=== PATIENT | female | born 1975 | race Two or more races ===

== ENCOUNTER 2020-03-28 11:18 | Outpatient (REF) | payer MEDICAID, SELFPAY ==
--- NOTE | 2020-03-28 | US_ITS ---
EXAMINATION: PELVIC ULTRASOUND CLINICAL INFORMATION: Leiomyoma of uterus. Pelvic and perineal pain. COMPARISON: Previous exams most recent January 2019 TECHNIQUE: Transabdominal and transvaginal pelvic ultrasound was performed. Transvaginal exam was performed for better visualization of the uterus and ovaries. FINDINGS: The uterus is anteverted and anteflexed and measures 9.1 x 3 x 4.5 cm in dimension. There is a hypoechoic lesion in the posterior uterine body suggestive of an intramural fibroid. This does not appear appreciably changed and measures 8 x 4 x 7 mm. There are several uterine calcifications that are unchanged. Endometrial thickness is normal estimated at 0.7 cm. There are nabothian cysts in the cervix. The ovaries are normal-appearing. The right ovary measures 1.9 x 1.2 x 1.6 cm and the left ovary measures 2.1 x 1.6 x 1.5 cm. There is no fluid in the pelvis. IMPRESSION: Small posterior uterine body intramural fibroid similar to previous exam. Several small uterine calcifications similar to previous exam. Normal-appearing ovaries.
== END 2020-03-28 11:19 | disposition home or self-care (01) ==
LOC: HO.US 11:18
PROVIDERS: Visit Provider Advanced Practice Midwife
DX: D25.9 Leiomyoma of uterus, unspecified (principal); R10.2 Pelvic and perineal pain
CPT/HCPCS: 76830; 76856

== ENCOUNTER → 2020-05-02 12:26 | Outpatient (BNVA) | payer MEDICAID, SELFPAY | PROVIDERS: PCP Nurse Practitioner Family; Referring Provider Nurse Practitioner Family; Visit Provider Internal Medicine | DX: R07.2 Precordial pain (principal); R94.31 Abnormal electrocardiogram [ECG] [EKG] | CPT/HCPCS: 93005; 99202 ==

== ENCOUNTER 2020-05-05 11:31 | Emergency (ER) | payer MEDICAID, SELFPAY ==
--- NOTE | 2020-05-05 11:52 | US_ITS ---
EXAMINATION: PELVIC ULTRASOUND CLINICAL INFORMATION: Lower abdominal pain. COMPARISON: Pelvic ultrasound most recent March 2020 TECHNIQUE: Transabdominal and transvaginal pelvic ultrasound performed. FINDINGS: Uterus: 8.7 x 4.2 x 5.1 cm. Endometrial thickness is 8 cm. Heterogeneous hypoechoic peripheral intramural solid mass in the posterior body compatible with fibroid measuring 7 mm. No change. Right ovary: Not seen. Left ovary: 3.1 x 2.5 x 2.2 cm with a volume of 8.9 mL. 1.5 cm cyst. Nabothian cysts noted. US/US transvaginal IMPRESSION: No acute abnormality. Stable small uterine fibroid. Small left ovarian cyst.
--- NOTE | 2020-05-05 11:52 | US_ITS ---
EXAMINATION: PELVIC ULTRASOUND CLINICAL INFORMATION: Lower abdominal pain. COMPARISON: Pelvic ultrasound most recent March 2020 TECHNIQUE: Transabdominal and transvaginal pelvic ultrasound performed. FINDINGS: Uterus: 8.7 x 4.2 x 5.1 cm. Endometrial thickness is 8 cm. Heterogeneous hypoechoic peripheral intramural solid mass in the posterior body compatible with fibroid measuring 7 mm. No change. Right ovary: Not seen. Left ovary: 3.1 x 2.5 x 2.2 cm with a volume of 8.9 mL. 1.5 cm cyst. Nabothian cysts noted. US/US pelvic complete IMPRESSION: No acute abnormality. Stable small uterine fibroid. Small left ovarian cyst.
[2020-05-05 11:53] VITALS: BP 109/70; PULSE 91; RESP 18; TEMP 36.8; O2SAT 99; BMI 31.6
--- NOTE | 2020-05-05 12:00 | ED.FEMALEGU ---
HPI - Female Genitourinary General Chief complaint: Abdominal Pain Stated complaint: abd pain Time Seen by Provider: 05/05/20 11:52 Source: patient Mode of arrival: ambulatory Limitations: no limitations History of Present Illness MD elicited complaint: other (pelvic pain, missed last period) Pertinent past history: tubal ligation Onset (ago): week(s) (2) Location of symptoms: suprapubic and pelvis Severity: moderate Female Urogenital Radiation: Non-Radiating Quality of pain: cramping Consistency: intermittent Vaginal discharge: none Vaginal bleeding: none Exacerbating factors: none Relieving factors: none Associated symptoms: denies other symptoms Treatment prior to arrival: none Patient : No Related Data Home Medications Medication Instructions Recorded Confirmed atorvastatin 20 mg tablet 20 mg PO DAILY 05/02/20 05/02/20 cholecalciferol (vitamin D3) 25 25 mcg PO DAILY 05/02/20 05/02/20 mcg (1,000 unit) capsule Previous Rx's Medication Instructions Recorded cyclobenzaprine 10 mg PO TID PRN #14 tab 05/05/20 Allergies Allergy/AdvReac Type Severity Reaction Status Date / Time No Known Allergies Allergy Verified 05/02/20 12:42 [No Known Allergies*] Review of Systems Review of Systems: Constitutional : No Weight loss, No Fever, No Chills ENT/Mouth : No sore throat, No Rhinorrhea Eyes: No Swelling, No Redness Cardiovascular : No Chest Pain, No SOB, NoEdema Respiratory : No Cough, No Sputum, No Wheezing Gastrointestinal : no Nausea, no Vomiting, no Diarrhea, positive abdominal Pain, No Hematochezia, No Melena Genitourinary : No Dysuria, No Urinary Frequency, No Hematuria, No Urgency, missed menses Musculoskeletal : No joint pain, No Myalgias, No Joint Swelling Skin : No Skin Lesions, No rash Neuro : No Weakness, No Numbness, No Dizziness, No Headache Psych : No Anxiety/Panic, No Depression Heme/Lymph: No Bruising, No Lymphadenopathy Endocrine : No Polyuria, No Polydipsia All other systems reviewed and are negative. FOR[facility]LY [facility], [facility] Past Medical History Medical History Anxiety and depression Hyperlipidemia Iron (Fe) deficiency anemia Migraine Pulmonary hypertension Vitamin D deficiency Surgical History History of tubal ligation Family History Family History Father Cardiovascular disease Mother Heart valve disease Social History Social History Alcohol intake: never Smoking Status: Never smoker Use of substances other than those prescribed or required for medical reasons: No Advance Directives: No Advance Directives Information Provided: No Physical Exam Vital Signs: Vital Signs: Last Vital Signs Temp 97.9 F 05/05/20 15:27 Pulse 56 05/05/20 15:27 Resp 18 05/05/20 15:27 BP 116/74 05/05/20 15:27 Pulse Ox 99 05/05/20 15:27 Body Mass Index 31.6 Appearance: Alert. Oriented X3. No acute distress. Eyes: Pupils equal, round and reactive to light. ENT: Pharynx normal. Neck: Normal inspection. Neck supple. CVS: Normal heart rate and rhythm. Pulses normal. Respiratory: No respiratory distress. Breath sounds normal. Abdomen: Soft and mild suprapubic ttp and lower pelvic pain no mass felt Skin: Skin warm and dry. Normal skin color. Normal skin turgor. Extremities: No lower extremity edema. No calf ttp Neuro: Oriented X 3. No motor deficit. No sensory deficit. Course Course Course Narrative: no acute findings stable for DC MDM - Female Genitourinary MDM Narrative Medical decision making narrative: 45 yo female with of tubal ligation and hx of of early menopause in family member - pain feels like cramping she is worried she is pregant at this time, will need labs, US to evaluate ovaries and uterus, PO pain control, if US negative will obtain CT scan, dispo per results and findings. Lab Data Result diagrams: 05/05/20 12:17 05/05/20 12:17 Labs: Lab Results 05/05/20 05/05/20 05/05/20 Range/Units 12:17 12:17 12:17 WBC 6.2 (4.8-10.8) X10*3/uL RBC 4.16 L (4.20-5.50) X10*6/uL Hgb 11.5 L (12.0-16.0) g/dl Hct 35.5 L (37-47) % MCV 85.3 (80-98) fL MCH 27.6 (27.0-33.0) pg MCHC 32.4 (31.0-35.0) g/dl RDW 12.9 (11.0-16.0) % Plt Count 354 (160-400) X10*3/uL MPV 9.2 L (9.4-12.3) fL Immature Gran % (Auto) 0.3 (0.0-0.4) % Neut % (Auto) 46.9 (45-73) % Lymph % (Auto) 36.7 (20-40) % [place] % (Auto) 13.5 H (2-11) % Eos % (Auto) 1.5 (0-4) % Baso % (Auto) 1.1 (0-2) % Lymph # (Auto) 2.3 (1.2-4.9) X10*3/uL [place] # (Auto) 0.8 (0.1-1.2) X10*3/uL Eos # (Auto) 0.1 (0.0-0.4) X10*3/uL Baso # (Auto) 0.1 (0.0-0.2) X10*3/uL Abs Immat Gran (auto) 0.02 (0.00-0.03) X10*3/uL Absolute Neuts (auto) 2.9 (2.0-8.3) X10*3/uL Absolute Nucleated RBC 0.000 (0.0-0.012) X10*3/uL Nucleated RBC % (auto) 0.0 (0.0-0.2) /100WBC Hold Blue Top SEE NOTE Sodium 140 (135-145) mmol/L Potassium 3.6 (3.3-5.1) mmol/l Chloride 107 (96-108) mmol/L Carbon Dioxide 25 (22-29) mmol/L Anion Gap 12 (12-20) BUN 7 L (9-16) mg/dL Creatinine 0.72 (0.5-1.4) mg/dL Estim Creat Clear Calc 80.1 Estimated GFR > 60 Random Glucose 88 (60-115) mg/dL Calcium 8.4 (8.4-10.2) mg/dL Magnesium 1.8 (1.6-2.6) mg/dL Total Bilirubin 0.4 (0.0-1.0) mg/dL Direct Bilirubin 0.2 (0.0-0.5) mg/dL AST 18 (5-31) U/L ALT 14 (0-31) U/L Alkaline Phosphatase 43 (39-117) U/L Total Protein 6.8 (6.5-8.0) g/dL Albumin 3.6 (3.5-5.0) g/dL Lipase 18 (8-78) U/L Urine Color Urine Appearance Urine pH (5.0-8.0) Ur Specific [place] (1.005-1.025) Urine Protein (NEG-TRACE) MG/DL Urine Glucose (UA) (NEG) MG/DL Urine Ketones (NEG) MG/DL Urine Blood (NEG) Urine Nitrite (NEG) Ur Leukocyte Esterase (NEG) Urine Test (NEGATIVE) 05/05/20 Range/Units 12:26 WBC (4.8-10.8) X10*3/uL RBC (4.20-5.50) X10*6/uL Hgb (12.0-16.0) g/dl Hct (37-47) % MCV (80-98) fL MCH (27.0-33.0) pg MCHC (31.0-35.0) g/dl RDW (11.0-16.0) % Plt Count (160-400) X10*3/uL MPV (9.4-12.3) fL Immature Gran % (Auto) (0.0-0.4) % Neut % (Auto) (45-73) % Lymph % (Auto) (20-40) % [place] % (Auto) (2-11) % Eos % (Auto) (0-4) % Baso % (Auto) (0-2) % Lymph # (Auto) (1.2-4.9) X10*3/uL [place] # (Auto) (0.1-1.2) X10*3/uL Eos # (Auto) (0.0-0.4) X10*3/uL Baso # (Auto) (0.0-0.2) X10*3/uL Abs Immat Gran (auto) (0.00-0.03) X10*3/uL Absolute Neuts (auto) (2.0-8.3) X10*3/uL Absolute Nucleated RBC (0.0-0.012) X10*3/uL Nucleated RBC % (auto) (0.0-0.2) /100WBC Hold Blue Top Sodium (135-145) mmol/L Potassium (3.3-5.1) mmol/l Chloride (96-108) mmol/L Carbon Dioxide (22-29) mmol/L Anion Gap (12-20) BUN (9-16) mg/dL Creatinine (0.5-1.4) mg/dL Estim Creat Clear Calc Estimated GFR Random Glucose (60-115) mg/dL Calcium (8.4-10.2) mg/dL Magnesium (1.6-2.6) mg/dL Total Bilirubin (0.0-1.0) mg/dL Direct Bilirubin (0.0-0.5) mg/dL AST (5-31) U/L ALT (0-31) U/L Alkaline Phosphatase (39-117) U/L Total Protein (6.5-8.0) g/dL Albumin (3.5-5.0) g/dL Lipase (8-78) U/L Urine Color YELLOW Urine Appearance CLOUDY Urine pH 5.5 (5.0-8.0) Ur Specific [place] >= 1.030 H (1.005-1.025) Urine Protein TRACE (NEG-TRACE) MG/DL Urine Glucose (UA) NEG (NEG) MG/DL Urine Ketones 5 (NEG) MG/DL Urine Blood NEG (NEG) Urine Nitrite NEG (NEG) Ur Leukocyte Esterase NEG (NEG) Urine Test NEGATIVE (NEGATIVE) Discharge Plan Discharge Clinical Impression: Abdominal pain Qualifiers: Abdominal location: lower abdomen, unspecified Qualified Code(s): R10.30 - Lower abdominal pain, unspecified Ovarian cyst Qualifiers: Laterality: left Qualified Code(s): N83.202 - Unspecified ovarian cyst, left side Patient Disposition: Home, Self-Care Instructions: Pelvic Pain (ED) Additional Instructions: return to ED for any worsening symptoms or concerns FINDINGS: Uterus: 8.7 x 4.2 x 5.1 cm. Endometrial thickness is 8 cm. Heterogeneous hypoechoic peripheral intramural solid mass in the posterior body compatible with fibroid measuring 7 mm. No change. Right ovary: Not seen. Left ovary: 3.1 x 2.5 x 2.2 cm with a volume of 8.9 mL. 1.5 cm cyst. Nabothian cysts noted. US/US pelvic complete IMPRESSION: No acute abnormality. Stable small uterine fibroid. Small left ovarian cyst. Prescriptions: New cyclobenzaprine 10 mg tablet 10 mg PO TID PRN (Reason: muscle spasm) Qty: 14 RF: 0 No Action cholecalciferol (vitamin D3) 25 mcg (1,000 unit) capsule 25 mcg PO DAILY RF: 0 atorvastatin 20 mg tablet 20 mg PO DAILY RF: 0 Referrals: [facility] [Primary Care Provider] - 2 days (if not better) Stand Alone Forms: Work/School Release
[2020-05-05 12:22] LABS: MANUAL DIFF FLAG NO
[2020-05-05] MEDS: HYDROcodone Bit/Acetam 5/325 TABLET 1 TAB PO (12:24)
[2020-05-05 12:25] LABS: Basophils Absolute Auto 0.1 X10*3/uL (0.0-0.2); Basophils Percent Auto 1.1 % (0-2); Eosinophils Absolute Auto 0.1 X10*3/uL (0.0-0.4); Eosinophils Percent Auto 1.5 % (0-4); Hematocrit 35.5 % (37-47); Hemoglobin 11.5 g/dl (12.0-16.0); Imm Gran Abs Auto 0.02 X10*3/uL (0.00-0.03); Imm Gran Pct Auto 0.3 % (0.0-0.4); Lymphocytes Absolute Auto 2.3 X10*3/uL (1.2-4.9); Lymphocytes Percent Auto 36.7 % (20-40); Mean Corpuscular HGB Conc 32.4 g/dl (31.0-35.0); Mean Corpuscular Hemoglobin 27.6 pg (27.0-33.0); Mean Corpuscular Volume 85.3 fL (80-98); Mean Platelet Volume 9.2 fL (9.4-12.3); Monocytes Absolute Auto 0.8 X10*3/uL (0.1-1.2); Monocytes Percent Auto 13.5 % (2-11); Neutrophils Absolute Auto 2.9 X10*3/uL (2.0-8.3); Neutrophils Percent Auto 46.9 % (45-73); Platelet Count 354 X10*3/uL (160-400); Red Blood Count 4.16 X10*6/uL (4.20-5.50); Red Cell Distribution Width 12.9 % (11.0-16.0); White Blood Count 6.2 X10*3/uL (4.8-10.8)
--- NOTE | 2020-05-05 12:28 | PC.NURSE ---
iv inserted, labs drawn, urine obtained, vss, medicated per order, patient awaiting ultrasound, will continue to monitor.
[2020-05-05 12:37] LABS: Glucose Urine UA NEG (NEG); Leukocyte Esterase Urine NEG (NEG); Nitrite Urine NEG (NEG); PH 5.5 (5.0-8.0); Specific Gravity - Urine >= 1.030 (1.005-1.025); Urine Blood NEG (NEG); Urine Ketones 5 MG/DL (NEG); Urine Protein TRACE MG/DL (NEG-TRACE)
[2020-05-05 12:43] LABS: Appearance Urine CLOUDY; Color Urine YELLOW
[2020-05-05 12:44] LABS: UPreg QC Valid YES; Urine Pregnancy NEGATIVE (NEGATIVE)
[2020-05-05 12:51] LABS: Alanine Aminotransferase 14 U/L (0-31); Albumin Level 3.6 g/dL (3.5-5.0); Alkaline Phosphatase 43 U/L (39-117); Anion Gap 12 (12-20); Aspartate Amino Transferase 18 U/L (5-31); Bilirubin Direct 0.2 mg/dL (0.0-0.5); Bilirubin Total 0.4 mg/dL (0.0-1.0); Blood Urea Nitrogen 7 mg/dL (9-16); Calcium 8.4 mg/dL (8.4-10.2); Carbon Dioxide 25 mmol/L (22-29); Chloride 107 mmol/L (96-108); Creatinine Clr Calc Pharmacy 80.1; Estimated Glomerular Filt Rate > 60; Glucose Random 88 mg/dL (60-115); Lipase 18 U/L (8-78); Magnesium 1.8 mg/dL (1.6-2.6); Potassium 3.6 mmol/l (3.3-5.1); Sodium 140 mmol/L (135-145); Total Protein 6.8 g/dL (6.5-8.0)
[2020-05-05 14:00] VITALS: BP 113/76; PULSE 57; RESP 14; TEMP 36.8; O2SAT 98
--- NOTE | 2020-05-05 14:13 | CT_ITS ---
EXAMINATION: CT ABDOMEN AND PELVIS WITHOUT CONTRAST CLINICAL INFORMATION: Lower abdominal pain for 2 weeks. COMPARISON: Pelvic ultrasound performed same day TECHNIQUE: Multidetector volumetric imaging was performed from the superior aspect of the liver through the pubic symphysis. Sagittal and coronal reformatted images were obtained on the technologist's workstation. This CT examination was performed using dose optimization techniques as appropriate, variously including the following: *Automated exposure control *Adjustment of mA and/or kV according to patient size (this includes techniques or standardized protocols for targeted exams where dose is matched to indication/reason for exam; i.e. extremities or head) *Use of iterative reconstruction technique DLP: 540 mGy-cm FINDINGS: LUNG BASES: The visualized lung bases are unremarkable. LIVER, GALLBLADDER, AND BILIARY TREE: The liver is normal in size, shape, and attenuation. No focal hepatic lesion or biliary ductal dilatation is present. The gallbladder is unremarkable with no evidence of radiopaque gallstones, gallbladder wall thickening, or obvious pericholecystic inflammatory changes. PANCREAS: Unremarkable. SPLEEN: Unremarkable. ADRENAL GLANDS: Unremarkable. KIDNEYS AND URETERS: The kidneys are normal in size, shape, and attenuation. No hydronephrosis, hydroureter, or calculi seen. No perinephric stranding. BLADDER: Unremarkable. GASTROINTESTINAL TRACT: Appendix not clearly visualized. However no inflammatory changes noted in the right lower quadrant. Large and small bowel within normal limits. Stomach normal. ABDOMINAL WALL: No significant hernia is appreciated. LYMPH NODES: Normal. VASCULAR: Unremarkable. PELVIC VISCERA: Unremarkable. OSSEOUS STRUCTURES: Unremarkable. CT/CT abdomen pelvis wo con IMPRESSION: No significant abnormality.
[2020-05-05 15:27] VITALS: BP 116/74; PULSE 56; RESP 18; TEMP 36.6; O2SAT 99
--- NOTE | 2020-05-05 15:29 | PC.NURSE ---
patient a&ox3, watching tv, pt states her pain is a 4/10, pt awaiting for ct scan results, vss, will continue to monitor.
== END 2020-05-05 16:43 | disposition home or self-care (01) ==
PROVIDERS: Emergency Provider Emergency Medicine
DX: N83.202 Unspecified ovarian cyst, left side (principal); R10.30 Lower abdominal pain, unspecified; R10.2 Pelvic and perineal pain; Z79.899 Other long term (current) drug therapy
CPT/HCPCS: 36415; 74176; 76830; 76856; 80048; 80076; 81003; 81025; 83690; 83735; 85025; 99284

== ENCOUNTER 2020-05-17 14:48 | Outpatient (REF) | payer MEDICAID, SELFPAY ==
[2020-05-18 03:36] LABS: CT PCR NOT DETECTED (Not Detect.); NG PCR NOT DETECTED (Not Detect.)
[2020-05-21 03:11] LABS: HPV mRNA E6/E7 rflx Not Detected (Not Detected)
== END 2020-05-17 14:49 | disposition home or self-care (01) ==
LOC: HO.LAB 14:48
PROVIDERS: Visit Provider Advanced Practice Midwife
DX: Z01.419 Encounter for gynecological examination (general) (routine) without abnormal findings (principal); Z11.8 Encounter for screening for other infectious and parasitic diseases; Z11.3 Encounter for screening for infections with a predominantly sexual mode of transmission; Z11.51 Encounter for screening for human papillomavirus (HPV)
CPT/HCPCS: 87491; 87591; 87624; 87625; 88142

== ENCOUNTER → 2020-05-27 07:51 | Outpatient (REF) | payer MEDICAID, SELFPAY ==
--- NOTE | 2020-05-27 07:55 | CA_ITS ---
Acquisition Time: 2020-05-27 09:18:22 Total Exercise Time: 00:08:09 Test Indications: Chest Pain Medications: ATORVASTATIN VIT D Protocol: FRANCY Max HR: 164 BPM 94% of Pred: 174 BPM Max BP: 140/072 mmHG Max Work Load: 10.1 METS Exercise stress test using Francy protocol, total of 8 min 9 sec. METS 10.1 and MHR upp to 94 %. Pt tolerated well, denies any anginal sx. EKG without any arrhythmias. T wave inversions seen in leads 2, 3, aVF, and V4-V6. Normotensive response to exercise. Test reviewed with Dr. Fernandez. Referred By: Ortiz Erwin Overread By: Coco Friedman
--- NOTE | 2020-05-27 07:55 | CA_ITS ---
Transthoracic Echocardiogram Patient (Last, First, Middle): Zoila Petersen, Gender: Female Date of : 1975 Age: 45 Procedure Date: 05/27/2020 Procedure Type: Transthoracic Echocardiogram Location: OP Height: 147.32 cm Weight: 75.75 kg BSA: 1.69 m2 Heart Rate: bpm BP: 100 / 60 mmHg Filler Room Attendant: NEIL Referring MD: Ortiz Erwin MD Diamond Grader: Roger Fernandez MD Symptoms: R07.2 - Precordial pain Study Quality: Good ECG Rhythm: Sinus Conclusions: - Essentially normal study Findings Left Ventricle Normal left ventricular size, thickness, and systolic function. The visually estimated ejection fraction is between 65-70%. Diastolic function is normal for age. Right Ventricle Normal right ventricular cavity size and systolic function. Atria Both atria are normal in size. There is no evidence of interatrial shunt. Aortic Valve Normal aortic valve structure and function. There is no aortic valve stenosis. There is no aortic valve regurgitation. Mitral Valve Normal mitral valve structure and function. There is trace mitral valve regurgitation. There is no mitral valve stenosis. Pulmonic Valve There is trace pulmonic valve regurgitation. Tricuspid Valve Normal tricuspid valve structure. There is trace tricuspid valve regurgitation. The right ventricular systolic pressure is normal. Normal right atrial pressure. There is no evidence of pulmonary hypertension. Great Vessels All visible segments of the aorta are normal in size. The pulmonary artery was not well visualized. Venous The inferior vena cava is normal in size and collapses greater than 50% with inspiration. Pericardium/Pleural There is no evidence of pericardial effusion. Prior Study Comparison No prior study available for comparison. Measurements 2D Linear Measurements IVSd: 0.66 0.6-0.9/0.6-1.0 cm LVIDd: 4.84 3.9-5.3/4.2-5.9 cm LVIDd Index: 2.86 2.4-3.2/2.2-3.1 cm/m2 LVIDs: 3.08 2.0-3.6 cm LVPWd: 0.68 0.7-1.1 cm Ao Root: 2.50 2.1-3.5 cm LA Diam: 3.70 2.7-3.8/3.0-4.0 cm LAIDs Index: 2.19 1.5-2.3 cm/m2 LV Mass: 127.56 67-162/88-224 g LV Mass Index: 75.48 43-95/49-115 g/m2 LVOT Diam: 1.80 3.0+(-)1.3 cm 2D Systolic Function EF 4C: 75.20 >55% EF 2C: 69.00 >55% EF BiP: 72.20 >55% Mitral Valve MV Pk E: 0.83 MV PK A: 0.60 MV Decel Time: 169.00 E/A: 1.40 E'Lateral: 12.50 E'Medial: 8.99 E/E' Med: 9.30 E/E' Lat: 6.70 PHT: 50.00 MVA PHT: 4.40 Decel Glasscock: 4.94 Aortic Valve AoV Pk Kuldip: 1.14 AoV Pk Grad: 5.00 LVOT LVOT Pk Kuldip: 1.03 LVOT Mn Kuldip: 0.65 LVOT VTI: 0.22 LVOT Pk Grad: 4.00 LVOT Mn Grad: 2.00 LVOT Diam: 1.80 LVOT Area: 2.54 Diastolic Function MV Pk E: 0.83 MV Pk A: 0.60 E/A: 1.40 E'Medial: 8.99 E/E' Med: 9.30 E' Laterial: 12.50 E/E' Lat: 6.70 Tricuspid Valve TR Pk Kuldip: 2.46 TR Pk Grad: 24.00 RA Press: 3.00 RVSP: 27.00 Great Vessels Aorta Ao Root-2D: 2.50 2.0-3.7 cm Ao Asc: 2.90 2.1-3.4 cm Ao Arch: 2.80 Updated in Other Vendor System with Status of Final Roger Fernandez MD electronically signed on 05/28/2020 11:23:23 AM with status of Final
== END ==
LOC: HO.CARD 07:51
PROVIDERS: Visit Provider Internal Medicine
DX: R07.2 Precordial pain (principal)
CPT/HCPCS: 93017; 93306

== ENCOUNTER 2020-05-31 11:30 | Outpatient (REF) | payer MEDICAID, SELFPAY ==
--- NOTE | 2020-05-31 11:35 | MM_ITS ---
EXAMINATION: MM SCREENING DIGITAL BREAST TOMOSYNTHESIS, BILATERAL CLINICAL INFORMATION: Screening. Asymptomatic. The lifetime risk of breast cancer based on the Tyrer-Cuzick Model is 7%. COMPARISON: Mammography: 01/02/18, 11/28/15, 03/25/15 TECHNIQUE: Digital breast tomosynthesis is performed in both the craniocaudal and mediolateral oblique views along with computer-aided detection (CAD). Synthesized 2D images are generated from the tomosynthesis. FINDINGS: There are scattered areas of fibroglandular density (ACR BI-RADS breast composition Category b). Right breast: There is a circumscribed oval equal density 3 cm mass or adjacent masses in the 9:00 position 7 cm from the right nipple. There is an additional circumscribed equal density oval mass in the superficial outer right breast. No suspicious right breast finding Left breast: There is no suspicious mass. There is no architectural distortion. There is no suspicious calcification MM/MM tomosynthesis screening BI IMPRESSION: Sharply circumscribed masses in the outer right breast. Report of previous ultrasound demonstrated cysts. No suspicious finding in either breast. ASSESSMENT: BI-RADS 2: Benign RECOMMENDATION: Routine annual mammography screening. This patient's information was entered into a reminder system with a target due date for their next mammogram.
== END 2020-05-31 11:31 | disposition home or self-care (01) ==
LOC: HO.MAMMO 11:30
PROVIDERS: PCP Nurse Practitioner Family; Visit Provider Advanced Practice Midwife
DX: Z12.31 Encounter for screening mammogram for malignant neoplasm of breast (principal)
CPT/HCPCS: 77063; 77067

== ENCOUNTER → 2020-06-02 15:25 | Outpatient (BNVA) | payer MEDICAID, SELFPAY | PROVIDERS: PCP Nurse Practitioner Family; Referring Provider Nurse Practitioner Family; Visit Provider Internal Medicine | DX: Z76.89 Persons encountering health services in other specified circumstances (principal) ==

== ENCOUNTER → 2020-06-10 10:28 | Outpatient (BNVA) | payer MEDICAID, SELFPAY | PROVIDERS: PCP Nurse Practitioner Family; Visit Provider Nurse Practitioner | DX: Z76.89 Persons encountering health services in other specified circumstances (principal) ==

== ENCOUNTER 2020-07-22 07:21 | Day surgery (SDC) | payer MEDICAID, SELFPAY ==
[2020-07-18 13:50] VITALS: BMI 32.3
[2020-07-18 15:34] VITALS: BMI 32.3
--- NOTE | 2020-07-21 08:30 | P.CONAN_ITS ---
Documented by User: Jennifer Reagan 07/21/20 08:37 HPI - Anesthesia Eval Consult details Narrative: 45yo F for Colonoscopy Cardiac cleared @ low risk [facility] Past Medical History Medical History Anxiety and depression Hyperlipidemia Iron (Fe) deficiency anemia Migraine Pulmonary hypertension Vitamin D deficiency Family History Family History Father Cardiovascular disease Mother Heart valve disease Surgical History Surgical History History of tubal ligation Social History Social History Alcohol intake: never Smoking Status: Never smoker Use of substances other than those prescribed or required for medical reasons: No Advance Directives Information Provided: No Recently lost weight without trying: No Gender identity: female Meds Allergies Allergy/AdvReac Type Severity Reaction Status Date / Time No Known Allergies Allergy Verified 07/22/20 07:49 [No Known Allergies*] Home Medications Medication Instructions Recorded Confirmed Type atorvastatin 20 mg tablet 20 mg PO DAILY 05/02/20 07/18/20 History cholecalciferol (vitamin D3) 25 25 mcg PO DAILY 05/02/20 07/18/20 History mcg (1,000 unit) capsule Exam Exam Date and Time: July 21, 2020 0830 Height,Weight and Vital Signs: Height 4 ft 10 in Weight 70.307 kg Pertinent Lab Results Pertinent Lab Results: Laboratory Tests 05/05/20 05/05/20 12:17 12:17 WBC 6.2 Hgb 11.5 L Hct 35.5 L Plt Count 354 Sodium 140 Potassium 3.6 Chloride 107 Carbon Dioxide 25 BUN 7 L Creatinine 0.72 Narrative Narrative: EKG 04/2020 NSR with SA @ 73 Cannot r/o anterior infarct, age undetermined Stress Report 05/27/20 Exercise stress test using James protocol, total of 8 min 9 sec. METS 10.1 and MHR upp to 94 %. Pt tolerated well, denies any anginal sx. EKG without any arrhythmias. T wave inversions seen in leads 2, 3, aVF, and V4-V6. Normotensive response to exercise. Test reviewed with Dr. Fernandez. ECHO 05/27/20 Conclusions: - Essentially normal study Assessment and Plan Assessment Anesthesia Assessment: Chart Reviewed Documented by User: Gordo Obregon 07/22/20 08:04 PMFSH Past Medical History Medical History Anxiety and depression Hyperlipidemia Iron (Fe) deficiency anemia Migraine Pulmonary hypertension Vitamin D deficiency Family History Family History Father Cardiovascular disease Mother Heart valve disease Surgical History Surgical History History of tubal ligation Social History Social History Alcohol intake: never Smoking Status: Never smoker Use of substances other than those prescribed or required for medical reasons: No Advance Directives Information Provided: No Recently lost weight without trying: No Gender identity: female Meds Allergies Allergy/AdvReac Type Severity Reaction Status Date / Time No Known Allergies Allergy Verified 07/22/20 07:49 [No Known Allergies*] Home Medications Medication Instructions Recorded Confirmed Type atorvastatin 20 mg tablet 20 mg PO DAILY 05/02/20 07/18/20 History cholecalciferol (vitamin D3) 25 25 mcg PO DAILY 05/02/20 07/18/20 History mcg (1,000 unit) capsule Exam Airway Mallampati Class: I TM Dist: >3cm Neck ROM: Full
[2020-07-22 07:58] VITALS: BP 125/75; PULSE 84; RESP 16; TEMP 36.3; O2SAT 99
[2020-07-22] MEDS: Lactated Ringers 1,000 ML 100 ML IVCONT (08:16)
--- NOTE | 2020-07-22 08:29 | P.OP_ITS ---
Operative Note Operative Note Date of Service: 07/22/20 Narrative: Pre-op diagnosis: Colon cancer screening, lower abdominal pain Post-op diagnosis: other (Colon polyp, diverticulosis, hemorrhoids) Procedure: COLONOSCOPY TILL CECUM WITH BIOPSIES Consent: Indications for the procedure and potential complications of bleeding, perforation, reaction to medications and missed diagnosis were discussed with the patient and informed consent was obtained. Instrument: Olympus PCF H 190 L variable stiffness pediatric colonoscope Monitoring: Vital signs and clinical assessment, intermittent blood pressure monitoring, continuous EKG monitoring, Pulse oximetry and Carbon Dioxide monitoring were done throughout the procedure. Colon withdrawl time was 14 minutes. Procedure: The patient was placed in the left lateral decubitis position and pre-procedure medications were administered. After a digital rectal examination of the ano-rectum, the video colonoscope was inserted into the rectum and advanced through the colon to the cecum. The colonoscope was slowly withdrawn in a retrograde panoramic fashion and the colon mucosa was carefully examined including a retroflexed view of the rectum. Findings and interventions are described below. Procedure Difficulty: Without difficulty Findings: Terminal Ileum: Not evaluated Cecum: Normal Ascending Colon: A 3-4 mm sessile polyp in the mid ascending colon, removed with cold biopsy. Transverse Colon: Normal Descending Colon: Normal Sigmoid Colon: Moderate diverticulosis Rectum: Normal Ano-rectum: Small internal hemorrhoids and perianal skin tags Colon preparation: Excellent Impression and Post Procedure Diagnosis: Colonoscopy Findings: One small polyp removed Random biopsies obtained from the colon. Moderate diverticulosis seen in the sigmoid colon Small hemorrhoids and perianal skin tags on retroflexed exam. Pt complains of intermittent constipation and denies any abdominal pain at present. She has been drinking prune juice. Plan: Await pathology results Patient has an appointment on 08/12/20 in the GI Clinic with Tawny Jean NP. Repeat Colonoscopy interval based on path results - in 5 years if polyps are adenomatous and 10 years if polyps are hyperplastic. 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 Random colon bx . AC polyp x 1, ) Condition: stable Disposition: PACU
--- NOTE | 2020-07-22 08:29 | MHC.SHP ---
Pre-Procedural Eval Section A The patient is an INPATIENT: No The History & Physical has been completed within 30 days and I have reviewed it.: No Section B Chief Complaint: lower abd pain Details of Present Illness: Colon cancer screening, lower abdominal pain Relevant Family History (Specify if Yes): No Relevant Social History: None Present Medications: see Short Stay Collaborative assessment Medical History: Significant History (Anxiety and depression Hyperlipidemia Iron (Fe) deficiency anemia Migraine Pulmonary hypertension Vitamin D deficiency) History of Previous Operations: Relevant previous surgery/procedure and date(s) (BTL) Allergies: Allergies Allergy/AdvReac Type Severity Reaction Status Date / Time No Known Allergies Allergy Verified 07/22/20 07:49 [No Known Allergies*] Review of Systems Sugical H&P ROS: Negative: Constitution, Cardiovascular and Respiratory and Yes, Specify: Gastrointestinal (Lower abdominal pain) Exam Surgical H&P Exam: Normal: HEENT, Normal: Heart, Normal: Lungs and Normal: Abdomen Plan Diagnosis/Plan: Unchanged I have reviewed the history and physical and performed a pertinent physical examination on my patient. No changes have occurred unless specified.
[2020-07-22 09:10] VITALS: BP 95/59; PULSE 72; RESP 16; TEMP 37.3; O2SAT 97
[2020-07-22 09:25] VITALS: BP 113/74; PULSE 71; RESP 13; TEMP 37.3; O2SAT 98
--- NOTE | 2020-07-22 09:51 | HO.POSTANES ---
Post Anesthesia Evaluation Post Anesthesia Evaluation Vital Signs: Vital Signs Temp Pulse Resp BP Pulse Ox 07/22/20 09:25 99.2 F 71 13 113/74 98 07/22/20 09:10 99.2 F 72 16 95/59 L 97 07/22/20 07:58 97.3 F 84 16 125/75 99 Anesthesia: Monitored Mental Status: Awake Pain Control: Satisfactory Nausea/Vomiting: None Hydration: Adequate Anesthesia-Related Issues: No Anes. Related Issues
== END 2020-07-22 09:58 | disposition home or self-care (01) ==
PROVIDERS: Visit Provider Internal Medicine Gastroenterology
PROC: 0DJD8ZZ Inspection of Lower Intestinal Tract, Via Natural or Artificial Opening Endoscopic (ICD-10-PCS; CPT 45378; principal; 2020-07-22 08:40)
DX: R10.30 Lower abdominal pain, unspecified (principal); D12.2 Benign neoplasm of ascending colon; K57.30 Diverticulosis of large intestine without perforation or abscess without bleeding; K64.8 Other hemorrhoids; K64.4 Residual hemorrhoidal skin tags; I27.20 Pulmonary hypertension, unspecified; D50.9 Iron deficiency anemia, unspecified; E55.9 Vitamin D deficiency, unspecified; F32.9 Major depressive disorder, single episode, unspecified; Z79.899 Other long term (current) drug therapy; Z82.49 Family history of ischemic heart disease and other diseases of the circulatory system
CPT/HCPCS: 45380; 88305; J3010

== ENCOUNTER → 2020-08-12 09:42 | Outpatient (BNVA) | payer MEDICAID, SELFPAY | PROVIDERS: Visit Provider Nurse Practitioner ==

== ENCOUNTER 2020-10-20 15:00 | Outpatient (REF) | payer MEDICAID, SELFPAY ==
[2020-10-20 15:53] LABS: COVID-19 Test Negative (Negative)
== END 2020-10-20 15:01 | disposition home or self-care (01) ==
LOC: HO.LAB 15:00
PROVIDERS: Visit Provider Internal Medicine
DX: Z20.822 Contact with and (suspected) exposure to COVID-19 (principal)
CPT/HCPCS: 36415; 87635; C9803

== ENCOUNTER → 2021-02-09 08:52 | Outpatient (BNVA) | payer MEDICAID, SELFPAY | PROVIDERS: PCP Nurse Practitioner Family; Visit Provider Nurse Practitioner ==

== ENCOUNTER 2021-04-01 11:46 | Emergency (ER) | payer MEDICAID, SELFPAY ==
--- NOTE | ~2021-04-01 | US_ITS ---
EXAMINATION: US PELVIS CLINICAL INFORMATION: Vaginal bleeding COMPARISON: Ultrasound pelvis 05/05/2020 TECHNIQUE: Ultrasound of the pelvis is performed using both transabdominal and transvaginal transducers along with Doppler. Transvaginal imaging is performed due to inadequate visualization transabdominally. FINDINGS: Uterus: The uterus is anteverted and measures 9.4 x 4 x5 cm. Endometrial thickness 0.9 cm. Small fluid in the endometrial canal. Nabothian cysts in the cervix. Hypoechoic peripheral intramural mass in the posterior uterine body, probable fibroid, measuring 1.1 cm, similar to previous. Adnexa: Right ovary measures 2.6 x 1.5 x 2 , volume 4.1 mL. There is a 1.8 cm anechoic avascular cyst/follicle. Left ovary measures 3.1 x 1.7 x 2 cm, volume 7.7 mL. Left ovary appears unremarkable. No free fluid in the pelvis. US/US pelvic and transvaginal IMPRESSION: 1. There is a 1.1 cm hypoechoic uterine lesion, probable fibroid. 2. Right ovarian 1.8 cm cyst. 3. Otherwise unremarkable study.
[2021-04-01 12:56] VITALS: BP 113/80; PULSE 79; RESP 16; TEMP 36.1; O2SAT 96; BMI 32.1
--- NOTE | 2021-04-01 14:22 | ECG_ITS ---
Test Reason : VAGINAL BLEEDING Blood Pressure : / mmHG Vent. Rate : 068 BPM Atrial Rate : 068 BPM P-R Int : 132 ms QRS Dur : 082 ms QT Int : 400 ms P-R-T Axes : 045 008 002 degrees QTc Int : 425 ms Normal sinus rhythm with sinus arrhythmia Normal ECG No previous ECGs available Referred By: No Unger Electronically Signed By:RO WOOTEN MD
[2021-04-01 14:42] VITALS: BP 117/69; PULSE 59
[2021-04-01 14:46] VITALS: BP 127/79; PULSE 61
[2021-04-01 14:49] VITALS: BP 125/84; PULSE 76
--- NOTE | 2021-04-01 15:08 | ED_ITS ---
HPI - Female Genitourinary General Chief complaint: Vaginal Bleeding Stated complaint: vaginal bleeding Time Seen by Provider: 04/01/21 14:19 Source: patient Mode of arrival: ambulatory Limitations: no limitations History of Present Illness HPI Narrative: This is a 46-year-old female past medical history significant for pulmonary hypertension, migraine headaches, iron deficiency anemia who presents to the emergency department with vaginal bleeding and dizziness since March 17. She states she is going through 3-4 super tampons, and pads per day. She states the reason she came in today is because her dizziness has progressively worsening. She states earlier this week she was seen for the same complaints at [facility], where they prescribed her hormones to stop the bleeding, however the bleeding has not stopped, and it has worsened over the past few days. She also states that she was given Depo-Provera in January, to help with heavy menstrual bleeding. However this did not seem to help. Today she states she feels fatigued, and dizzy, she describes it as not being able to get her ba sebastian, and she also states that she feels generally weak. She denies chest pain, shortness of breath, abdominal pain, fevers, chills, recent sick contacts, vaginal discharge, dysuria, urinary frequency and urgency. She states she is up-to-date on her Pap smear screenings. She has had no abnormal results. She has tubal ligation. MD elicited complaint: vaginal bleeding Onset (ago): week(s) (Two) Severity: severe Consistency: constant and progressively worsening Vaginal discharge: none Vaginal bleeding: heavy, bright red and clots Exacerbating factors: urination Relieving factors: none Associated symptoms: weakness Treatment prior to arrival: other (Hormone replacement.) Patient : No Related Data Home Medications Medication Instructions Recorded Confirmed atorvastatin 20 mg tablet 20 mg PO DAILY 05/02/20 07/18/20 cholecalciferol (vitamin D3) 25 25 mcg PO DAILY 05/02/20 07/18/20 mcg (1,000 unit) capsule Previous Rx's Medication Instructions Recorded cyclobenzaprine 10 mg tablet 10 mg PO TID PRN #14 tab 05/05/20 dicyclomine 10 mg capsule 10 mg PO QID 30 Days #120 cap 02/09/21 medroxyprogesterone 10 mg tablet 10 mg PO DAILY 30 Days #30 tab 04/01/21 (Provera) Allergies Allergy/AdvReac Type Severity Reaction Status Date / Time No Known Allergies Allergy Verified 04/01/21 12:59 [No Known Allergies*] Review of Systems Review of Systems: Constitutional : No Fever, No Chills ENT/Mouth : No sore throat, No Rhinorrhea Eyes: No Eye Pain, No Redness Cardiovascular : No Chest Pain, No SOB Respiratory : No Cough, No Sputum, No Wheezing Gastrointestinal : No Nausea, No Vomiting, No Diarrhea, positive abdominal pain, Genitourinary : + irregular bleeding, No Dysuria, No Urinary Frequency, No pelvic pain, No vaginal discharge, no hematuria Musculoskeletal : No Myalgias Skin : No rash Neuro : + general weakness and dizziness, No Weakness, No Headache Psych : No Anxiety/Panic, No Depression Heme/Lymph: No bruising, No Lymphadenopathy Endocrine : No Polyuria, No Polydipsia Yes all other systems are reviewed and are negative [facility] Past Medical History Attestation statement: The following information was validated with the patient. Medical History Abdominal cramping Abnormal EKG Anxiety and depression Colon cancer screening Hyperlipidemia Iron (Fe) deficiency anemia Lower abdominal pain Migraine Potential exposure to STD Precordial chest pain Pulmonary hypertension Vitamin D deficiency Surgical History History of tubal ligation Hx of colonoscopy Family History Family History Father Cardiovascular disease Mother Heart valve disease Diabetes HTN (hypertension) Social History Social History Household Members: Children Alcohol intake: never Patient Tobacco Use Status: Never used Tobacco Use of substances other than those prescribed or required for medical reasons: No Advance Directives: No Patient : No Gender identity: Female Physical Exam Vital Signs: Vital Signs: Last Vital Signs Temp 97 F 04/01/21 12:56 Pulse 71 04/01/21 16:31 Resp 16 04/01/21 16:31 BP 123/83 04/01/21 16:31 Pulse Ox 97 04/01/21 16:31 Body Mass Index 32.1 vital signs have been reviewed as normal and appeared to be correct. Blood pressure normal. Heart rate normal. Respiration rate normal. Temperature normal. Oxygen saturation normal. Appearance: Alert. Oriented X3. No acute distress. Head: Normal external exam. Normocephalic. Atraumatic. Eyes: PERRLA. EOMI. Conjunctiva and sclera normal. Eyelids normal. ENT: Pharynx normal. Uvula midline. Moist mucous membranes. Neck: Normal inspection. Neck supple. FROM. No adenopathy. Thyroid Normal. No meningeal signs. No neck mass noted. CVS: Normal heart rate and rhythm. Heart sound normal. No murmurs noted. Pulses normal throughout. Respiratory: No respiratory distress. Painless inspiration. Breath sounds normal. No wheezes/rales/rhonchi noted. Chest nontender. No accessory muscle usage noted or decreased air movement noted. Abdomen: Soft and nontender. Bowel sounds normal in all 4 quadrants. No distention noted. No organomegaly noted. No visible injury noted. : Chaperoned by Regine. Normal external appearance of urethra. No tenderness noted. Speculum exam normal appearance, but visible bright red blood noted/pa lpation of vagina normal. No abnormal vaginal discharge noted, only bright red blood. Otherwise no vaginal erythema. No foreign bodies noted. No vaginal laceration/lesions noted + bright red blood noted in vaginal canal and overlying cervix . No tissue present in vagina. No vaginal mass noted. No vaginal swelling noted. No vaginal No tenderness noted. Normal appearance of cervix. Normal palpation of cervix. Cervical os is closed. No cervical lesion/mass. No Bartholin cyst noted. No cervical motion tenderness noted. Negative chandelier sign. Normal bimanual exam. Uterine size normal. Bladder normal to palpation. Uterine consistency normal. Normal cervical palpation. Uterine m obility normal. Uterine shape normal. Normal adnexa. Normal rectovaginal exam. Back: No CVA tenderness. Full range of motion noted. Skin: Skin warm and dry. Normal skin color. Normal skin turgor. No rashes/lesions/lacerations noted. Extremities: No lower extremity edema. No calf tenderness is noted. Extremities exhibit normal range of motion and nontender. Neuro: Oriented X 3. No motor deficit. No sensory deficit. Reflexes normal. Course Course Course Narrative: 14:20pm This is a 46-year-old female past medical history significant for migraines, iron deficiency anemia and pulmonary hypertension presenting to the emergency department with 2 weeks of consistent vaginal bleeding. She states she went to the [facility] two days ago for same complaint, where they prescribed her hormones, to try to stop the bleeding although no improvement. She states before that she also received Depo-Provera, which did not stop the bleeding in January. She states she decided to come in today because she is having associated dizziness and general weakness with the vaginal bleeding. She had a tubal ligation. She is up-to-date with her Pap screening, she states she has never had abnormal results. Upon physical examination and the patient appears fatigued, and pallor is appreciated throughout. There is no tenderness to palpation of the abdomen. A regular rate and rhythm is noted, without adventitious lung sounds. Pelvic exam shows bright red blood in vaginal canal, and overlying the cervix. The blood is bright red in color. Negative chandelier sign. Unlikely that this is PID. However swabs for gonorrhea and chlamydia has been obtained. This is likely abnormal uterine bleeding. At this time plan is to obtain basic labs, EKG, orthostatic vital signs, magnesium, PT INR, UA, U , gonorrhea and chlamydia PCR, syphilis, bacterial vaginosis, Trichomonas and an ultrasound of the pelvis-has also been ordered. Reevaluation(s) Reevaluation #1: Lab show no acute infection, urine shows no UTI, urine negative. No evident electrolyte abnormalities. Patient is not severely anemic at this time. Ultrasound pelvic and transvaginal shows a 1.1 cm hypoechoic uterine lesion improbable , probable fibroid, as well as a 1.8 cm cyst right ovary. This is likely abnormal uterine bleeding, that will require further workup and outpatient follow-up with an OBGYN. Likely not PID. Therapy pending swabs. We will not treat prophylactically, as patient has no concerns for STDs. At this time awaiting phone call from Dr. Antony to discuss this case. Time: 17:31 Reevaluation #2: Dr. Antony recommended for us to start the patient on 10 mg of medroxyprogesterone instead of the 5 mg daily until she follows up with him as an outpatient basis for endometrial biopsy therefore explained this to the patient she understands agrees with the plan along with instructions to make a follow-up appoint with Dr. Antony. Will DC home at this time. Time: 17:38 MDM - Female Genitourinary Medical Records Attestation: I reviewed the patient's medical records. Lab Data Attestation: I reviewed the patient's lab results. Result diagrams: 04/01/21 16:17 04/01/21 16:17 Labs: Lab Results 04/01/21 04/01/21 04/01/21 Range/Units 16:14 16:17 16:17 WBC 5.6 (4.8-10.8) X10*3/uL RBC 4.35 (4.20-5.50) X10*6/uL Hgb 12.1 (12.0-16.0) g/dl Hct 36.7 L (37-47) % MCV 84.4 (80-98) fL MCH 27.8 (27.0-33.0) pg MCHC 33.0 (31.0-35.0) g/dl RDW 13.5 (11.0-16.0) % Plt Count 339 (160-400) X10*3/uL MPV 9.1 L (9.4-12.3) fL Immature Gran % (Auto) 0.2 (0.0-0.4) % Neut % (Auto) 42.9 L (45-73) % Lymph % (Auto) 38.7 (20-40) % [place] % (Auto) 16.2 H (2-11) % Eos % (Auto) 0.9 (0-4) % Baso % (Auto) 1.1 (0-2) % Lymph # (Auto) 2.2 (1.2-4.9) X10*3/uL [place] # (Auto) 0.9 (0.1-1.2) X10*3/uL Eos # (Auto) 0.1 (0.0-0.4) X10*3/uL Baso # (Auto) 0.1 (0.0-0.2) X10*3/uL Abs Immat Gran (auto) 0.01 (0.00-0.03) X10*3/uL Absolute Neuts (auto) 2.4 (2.0-8.3) X10*3/uL Absolute Nucleated RBC 0.000 (0.0-0.012) X10*3/uL Nucleated RBC % (auto) 0.0 (0.0-0.2) /100WBC PT (9.9-13.0) SEC INR (0.9-1.1) Sodium 141 (135-145) mmol/L Potassium 4.0 (3.3-5.1) mmol/L Chloride 110 H (96-108) mmol/L Carbon Dioxide 23 (22-29) mmol/L Anion Gap 12 (12-20) BUN 8 L (9-16) mg/dL Creatinine 0.73 (0.5-1.4) mg/dL Estim Creat Clear Calc 82.4 Estimated GFR > 60 Random Glucose 92 (60-115) mg/dL Calcium 9.2 D (8.4-10.2) mg/dL Magnesium 2.2 (1.6-2.6) mg/dL Total Bilirubin 0.6 (0.0-1.0) mg/dL AST 18 (5-31) U/L ALT 10 (0-31) U/L Alkaline Phosphatase 46 (39-117) U/L Total Protein 7.8 (6.5-8.0) g/dL Albumin 4.1 (3.5-5.0) g/dL Beta HCG, Quant < 2 mIU/mL Urine Color Urine Appearance Urine pH (5.0-8.0) Ur Specific [place] (1.005-1.025) Urine Protein (NEG-TRACE) MG/DL Urine Glucose (UA) (NEG) MG/DL Urine Ketones (NEG) MG/DL Urine Blood (NEG) Urine Nitrite (NEG) Ur Leukocyte Esterase (NEG) Urine RBC (0) /HPF Urine WBC (0-4) /HPF Ur Squamous Epith Cells /LPF Amorphous Sediment /LPF Urine Bacteria /LPF Urine Mucus /LPF Urine Test (NEGATIVE) Blood Type O Positive Antibody Screen NEGATIVE 04/01/21 04/01/21 04/01/21 Range/Units 16:17 16:36 16:36 WBC (4.8-10.8) X10*3/uL RBC (4.20-5.50) X10*6/uL Hgb (12.0-16.0) g/dl Hct (37-47) % MCV (80-98) fL MCH (27.0-33.0) pg MCHC (31.0-35.0) g/dl RDW (11.0-16.0) % Plt Count (160-400) X10*3/uL MPV (9.4-12.3) fL Immature Gran % (Auto) (0.0-0.4) % Neut % (Auto) (45-73) % Lymph % (Auto) (20-40) % [place] % (Auto) (2-11) % Eos % (Auto) (0-4) % Baso % (Auto) (0-2) % Lymph # (Auto) (1.2-4.9) X10*3/uL [place] # (Auto) (0.1-1.2) X10*3/uL Eos # (Auto) (0.0-0.4) X10*3/uL Baso # (Auto) (0.0-0.2) X10*3/uL Abs Immat Gran (auto) (0.00-0.03) X10*3/uL Absolute Neuts (auto) (2.0-8.3) X10*3/uL Absolute Nucleated RBC (0.0-0.012) X10*3/uL Nucleated RBC % (auto) (0.0-0.2) /100WBC PT 12.9 (9.9-13.0) SEC INR 1.1 (0.9-1.1) Sodium (135-145) mmol/L Potassium (3.3-5.1) mmol/L Chloride (96-108) mmol/L Carbon Dioxide (22-29) mmol/L Anion Gap (12-20) BUN (9-16) mg/dL Creatinine (0.5-1.4) mg/dL Estim Creat Clear Calc Estimated GFR Random Glucose (60-115) mg/dL Calcium (8.4-10.2) mg/dL Magnesium (1.6-2.6) mg/dL Total Bilirubin (0.0-1.0) mg/dL AST (5-31) U/L ALT (0-31) U/L Alkaline Phosphatase (39-117) U/L Total Protein (6.5-8.0) g/dL Albumin (3.5-5.0) g/dL Beta HCG, Quant mIU/mL Urine Color YELLOW Urine Appearance HAZY Urine pH 6.0 (5.0-8.0) Ur Specific [place] >= 1.030 H (1.005-1.025) Urine Protein TRACE (NEG-TRACE) MG/DL Urine Glucose (UA) NEG (NEG) MG/DL Urine Ketones >=80 (NEG) MG/DL Urine Blood 3+ H (NEG) Urine Nitrite NEG (NEG) Ur Leukocyte Esterase NEG (NEG) Urine RBC 1-4 (0) /HPF Urine WBC 0-2 (0-4) /HPF Ur Squamous Epith Cells 4+ /LPF Amorphous Sediment 1+ /LPF Urine Bacteria 1+ /LPF Urine Mucus 2+ /LPF Urine Test NEGATIVE (NEGATIVE) Blood Type Antibody Screen Imaging Data Pelvic/transvaginal ultrasound: Attestation: I personally reviewed and interpreted this imaging study as follows: Radiologist's impression: FINDINGS: Uterus: The uterus is anteverted and measures 9.4 x 4 x5 cm. Endometrial thickness 0.9 cm. Small fluid in the endometrial canal. Nabothian cysts in the cervix. Hypoechoic peripheral intramural mass in the posterior uterine body, probable fibroid, measuring 1.1 cm, similar to previous. Adnexa: Right ovary measures 2.6 x 1.5 x 2 , volume 4.1 mL. There is a 1.8 cm anechoic avascular cyst/follicle. Left ovary measures 3.1 x 1.7 x 2 cm, volume 7.7 mL. Left ovary appears unremarkable. No free fluid in the pelvis. US/US pelvic and transvaginal IMPRESSION: ? 1. There is a 1.1 cm hypoechoic uterine lesion, probable fibroid. ? 2. Right ovarian 1.8 cm cyst. ? 3. Otherwise unremarkable study. ECG Data Attestation: I personally reviewed and interpreted this ECG as follows: ECG interpretation date: 04/01/21 ECG interpretation time: 15:23 Prior ECG tracings: available for review Interpretation: Ventricular rate of 68 normal HI interval, normal QRS, normal QT/QTC. EKG shows normal sinus rhythm with sinus arrhythmia. No ST elevation, nonspecific T-wave inversions in V1 and lead 3. No acute signs of ischemia. No acute changes when compared to EKG from 05/27/2020. Discharge Plan Discharge Clinical Impression: Menorrhagia Patient Disposition: Home, Self-Care Instructions: Menorrhagia (ED) Prescriptions: New medroxyprogesterone [Provera] 10 mg tablet 10 mg PO DAILY 30 Days Qty: 30 RF: 0 No Action cyclobenzaprine 10 mg tablet 10 mg PO TID PRN (Reason: muscle spasm) Qty: 14 RF: 0 dicyclomine 10 mg capsule 10 mg PO QID 30 Days Qty: 120 RF: 6 cholecalciferol (vitamin D3) 25 mcg (1,000 unit) capsule 25 mcg PO DAILY RF: 0 atorvastatin 20 mg tablet 20 mg PO DAILY RF: 0 Referrals: [facility] [Primary Care Provider] - 2 days Julio C Antony MD [Physician] - 2 days (Call to make a follow-up appointment within a month) Print Language: Syriac
--- NOTE | 2021-04-01 15:44 | PC.NURSE ---
off unit to ultrasound
[2021-04-01 16:21] LABS: MANUAL DIFF FLAG NO
[2021-04-01 16:29] LABS: Basophils Absolute Auto 0.1 X10*3/uL (0.0-0.2); Basophils Percent Auto 1.1 % (0-2); Eosinophils Absolute Auto 0.1 X10*3/uL (0.0-0.4); Eosinophils Percent Auto 0.9 % (0-4); Hematocrit 36.7 % (37-47); Hemoglobin 12.1 g/dl (12.0-16.0); Imm Gran Abs Auto 0.01 X10*3/uL (0.00-0.03); Imm Gran Pct Auto 0.2 % (0.0-0.4); Lymphocytes Absolute Auto 2.2 X10*3/uL (1.2-4.9); Lymphocytes Percent Auto 38.7 % (20-40); Mean Corpuscular Hemoglobin 27.8 pg (27.0-33.0); Mean Corpuscular Volume 84.4 fL (80-98); Mean Platelet Volume 9.1 fL (9.4-12.3); Monocytes Absolute Auto 0.9 X10*3/uL (0.1-1.2); Monocytes Percent Auto 16.2 % (2-11); Neutrophils Absolute Auto 2.4 X10*3/uL (2.0-8.3); Neutrophils Percent Auto 42.9 % (45-73); Platelet Count 339 X10*3/uL (160-400); Red Blood Count 4.35 X10*6/uL (4.20-5.50); Red Cell Distribution Width 13.5 % (11.0-16.0); White Blood Count 5.6 X10*3/uL (4.8-10.8)
[2021-04-01 16:31] VITALS: BP 123/83; PULSE 71; RESP 16; O2SAT 97
--- NOTE | 2021-04-01 16:32 | PC.NURSE ---
Pt reports bleeding vaginally since 03/17, at times withclots abd intermittent abd cramping, none at present. Awaits labs and u/s resutls
[2021-04-01 16:34] LABS: INTERNATIONAL NORM RATIO 1.1 (0.9-1.1); Prothrombin Time 12.9 SEC (9.9-13.0)
[2021-04-01 16:45] LABS: Appearance Urine HAZY; Color Urine YELLOW; Glucose Urine UA NEG (NEG); Leukocyte Esterase Urine NEG (NEG); Nitrite Urine NEG (NEG); Specific Gravity - Urine >= 1.030 (1.005-1.025); UACC Culture Trigger NO; Urine Blood 3+ (NEG); Urine Ketones >=80 MG/DL (NEG); Urine Protein TRACE MG/DL (NEG-TRACE)
[2021-04-01 16:46] LABS: Alanine Aminotransferase 10 U/L (0-31); Albumin Level 4.1 g/dL (3.5-5.0); Alkaline Phosphatase 46 U/L (39-117); Anion Gap 12 (12-20); Aspartate Amino Transferase 18 U/L (5-31); Bilirubin Total 0.6 mg/dL (0.0-1.0); Blood Urea Nitrogen 8 mg/dL (9-16); Calcium 9.2 mg/dL (8.4-10.2); Carbon Dioxide 23 mmol/L (22-29); Chloride 110 mmol/L (96-108); Creatinine Clr Calc Pharmacy 82.4; Estimated Glomerular Filt Rate > 60; Glucose Random 92 mg/dL (60-115); Magnesium 2.2 mg/dL (1.6-2.6); Sodium 141 mmol/L (135-145); Total Protein 7.8 g/dL (6.5-8.0)
[2021-04-01 16:48] LABS: UPreg QC Valid YES; Urine Pregnancy NEGATIVE (NEGATIVE)
[2021-04-01 16:51] LABS: Mucus Urine 2+ /LPF; Squamous Epithelial Cell Urine 4+ /LPF
[2021-04-01 16:54] LABS: Amorphous Sediment Urine 1+ /LPF; Bacteria Urine 1+ /LPF; WBC Urine 0-2 /HPF (0-4)
[2021-04-01 17:04] LABS: HCG Quantitative < 2 mIU/mL
--- NOTE | 2021-04-01 17:19 | PC.NURSE ---
Yomi PA in to complete pelvic exam and vaginal swabs
--- NOTE | 2021-04-01 17:39 | PM.GYNCN ---
LAND PLANNER - CN: HPI Data of Consult Consult date: 04/01/21 Primary Care Provider: [facility] Consult Narrative Narrative: I was consulted on the phone regarding Zoila Jackson who is a 46 year old female who presented to the emergency room with vaginal bleeding. Patient was recently started on Provera 5 mg p.o. last Pap smear was May of 2020 was negative HPV negative, last mammogram was done few months ago was negative, no recent endometrial biopsy. The workup done emergency room include the following H and H within normal, urine test negative, ultrasound 1.1 cm myoma cc:: CC: C SOFTWARE DEVELOPER - Review of Systems Review of Systems ROS Unobtainable: All systems reviewed & are unremarkable except as noted in HPI and below OB PMFSH Past Medical History Medical History Abdominal cramping Abnormal EKG Anxiety and depression Colon cancer screening Hyperlipidemia Iron (Fe) deficiency anemia Lower abdominal pain Migraine Potential exposure to STD Precordial chest pain Pulmonary hypertension Vitamin D deficiency Family History Family History Father Cardiovascular disease Mother Heart valve disease Diabetes HTN (hypertension) Surgical History Surgical History History of tubal ligation Hx of colonoscopy Social History Social History Household Members: Children Alcohol intake: never Patient Tobacco Use Status: Never used Tobacco Use of substances other than those prescribed or required for medical reasons: No Advance Directives: No Patient : No Gender identity: Female Meds Allergies Allergy/AdvReac Type Severity Reaction Status Date / Time No Known Allergies Allergy Verified 04/01/21 12:59 [No Known Allergies*] Home Medications Medication Instructions Recorded Confirmed Last Taken Type atorvastatin 20 mg tablet 20 mg PO DAILY 05/02/20 07/18/20 Unknown History cholecalciferol (vitamin D3) 25 25 mcg PO DAILY 05/02/20 07/18/20 Unknown History mcg (1,000 unit) capsule LAND PLANNER Physical Exam Vitals Vital signs: Temp Pulse Resp BP Pulse Ox 97 F 71 16 123/83 97 04/01/21 12:56 04/01/21 16:31 04/01/21 16:31 04/01/21 16:31 04/01/21 16:31 Body Mass Index 32.1 Narrative: Per ANA LAURA Liao, no active bleeding, no cervical motion tenderness or uterine adnexal tenderness LAND PLANNER - Results Labs CBC & Chem 7: 04/01/21 16:17 04/01/21 16:17 Labs: Short CBC 04/01/21 Range/Units 16:17 WBC 5.6 (4.8-10.8) X10*3/uL Hgb 12.1 (12.0-16.0) g/dl Hct 36.7 L (37-47) % Plt Count 339 (160-400) X10*3/uL BMP 04/01/21 16:17 Sodium 141 Potassium 4.0 Chloride 110 H Carbon Dioxide 23 BUN 8 L Creatinine 0.73 Calcium 9.2 D Liver Function 04/01/21 Range/Units 16:17 Total Bilirubin 0.6 (0.0-1.0) mg/dL AST 18 (5-31) U/L ALT 10 (0-31) U/L Alkaline Phosphatase 46 (39-117) U/L Albumin 4.1 (3.5-5.0) g/dL Urine 04/01/21 04/01/21 Range/Units 16:36 16:36 Urine Color YELLOW Urine Appearance HAZY Urine pH 6.0 (5.0-8.0) Ur Specific [place] >= 1.030 H (1.005-1.025) Urine Protein TRACE (NEG-TRACE) MG/DL Urine Glucose (UA) NEG (NEG) MG/DL Urine Test NEGATIVE (NEGATIVE) Antibody Screen Antibody Screen NEGATIVE 04/01/21 16:14 Assessment and Plan (1) Abnormal uterine bleeding (AUB): Status: Acute Recommended follow-up in the office few days for endometrial biopsy to rule out endometrial pathology including endometrial hyperplasia cancer and atypia, increase Provera 10 mg p.o. q.d. till then. Instructions to be given to patient to return to the emergency room if bleeding gets heavier. I was consulted on the phone regarding this patient, did not see the patient examine her interview
[2021-04-01] MEDS: medroxyPROGESTERone Acetate 5 MG TABLET PO (18:39)
[2021-04-03 00:56] LABS: CT PCR NOT DETECTED (Not Detect.); NG PCR NOT DETECTED (Not Detect.)
[2021-04-03 09:22] LABS: Syphilis Screen Nonreactive (Nonreactive)
[2021-04-03 12:30] LABS: BV Int Neg Control Negative (Negative); BV Int Pos Control Positive (Positive)
== END 2021-04-01 18:42 | disposition home or self-care (01) ==
PROVIDERS: Physician Assistant Medical; Emergency Provider Emergency Medicine Emergency Medical Services
DX: N92.0 Excessive and frequent menstruation with regular cycle (principal); R42 Dizziness and giddiness; R30.0 Dysuria; Z20.2 Contact with and (suspected) exposure to infections with a predominantly sexual mode of transmission; Z79.899 Other long term (current) drug therapy
CPT/HCPCS: 36415; 76830; 76856; 80053; 81001; 81025; 83735; 84702; 85025; 85610; 86780; 86850; 86900; 86901; 87480; 87491; 87510; 87591; 87660; 93005; 99285

== ENCOUNTER 2021-04-04 09:56 | Outpatient (REF) | payer MEDICAID, SELFPAY | END 2021-04-04 09:57 | disposition home or self-care (01) | LOC: HO.LAB 09:56 | PROVIDERS: Visit Provider Obstetrics & Gynecology | DX: N93.9 Abnormal uterine and vaginal bleeding, unspecified (principal) | CPT/HCPCS: 58100; 88305; 88342; 99212 ==

== ENCOUNTER → 2021-04-11 09:44 | Outpatient (BNVA) | payer MEDICAID, SELFPAY | PROVIDERS: Visit Provider Obstetrics & Gynecology | DX: N93.9 Abnormal uterine and vaginal bleeding, unspecified (principal); N76.0 Acute vaginitis; B96.89 Other specified bacterial agents as the cause of diseases classified elsewhere | CPT/HCPCS: 99212 ==

== ENCOUNTER 2021-04-21 05:57 | Day surgery (SDC) | payer MEDICAID, SELFPAY ==
--- NOTE | 2021-04-20 11:45 | HO.ANESPROP2 ---
Documented by User: Jennifer Reagan NP 04/20/21 11:49 HPI - Anesthesia Eval Consult details Narrative: 46yo F for Uterine Ablation w/Kaitlinasure PMFSH Active Problems Active Problems: All Active Problems (Updated 04/14/21 @ 12:04 by Evangelina Boggs, HECTOR) Well woman exam with routine gynecological exam (Acute) Tubular adenoma of colon (Acute) Abnormal uterine bleeding (AUB) (Acute) Bacterial vaginosis (Acute) History of tubal ligation (Acute) Vitamin D deficiency (Acute) Migraine (Acute) Iron (Fe) deficiency anemia (Acute) Hyperlipidemia (Acute) Anxiety and depression (Acute) Pulmonary hypertension (Acute) Past Medical History Medical History Abdominal cramping Abnormal EKG Anxiety and depression Colon cancer screening Hyperlipidemia Iron (Fe) deficiency anemia Lower abdominal pain Migraine Potential exposure to STD Precordial chest pain Pulmonary hypertension Vitamin D deficiency Family History Family History Father Cardiovascular disease Mother Heart valve disease Diabetes HTN (hypertension) Surgical History Surgical History History of tubal ligation Hx of colonoscopy Social History Social History Household Members: Children Alcohol intake: never Patient Tobacco Use Status: Never used Tobacco Use of substances other than those prescribed or required for medical reasons: No Are you DNR?: No Advance Directives: No Advance Directives Information Provided: Yes Recently lost weight without trying: No Nutrition Risks: No Nutritional Risk Patient : No Gender identity: Female Meds Allergies Allergy/AdvReac Type Severity Reaction Status Date / Time No Known Allergies Allergy Verified 04/14/21 12:04 [No Known Allergies*] Home Medications Medication Instructions Recorded Confirmed Last Taken Type atorvastatin 20 mg tablet 20 mg PO DAILY 05/02/20 04/14/21 Unknown History cholecalciferol (vitamin D3) 25 25 mcg PO DAILY 05/02/20 04/14/21 Unknown History mcg (1,000 unit) capsule xycmovn-bbaugzyqwfejs-tljvdwba 250 2 tab PO DAILY PRN 04/14/21 04/14/21 Unknown History mg-250 mg-65 mg tablet (Pain Reliever Plus) fluticasone propionate 50 1 - 2 spray INTRANASAL DAILY PRN 04/14/21 04/14/21 Unknown History mcg/actuation nasal spray,suspension meclizine 25 mg tablet 1 tab PO TID PRN 04/14/21 04/14/21 Unknown History Exam Exam Date and Time: April 20, 2021 1145 Pertinent Lab Results Pertinent Lab Results: Laboratory Tests 04/01/21 04/01/21 16:17 16:17 WBC 5.6 Hgb 12.1 Hct 36.7 L Plt Count 339 Sodium 141 Potassium 4.0 Chloride 110 H Carbon Dioxide 23 BUN 8 L Creatinine 0.73 Narrative Narrative: EKG 03/2021 Vent. Rate : 068 BPM ? ? Atrial Rate : 068 BPM ?? P-R Int : 132 ms? QRS Dur : 082 ms ? ? QT Int : 400 ms ? ? ? P-R-T Axes : 045 008 002 degrees ?? QTc Int : 425 ms ? Normal sinus rhythm with sinus arrhythmia Normal ECG No previous ECGs available Stress Report 05/27/20 Exercise stress test using James protocol, total of 8 min 9 sec.? METS 10.1 and ?MHR upp to 94 %.? Pt tolerated well, denies any anginal sx.? EKG without any ?arrhythmias.? T wave inversions seen in leads 2, 3, aVF, and V4-V6. ?Normotensive response to exercise.? Test reviewed with Dr. Fernandez. ECHO 05/27/20 Conclusions: - Essentially normal study ? Assessment and Plan Assessment Anesthesia Assessment: Chart Reviewed Documented by User: Sowmya Cleveland MD 04/21/21 08:02 [facility] Past Medical History Medical History Abdominal cramping Abnormal EKG Anxiety and depression Colon cancer screening Hyperlipidemia Iron (Fe) deficiency anemia Lower abdominal pain Migraine Potential exposure to STD Precordial chest pain Pulmonary hypertension Vitamin D deficiency Family History Family History Father Cardiovascular disease Mother Heart valve disease Diabetes HTN (hypertension) Family history of problems with anesthesia: No Surgical History Surgical History History of tubal ligation Hx of colonoscopy History of Problems with Anesthesia: No Social History Social History Household Members: Children Alcohol intake: never Patient Tobacco Use Status: Never used Tobacco Use of substances other than those prescribed or required for medical reasons: No Are you DNR?: No Advance Directives: No Advance Directives Information Provided: Yes Recently lost weight without trying: No Nutrition Risks: No Nutritional Risk Patient : No Gender identity: Female Meds Allergies Allergy/AdvReac Type Severity Reaction Status Date / Time No Known Allergies Allergy Verified 04/14/21 12:04 [No Known Allergies*] Home Medications Medication Instructions Recorded Confirmed Last Taken Type atorvastatin 20 mg tablet 20 mg PO DAILY 05/02/20 04/14/21 Unknown History cholecalciferol (vitamin D3) 25 25 mcg PO DAILY 05/02/20 04/14/21 Unknown History mcg (1,000 unit) capsule hjpkoqt-yoosignatoojd-aqtxzajz 250 2 tab PO DAILY PRN 04/14/21 04/14/21 Unknown History mg-250 mg-65 mg tablet (Pain Reliever Plus) fluticasone propionate 50 1 - 2 spray INTRANASAL DAILY PRN 04/14/21 04/14/21 Unknown History mcg/actuation nasal spray,suspension meclizine 25 mg tablet 1 tab PO TID PRN 04/14/21 04/14/21 Unknown History Exam Height,Weight and Vital Signs: Height 4 ft 10 in Weight 72.575 kg Vital Signs Temp Pulse Resp BP Pulse Ox 04/21/21 06:26 97.4 F 92 16 106/70 99 Pertinent Lab Results Pertinent Lab Results: Laboratory Tests 04/01/21 04/01/21 16:17 16:17 WBC 5.6 Hgb 12.1 Hct 36.7 L Plt Count 339 Sodium 141 Potassium 4.0 Chloride 110 H Carbon Dioxide 23 BUN 8 L Creatinine 0.73 Lab Results 04/21/21 Range/Units 06:17 Urine Test NEGATIVE (NEGATIVE) Airway Mallampati Class: II TM Dist: >3cm Neck ROM: Full Loose/Missing/Broken Teeth: Yes (?notched/chipped top front teeth) Heart: RRR Lungs: CTAB Assessment and Plan Assessment Anesthesia Assessment: Anesthesia Plan Discussed Final Anesthetic Review Family History of Problems with Anesthesia: No History of Problems with Anesthesia: No NPO: Yes ASA Class: III Final Preanesthetic Review: No Changes in Pt Med Stat, Meds/Allgs Chart Reviewed, Consent Obtained/Reviewed and Anes Risks/Benef Reviewed Patient Risk: Intermediate Procedure Risk: Low Assessment/Block/Sedation in SS: Assess/Block/Sedation-SS Anesthetic Plan Anesthetic Plan: GA Disposition: Standard PACU
[2021-04-21] VITALS (7 sets, daily range): BP systolic 106–132; BP diastolic 70–85; PULSE 69–104; RESP 12–16; TEMP 36.2–36.3; O2SAT 98–100; BMI 33.4
[2021-04-21 06:34] LABS: UPreg QC Valid YES; Urine Pregnancy NEGATIVE (NEGATIVE)
[2021-04-21] MEDS: Lactated Ringers 1,000 ML 100 ML IVCONT (06:38)
--- NOTE | 2021-04-21 07:39 | MHC.SHP ---
Pre-Procedural Eval Section A Date of Service: 04/21/21 The patient is an INPATIENT: No Changes since office visit: No Cold of Flu in the past 2 weeks, No New Medical Problems, No Changes in Medication and No Patient answered all questions The History & Physical has been completed within 30 days and I have reviewed it.: Yes Section B Chief Complaint: abnormal bleeding Allergies: Allergies Allergy/AdvReac Type Severity Reaction Status Date / Time No Known Allergies Allergy Verified 04/14/21 12:04 [No Known Allergies*] Plan Diagnosis/Plan: Unchanged I have reviewed the history and physical and performed a pertinent physical examination on my patient. No changes have occurred unless specified.
--- NOTE | 2021-04-21 08:02 | P.BOP_ITS ---
Brief Operative Note Date of Service: 04/21/21 Pre-op diagnosis: Menometrorrhagia Post-op diagnosis: same Procedure: NovaSure Endometrial Ablation Surgeon: Julio C Antony MD Anesthesia: MAC Was an Historic [employer]othing [employer] Costume Maker used for this Procedure?: No Estimated blood loss (mL): 0 Pathology: none sent Condition: stable Disposition: PACU
--- NOTE | 2021-04-21 08:03 | W.PM.OPN ---
Operative Note Operative Note Date of Service: 04/21/21 Narrative: Preop diagnosis: Menorrhagia Post Op Diagnosis: Same Op: Novasure Endometrial Ablation Anesthesia: MAC Roll Slicing Machine Tender: None QBL: Minimal Pathology: None Complications: None Procedure: The patient was put in the dorsal lithotomy position. She was prepped and draped in the usual sterile manner. Bimanual exam prior to prepping revealed a mobile, anteverted uterus. A speculum was placed in the vagina and the anterior lip of the cervix was grasped with a single toothed tenaculum and brought forward. Taking care not to enter deep into the uterus, a sound was passed inside to measure the length of the uterus and cervix. This length was found to be 8 cm. Next, Hegar dilator was inserted into the cervical os to measure the cervical length which was 3 cm. This yielded an endometrial cavity length of 6.5 cm. A series of Hegar dilators were then inserted sequentially into the cervical os up to a size of 5 mm. The Novasure device was then opened and tested; the fan deployed easily. The instrument was set to the correct cavity length and introduced into the uterine cavity. The fan was slowly deployed with gentle movements to ensure a snug fit within the cavity. The cavity width read 4.5 cm. The measurements were imported and a cavity check was done. The trumpet was then slid down to the cervix and the device was activated. The total burn time was 91 seconds. The fan was retracted and device removed. The fan was examined and revealed charred tissue. The tenaculum was removed and the cervix examined for hemostasis which was achieved using pressure. Finally the speculum was removed. The patient tolerated the procedure well and was brought to the recovery room in a stable condition. At the end of the procedure all sponges and instruments were counted and correct. The blood loss was minimal and there were no complications.
== END 2021-04-21 09:30 | disposition home or self-care (01) ==
PROVIDERS: Visit Provider Obstetrics & Gynecology
PROC: (CPT 58353; principal; 2021-04-21 07:30)
DX: N92.0 Excessive and frequent menstruation with regular cycle (principal); N76.0 Acute vaginitis; B96.89 Other specified bacterial agents as the cause of diseases classified elsewhere; D50.9 Iron deficiency anemia, unspecified; I27.20 Pulmonary hypertension, unspecified; E55.9 Vitamin D deficiency, unspecified; Z98.51 Tubal ligation status
CPT/HCPCS: 58353; 81025; J1100; J2250; J2405; J3010

== ENCOUNTER → 2021-05-04 11:23 | Outpatient (BNVA) | payer MEDICAID, SELFPAY | PROVIDERS: Visit Provider Obstetrics & Gynecology ==

== ENCOUNTER 2021-08-02 13:24 | Outpatient (REF) | payer MEDICAID, SELFPAY ==
[2021-08-03 03:40] LABS: CT PCR NOT DETECTED (Not Detect.); NG PCR NOT DETECTED (Not Detect.)
[2021-08-03 09:20] LABS: BV Int Neg Control Negative (Negative); BV Int Pos Control Positive (Positive)
== END 2021-08-02 13:25 | disposition home or self-care (01) ==
LOC: HO.LAB 13:24
PROVIDERS: Visit Provider Advanced Practice Midwife
DX: Z01.411 Encounter for gynecological examination (general) (routine) with abnormal findings (principal); R10.2 Pelvic and perineal pain; Z20.2 Contact with and (suspected) exposure to infections with a predominantly sexual mode of transmission; N76.0 Acute vaginitis; B96.89 Other specified bacterial agents as the cause of diseases classified elsewhere
CPT/HCPCS: 87480; 87491; 87510; 87591; 87660

== ENCOUNTER 2021-08-24 12:59 | Outpatient (REF) | payer MEDICAID, SELFPAY ==
--- NOTE | ~2021-08-24 | US_ITS ---
EXAMINATION: US PELVIS CLINICAL INFORMATION: Pain. COMPARISON: None TECHNIQUE: Ultrasound of the pelvis is performed using both transabdominal and transvaginal transducers along with Doppler. Transvaginal imaging is performed due to inadequate visualization transabdominally. FINDINGS: The uterus is anteverted and measures 7.5 x 3.1 x 4.2 cm in dimension. There are several calcifications in the uterus, the largest measuring 3 x 5 mm in the posterior uterine body. No other focal uterine lesion is seen. Endometrium thickness is normal measuring 2 mm. There is a small amount of fluid seen in the endocervical canal. The ovaries are normal-appearing. The right ovary measures 1.9 x 1.6 x 1.2 cm. The left ovary measures 1.8 x 1.5 x 1.1 cm. There is no fluid in the pelvis. US/US pelvic and transvaginal IMPRESSION: Small uterine calcifications. This may be related to degenerating fibroids. No other focal uterine lesion. Normal thickness endometrium and normal-appearing ovaries.
== END 2021-08-24 13:00 | disposition home or self-care (01) ==
LOC: HO.US 12:59
PROVIDERS: Visit Provider Advanced Practice Midwife
DX: R10.2 Pelvic and perineal pain (principal)
CPT/HCPCS: 76830; 76856

== ENCOUNTER → 2021-08-29 11:21 | Outpatient (BNVA) | payer MEDICAID, SELFPAY | PROVIDERS: Visit Provider Nurse Practitioner | DX: R10.30 Lower abdominal pain, unspecified (principal); D50.9 Iron deficiency anemia, unspecified; I27.20 Pulmonary hypertension, unspecified; E78.5 Hyperlipidemia, unspecified; E55.9 Vitamin D deficiency, unspecified; E66.3 Overweight; F41.8 Other specified anxiety disorders; Z68.33 Body mass index [BMI] 33.0-33.9, adult | CPT/HCPCS: 99212 ==

== ENCOUNTER 2021-09-05 10:51 | Outpatient (REF) | payer MEDICAID, SELFPAY ==
--- NOTE | ~2021-09-05 | MM_ITS ---
EXAMINATION: MM SCREENING DIGITAL BREAST TOMOSYNTHESIS, BILATERAL CLINICAL INFORMATION: Screening. Asymptomatic. The lifetime risk of breast cancer based on the Tyrer-Cuzick Model is 6%. COMPARISON: Mammography: 05/31/2020, 01/02/2018, 11/28/2015, 03/25/2015 (baseline); left breast ultrasound 11/28/2015, 03/25/2015. TECHNIQUE: Digital breast tomosynthesis is performed in both the craniocaudal and mediolateral oblique views along with computer-aided detection (CAD). Synthesized 2D images are generated from the tomosynthesis. FINDINGS: The breasts are heterogeneously dense, which may obscure small masses (ACR BI-RADS breast composition Category c). There are multiple round and oval smooth masses right breast upper outer quadrant, the largest 2 measuring 2.3 and 2.2 cm. There are increased in size and number from prior mammography 2019 and likely related to fibrocystic changes. Patient will be recalled for additional targeted ultrasound to further characterize. The remainder of the bilateral breasts are unremarkable. There is no architectural abnormality or abnormal calcifications. The axilla and skin contours are unremarkable. MM/MM tomosynthesis screening BI IMPRESSION: 1. Right: Multiple round and oval smooth masses upper outer right breast likely fibrocystic change. 2. Left: No mammographic evidence of malignancy. ASSESSMENT: BI-RADS 0: Incomplete - Need Additional Imaging Evaluation RECOMMENDATION: 1. Targeted ultrasound right breast. 2. Radiology department staff will contact the patient for additional imaging. This patient's information was entered into a reminder system with a target due date for their next mammogram.
== END 2021-09-05 10:52 | disposition home or self-care (01) ==
LOC: HO.MAMMO 10:51
PROVIDERS: Visit Provider Advanced Practice Midwife
DX: Z12.31 Encounter for screening mammogram for malignant neoplasm of breast (principal)
CPT/HCPCS: 77063; 77067

== ENCOUNTER → 2021-09-07 11:06 | Outpatient (BNVA) | payer MEDICAID, SELFPAY | PROVIDERS: Visit Provider Advanced Practice Midwife | DX: R10.2 Pelvic and perineal pain (principal); Z71.2 Person consulting for explanation of examination or test findings | CPT/HCPCS: Q3014 ==

== ENCOUNTER 2021-09-12 12:07 | Outpatient (REF) | payer MEDICAID, SELFPAY ==
--- NOTE | ~2021-09-12 | US_ITS ---
EXAMINATION: US DIAGNOSTIC ULTRASOUND BREAST, RIGHT CLINICAL INFORMATION: Enlarging right breast lesions. COMPARISON: Mammography of 09/05/2021 and studies dating back to 03/25/2015. TECHNIQUE: Ultrasound of the breast is performed with real-time avina-scale imaging and color Doppler. FINDINGS: About the lateral aspect of the right breast corresponding to the circumscribed densities, there are numerous simple cysts and minimally complex cysts. At the 9 o'clock position 5 cm nipple, there is a minimally complex cyst with septation and no internal vascularity. No distal sound shadowing. This measures approximately 1.9 x 1.9 x 0.7 cm in size. A second adjacent cyst at the 9 o'clock position measures approximately 2.3 x 1.7 x 0.7 cm in size. At the 10 o'clock position approximately 9 cm from nipple, there are 2 adjacent cysts versus a cyst with a very thin septation within it measuring approximately 1.3 x 0.6 x 0.9 cm. There is no solid mass, architectural abnormality, duct ectasia, or edema in the soft tissue planes. Results are discussed with the patient at time of visit. US/US breast RT limited IMPRESSION: Enlarging circumscribed densities correspond to cysts. ASSESSMENT: BI-RADS 2: Benign. RECOMMENDATION: Routine annual mammography screening due in 12 months. This patient's information was entered into a reminder system with a target due date for their next mammogram.
== END 2021-09-12 12:08 | disposition home or self-care (01) ==
LOC: HO.MAMMO 12:07
PROVIDERS: PCP Registered Nurse Community Health; Visit Provider Advanced Practice Midwife
DX: N63.15 Unspecified lump in the right breast, overlapping quadrants (principal)
CPT/HCPCS: 76642

== ENCOUNTER 2022-06-11 | Outpatient (REF) | payer MEDICAID, SELFPAY | END 2022-06-11 00:01 | LOC: HO.HOSX | PROVIDERS: Visit Provider Orthopaedic Surgery | DX: M25.562 Pain in left knee (principal) | CPT/HCPCS: 73560; 73565; 99202 ==

== ENCOUNTER 2022-09-15 12:49 | Emergency (ER) | payer MEDICAID, SELFPAY ==
--- NOTE | ~2022-09-15 | CT_ITS ---
EXAMINATION: CT ABDOMEN AND PELVIS WITH CONTRAST CLINICAL INFORMATION: Left lower quadrant COMPARISON: CT abdomen pelvis 05/05/2020 TECHNIQUE: Multidetector volumetric images were obtained from the superior aspect of the liver through the pubic symphysis following administration 85 mL of Omnipaque 350 intravenous contrast. Sagittal and coronal reformatted images were obtained on the technologist's workstation. Oral contrast: No This CT examination was performed using dose optimization techniques as appropriate, variously including the following: *Automated exposure control *Adjustment of mA and/or kV according to patient size (this includes techniques or standardized protocols for targeted exams where dose is matched to indication/reason for exam; i.e. extremities or head) *Use of iterative reconstruction technique DLP: 552 mGy-cm FINDINGS: LUNG BASES: The visualized lung bases are unremarkable. Small fluid collection is noted in the right breast along the chest wall (3:3) LIVER, GALLBLADDER, AND BILIARY TREE: The liver is normal in size, shape, and attenuation. No focal hepatic lesion or biliary ductal dilatation is present. The gallbladder is unremarkable with no evidence of radiopaque gallstones, gallbladder wall thickening, or obvious pericholecystic inflammatory changes. PANCREAS: Unremarkable. SPLEEN: Unremarkable. ADRENAL GLANDS: Unremarkable. KIDNEYS AND URETERS: The kidneys are normal in size, shape, and attenuation. No hydronephrosis, hydroureter, or calculi seen. No perinephric stranding. BLADDER: Empty and cannot be evaluated GASTROINTESTINAL TRACT: A tiny hiatal hernia is present. The small and large bowel are unremarkable. The appendix is unremarkable. ABDOMINAL WALL: No significant hernia is appreciated. LYMPH NODES: Normal. VASCULAR: Unremarkable. PELVIC VISCERA: Unremarkable. Air is present in the vagina. No free pelvic fluid is seen. OSSEOUS STRUCTURES: Unremarkable. CT/CT abdomen pelvis w IV con IMPRESSION: A cause for the patient's abdominal pain has not been found. Fleischner guidelines were followed.
--- NOTE | 2022-09-15 13:08 | ED_ITS ---
HPI - Abdominal Pain General Chief Complaint: Abdominal Pain <ANA LAURA Rothman Last Filed: 09/15/22 13:13> Stated Complaint: LLQ ABD PAIN, RADIATES TO BACK, W/NAUSEA <ANA LAURA Rothman Last Filed: 09/15/22 13:13> Time Seen by Provider: 09/15/22 17:49 <ANA LAURA Rothman Last Filed: 09/15/22 13:13> Source: patient and EMS <ANA LAURA Archer Last Filed: 09/15/22 20:01> Mode of arrival: EMS <ANA LAURA Archer Last Filed: 09/15/22 20:01> Limitations: no limitations <ANA LAURA Archer Last Filed: 09/15/22 20:01> History of Present Illness HPI narrative: This is a 47-year-old female history of anxiety, depression, pulmonary hypertension, iron deficiency anemia, tubular adenoma of the colon, presenting to the emergency department for evaluation of lower abdominal pain with radiation to the back, nausea, urinary frequency x2 days. Patient reports that the abdominal pain is intermittent, diffuse to the lower abdomen however worse the left lower quadrant, stabbing and varies in intensity, tells me it time it varies to bilateral flank regions. Patient reports intermittent nausea, patient came by ambulance and was given IV Zofran and patient reports symptomatic relief of nausea. Denies fevers, chills, chest pain, shortness of breath, headache, vision changes, dizziness, weakness, dysuria, changes in bowel habits <ANA LAURA Archer Last Filed: 09/15/22 20:01> Related Data Home Medications: Home Medications Medication Instructions Recorded Confirmed atorvastatin 20 mg tablet 20 mg PO DAILY 05/02/20 06/11/22 cholecalciferol (vitamin D3) 25 25 mcg PO DAILY 05/02/20 06/11/22 mcg (1,000 unit) capsule uratihk-bkquworyjqkqv-sykgqhdz 250 2 tab PO DAILY PRN headache 04/14/21 06/11/22 mg-250 mg-65 mg tablet (Pain Reliever Plus) fluticasone propionate 50 1 - 2 spray intranasal DAILY PRN 04/14/21 06/11/22 mcg/actuation nasal Nasal Congestion spray,suspension meclizine 25 mg tablet 1 tab PO TID PRN Dizziness 04/14/21 06/11/22 Previous Rx's Medication Instructions Recorded cyclobenzaprine 10 mg tablet 10 mg PO TID PRN muscle spasm #14 05/05/20 tabs dicyclomine 10 mg capsule 10 mg PO QID 30 days #120 caps 08/29/21 ketorolac 10 mg tablet 10 mg PO TID PRN pain 5 days #15 09/15/22 tabs ondansetron 4 mg disintegrating 4 mg PO Q6H PRN nausea and 09/15/22 tablet vomiting #14 tabs <ANA LAURA Rothman - Last Filed: 09/15/22 13:13> Allergies/Adverse Reactions: Allergies Allergy/AdvReac Type Severity Reaction Status Date / Time No Known Allergies Allergy Verified 06/11/22 11:00 [No Known Allergies*] <ANA LAURA Rothman Last Filed: 09/15/22 13:13> Review of Systems Review of Systems Constitutional : No Weight loss, No Fever, No Chills, No Fatigue, No Malaise ENT/Mouth : No sore throat, No Rhinorrhea Eyes: No Eye Pain, No Swelling, No Redness Cardiovascular : No Chest Pain, No SOB, No Dyspnea on Exertion, No Orthopnea, No Edema, No Palpitations Respiratory : No Cough, No Sputum, No Wheezing Gastrointestinal : + Nausea, No Vomiting, No Diarrhea, No Constipation, + abdominal Pain, No Hematochezia, No Melena Genitourinary : No Dysuria, + Urinary Frequency, No Hematuria, Musculoskeletal : No joint pain, No Myalgias, No Joint Swelling Skin : No Skin Lesions, No rash Neuro : No Weakness, No Numbness, No Dizziness, No Headache Psych : No Anxiety/Panic, No Depression All other systems reviewed and are negative <ANA LAURA Archer Last Filed: 09/15/22 20:01> Yes all other systems are reviewed and are negative <ANA LAURA Archer Last Filed: 09/15/22 20:01> [facility] Past Medical History Attestation statement: The following information was validated with the patient. <ANA LAURA Archer Last Filed: 09/15/22 20:01> Source: old records reviewed and nursing notes reviewed <ANA LAURA Archer - Last Filed: 09/15/22 20:01> Medical History: Medical History Abdominal cramping Abnormal EKG Anxiety and depression Colon cancer screening Hyperlipidemia Iron (Fe) deficiency anemia Lower abdominal pain Migraine Potential exposure to STD Precordial chest pain Pulmonary hypertension Vitamin D deficiency <ANA LAURA Rothman - Last Filed: 09/15/22 13:13> Surgical History: Surgical History History of endometrial ablation History of tubal ligation Hx of colonoscopy <ANA LAURA Rothman - Last Filed: 09/15/22 13:13> Family History Family History: Family History Father Cardiovascular disease Mother Heart valve disease Diabetes HTN (hypertension) <ANA LAURA Rothman - Last Filed: 09/15/22 13:13> Social History Social History: Social History Household Members: Children Alcohol intake: never Patient Tobacco Use Status: Never used Tobacco Smoked in Last 30 Days: No Use of substances other than those prescribed or required for medical reasons: No Advance Directives: No Advance Directives Information Provided: No Patient : No Gender identity: Female <ANA LAURA Rothman - Last Filed: 09/15/22 13:13> Physical Exam ED Vital Signs: Vital Signs - 24 hr 09/15/22 13:14 09/15/22 18:23 09/15/22 19:29 Temperature 97.7 F 98.3 F Pulse Rate 75 72 73 Respiratory Rate 18 16 18 Blood Pressure 126/76 145/86 H 123/76 Pulse Oximetry 100 98 99 Oxygen Delivery Method Room Air Room Air Room Air BMI result Body Mass Index 35.5 <ANA LAURA Rothman - Last Filed: 09/15/22 13:13> Vital Signs - 24 hr 09/15/22 13:14 09/15/22 18:23 09/15/22 19:29 Temperature 97.7 F 98.3 F Pulse Rate 75 72 73 Respiratory Rate 18 16 18 Blood Pressure 126/76 145/86 H 123/76 Pulse Oximetry 100 98 99 Oxygen Delivery Method Room Air Room Air Room Air BMI result Body Mass Index 35.5 Vital signs stable <ANA LAURA Archer - Last Filed: 09/15/22 20:01> Appearance: Alert.? Oriented X3.? No acute distress.? Head: Normocephalic, atraumatic, no step-offs or deformities Eyes: Pupils equal, round and reactive to light.? CVS: Normal heart rate and rhythm.? Pulses normal.? Respiratory: No respiratory distress.? Breath sounds normal.? Abdomen: Soft and diffuse lower abd tenderness > LLQ. No rebound .? Skin: Skin warm and dry.? Normal skin color.? Normal skin turgor.? Extremities: No lower extremity edema.? No calf ttp. 5/5 strength to bilateral upper and lower extremities Back: No CVA tenderness bilaterally Neuro: Oriented X 3.? No motor deficit.? No sensory deficit. CN 2-12 intact <ANA LAURA Archer - Last Filed: 09/15/22 20:01> Course Course Course Narrative: RME--47yo F with PMHx HLD, Pulmonary HTN, BIBA c/o LLQ abd pain radiating to back with assoc nausea, vomiting and decreased PO intake x yesterday. denies dysuria, hematuria, vag bleeding or d/c Abd soft with suprapubic and LLQ ttp no rebound or guarding, no CVAT Given Zofran by EMS labs, UA, preg, CTAP ordered <ANA LAURA Rothman - Last Filed: 09/15/22 13:13> Reevaluation(s) Reevaluation #1: CBC within normal limits. Chemistry with no acute electrolyte abnormalities requiring intervention. Normal lipase. Urine and CT scan pending. Patient will be medicated with Toradol will be given IV fluids and be re-evaluated. <ANA LAURA Archer - Last Filed: 09/15/22 20:01> Time: 18:08 <ANA LAURA Archer - Last Filed: 09/15/22 20:01> Reevaluation #2: UA without infection. CT of the abdomen and pelvis unable to identify cause for patient's abdominal pain. Upon re-evaluation patient tells me her pain is completely subsided and she is feeling lot better after Toradol. Likely musculoskeletal in nature vs viral. Patient appears comfortable, tolerating p.o, weell appearing, vss. Educated patient on diagnosis and treatment plan, answered all question, patient verbalizes understanding. At this time patient will be discharged home, advised to return with new or worsening symptoms. Educated on worrisome signs and symptoms and when to return. At this time I feel comfortable discharge home.. <ANA LAURA Archer - Last Filed: 09/15/22 20:01> Time: 20:00 <ANA LAURA Archer - Last Filed: 09/15/22 20:01> Medical Decision Making Medical Decision Making [facility] Narrative: 1800 47-year-old female presents with nausea, lower abdominal pain predominantly in left lower quadrant, urinary frequency x2 days. Comes in by ambulance reports nausea improved with Zofran. Physical exam with diffuse lower abdominal tenderness worse to the left lower quadrant. Patient well-appearing. Vital signs stable. Likely viral illness however will rule out diverticulitis. No signs of acute abdomen, AAA, pancreatitis, apendicitis, pyelonephritis, ovarian torsion. Will rule out UTI. Plan at this time basic labs, imaging, urine, viral testing <ANA LAURA Archer Last Filed: 09/15/22 20:01> Differential Diagnosis Differential Diagnoses: The differential diagnosis associated with the presentation includes <ANA LAURA Archer - Last Filed: 09/15/22 20:01> Likely viral illness however will rule out diverticulitis. No signs of acute abdomen, AAA, pancreatitis, apendicitis, pyelonephritis, ovarian torsion. Will rule out UTI. <ANA LAURA Archer Last Filed: 09/15/22 20:01> Admission/Observation Consideration of admission/observation: Escalation of care including admission/observation considered <ANA LAURA Archer - Last Filed: 09/15/22 20:01> Unlikely <ANA LAURA Archer Last Filed: 09/15/22 20:01> Lab Data [facility] Lab Attestation statement: I reviewed the patient's lab results. <ANA LAURA Archer - Last Filed: 09/15/22 20:01> Result Diagrams: 09/15/22 14:55 09/15/22 14:55 <ANA LAURA Rothman - Last Filed: 09/15/22 13:13> Labs: Lab Results 09/15/22 09/15/22 09/15/22 Range/Units 14:55 14:55 18:26 WBC 7.0 (4.8-10.8) X10*3/uL RBC 4.64 (4.20-5.50) X10*6/uL Hgb 12.5 (12.0-16.0) g/dl Hct 38.9 (37.0-47.0) % MCV 83.8 (80.0-98.0) fL MCH 26.9 L (27.0-33.0) pg MCHC 32.1 (31.0-35.0) g/dl RDW 13.8 (11.0-16.0) % Plt Count 328 (160-400) X10*3/uL MPV 8.8 L (9.4-12.3) fL Immature Gran % (Auto) 0.3 (0.0-0.4) % Neut % (Auto) 60.4 (45-73) % Lymph % (Auto) 24.5 (20-40) % [place] % (Auto) 13.4 H (2-11) % Eos % (Auto) 0.4 (0-4) % Baso % (Auto) 1.0 (0-2) % Lymph # (Auto) 1.7 (1.2-4.9) X10*3/uL [place] # (Auto) 0.9 (0.1-1.2) X10*3/uL Eos # (Auto) 0.0 (0.0-0.4) X10*3/uL Baso # (Auto) 0.1 (0.0-0.2) X10*3/uL Abs Immat Gran (auto) 0.02 (0.00-0.03) X10*3/uL Absolute Neuts (auto) 4.2 (2.0-8.3) x10*3/uL Absolute Nucleated RBC 0.000 (0.0-0.012) X10*3/uL Nucleated RBC % (auto) 0.0 (0.0-0.2) /100WBC Sodium 140 (135-145) mmol/L Potassium 4.2 (3.3-5.1) mmol/L Chloride 109 H (96-108) mmol/L Carbon Dioxide 22 (22-29) mmol/L Anion Gap 13 (12-20) BUN 9 (9-16) mg/dL Creatinine 0.76 (0.5-1.4) mg/dL Estim Creat Clear Calc 79.1 Estimated GFR > 60 Random Glucose 104 (60-115) mg/dL Calcium 9.3 (8.4-10.2) mg/dL Magnesium 2.1 (1.6-2.6) mg/dL Total Bilirubin 0.6 (0.0-1.0) mg/dL Direct Bilirubin 0.2 (0.0-0.5) mg/dL AST 19 (5-31) U/L ALT 13 (0-31) U/L Alkaline Phosphatase 51 (39-117) U/L Total Protein 7.5 (6.5-8.0) g/dL Albumin 4.0 (3.5-5.0) g/dL Lipase 20 (8-78) U/L Urine Color Urine Appearance Urine pH (5.0-9.0) Ur Specific [place] (1.005-1.025) Urine Protein (Neg-Trace) mg/dL Urine Glucose (UA) (Negative) mg/dL Urine Ketones (Negative) mg/dL Urine Blood (Negative) Urine Nitrite (Negative) Ur Leukocyte Esterase (Negative) Urine Test (NEGATIVE) COVID-19 ([facility]AI) (Negative) COVID-19 Clin Com Influenza Type A (MARITZA) Negative (Negative) Influenza Type B (MARITZA) Negative (Negative) Influenza A & B Note See Note 09/15/22 09/15/22 09/15/22 Range/Units 18:26 18:26 18:26 WBC (4.8-10.8) X10*3/uL RBC (4.20-5.50) X10*6/uL Hgb (12.0-16.0) g/dl Hct (37.0-47.0) % MCV (80.0-98.0) fL MCH (27.0-33.0) pg MCHC (31.0-35.0) g/dl RDW (11.0-16.0) % Plt Count (160-400) X10*3/uL MPV (9.4-12.3) fL Immature Gran % (Auto) (0.0-0.4) % Neut % (Auto) (45-73) % Lymph % (Auto) (20-40) % [place] % (Auto) (2-11) % Eos % (Auto) (0-4) % Baso % (Auto) (0-2) % Lymph # (Auto) (1.2-4.9) X10*3/uL [place] # (Auto) (0.1-1.2) X10*3/uL Eos # (Auto) (0.0-0.4) X10*3/uL Baso # (Auto) (0.0-0.2) X10*3/uL Abs Immat Gran (auto) (0.00-0.03) X10*3/uL Absolute Neuts (auto) (2.0-8.3) x10*3/uL Absolute Nucleated RBC (0.0-0.012) X10*3/uL Nucleated RBC % (auto) (0.0-0.2) /100WBC Sodium (135-145) mmol/L Potassium (3.3-5.1) mmol/L Chloride (96-108) mmol/L Carbon Dioxide (22-29) mmol/L Anion Gap (12-20) BUN (9-16) mg/dL Creatinine (0.5-1.4) mg/dL Estim Creat Clear Calc Estimated GFR Random Glucose (60-115) mg/dL Calcium (8.4-10.2) mg/dL Magnesium (1.6-2.6) mg/dL Total Bilirubin (0.0-1.0) mg/dL Direct Bilirubin (0.0-0.5) mg/dL AST (5-31) U/L ALT (0-31) U/L Alkaline Phosphatase (39-117) U/L Total Protein (6.5-8.0) g/dL Albumin (3.5-5.0) g/dL Lipase (8-78) U/L Urine Color Yellow Urine Appearance Clear Urine pH 7.0 (5.0-9.0) Ur Specific [place] 1.020 (1.005-1.025) Urine Protein Negative (Neg-Trace) mg/dL Urine Glucose (UA) Negative (Negative) mg/dL Urine Ketones 80 (Negative) mg/dL Urine Blood Negative (Negative) Urine Nitrite Negative (Negative) Ur Leukocyte Esterase Negative (Negative) Urine Test NEGATIVE (NEGATIVE) COVID-19 (JAI) Negative (Negative) COVID-19 Clin Com See Note Influenza Type A (MARITZA) (Negative) Influenza Type B (MARITZA) (Negative) Influenza A & B Note <ANA LAURA Rothman - Last Filed: 09/15/22 13:13> Lab Results 09/15/22 09/15/22 09/15/22 Range/Units 14:55 14:55 18:26 WBC 7.0 (4.8-10.8) X10*3/uL RBC 4.64 (4.20-5.50) X10*6/uL Hgb 12.5 (12.0-16.0) g/dl Hct 38.9 (37.0-47.0) % MCV 83.8 (80.0-98.0) fL MCH 26.9 L (27.0-33.0) pg MCHC 32.1 (31.0-35.0) g/dl RDW 13.8 (11.0-16.0) % Plt Count 328 (160-400) X10*3/uL MPV 8.8 L (9.4-12.3) fL Immature Gran % (Auto) 0.3 (0.0-0.4) % Neut % (Auto) 60.4 (45-73) % Lymph % (Auto) 24.5 (20-40) % [place] % (Auto) 13.4 H (2-11) % Eos % (Auto) 0.4 (0-4) % Baso % (Auto) 1.0 (0-2) % Lymph # (Auto) 1.7 (1.2-4.9) X10*3/uL [place] # (Auto) 0.9 (0.1-1.2) X10*3/uL Eos # (Auto) 0.0 (0.0-0.4) X10*3/uL Baso # (Auto) 0.1 (0.0-0.2) X10*3/uL Abs Immat Gran (auto) 0.02 (0.00-0.03) X10*3/uL Absolute Neuts (auto) 4.2 (2.0-8.3) x10*3/uL Absolute Nucleated RBC 0.000 (0.0-0.012) X10*3/uL Nucleated RBC % (auto) 0.0 (0.0-0.2) /100WBC Sodium 140 (135-145) mmol/L Potassium 4.2 (3.3-5.1) mmol/L Chloride 109 H (96-108) mmol/L Carbon Dioxide 22 (22-29) mmol/L Anion Gap 13 (12-20) BUN 9 (9-16) mg/dL Creatinine 0.76 (0.5-1.4) mg/dL Estim Creat Clear Calc 79.1 Estimated GFR > 60 Random Glucose 104 (60-115) mg/dL Calcium 9.3 (8.4-10.2) mg/dL Magnesium 2.1 (1.6-2.6) mg/dL Total Bilirubin 0.6 (0.0-1.0) mg/dL Direct Bilirubin 0.2 (0.0-0.5) mg/dL AST 19 (5-31) U/L ALT 13 (0-31) U/L Alkaline Phosphatase 51 (39-117) U/L Total Protein 7.5 (6.5-8.0) g/dL Albumin 4.0 (3.5-5.0) g/dL Lipase 20 (8-78) U/L Urine Color Urine Appearance Urine pH (5.0-9.0) Ur Specific [place] (1.005-1.025) Urine Protein (Neg-Trace) mg/dL Urine Glucose (UA) (Negative) mg/dL Urine Ketones (Negative) mg/dL Urine Blood (Negative) Urine Nitrite (Negative) Ur Leukocyte Esterase (Negative) Urine Test (NEGATIVE) COVID-19 ([facility]AI) (Negative) COVID-19 Clin Com Influenza Type A (MARITZA) Negative (Negative) Influenza Type B (MAIRTZA) Negative (Negative) Influenza A & B Note See Note 09/15/22 09/15/22 09/15/22 Range/Units 18:26 18:26 18:26 WBC (4.8-10.8) X10*3/uL RBC (4.20-5.50) X10*6/uL Hgb (12.0-16.0) g/dl Hct (37.0-47.0) % MCV (80.0-98.0) fL MCH (27.0-33.0) pg MCHC (31.0-35.0) g/dl RDW (11.0-16.0) % Plt Count (160-400) X10*3/uL MPV (9.4-12.3) fL Immature Gran % (Auto) (0.0-0.4) % Neut % (Auto) (45-73) % Lymph % (Auto) (20-40) % [place] % (Auto) (2-11) % Eos % (Auto) (0-4) % Baso % (Auto) (0-2) % Lymph # (Auto) (1.2-4.9) X10*3/uL [place] # (Auto) (0.1-1.2) X10*3/uL Eos # (Auto) (0.0-0.4) X10*3/uL Baso # (Auto) (0.0-0.2) X10*3/uL Abs Immat Gran (auto) (0.00-0.03) X10*3/uL Absolute Neuts (auto) (2.0-8.3) x10*3/uL Absolute Nucleated RBC (0.0-0.012) X10*3/uL Nucleated RBC % (auto) (0.0-0.2) /100WBC Sodium (135-145) mmol/L Potassium (3.3-5.1) mmol/L Chloride (96-108) mmol/L Carbon Dioxide (22-29) mmol/L Anion Gap (12-20) BUN (9-16) mg/dL Creatinine (0.5-1.4) mg/dL Estim Creat Clear Calc Estimated GFR Random Glucose (60-115) mg/dL Calcium (8.4-10.2) mg/dL Magnesium (1.6-2.6) mg/dL Total Bilirubin (0.0-1.0) mg/dL Direct Bilirubin (0.0-0.5) mg/dL AST (5-31) U/L ALT (0-31) U/L Alkaline Phosphatase (39-117) U/L Total Protein (6.5-8.0) g/dL Albumin (3.5-5.0) g/dL Lipase (8-78) U/L Urine Color Yellow Urine Appearance Clear Urine pH 7.0 (5.0-9.0) Ur Specific [place] 1.020 (1.005-1.025) Urine Protein Negative (Neg-Trace) mg/dL Urine Glucose (UA) Negative (Negative) mg/dL Urine Ketones 80 (Negative) mg/dL Urine Blood Negative (Negative) Urine Nitrite Negative (Negative) Ur Leukocyte Esterase Negative (Negative) Urine Test NEGATIVE (NEGATIVE) COVID-19 (JAI) Negative (Negative) COVID-19 Clin Com See Note Influenza Type A (MARITZA) (Negative) Influenza Type B (MARITZA) (Negative) Influenza A & B Note <ANA LAURA Archer - Last Filed: 09/15/22 20:01> Independent Interpretation I performed an independent interpretation of an: CT Scan <ANA LAURA Archer - Last Filed: 09/15/22 20:01> Radiology Impression Discussion of test interpretation with radiology: I have reviewed the radiologist's reading. <ANA LAURA Archer - Last Filed: 09/15/22 20:01> Core Measures AMI core measures followed: Yes <ANA LAURA Archer - Last Filed: 09/15/22 20:01> Measure exclusions: not indicated <ANA LAURA Archer - Last Filed: 09/15/22 20:01> Medications Administered Discontinued Medications Generic Name Dose Route Start Last Admin Trade Name Freq PRN Reason Stop Dose Admin Sodium Chloride 1,000 mls @ 999 mls/hr 09/15/22 18:15 09/15/22 18:20 Ns IV 09/15/22 19:15 999 mls/hr .Q1H1M DONATO Administration Iohexol 100 ml 09/15/22 19:03 09/15/22 19:03 Iohexol 350 Mg/Ml 100 Ml Infus..Btl IV 09/15/22 19:04 85 ml ONCE ONE Administration Ketorolac Tromethamine 30 mg 09/15/22 18:07 09/15/22 18:20 Ketorolac Tromethamine 15 Mg/Ml Vial IVPUSH 09/15/22 18:08 30 mg ONCE ONE Administration <ANA LAURA Rothman Last Filed: 09/15/22 13:13> Medications Administered Discontinued Medications Generic Name Dose Route Start Last Admin Trade Name Gautam PRN Reason Stop Dose Admin Sodium Chloride 1,000 mls @ 999 mls/hr 09/15/22 18:15 09/15/22 18:20 Ns IV 09/15/22 19:15 999 mls/hr .Q1H1M DONATO Administration Iohexol 100 ml 09/15/22 19:03 09/15/22 19:03 Iohexol 350 Mg/Ml 100 Ml Infus..Btl IV 09/15/22 19:04 85 ml ONCE ONE Administration Ketorolac Tromethamine 30 mg 09/15/22 18:07 09/15/22 18:20 Ketorolac Tromethamine 15 Mg/Ml Vial IVPUSH 09/15/22 18:08 30 mg ONCE ONE Administration <ANA LAURA Archer - Last Filed: 09/15/22 20:01> Critical Care Time Critical Care Time Critical Care Time: No <ANA LAURA Archer Last Filed: 09/15/22 20:01> Discharge Plan Discharge Clinical Impression: Abdominal pain, Nausea, Urinary frequency <ANA LAURA Rothman Last Filed: 09/15/22 13:13> Patient Disposition: Home, Self-Care <ANA LAURA Rothman Last Filed: 09/15/22 13:13> Instructions: Acute Nausea and Vomiting (ED), Abdominal Pain (ED), Urinary Urgency and F requency (DC) <ANA LAURA Rothman Last Filed: 09/15/22 13:13> Additional Instructions: Take your medications as prescribed. If you were prescribed antibiotics today, it is important that you take your medication to their entirety, do not skip any doses, do not finish them early. Follow-up with your primary care provider this week. Return to the emergency department with new or worsening symptoms. Such as fevers, chills, chest pain, shortness of breath, nausea, vomiting, dizziness, headache, vision changes, lethargy In case of emergency call 911 Your laboratory studies were reassuring. Your urine showed no signs of infection. You tested negative for flu and COVID. Ondansetron or Zofran is a medication that can be taken for nausea and vomiting, take this as prescribed. Do not take more than the prescribed dose I can lead to cardiac dysrhythmias Toradol has been sent to your pharmacy, you tolerated this well in the department. Please take this as prescribed do not take this with ibuprofen, or other NSAIDs, do not mix this with alcohol. Side effects of this medication including increased risk for bleeding and possible kidney injury. ?CT/CT abdomen pelvis w IV con IMPRESSION: A cause for the patient's abdominal pain has not been found. ? Fleischner guidelines were followed. <ANA LAURA Rothman - Last Filed: 09/15/22 13:13> Prescriptions: New ondansetron 4 mg tablet,disintegrating 4 mg PO Q6H PRN (Reason: nausea and vomiting) Qty: 14 0RF ketorolac 10 mg tablet 10 mg PO TID PRN (Reason: pain) 5 Days Qty: 15 0RF No Action cyclobenzaprine 10 mg tablet 10 mg PO TID PRN (Reason: muscle spasm) Qty: 14 0RF meclizine 25 mg tablet 1 tab PO TID PRN (Reason: Dizziness) fluticasone propionate 50 mcg/actuation spray,suspension 1 - 2 spray intranasal DAILY PRN (Reason: Nasal Congestion) Pain Reliever Plus 250-250-65 mg tablet 2 tab PO DAILY PRN (Reason: headache) cholecalciferol (vitamin D3) 25 mcg (1,000 unit) capsule 25 mcg PO DAILY atorvastatin 20 mg tablet 20 mg PO DAILY dicyclomine 10 mg capsule 10 mg PO QID 30 Days Qty: 120 6RF <ANA LAURA Rothman - Last Filed: 09/15/22 13:13> Referrals: ED Physician,Generic [Physician] - 2 days <ANA LAURA Rothman Last Filed: 09/15/22 13:13> Stand Alone Forms: Work/School Release <ANA LAURA Rothman Last Filed: 09/15/22 13:13>
[2022-09-15 13:14] VITALS: BP 126/76; BP 136/92; PULSE 75; PULSE 84; RESP 18; TEMP 36.5; O2SAT 100; O2SAT 98; BMI 35.5
[2022-09-15 15:01] LABS: MANUAL DIFF FLAG NO
[2022-09-15 15:03] LABS: Basophils Absolute Auto 0.1 X10*3/uL (0.0-0.2); Eosinophils Percent Auto 0.4 % (0-4); Hematocrit 38.9 % (37.0-47.0); Hemoglobin 12.5 g/dl (12.0-16.0); Imm Gran Abs Auto 0.02 X10*3/uL (0.00-0.03); Imm Gran Pct Auto 0.3 % (0.0-0.4); Lymphocytes Absolute Auto 1.7 X10*3/uL (1.2-4.9); Lymphocytes Percent Auto 24.5 % (20-40); Mean Corpuscular HGB Conc 32.1 g/dl (31.0-35.0); Mean Corpuscular Hemoglobin 26.9 pg (27.0-33.0); Mean Corpuscular Volume 83.8 fL (80.0-98.0); Mean Platelet Volume 8.8 fL (9.4-12.3); Monocytes Absolute Auto 0.9 X10*3/uL (0.1-1.2); Monocytes Percent Auto 13.4 % (2-11); Neutrophils Absolute Auto 4.2 x10*3/uL (2.0-8.3); Neutrophils Percent Auto 60.4 % (45-73); Platelet Count 328 X10*3/uL (160-400); Red Blood Count 4.64 X10*6/uL (4.20-5.50); Red Cell Distribution Width 13.8 % (11.0-16.0)
[2022-09-15 15:24] LABS: Alanine Aminotransferase 13 U/L (0-31); Alkaline Phosphatase 51 U/L (39-117); Anion Gap 13 (12-20); Aspartate Amino Transferase 19 U/L (5-31); Bilirubin Direct 0.2 mg/dL (0.0-0.5); Bilirubin Total 0.6 mg/dL (0.0-1.0); Blood Urea Nitrogen 9 mg/dL (9-16); Calcium 9.3 mg/dL (8.4-10.2); Carbon Dioxide 22 mmol/L (22-29); Chloride 109 mmol/L (96-108); Creatinine Clr Calc Pharmacy 79.1; Estimated Glomerular Filt Rate > 60; Glucose Random 104 mg/dL (60-115); Lipase 20 U/L (8-78); Magnesium 2.1 mg/dL (1.6-2.6); Potassium 4.2 mmol/L (3.3-5.1); Sodium 140 mmol/L (135-145); Total Protein 7.5 g/dL (6.5-8.0)
[2022-09-15] MEDS: Ketorolac Tromethamine 15 MG/ML VIAL 30 MG IVPUSH (18:20)
[2022-09-15] MEDS: 0.9 % Sodium Chloride 1,000 ML 999 ML IV (18:20)
[2022-09-15 18:23] VITALS: BP 145/86; PULSE 72; RESP 16; O2SAT 98
[2022-09-15 18:34] LABS: Appearance Urine Clear; Color Urine Yellow; Glucose Urine UA Negative (Negative); Leukocyte Esterase Urine Negative (Negative); Nitrite Urine Negative (Negative); Urine Blood Negative (Negative); Urine Ketones 80 mg/dL (Negative); Urine Protein Negative (Neg-Trace)
[2022-09-15 18:36] LABS: UPreg QC Valid YES; Urine Pregnancy NEGATIVE (NEGATIVE)
[2022-09-15 18:51] LABS: COVID-19 Test Negative (Negative); IDNOW Serial# 6674DD1D; IDNOW Serial# BCCEAD1C; Influenza A Negative (Negative)
[2022-09-15 18:52] LABS: Influenza B2 Negative (Negative)
[2022-09-15] MEDS: iohexoL 350 MG/ML 100 ML INFUS..BTL IV (19:03)
[2022-09-15 19:29] VITALS: BP 123/76; PULSE 73; RESP 18; TEMP 36.8; O2SAT 99
--- NOTE | 2022-09-15 19:30 | PC.NURSE ---
patients iv was started and pt was medicated by leroy
--- NOTE | 2022-09-15 19:32 | PC.NURSE ---
pt reports torodol has helped pain and reports 0/10 pain. IV fluids running. vitals stable will cont to monitor
--- NOTE | 2022-09-15 20:10 | PC.NURSE ---
patient a&ox3, pt stated her pain is now 0/10, vitals previously stable and is being discharged to home.
== END 2022-09-15 20:13 | disposition home or self-care (01) ==
PROVIDERS: Physician Assistant; Emergency Provider Emergency Medicine
DX: R10.32 Left lower quadrant pain (principal); R11.0 Nausea; R35.0 Frequency of micturition; Z20.822 Contact with and (suspected) exposure to COVID-19; E78.5 Hyperlipidemia, unspecified; Z79.02 Long term (current) use of antithrombotics/antiplatelets; Z79.82 Long term (current) use of aspirin; Z79.899 Other long term (current) drug therapy
CPT/HCPCS: 36415; 74177; 80048; 80076; 81003; 81025; 83690; 83735; 85025; 87502; 87635; 96361; 96374; 99284; J1885; Q9967

== ENCOUNTER 2022-09-17 19:57 | Emergency (ER) | payer MEDICAID, SELFPAY ==
--- NOTE | ~2022-09-17 | US_ITS ---
EXAMINATION: US PELVIS CLINICAL INFORMATION: Pelvic pain COMPARISON: None available. TECHNIQUE: Ultrasound of the pelvis is performed using both transabdominal and transvaginal transducers along with Doppler. Transvaginal imaging is performed due to inadequate visualization transabdominally. FINDINGS: Uterus: The uterus is anteverted and measures 6.6 x 2.4 x 4.1 cm. The uterus echotexture is heterogeneous and scattered areas of calcification are seen.A small uterine fibroid is present measuring 0.6 x 0.4 x 0.5 cm. The double wall endometrial thickness is 3 mm, but there is fluid in the endometrial canal expanding the canal to 6 mm. The uterus is smooth in contour and has normal myometrial echogenicity. Adnexa: Both ovaries are visualized. There is normal color flow to the adnexa. There is no ovarian torsion. There is no pelvic ascites or fluid collection. Right ovary measures 1.5 x 0.9 x 1.0 cm for a volume of 0.7 mL. Left ovary measures 2.0 x 1.5 x 1.0 cm for a volume 1.6 mL. US/US pelvic and transvaginal IMPRESSION: 1. Small amount of fluid is present in the endometrial canal. 2. Small uterine fibroid. 3. Normal-appearing ovaries.
[2022-09-17 20:06] VITALS: BP 130/79; PULSE 103; RESP 20; TEMP 36.8; O2SAT 98; BMI 33.4
--- NOTE | 2022-09-17 20:10 | ED.GENADULT ---
HPI - General Adult General Chief complaint: Abdominal Pain Stated complaint: lower abd pain seen 09/15 Time Seen by Provider: 09/17/22 23:21 Related Data Home Medications Medication Instructions Recorded Confirmed atorvastatin 20 mg tablet 20 mg PO DAILY 05/02/20 06/11/22 cholecalciferol (vitamin D3) 25 25 mcg PO DAILY 05/02/20 06/11/22 mcg (1,000 unit) capsule remhlxd-rrengcumlgfsx-utgglmas 250 2 tab PO DAILY PRN headache 04/14/21 06/11/22 mg-250 mg-65 mg tablet (Pain Reliever Plus) fluticasone propionate 50 1 - 2 spray intranasal DAILY PRN 04/14/21 06/11/22 mcg/actuation nasal Nasal Congestion spray,suspension meclizine 25 mg tablet 1 tab PO TID PRN Dizziness 04/14/21 06/11/22 Previous Rx's Medication Instructions Recorded cyclobenzaprine 10 mg tablet 10 mg PO TID PRN muscle spasm #14 05/05/20 tabs dicyclomine 10 mg capsule 10 mg PO QID 30 days #120 caps 08/29/21 ketorolac 10 mg tablet 10 mg PO TID PRN pain 5 days #15 09/15/22 tabs ondansetron 4 mg disintegrating 4 mg PO Q6H PRN nausea and 09/15/22 tablet vomiting #14 tabs ibuprofen 400 mg tablet 400 mg PO Q6H PRN pain #20 tabs 09/18/22 Allergies Allergy/AdvReac Type Severity Reaction Status Date / Time No Known Allergies Allergy Verified 09/17/22 20:09 [No Known Allergies*] PMFSH Past Medical History Medical History Abdominal cramping Abnormal EKG Anxiety and depression Colon cancer screening Hyperlipidemia Iron (Fe) deficiency anemia Lower abdominal pain Migraine Potential exposure to STD Precordial chest pain Pulmonary hypertension Vitamin D deficiency Surgical History History of endometrial ablation History of tubal ligation Hx of colonoscopy Family History Family History Father Cardiovascular disease Mother Heart valve disease Diabetes HTN (hypertension) Social History Social History Household Members: Children Alcohol intake: never Patient Tobacco Use Status: Never used Tobacco Gender identity: Female Physical Exam ED Vital Signs: Vital Signs - 24 hr 09/17/22 20:06 Temperature 98.3 F Pulse Rate 103 H Respiratory Rate 20 Blood Pressure 130/79 Pulse Oximetry 98 Oxygen Delivery Method Room Air BMI result Body Mass Index 33.4 Course Course Course Narrative: 47-year-old female presents to ED for left lower pelvic pain. Patient states no history of left ovarian cyst. Patient was seen here on 09/15/[address] scan. labs and ultrasound ordered. Medical Decision Making Lab Data 09/17/22 20:25 09/17/22 20:25 Labs: Lab Results 09/17/22 09/17/22 09/17/22 Range/Units 20:25 20:25 20:25 WBC 6.2 (4.8-10.8) X10*3/uL RBC 4.41 (4.20-5.50) X10*6/uL Hgb 11.8 L (12.0-16.0) g/dl Hct 37.2 (37.0-47.0) % MCV 84.4 (80.0-98.0) fL MCH 26.8 L (27.0-33.0) pg MCHC 31.7 (31.0-35.0) g/dl RDW 13.6 (11.0-16.0) % Plt Count 305 (160-400) X10*3/uL MPV 8.9 L (9.4-12.3) fL Immature Gran % (Auto) 0.2 (0.0-0.4) % Neut % (Auto) 40.3 L (45-73) % Lymph % (Auto) 41.9 H (20-40) % [place] % (Auto) 15.5 H (2-11) % Eos % (Auto) 1.1 (0-4) % Baso % (Auto) 1.0 (0-2) % Lymph # (Auto) 2.6 (1.2-4.9) X10*3/uL [place] # (Auto) 1.0 (0.1-1.2) X10*3/uL Eos # (Auto) 0.1 (0.0-0.4) X10*3/uL Baso # (Auto) 0.1 (0.0-0.2) X10*3/uL Abs Immat Gran (auto) 0.01 (0.00-0.03) X10*3/uL Absolute Neuts (auto) 2.5 (2.0-8.3) x10*3/uL Absolute Nucleated RBC 0.000 (0.0-0.012) X10*3/uL Nucleated RBC % (auto) 0.0 (0.0-0.2) /100WBC Sodium 140 (135-145) mmol/L Potassium 3.8 (3.3-5.1) mmol/L Chloride 109 H (96-108) mmol/L Carbon Dioxide 23 (22-29) mmol/L Anion Gap 12 (12-20) BUN 8 L (9-16) mg/dL Creatinine 0.77 (0.5-1.4) mg/dL Estim Creat Clear Calc 75.5 Estimated GFR > 60 Random Glucose 106 (60-115) mg/dL Calcium 9.0 (8.4-10.2) mg/dL Total Bilirubin 0.3 (0.0-1.0) mg/dL AST 18 (5-31) U/L ALT 10 (0-31) U/L Alkaline Phosphatase 45 (39-117) U/L Total Protein 7.2 (6.5-8.0) g/dL Albumin 3.9 (3.5-5.0) g/dL Beta HCG, Quant < 2 mIU/mL Urine Color Urine Appearance Urine pH (5.0-9.0) Ur Specific [place] (1.005-1.025) Urine Protein (Neg-Trace) mg/dL Urine Glucose (UA) (Negative) mg/dL Urine Ketones (Negative) mg/dL Urine Blood (Negative) Urine Nitrite (Negative) Ur Leukocyte Esterase (Negative) Urine RBC (0-2) /HPF Urine WBC (0-5) /HPF Ur Squamous Epith Cells (0-2) /HPF Urine Bacteria (None Seen) Hyaline Casts (0-2) /LPF Urine Test (NEGATIVE) 09/17/22 09/17/22 Range/Units 23:46 23:49 WBC (4.8-10.8) X10*3/uL RBC (4.20-5.50) X10*6/uL Hgb (12.0-16.0) g/dl Hct (37.0-47.0) % MCV (80.0-98.0) fL MCH (27.0-33.0) pg MCHC (31.0-35.0) g/dl RDW (11.0-16.0) % Plt Count (160-400) X10*3/uL MPV (9.4-12.3) fL Immature Gran % (Auto) (0.0-0.4) % Neut % (Auto) (45-73) % Lymph % (Auto) (20-40) % [place] % (Auto) (2-11) % Eos % (Auto) (0-4) % Baso % (Auto) (0-2) % Lymph # (Auto) (1.2-4.9) X10*3/uL [place] # (Auto) (0.1-1.2) X10*3/uL Eos # (Auto) (0.0-0.4) X10*3/uL Baso # (Auto) (0.0-0.2) X10*3/uL Abs Immat Gran (auto) (0.00-0.03) X10*3/uL Absolute Neuts (auto) (2.0-8.3) x10*3/uL Absolute Nucleated RBC (0.0-0.012) X10*3/uL Nucleated RBC % (auto) (0.0-0.2) /100WBC Sodium (135-145) mmol/L Potassium (3.3-5.1) mmol/L Chloride (96-108) mmol/L Carbon Dioxide (22-29) mmol/L Anion Gap (12-20) BUN (9-16) mg/dL Creatinine (0.5-1.4) mg/dL Estim Creat Clear Calc Estimated GFR Random Glucose (60-115) mg/dL Calcium (8.4-10.2) mg/dL Total Bilirubin (0.0-1.0) mg/dL AST (5-31) U/L ALT (0-31) U/L Alkaline Phosphatase (39-117) U/L Total Protein (6.5-8.0) g/dL Albumin (3.5-5.0) g/dL Beta HCG, Quant mIU/mL Urine Color Yellow Urine Appearance Cloudy Urine pH 6.5 (5.0-9.0) Ur Specific [place] 1.025 (1.005-1.025) Urine Protein Trace (Neg-Trace) mg/dL Urine Glucose (UA) Negative (Negative) mg/dL Urine Ketones 15 (Negative) mg/dL Urine Blood Negative (Negative) Urine Nitrite Negative (Negative) Ur Leukocyte Esterase Trace H (Negative) Urine RBC 0-2 (0-2) /HPF Urine WBC 0-5 (0-5) /HPF Ur Squamous Epith Cells 3-5 (0-2) /HPF Urine Bacteria None Seen (None Seen) Hyaline Casts 0-2 (0-2) /LPF Urine Test NEGATIVE (NEGATIVE) Discharge Plan Discharge Clinical Impression: Fibroid Patient Disposition: Home, Self-Care Instructions: Abdominal Pain (ED) Prescriptions: New ibuprofen 400 mg tablet 400 mg PO Q6H PRN (Reason: pain) Qty: 20 0RF No Action cyclobenzaprine 10 mg tablet 10 mg PO TID PRN (Reason: muscle spasm) Qty: 14 0RF meclizine 25 mg tablet 1 tab PO TID PRN (Reason: Dizziness) fluticasone propionate 50 mcg/actuation spray,suspension 1 - 2 spray intranasal DAILY PRN (Reason: Nasal Congestion) Pain Reliever Plus 250-250-65 mg tablet 2 tab PO DAILY PRN (Reason: headache) ondansetron 4 mg tablet,disintegrating 4 mg PO Q6H PRN (Reason: nausea and vomiting) Qty: 14 0RF ketorolac 10 mg tablet 10 mg PO TID PRN (Reason: pain) 5 Days Qty: 15 0RF cholecalciferol (vitamin D3) 25 mcg (1,000 unit) capsule 25 mcg PO DAILY atorvastatin 20 mg tablet 20 mg PO DAILY dicyclomine 10 mg capsule 10 mg PO QID 30 Days Qty: 120 6RF Referrals: Physician,Mireya J [Primary Care Provider] - Julio C Antony MD [Physician] - Interventions: ED Discharge Assessment Last Done: 09/18/22 00:55 Discharge Date/Time: 09/18/22 00:55
[2022-09-17 20:28] LABS: MANUAL DIFF FLAG NO
[2022-09-17 20:29] LABS: Basophils Absolute Auto 0.1 X10*3/uL (0.0-0.2); Eosinophils Absolute Auto 0.1 X10*3/uL (0.0-0.4); Eosinophils Percent Auto 1.1 % (0-4); Hematocrit 37.2 % (37.0-47.0); Hemoglobin 11.8 g/dl (12.0-16.0); Imm Gran Abs Auto 0.01 X10*3/uL (0.00-0.03); Imm Gran Pct Auto 0.2 % (0.0-0.4); Lymphocytes Absolute Auto 2.6 X10*3/uL (1.2-4.9); Lymphocytes Percent Auto 41.9 % (20-40); Mean Corpuscular HGB Conc 31.7 g/dl (31.0-35.0); Mean Corpuscular Hemoglobin 26.8 pg (27.0-33.0); Mean Corpuscular Volume 84.4 fL (80.0-98.0); Mean Platelet Volume 8.9 fL (9.4-12.3); Monocytes Percent Auto 15.5 % (2-11); Neutrophils Absolute Auto 2.5 x10*3/uL (2.0-8.3); Neutrophils Percent Auto 40.3 % (45-73); Platelet Count 305 X10*3/uL (160-400); Red Blood Count 4.41 X10*6/uL (4.20-5.50); Red Cell Distribution Width 13.6 % (11.0-16.0); White Blood Count 6.2 X10*3/uL (4.8-10.8)
[2022-09-17 20:52] LABS: Alanine Aminotransferase 10 U/L (0-31); Albumin Level 3.9 g/dL (3.5-5.0); Alkaline Phosphatase 45 U/L (39-117); Anion Gap 12 (12-20); Aspartate Amino Transferase 18 U/L (5-31); Bilirubin Total 0.3 mg/dL (0.0-1.0); Blood Urea Nitrogen 8 mg/dL (9-16); Carbon Dioxide 23 mmol/L (22-29); Chloride 109 mmol/L (96-108); Creatinine Clr Calc Pharmacy 75.5; Estimated Glomerular Filt Rate > 60; Glucose Random 106 mg/dL (60-115); Potassium 3.8 mmol/L (3.3-5.1); Sodium 140 mmol/L (135-145); Total Protein 7.2 g/dL (6.5-8.0)
[2022-09-17 21:01] LABS: HCG Quantitative < 2 mIU/mL
[2022-09-17 23:42] VITALS: BP 133/83; PULSE 68; RESP 12; O2SAT 98
--- NOTE | 2022-09-17 23:44 | PC.NURSE ---
Pt aox3 resting at the bedside in no apparent distress. VSS. Reports lower abd discomfort but no pain at this time. Provided urine sample and sent to the lab. Pt aware of plan of care. Will continue to monitor.
[2022-09-17 23:55] LABS: Appearance Urine Cloudy; Color Urine Yellow; Glucose Urine UA Negative (Negative); Leukocyte Esterase Urine Trace (Negative); Nitrite Urine Negative (Negative); PH 6.5 (5.0-9.0); Specific Gravity - Urine 1.025 (1.005-1.025); UMIC TRIGGER UACC YES; Urine Blood Negative (Negative); Urine Ketones 15 mg/dL (Negative); Urine Protein Trace mg/dL (Neg-Trace)
[2022-09-17 23:59] LABS: UPreg QC Valid YES; Urine Pregnancy NEGATIVE (NEGATIVE)
[2022-09-18 00:03] LABS: Bacteria Urine None Seen (None Seen); Hyaline Casts Urine 0-2 /LPF (0-2); RBC Urine 0-2 /HPF (0-2); WBC Urine 0-5 /HPF (0-5)
--- NOTE | 2022-09-18 00:32 | ED.ABDPAIN ---
HPI - Abdominal Pain General Chief Complaint: Abdominal Pain Stated Complaint: lower abd pain seen 09/15 Time Seen by Provider: 09/17/22 23:21 History of Present Illness HPI narrative: Patient is a 47-year-old female presents today with having lower abdominal pain. Patient seen 2 days ago had a CT scan of the abdomen at that time. CT scan was negative for any acute evidence of diverticulitis no abscess no perforation no kidney stone. Patient continued to have pain. Came back for further evaluation. She claims she is not sexually active. There is no vaginal discharge. There is no nausea no vomiting. There is no fever no chills. The pain is not positional comes and goes without any specific trigger no systemic complaints. Related Data Home Medications Medication Instructions Recorded Confirmed atorvastatin 20 mg tablet 20 mg PO DAILY 05/02/20 06/11/22 cholecalciferol (vitamin D3) 25 25 mcg PO DAILY 05/02/20 06/11/22 mcg (1,000 unit) capsule tiuovnc-ylsjcihicwskk-tjacmsns 250 2 tab PO DAILY PRN headache 04/14/21 06/11/22 mg-250 mg-65 mg tablet (Pain Reliever Plus) fluticasone propionate 50 1 - 2 spray intranasal DAILY PRN 04/14/21 06/11/22 mcg/actuation nasal Nasal Congestion spray,suspension meclizine 25 mg tablet 1 tab PO TID PRN Dizziness 04/14/21 06/11/22 Previous Rx's Medication Instructions Recorded cyclobenzaprine 10 mg tablet 10 mg PO TID PRN muscle spasm #14 05/05/20 tabs dicyclomine 10 mg capsule 10 mg PO QID 30 days #120 caps 08/29/21 ketorolac 10 mg tablet 10 mg PO TID PRN pain 5 days #15 09/15/22 tabs ondansetron 4 mg disintegrating 4 mg PO Q6H PRN nausea and 09/15/22 tablet vomiting #14 tabs ibuprofen 400 mg tablet 400 mg PO Q6H PRN pain #20 tabs 09/18/22 Allergies Allergy/AdvReac Type Severity Reaction Status Date / Time No Known Allergies Allergy Verified 09/17/22 20:09 [No Known Allergies*] Review of Systems Review of Systems Positive abdominal pain and left lower quadrant. No nausea no vomiting Yes all other systems are reviewed and are negative [facility] Past Medical History Attestation statement: The following information was validated with the patient. Medical History Abdominal cramping Abnormal EKG Anxiety and depression Colon cancer screening Hyperlipidemia Iron (Fe) deficiency anemia Lower abdominal pain Migraine Potential exposure to STD Precordial chest pain Pulmonary hypertension Vitamin D deficiency Surgical History History of endometrial ablation History of tubal ligation Hx of colonoscopy Family History Family History Father Cardiovascular disease Mother Heart valve disease Diabetes HTN (hypertension) Social History Social History Household Members: Children Alcohol intake: never Patient Tobacco Use Status: Never used Tobacco Advance Directives: No Gender identity: Female Physical Exam ED Vital Signs: Vital Signs - 24 hr 09/17/22 20:06 09/17/22 23:42 Temperature 98.3 F Pulse Rate 103 H 68 Respiratory Rate 20 12 Blood Pressure 130/79 133/83 Pulse Oximetry 98 98 Oxygen Delivery Method Room Air Room Air BMI result Body Mass Index 33.4 Appearance: Alert. Oriented X3. No acute distress. Eyes: Pupils equal, round and reactive to light. ENT: Pharynx normal. Neck: Normal inspection. Neck supple. No lymph nodes noted. No crepitus CVS: Normal heart rate and rhythm. Pulses normal. Normal S1 and S2 Respiratory: No respiratory distress. Breath sounds normal. No Wheezing. No rales Abdomen: Soft and nontender. No rigidity. No distention. good BS x4 Skin: Skin warm and dry. Normal skin color. Normal skin turgor. Extremities: No lower extremity edema. Neurovascular intact to all extremities. No Lacerations. No Rash Neuro: Oriented X 3. No motor deficit. No sensory deficit. Moving all extermities. No slurred speech Medical Decision Making Medical Decision Making MDM Narrative: Patient's abdominal exam is soft nontender. Already had a CT scan done 2 days ago for the same pain. CT scan was negative for diverticulitis. No abscess no perforation no abscess. No kidney stone. Patient continued to have pain. An ultrasound was done. There was no evidence for torsion. There is a small ovarian cyst loaded bilaterally. There is a fibroid noted. Patient in no distress. Unlikely test STD is patient is not sexually active. Urine showed no signs of infection. test was negative unlikely to be related issues. Patient to be discharged home. Motrin for pain. Follow up on an outpatient basis. Differential Diagnosis Differential Diagnoses: The differential diagnosis associated with the presentation includes Ovarian cyst, Lab Data MDM Lab Attestation statement: I reviewed the patient's lab results. 09/17/22 20:25 09/17/22 20:25 Labs: Lab Results 09/17/22 09/17/22 09/17/22 Range/Units 20:25 20:25 20:25 WBC 6.2 (4.8-10.8) X10*3/uL RBC 4.41 (4.20-5.50) X10*6/uL Hgb 11.8 L (12.0-16.0) g/dl Hct 37.2 (37.0-47.0) % MCV 84.4 (80.0-98.0) fL MCH 26.8 L (27.0-33.0) pg MCHC 31.7 (31.0-35.0) g/dl RDW 13.6 (11.0-16.0) % Plt Count 305 (160-400) X10*3/uL MPV 8.9 L (9.4-12.3) fL Immature Gran % (Auto) 0.2 (0.0-0.4) % Neut % (Auto) 40.3 L (45-73) % Lymph % (Auto) 41.9 H (20-40) % [place] % (Auto) 15.5 H (2-11) % Eos % (Auto) 1.1 (0-4) % Baso % (Auto) 1.0 (0-2) % Lymph # (Auto) 2.6 (1.2-4.9) X10*3/uL [place] # (Auto) 1.0 (0.1-1.2) X10*3/uL Eos # (Auto) 0.1 (0.0-0.4) X10*3/uL Baso # (Auto) 0.1 (0.0-0.2) X10*3/uL Abs Immat Gran (auto) 0.01 (0.00-0.03) X10*3/uL Absolute Neuts (auto) 2.5 (2.0-8.3) x10*3/uL Absolute Nucleated RBC 0.000 (0.0-0.012) X10*3/uL Nucleated RBC % (auto) 0.0 (0.0-0.2) /100WBC Sodium 140 (135-145) mmol/L Potassium 3.8 (3.3-5.1) mmol/L Chloride 109 H (96-108) mmol/L Carbon Dioxide 23 (22-29) mmol/L Anion Gap 12 (12-20) BUN 8 L (9-16) mg/dL Creatinine 0.77 (0.5-1.4) mg/dL Estim Creat Clear Calc 75.5 Estimated GFR > 60 Random Glucose 106 (60-115) mg/dL Calcium 9.0 (8.4-10.2) mg/dL Total Bilirubin 0.3 (0.0-1.0) mg/dL AST 18 (5-31) U/L ALT 10 (0-31) U/L Alkaline Phosphatase 45 (39-117) U/L Total Protein 7.2 (6.5-8.0) g/dL Albumin 3.9 (3.5-5.0) g/dL Beta HCG, Quant < 2 mIU/mL Urine Color Urine Appearance Urine pH (5.0-9.0) Ur Specific [place] (1.005-1.025) Urine Protein (Neg-Trace) mg/dL Urine Glucose (UA) (Negative) mg/dL Urine Ketones (Negative) mg/dL Urine Blood (Negative) Urine Nitrite (Negative) Ur Leukocyte Esterase (Negative) Urine RBC (0-2) /HPF Urine WBC (0-5) /HPF Ur Squamous Epith Cells (0-2) /HPF Urine Bacteria (None Seen) Hyaline Casts (0-2) /LPF Urine Test (NEGATIVE) 09/17/22 09/17/22 Range/Units 23:46 23:49 WBC (4.8-10.8) X10*3/uL RBC (4.20-5.50) X10*6/uL Hgb (12.0-16.0) g/dl Hct (37.0-47.0) % MCV (80.0-98.0) fL MCH (27.0-33.0) pg MCHC (31.0-35.0) g/dl RDW (11.0-16.0) % Plt Count (160-400) X10*3/uL MPV (9.4-12.3) fL Immature Gran % (Auto) (0.0-0.4) % Neut % (Auto) (45-73) % Lymph % (Auto) (20-40) % [place] % (Auto) (2-11) % Eos % (Auto) (0-4) % Baso % (Auto) (0-2) % Lymph # (Auto) (1.2-4.9) X10*3/uL [place] # (Auto) (0.1-1.2) X10*3/uL Eos # (Auto) (0.0-0.4) X10*3/uL Baso # (Auto) (0.0-0.2) X10*3/uL Abs Immat Gran (auto) (0.00-0.03) X10*3/uL Absolute Neuts (auto) (2.0-8.3) x10*3/uL Absolute Nucleated RBC (0.0-0.012) X10*3/uL Nucleated RBC % (auto) (0.0-0.2) /100WBC Sodium (135-145) mmol/L Potassium (3.3-5.1) mmol/L Chloride (96-108) mmol/L Carbon Dioxide (22-29) mmol/L Anion Gap (12-20) BUN (9-16) mg/dL Creatinine (0.5-1.4) mg/dL Estim Creat Clear Calc Estimated GFR Random Glucose (60-115) mg/dL Calcium (8.4-10.2) mg/dL Total Bilirubin (0.0-1.0) mg/dL AST (5-31) U/L ALT (0-31) U/L Alkaline Phosphatase (39-117) U/L Total Protein (6.5-8.0) g/dL Albumin (3.5-5.0) g/dL Beta HCG, Quant mIU/mL Urine Color Yellow Urine Appearance Cloudy Urine pH 6.5 (5.0-9.0) Ur Specific [place] 1.025 (1.005-1.025) Urine Protein Trace (Neg-Trace) mg/dL Urine Glucose (UA) Negative (Negative) mg/dL Urine Ketones 15 (Negative) mg/dL Urine Blood Negative (Negative) Urine Nitrite Negative (Negative) Ur Leukocyte Esterase Trace H (Negative) Urine RBC 0-2 (0-2) /HPF Urine WBC 0-5 (0-5) /HPF Ur Squamous Epith Cells 3-5 (0-2) /HPF Urine Bacteria None Seen (None Seen) Hyaline Casts 0-2 (0-2) /LPF Urine Test NEGATIVE (NEGATIVE) Radiology Impression Discussion of test interpretation with radiology: I have reviewed the radiologist's reading. External Record Review External record reviewed: Inpatient record Previous ER record, imaging record Chronic Conditions Previous history of ovarian cyst Discharge Plan Discharge Clinical Impression: Fibroid Patient Disposition: Home, Self-Care Instructions: Abdominal Pain (ED) Prescriptions: New ibuprofen 400 mg tablet 400 mg PO Q6H PRN (Reason: pain) Qty: 20 0RF No Action cyclobenzaprine 10 mg tablet 10 mg PO TID PRN (Reason: muscle spasm) Qty: 14 0RF meclizine 25 mg tablet 1 tab PO TID PRN (Reason: Dizziness) fluticasone propionate 50 mcg/actuation spray,suspension 1 - 2 spray intranasal DAILY PRN (Reason: Nasal Congestion) Pain Reliever Plus 250-250-65 mg tablet 2 tab PO DAILY PRN (Reason: headache) ondansetron 4 mg tablet,disintegrating 4 mg PO Q6H PRN (Reason: nausea and vomiting) Qty: 14 0RF ketorolac 10 mg tablet 10 mg PO TID PRN (Reason: pain) 5 Days Qty: 15 0RF cholecalciferol (vitamin D3) 25 mcg (1,000 unit) capsule 25 mcg PO DAILY atorvastatin 20 mg tablet 20 mg PO DAILY dicyclomine 10 mg capsule 10 mg PO QID 30 Days Qty: 120 6RF Referrals: Physician,Unknown J [Primary Care Provider] - Julio C Antony MD [Physician] -
--- NOTE | 2022-09-18 00:54 | PC.NURSE ---
Discharge instructions reviewed with pt. Pt verbalizes understanding. Ambulates independently with steady gait at discharge.
== END 2022-09-18 00:55 | disposition home or self-care (01) ==
PROVIDERS: Physician Assistant; Emergency Provider Emergency Medicine Emergency Medical Services
DX: D27.9 Benign neoplasm of unspecified ovary (principal); R10.30 Lower abdominal pain, unspecified; Z79.899 Other long term (current) drug therapy
CPT/HCPCS: 36415; 76830; 76856; 80053; 81001; 81025; 84702; 85025; 99283; 99284

== ENCOUNTER 2022-10-15 11:40 | Outpatient (REF) | payer MEDICAID, SELFPAY ==
--- NOTE | ~2022-10-15 | MM_ITS ---
EXAMINATION: MM SCREENING DIGITAL BREAST TOMOSYNTHESIS, BILATERAL CLINICAL INFORMATION: Screening. Asymptomatic. The lifetime risk of breast cancer based on the Tyrer-Cuzick Model is 6.4%. COMPARISON: Mammography: 09/12/2021 and studies dating back to 03/25/2015. TECHNIQUE: Digital breast tomosynthesis is performed in both the craniocaudal and mediolateral oblique views along with computer-aided detection (CAD). Synthesized 2D images are generated from the tomosynthesis. FINDINGS: The breasts are heterogeneously dense, which may obscure small masses (ACR BI-RADS breast composition Category c). There are no new significant masses, abnormal calcifications, or other abnormalities. There is waxing and waning of right breast densities consistent with known cysts. MM/MM tomosynthesis screening BI IMPRESSION: No significant changes from prior exam. ASSESSMENT: BI-RADS 2: Benign. RECOMMENDATION: Routine annual mammography screening. This patient's information was entered into a reminder system with a target due date for their next mammogram.
== END 2022-10-15 11:41 | disposition home or self-care (01) ==
LOC: HO.MAMMO 11:40
PROVIDERS: PCP Registered Nurse; Visit Provider Advanced Practice Midwife
DX: Z12.31 Encounter for screening mammogram for malignant neoplasm of breast (principal)
CPT/HCPCS: 77063; 77067

== ENCOUNTER 2022-10-25 14:00 | Outpatient (RCR) | payer MEDICAID, SELFPAY ==
[2022-10-10 11:08] VITALS: BP 117/70; PULSE 65
--- NOTE | 2022-12-03 10:03 | MHC.PT.DC ---
[facility] [place] Office [place] Office [place] Office [address] [place] [address] [facility] [phone] F: [phone] F: [phone] F: [phone] F: [phone] Physical Therapy Discharge Report Diagnosis: VERTIGO Date of Surgery: Date of Evaluation: 10/10/22 Date of Discharge: 12/03/22 Treatments to Date: 3 Cancellations to Date: 1 No Shows to Date: 1 Discharge Status: Discharge Summary: UPON EXAM BRIGITTE DOES NOT EXHIBIT S/S OF BPPV, NO OCCULOMOTOR DEFICITS, AND BALANCE IS WNLS. AT THIS TIME SHE DOES NOT EXHIBIT VESTIBUAR IMPAIRMENTS WHICH WOULD WARRENT SKILLED PHYSICAL THERAPY. IF SHE HAS ANY RETURN OF SYMPTOMS SHE MAY RETURN FOR FURTHER VISITS. Electronically signed by: Danielle Soria PT DPT Please sign and return to therapist. Thank you for your referral.
== END 2022-12-03 10:02 | disposition home or self-care (01) ==
LOC: HO.PT 14:00
PROVIDERS: PCP Registered Nurse; Visit Provider Registered Nurse
DX: M22.2X2 Patellofemoral disorders, left knee (principal); R42 Dizziness and giddiness
CPT/HCPCS: 95992; 97112; 97162

== ENCOUNTER → 2022-10-31 11:07 | Outpatient (BNVA) | payer MEDICAID, SELFPAY | PROVIDERS: PCP Registered Nurse; Visit Provider Advanced Practice Midwife | DX: D25.9 Leiomyoma of uterus, unspecified (principal); R10.2 Pelvic and perineal pain; R23.2 Flushing | CPT/HCPCS: 99212 ==

== ENCOUNTER 2022-12-05 11:50 | Outpatient (REF) | payer MEDICAID, SELFPAY ==
--- NOTE | ~2022-12-05 | MR_ITS ---
MR BRAIN WITHOUT AND WITH CONTRAST CLINICAL INFORMATION: Worsening migraines/dizziness. 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 COMPARISON: None available. TECHNIQUE: Multiplanar, multisequence MRI of the brain was obtained before and after the intravenous administration of 7.5 mL Gadavist. FINDINGS: There is no pathologic intracranial enhancement. No parenchymal signal abnormality. There is no hydrocephalus, extra-axial surface collection, or herniation. The major flow voids at the skull base are preserved. There is no acute infarct on diffusion-weighted imaging. There is no intracranial hemorrhage on the gradient recalled echo acquisition. The midline structures are normal. The cerebellar tonsils are normally positioned. The cerebellum and brainstem are normal. The craniocervical junction is normal. Osseous marrow signal intensity is homogenous. The visualized soft tissues are unremarkable. MR/MR head/brain wo/w con IMPRESSION: Unremarkable MRI of the brain.
== END 2022-12-05 11:51 | disposition home or self-care (01) ==
LOC: HO.MRI 11:50
PROVIDERS: PCP Registered Nurse; Visit Provider Registered Nurse
DX: G43.109 Migraine with aura, not intractable, without status migrainosus (principal); H81.13 Benign paroxysmal vertigo, bilateral; H51.9 Unspecified disorder of binocular movement
CPT/HCPCS: 70553; A9585

== ENCOUNTER 2023-03-07 11:29 | Outpatient (REF) | payer MEDICAID, SELFPAY ==
[2023-03-08 08:59] LABS: Syphilis Screen Nonreactive (Nonreactive)
[2023-03-08 10:39] LABS: HBc Num1 0.11 S/CO (0.00-0.79); HIV AB/AG Nonreactive (Nonreactive); HIV Num 1 0.06 S/CO (0.00-0.99); Hepatitis B Core Antibody Nonreactive (Nonreactive); ~HepC Num1 0.54 S/CO (0.00-0.79); ~Hepatitis C Antibody Nonreactive (Nonreactive)
[2023-03-08 15:42] LABS: CT PCR NOT DETECTED (Not Detect.); NG PCR NOT DETECTED (Not Detect.)
== END 2023-03-07 11:30 | disposition home or self-care (01) ==
LOC: HO.LAB 11:29
PROVIDERS: PCP Registered Nurse; Visit Provider Advanced Practice Midwife
DX: Z01.419 Encounter for gynecological examination (general) (routine) without abnormal findings (principal); Z11.4 Encounter for screening for human immunodeficiency virus [HIV]; Z20.2 Contact with and (suspected) exposure to infections with a predominantly sexual mode of transmission
CPT/HCPCS: 0353U; 86704; 86780; 86803; 87389; 99396

== ENCOUNTER 2023-03-07 11:29 | Outpatient (AMB) | payer MEDICAID, SELFPAY ==
[2023-03-07 11:32] VITALS: BP 112/70; BMI 33.4
--- NOTE | 2023-03-07 11:32 | MHC.OFFVIS ---
Intake Vital Signs 03/07/23 11:32 Height 4 ft 10 in Weight 160 lb BMI 33.4 BP 112/70 Intake Visit Reasons: Annual Intake Note: The patient agreed to use of a biomedical engineering director during this encounter. Scribed for IRVING Wilde by Dayna Ireland biomedical engineering director, on 03/07/2023 at 11:42 am EST. Keel Press Operator: Keel Press Operator Present (Lori) Allergies No Known Allergies [No Known Allergies*] Allergy (Verified 03/07/23 11:32) HPI HPI Comments History of Present Illness Details She is a premenopausal woman presenting for annual exam. Doing well with no screen tender helper concerns. Patient admits she tries to eat a healthy diet including Calcium and Vitamin D. She stays active with exercise. Reports no menses since ablation. Currently not sexually active. Denies vaginal itching and irritation. STD screening and blood work offered; she accepts. Denies family hx of breast, colon and ovarian cancer. Last pap smear 05/17/20. Last mammogram 10/15/22. [facility] Medical History Abdominal cramping Colon cancer screening Lower abdominal pain Potential exposure to STD Pulmonary hypertension Migraine Anxiety and depression Vitamin D deficiency Iron (Fe) deficiency anemia Hyperlipidemia Abnormal EKG Precordial chest pain Surgical History History of endometrial ablation Hx of colonoscopy History of tubal ligation Family History Father Cardiovascular disease Mother Heart valve disease Diabetes HTN (hypertension) Social History Household Members: Children Alcohol intake: never Patient Tobacco Use Status: Never used Tobacco Sexual orientation: Straight/Heterosexual Gender identity: Female Female Reproductive History Menstrual Age of Menarche: 14 control method: permanent sterilization Permanent Sterilization: BTL Total pregnancies: 4 Full term: 3 Number of Living Children: 3 Date of last pap smear: 05/17/20 (neg pap and hpv) Date of Mammogram: 10/15/22 ([facility]ad 2) Physical Exam Vital Signs: Last Vital Signs BP 112/70 03/07/23 11:32 BMI result Body Mass Index 33.4 Const General: cooperative, healthy appearing, no acute distress, well developed and alert Orientation/consciousness: patient oriented x3 HEENT Head: Yes normal to inspection Eyes General: appearance normal, both eyes and all related structures Neck Neck: Yes normal visual inspection Thyroid: Thyroid normal Chest Chest palpation & inspection: normal inspection of the chest Breast/axilla inspection: normal inspection of the breasts (no puckering, dimpling, peau de orange, retraction, discharge, masses) Breast/axilla palpation: normal palpation of the breasts Resp Effort & Inspection: normal respiratory effort GI Inspection: Yes normal to inspection Palpation (GI): Soft to palpation (to palpation) Rectal Exam - Female: deferred General: Yes bladder normal to inspection External Female Exam: normal external appearance and normal appearance of the urethra Speculum Exam - Vagina: normal appearance of the vagina, normal palpation and normal vaginal discharge Speculum Exam - Cervix: normal appearance of the cervix, normal palpation and Other cervical findings present (bled slightly with exam) Bimanual exam- vagina & uterus: normal palpation and normal palpation Bimanual Exam- Adnexa, other: normal adnexae and no masses Skin General skin exam: no rashes or lesions noted Neuro General: patient oriented x3 Cognition (Neuro): normal cognition Extrem General: Yes normal to inspection Psych Attitude: cooperative Thought process: Normal thought process present Assessment & Plan Assessment & Plan (1) Encounter for well woman exam: Code(s): Z01.419 - Encounter for gynecological examination (general) (routine) without abnormal findings Plan: Discussed: Current recommendations for pap smears per ASCCP guidelines. Breast awareness and periodic self breast exams. Maintaining a healthy lifestyle including a well balanced diet and routine exercise. Encouraged to use condoms for STD and prevention if become sexually active. Encouraged patient to sign up for patient portal. All of her questions and concerns were addressed to the best of my ability. RTO in one year for AG. (2) Potential exposure to STD: Code(s): Z20.2 - Contact with and (suspected) exposure to infections with a predominantly sexual mode of transmission Plan: BV testing and GC/CT panel today. STD blood work ordered. Await results and treat accordingly. Orders: Orders Bacterial Vaginosis Panel Today Z20.2 - Contact with and (suspected) exposure to infections with a predominantly sexual mode of transmission CT NG by PCR Today Z20.2 - Contact with and (suspected) exposure to infections with a predominantly sexual mode of transmission Hepatitis B Core Antibody Today Z20.2 - Contact with and (suspected) exposure to infections with a predominantly sexual mode of transmission Syphilis Screen Today Z20.2 - Contact with and (suspected) exposure to infections with a predominantly sexual mode of transmission MM tomosynthesis screening BI Today Z12.31 - Encounter for screening mammogram for malignant neoplasm of breast Hepatitis C Antibody Today Z20.2 - Contact with and (suspected) exposure to infections with a predominantly sexual mode of transmission HIV Ab/Ag Today Z20.2 - Contact with and (suspected) exposure to infections with a predominantly sexual mode of transmission Coding Level of Care Code Est Pt Prev Care 40-64y(10132) Diagnoses Encounter for well woman exam Z01.419 Potential exposure to STD Z20.2
== END 2023-03-07 11:53 | disposition home or self-care (01) ==
PROVIDERS: Visit Provider Advanced Practice Midwife
DX: Z01.419 Encounter for gynecological examination (general) (routine) without abnormal findings (principal); Z20.2 Contact with and (suspected) exposure to infections with a predominantly sexual mode of transmission
CPT/HCPCS: 99396

== ENCOUNTER 2023-03-07 11:48 | Outpatient (REF) | payer MEDICAID, SELFPAY ==
[2023-03-08 11:39] LABS: BV Int Neg Control Negative (Negative); BV Int Pos Control Positive (Positive)
== END 2023-03-07 11:49 | disposition home or self-care (01) ==
LOC: HO.LNP 11:48
PROVIDERS: Visit Provider Advanced Practice Midwife
DX: Z20.2 Contact with and (suspected) exposure to infections with a predominantly sexual mode of transmission (principal)
CPT/HCPCS: 87480; 87510; 87660

== ENCOUNTER 2023-05-27 14:10 | Outpatient (REF) | payer MEDICAID, SELFPAY ==
--- NOTE | ~2023-05-27 | XR_ITS ---
EXAMINATION: XR KNEE, RIGHT CLINICAL INFORMATION: Right knee pain COMPARISON: None available. TECHNIQUE: Four views of the right knee. FINDINGS: There is mild loss of tricompartment joint space. No bony erosive changes, fracture or dislocation. There are no loose bodies or joint effusion. XR/XR knee RT 3V IMPRESSION: Mild degenerative changes right knee. No visible acute fracture or dislocation seen
== END 2023-05-27 14:11 | disposition home or self-care (01) ==
LOC: HO.HHCX 14:10
PROVIDERS: Visit Provider Internal Medicine
DX: M17.11 Unilateral primary osteoarthritis, right knee (principal)
CPT/HCPCS: 73562

== ENCOUNTER 2023-06-05 10:15 | Outpatient (REF) | payer MEDICAID, SELFPAY ==
--- NOTE | ~2023-06-05 | XR_ITS ---
EXAMINATION: XR KNEE, LEFT CLINICAL INFORMATION: Left knee pain COMPARISON: None available. TECHNIQUE: Four views of the left knee. FINDINGS: No fracture or joint effusion. Alignment is anatomic. Joint spaces are maintained. No abnormal soft tissue calcification. XR/XR knee LT 4V IMPRESSION: Normal left knee.
== END 2023-06-05 10:16 | disposition home or self-care (01) ==
LOC: HO.HHCX 10:15
PROVIDERS: Visit Provider Registered Nurse
DX: M25.562 Pain in left knee (principal)
CPT/HCPCS: 36415; 73564; 80061; 83036; 84443; 86800

== ENCOUNTER 2023-06-05 10:35 | Outpatient (REF) | payer MEDICAID, SELFPAY ==
[2023-06-05 12:00] LABS: Estimated Average Glucose 117 mg/dL; Hemoglobin A1c % 5.7 % (<6.0)
[2023-06-05 12:40] LABS: Cholesterol 222 mg/dL (<200); HDL Cholesterol 52 mg/dL (>40); LDL Cholesterol Calculated 153 mg/dL (<100); Triglycerides 88 mg/dL (<150)
[2023-06-05 12:56] LABS: TSH reflex Free T4 2.23 uIU/mL (0.32-4.0)
[2023-06-06 09:18] LABS: Thyroglobulin Antibodies 13 IU/mL (< or = 1)
== END 2023-06-05 10:36 | disposition home or self-care (01) ==
LOC: HO.HHCL 10:35
PROVIDERS: Visit Provider Registered Nurse
DX: E78.5 Hyperlipidemia, unspecified (principal); E07.9 Disorder of thyroid, unspecified
CPT/HCPCS: 36415; 80061; 83036; 84443; 86800

== ENCOUNTER 2023-06-27 09:14 | Emergency (ER) | payer MEDICAID, SELFPAY ==
[2023-06-27 09:30] VITALS: BP 129/77; PULSE 72; RESP 16; TEMP 36.2; O2SAT 98; BMI 34.5
[2023-06-27 11:02] LABS: Alanine Aminotransferase 9 U/L (0-31); Albumin Level 3.8 g/dL (3.5-5.0); Alkaline Phosphatase 43 U/L (39-117); Anion Gap 13 (12-20); Aspartate Amino Transferase 17 U/L (5-31); Bilirubin Direct 0.1 mg/dL (0.0-0.5); Bilirubin Total 0.3 mg/dL (0.0-1.0); Blood Urea Nitrogen 12 mg/dL (9-16); Calcium 9.1 mg/dL (8.4-10.2); Carbon Dioxide 22 mmol/L (22-29); Chloride 110 mmol/L (96-108); Creatinine Clr Calc Pharmacy 83.6; Estimated Glomerular Filt Rate > 60; Glucose Random 96 mg/dL (60-115); Lipase 26 U/L (8-78); Potassium 3.5 mmol/L (3.3-5.1); Sodium 141 mmol/L (135-145); Total Protein 7.4 g/dL (6.5-8.0)
== END 2023-06-27 19:33 | disposition left against medical advice (07) ==
PROVIDERS: Emergency Provider Emergency Medicine; PCP Physician Assistant
DX: R10.9 Unspecified abdominal pain (principal); R10.32 Left lower quadrant pain; Z20.822 Contact with and (suspected) exposure to COVID-19; Z20.828 Contact with and (suspected) exposure to other viral communicable diseases; R11.0 Nausea; R19.7 Diarrhea, unspecified
CPT/HCPCS: 0241U; 36415; 80048; 80076; 81003; 83690; 85025; 99282; 99283

== ENCOUNTER 2023-07-03 11:22 | Outpatient (REF) | payer MEDICAID, SELFPAY ==
[2023-07-04 02:10] LABS: CT PCR NOT DETECTED (Not Detect.); NG PCR NOT DETECTED (Not Detect.)
[2023-07-04 09:23] LABS: BV Int Neg Control Negative (Negative); BV Int Pos Control Positive (Positive)
== END 2023-07-03 11:23 | disposition home or self-care (01) ==
LOC: HO.LNP 11:22
PROVIDERS: PCP Physician Assistant; Visit Provider Advanced Practice Midwife
DX: R10.2 Pelvic and perineal pain (principal)
CPT/HCPCS: 0353U; 87086; 87147; 87480; 87510; 87660; 99212

== ENCOUNTER 2023-07-03 11:22 | Outpatient (AMB) | payer MEDICAID, SELFPAY ==
--- NOTE | 2023-07-03 11:44 | A.OFFVIS_ITS ---
Intake Vital Signs 07/03/23 11:52 Height 4 ft 10 in Weight 161 lb BMI 33.6 BP 118/72 Intake Visit Reasons: Pelvic Pain/ keep 45 mins per BM Intake Note: Pain on left side she states it's her ovaries Emergency Room Orderly Required: No Information Interpreted: non-clinical & clinical Sales Expert Home Theater: Sales Expert Home Theater Present (Aidyn) Allergies No Known Allergies [No Known Allergies*] Allergy (Verified 07/03/23 11:53) Is last menstrual period known: No Post menopausal: No HPI HPI Comments History of Present Illness Details Patient is here today for an assessment of pelvic pain. She had reported to the emergency room on 06/27/2023 but left because she avoid waited for a long time and there was a lot of people coughing and she did not want to be exposed to anything. At that time that pain was on her left lower quadrant were sharp intense she went home and used Motrin and some Markus-Dos Santos and she reports that resolved on its own in a short period of time with no recurrence. She denies any dysuria or frequency of urination. [facility] Medical History (Updated 03/07/23 @ 11:53 by Dayna Ireland) Abdominal cramping Colon cancer screening Lower abdominal pain Pulmonary hypertension Migraine Anxiety and depression Vitamin D deficiency Iron (Fe) deficiency anemia Hyperlipidemia Abnormal EKG Precordial chest pain Surgical History History of endometrial ablation Hx of colonoscopy History of tubal ligation Family History Father Cardiovascular disease Mother Heart valve disease Diabetes HTN (hypertension) Social History Household Members: Children Alcohol intake: never Patient Tobacco Use Status: Never used Tobacco Sexual orientation: Straight/Heterosexual Gender identity: Female Female Reproductive History Menstrual Age of Menarche: 14 control method: permanent sterilization Total pregnancies: 4 Full term: 3 Number of Living Children: 3 Ab spontaneous: 1 Date of last pap smear: 05/18/20 (negative) Date of Mammogram: 10/15/22 Review of Systems Const All systems reviewed & are unremarkable except as noted in HPI and below Physical Exam Vital Signs: Last Vital Signs BP 118/72 07/03/23 11:52 BMI result Body Mass Index 33.6 Const General: cooperative, healthy appearing and no acute distress Orientation/consciousness: patient oriented x3 GI Inspection: Yes normal to inspection Palpation (GI): Soft to palpation and Other GI palpation findings present (Nontender) Rectal Exam - Female: visual inspection normal General: Yes bladder normal to palpation External Female Exam: normal appearance of the urethra Speculum Exam - Vagina: normal appearance of the vagina, normal palpation and other (White frothy discharge) Speculum Exam - Cervix: normal appearance of the cervix and normal palpation Bimanual exam- vagina & uterus: normal bimanual exam, normal palpation, uterine size normal, bladder normal to palpation, normal palpation, uterine shape normal and non-tender Bimanual Exam- Adnexa, other: normal adnexae Neuro General: patient oriented x3 Assessment & Plan Assessment & Plan (1) Pelvic pain: Code(s): R10.2 - Pelvic and perineal pain Plan Urine was cloudy will be sent off for a urinalysis and culture if indicated. BV and GC chlamydia sent. She declines an ultrasound today and since her pain has completely resolved from June 27 will just observe for any concerns and advised to call the office if there were any changes. Encouraged to hydrate well All of her questions and concerns were addressed to the best of my ability and shared decision making. She is agreeable to the plan of care. Return to the office p.r.n. or for her annual in February. Coding Level of Care Code Est Pt Level 3 (42123) Diagnoses Pelvic pain R10.2
[2023-07-03 11:52] VITALS: BP 118/72; BMI 33.6
== END 2023-07-03 12:07 | disposition home or self-care (01) ==
LOC: HO.HWS 11:22
PROVIDERS: PCP Physician Assistant; Visit Provider Advanced Practice Midwife
DX: R10.2 Pelvic and perineal pain (principal)
CPT/HCPCS: 99213

== ENCOUNTER 2023-07-11 10:32 | Outpatient (AMB) | payer MEDICAID, SELFPAY ==
--- NOTE | 2023-07-11 10:52 | MHC.OFFVIS ---
Intake Intake Visit Reasons: OV - Left Knee Pain Intake Note: Zoila is a 48 year old female who presents today for a follow up of her left knee pain, at her last appointment she was given Physical Therapy and a Sathya-Pull Knee Brace. She reports pain in her left knee and left hip. She reports the brace is working well and she is still using it. She has completed physical therapy. Allergies No Known Allergies [No Known Allergies*] Allergy (Verified 07/11/23 10:54) Medication List - Last Reconciled 07/11/23 by Sara Meza RN amoxicillin 500 mg PO Q8H 5 days yrhleho-ltazustqdwoot-ncdrkoeb 250-250-65 mg (Pain Reliever Plus) 2 tabs PO DAILY PRN atorvastatin 20 mg PO DAILY cholecalciferol (vitamin D3) 25 mcg PO DAILY cyclobenzaprine 10 mg PO TID PRN dicyclomine 10 mg PO QID 30 days fluticasone propionate 50 mcg/actuation 1 - 2 sprays intranasal DAILY PRN ibuprofen 400 mg PO Q6H PRN ketorolac 10 mg PO TID PRN 5 days meclizine 1 tab PO TID PRN ondansetron 4 mg PO Q6H PRN HPI OV - Left Knee Pain HPI Details Zoila is a 48 year old woman who presents with complaints of left knee & hip pain. She was last seen for left PF pain, fitted for a knee brace, and sent for PT. She says she has worsening pain with daily activities now. The brace is still somewhat helpful for her. Now complaining of left anterior knee pain. [facility] Medical History Abdominal cramping Colon cancer screening Lower abdominal pain Pulmonary hypertension Migraine Anxiety and depression Vitamin D deficiency Iron (Fe) deficiency anemia Hyperlipidemia Abnormal EKG Precordial chest pain Surgical History History of endometrial ablation Hx of colonoscopy History of tubal ligation Family History Father Cardiovascular disease Mother Heart valve disease Diabetes HTN (hypertension) Social History Household Members: Children Alcohol intake: never Patient Tobacco Use Status: Never used Tobacco Sexual orientation: Straight/Heterosexual Gender identity: Female Female Reproductive History Menstrual Age of Menarche: 14 Review of Systems Const All systems reviewed & are unremarkable except as noted in HPI and below Physical Exam Const General: no acute distress, alert and awake Orientation/consciousness: patient oriented x3 HEENT Head: Yes normocephalic and Yes atraumatic Eyes EOM: EOMs intact bilaterally Resp Effort & Inspection: normal respiratory effort and able to speak in complete sentences Cardio Jugular venous distension: no JVD Skin General skin exam: turgor normal Rashes: no rashes Neuro General: patient oriented x3 Extrem Other: nl gait Stable ligamentous exam Lateral patellar facet retropatellar ttp Psych Appearance: grossly normal Affect: normal affect Attitude: cooperative Office Procedures Joint Injection/Drain Joint Injection/Drain Details: Injected 1 mL of Decadron and 3 mL 1% lidocaine and 3 mL of 0.25% Marcaine. Site was prepped using aseptic technique. Patient tolerated the procedure well. Primary Site: left knee Approach Used: anterolateral Coding - Large joint Procedure code (CPT) selection complete Results Reviewed Results Reviewed: I personally reviewed relevant radiographs. nl left knee radiographs Assessment & Plan Assessment & Plan (1) Pain of left patellofemoral joint: Code(s): M25.562 - Pain in left knee Plan: History of right patellar dislocation and now with left lateral anterior knee pain worse with stairs. I injected her left knee at her request ( the right knee felt much better after an injection). I recommend continued strengthening, brace wear. Plan Prepared for Darinel Kumar MD by Francisco West, mobile paramedical examiner, on 07/11/23 at 10:58 AM, EST. Coding Level of Care Code Est Pt Level 3 (73397) Diagnoses Pain of left patellofemoral joint M25.562 CPT Codes Coding - Large joint: 84531 - Large joint ([id number])
== END 2023-07-11 11:38 | disposition home or self-care (01) ==
PROVIDERS: PCP Registered Nurse; Referring Provider Registered Nurse; Visit Provider Orthopaedic Surgery
DX: M25.562 Pain in left knee (principal)
CPT/HCPCS: 20610; 99213

== ENCOUNTER → 2023-07-11 10:32 | Outpatient (BNVA) | payer MEDICAID, SELFPAY | PROVIDERS: PCP Registered Nurse; Visit Provider Orthopaedic Surgery | DX: M25.562 Pain in left knee (principal) | CPT/HCPCS: 20610; 99212; J0665; J1100 ==

== ENCOUNTER 2023-08-05 16:20 | Outpatient (REF) | payer MEDICAID, SELFPAY | END 2023-08-05 16:21 | disposition home or self-care (01) | LOC: HO.HHCLNP 16:20 | PROVIDERS: Visit Provider Nurse Practitioner Family | DX: N30.01 Acute cystitis with hematuria (principal) | CPT/HCPCS: 87086; 87088; 87186 ==

== ENCOUNTER 2023-09-25 18:07 | Outpatient (REF) | payer MEDICAID, SELFPAY ==
[2023-09-25 18:51] LABS: Appearance Urine Turbid; Color Urine Yellow; Glucose Urine UA Negative (Negative); Leukocyte Esterase Urine Negative (Negative); Nitrite Urine Negative (Negative); Specific Gravity - Urine >= 1.030 (1.005-1.025); Urine Blood Negative (Negative); Urine Ketones Negative (Negative); Urine Protein Negative (Neg-Trace)
[2023-09-25 18:54] LABS: Bacteria Urine None Seen (None Seen); Hyaline Casts Urine 0-2 /LPF (0-2); RBC Urine 0-2 /HPF (0-2); Squamous Epithelial Cell Urine 0-2 /HPF (0-2); WBC Urine 0-5 /HPF (0-5)
== END 2023-09-25 18:08 | disposition home or self-care (01) ==
LOC: HO.HHCLNP 18:07
PROVIDERS: Visit Provider Registered Nurse
DX: R39.9 Unspecified symptoms and signs involving the genitourinary system (principal)
CPT/HCPCS: 81001

== ENCOUNTER 2023-10-06 12:12 | Emergency (ER) | payer MEDICAID, SELFPAY ==
--- NOTE | ~2023-10-06 | XR_ITS ---
EXAMINATION: XR CHEST CLINICAL INFORMATION: Chest pain COMPARISON: None available. TECHNIQUE: 2 views of the chest were obtained. FINDINGS: No significant abnormality is noted involving the heart, lungs, mediastinum, bony thorax or soft tissues. XR/XR chest 2V IMPRESSION: Unremarkable examination.
[2023-10-06 12:33] VITALS: BP 139/80; PULSE 66; RESP 18; TEMP 36.2; O2SAT 100; BMI 35.1
--- NOTE | 2023-10-06 12:33 | ED_ITS ---
HPI - URI/Sore Throat General Chief Complaint: Dyspnea Stated Complaint: Pain when breathing Time Seen by Provider: 10/06/23 12:57 Source: patient Mode of arrival: ambulatory Limitations: no limitations History of Present Illness HPI Narrative: This is a 48-year-old female history of obesity iron deficiency anemia, anxiety, depression, pulmonary hypertension, hyperlipidemia presenting to the emergency department with complaints of left-sided anterior chest wall pain, has been present the past 4 days worsening. Patient reports it is worse with deep breathing and lying down flat better when bending over. No recent respiratory illnesses, denies shortness of breath, recent sick contacts. Patient denies history of DVT or PE, not a smoker, no recent travel, not on HRT. Denies fevers, chills, nausea, vomiting, abdominal pain, headache, vision changes, dizziness, weakness, trauma. Not on blood thinners Related Data Home Medications ?Medication ?Instructions ?Recorded ?Confirmed atorvastatin 20 mg tablet 20 mg PO DAILY 05/02/20 07/11/23 cholecalciferol (vitamin D3) 25 25 mcg PO DAILY 05/02/20 07/11/23 mcg (1,000 unit) capsule [id number]-bsjakybatpeee-hrjwfrgx 250 2 tab PO DAILY PRN headache 04/14/21 07/11/23 mg-250 mg-65 mg tablet (Pain Reliever Plus) fluticasone propionate 50 1 - 2 spray intranasal DAILY PRN 04/14/21 07/11/23 mcg/actuation nasal Nasal Congestion spray,suspension meclizine 25 mg tablet 1 tab PO TID PRN Dizziness 04/14/21 07/11/23 Previous Rx's ?Medication ?Instructions ?Recorded cyclobenzaprine 10 mg tablet 10 mg PO TID PRN muscle spasm #14 05/05/20 tabs dicyclomine 10 mg capsule 10 mg PO QID 30 days #120 caps 08/29/21 ketorolac 10 mg tablet 10 mg PO TID PRN pain 5 days #15 09/15/22 tabs ondansetron 4 mg disintegrating 4 mg PO Q6H PRN nausea and 09/15/22 tablet vomiting #14 tabs ibuprofen 400 mg tablet 400 mg PO Q6H PRN pain #20 tabs 09/18/22 amoxicillin 500 mg capsule 500 mg PO Q8H 5 days #15 caps 07/05/23 ketorolac 10 mg tablet 10 mg PO TID PRN pain 5 days #15 10/06/23 tabs prednisone 20 mg tablet 20 mg PO DAILY 5 days #5 tabs 10/06/23 Allergies Allergy/AdvReac Type Severity Reaction Status Date / Time No Known Allergies Allergy Verified 10/06/23 12:34 [No Known Allergies*] Review of Systems 2 Review of Systems: Yes all other systems are reviewed and are negative [facility] Past Medical History Attestation statement: The following information was validated with the patient. Source: old records reviewed and nursing notes reviewed Medical History Abdominal cramping Colon cancer screening Lower abdominal pain Pulmonary hypertension Migraine Anxiety and depression Vitamin D deficiency Iron (Fe) deficiency anemia Hyperlipidemia Abnormal EKG Precordial chest pain Surgical History History of endometrial ablation Hx of colonoscopy History of tubal ligation Family History Family History Father Cardiovascular disease Mother Heart valve disease Diabetes HTN (hypertension) Social History Social History Household Members: Children Alcohol intake: never Patient Tobacco Use Status: Never used Tobacco Smoked in Last 30 Days: No Use of substances other than those prescribed or required for medical reasons: Unable to respond Advance Directives: No Advance Directives Information Provided: No Patient : No Sexual orientation: Straight/Heterosexual Gender identity: Female Physical Exam 2 Vital Signs: Vital Signs: Last Vital Signs Temp 98.1 F 10/06/23 14:55 Pulse 55 10/06/23 14:55 Resp 16 10/06/23 14:55 BP 129/72 10/06/23 14:55 Pulse Ox 100 10/06/23 14:55 O2 Del Method Room Air 10/06/23 14:55 O2 Flow Rate 2 10/06/23 14:05 BMI result Body Mass Index 35.1 vss Appearance: Alert.? Oriented X3.? No acute distress.? Head: Normocephalic, atraumatic, no step-offs or deformities Neck: Normal inspection.? Neck supple.? CVS: Normal heart rate and rhythm.? Pulses normal.? Respiratory: No respiratory distress.? Breath sounds normal.? Abdomen: Soft and nontender.? Skin: Skin warm and dry.? Normal skin color.? Normal skin turgor.? Extremities: No lower extremity edema.? No calf ttp. 5/5 strength to bilateral upper and lower extremities Neuro: Oriented X 3.? No motor deficit.? No sensory deficit. CN 2-12 intact Course Course Course Narrative: This is an RME: Additional HPI, ROS, PE not included below will be deferred to primary provider. Patient is a 48-year-old female who presents to the emergency department Reports diffuse left anterior chest, lateral chest, and back pain exacerbated with deep respiration and forward bending. Reports associated shortness of, especially on exertion. Reports onset 2 days ago. Denies any injury. Denies recent URI symptoms. Denies use of OCP, hx of DVT/PE, hx of malignancy. Plan: Labs, EKG, CXR, viral testing Reevaluation(s) Reevaluation #1: CBC unremarkable appears to have a baseline normocytic anemia. Chemistry unremarkable. EKG sinus bradycardia no ST elevations or inversions concerning for ischemia. Troponin still pending. D-dimer negative. CXR pending Time: 13:43 Reevaluation #2: Troponin negative X 1, heart score 0- low score risk of MACE of 0.9-1.7%, no indication for second trop. Negative D-dimer. Unlikely ACS or PE. Chest x- ray pending. Time: 13:47 Reevaluation #3: Chest x-ray Unremarkable examination. Patient feeling much better after toradol. No longer having pain.. Educated patient on diagnosis and treatment plan, answered all question, patient verbalizes understanding. At this time patient will be discharged home, advised to return with new or worsening symptoms. Educated on worrisome signs and symptoms and when to return. At this time I feel comfortable discharge home. Time: 15:09 Medications Administered Discontinued Medications Generic Name Dose Route Start Last Admin Trade Name Yunierq PRN Reason Stop Dose Admin Ketorolac Tromethamine 30 mg 10/06/23 13:40 10/06/23 15:00 Ketorolac Tromethamine 30 Mg/Ml Vial IM 10/06/23 13:41 30 mg ONCE ONE Administration Medical Decision Making Medical Decision Making [facility] Narrative: 1315 48 year old female presents w/ left sided anterior chest wall pain worse w/ deep breathing and worse w laying flat better leaning forward PE l sided anterior chest wall tto no overlying skin chages History and physical exam concerning for costochondritis versus pericarditis versus musculoskeletal pain. Less likely PE, ACS, dissection, acute respiratory distress, pneumonia. Plan labs, imaging, D-dimer, chest x-ray, viral testing Differential Diagnosis Differential Diagnoses: The differential diagnosis associated with the presentation includes History and physical exam concerning for costochondritis versus pericarditis versus musculoskeletal pain. Less likely PE, ACS, dissection, acute respiratory distress, pneumonia. Admission/Observation Consideration of admission/observation: Escalation of care including admission/observation considered Lab Data MDM Lab Attestation statement: I reviewed the patient's lab results. 10/06/23 13:09 10/06/23 13:09 Labs: Lab Results 10/06/23 10/06/23 Range/Units 13:08 13:09 WBC 5.2 (4.8-10.8) X10*3/uL RBC 4.28 (4.20-5.50) X10*6/uL Hgb 11.9 L (12.0-16.0) g/dl Hct 35.7 L (37.0-47.0) % MCV 83.4 (80.0-98.0) fL MCH 27.8 (27.0-33.0) pg MCHC 33.3 (31.0-35.0) g/dl RDW 14.0 (11.0-16.0) % Plt Count 354 (160-400) X10*3/uL MPV 9.0 L (9.4-12.3) fL Immature Gran % (Auto) 0.2 (0.0-0.4) % Neut % (Auto) 40.4 L (45-73) % Lymph % (Auto) 43.6 H (20-40) % Dawson % (Auto) 13.4 H (2-11) % Eos % (Auto) 1.2 (0-4) % Baso % (Auto) 1.2 (0-2) % Lymph # (Auto) 2.3 (1.2-4.9) X10*3/uL Dawson # (Auto) 0.7 (0.1-1.2) X10*3/uL Eos # (Auto) 0.1 (0.0-0.4) X10*3/uL Baso # (Auto) 0.1 (0.0-0.2) X10*3/uL Abs Immat Gran (auto) 0.01 (0.00-0.03) X10*3/uL Absolute Neuts (auto) 2.1 (2.0-8.3) x10*3/uL Absolute Nucleated RBC 0.000 (0.0-0.012) X10*3/uL Nucleated RBC % (auto) 0.0 (0.0-0.2) /100WBC PT 12.3 (11.1-13.3) SEC INR 1.0 (0.9-1.1) D-Dimer High Sensitivty < 150 NG/ML Sodium 139 (135-145) mmol/L Potassium 3.8 (3.3-5.1) mmol/L Chloride 110 H (96-108) mmol/L Carbon Dioxide 22 (22-29) mmol/L Anion Gap 11 L (12-20) BUN 9 (9-16) mg/dL Creatinine 0.61 (0.5-1.4) mg/dL Estim Creat Clear Calc 96.8 Estimated GFR > 60 Random Glucose 91 (60-115) mg/dL Calcium 8.9 (8.4-10.2) mg/dL Total Bilirubin 0.4 (0.0-1.0) mg/dL AST 20 (5-31) U/L ALT 12 (0-31) U/L Alkaline Phosphatase 45 (39-117) U/L Troponin I High Sens < 2.7 (<3.5-17.0) ng/L Total Protein 7.5 (6.5-8.0) g/dL Albumin 3.6 (3.5-5.0) g/dL Influenza Type A (PCR) NEGATIVE (Negative) Influenza Type B (PCR) NEGATIVE (Negative) RSV RNA Qual (PCR) NEGATIVE (Negative) SARS-CoV-2 RNA (RT-PCR) NEGATIVE (Negative) Independent Interpretation I performed an independent interpretation of an: EKG (Vent. Rate : 057 BPM Atrial Rate : 057 BPM P-R Int : 130 ms QRS Dur : 088 ms QT Int : 440 ms P-R-T Axes : 030 013 006 degrees QTc Int : 428 ms Sinus bradycardia Otherwise normal ECG When compared with ECG of 01-APR-2021 14:59, No significant change was found ) Radiology Impression Discussion of test interpretation with radiology: I have reviewed the radiologist's reading. Chronic Conditions Patient?s care impacted by: Other (AUB, anxiety, depression, HLD ) Critical Care Time Critical Care Time Critical Care Time: No Discharge Plan Discharge Clinical Impression: Acute chest wall pain Patient Disposition: Home, Self-Care Instructions: Chest Pain (ED), Chest Wall Pain (ED) Additional Instructions: Take your medications as prescribed. If you were prescribed antibiotics today, it is important that you take your medication to their entirety, do not skip any doses, do not finish them early. Follow-up with your primary care provider this week. Return to the emergency department with new or worsening symptoms. Such as fevers, chills, chest pain, shortness of breath, nausea, vomiting, dizziness, headache, vision changes, lethargy In case of emergency call 911 Toradol has been sent to your pharmacy, you tolerated this well in the department. Please take this as prescribed do not take this with ibuprofen, or other NSAIDs, do not mix this with alcohol. Side effects of this medication including increased risk for bleeding and possible kidney injury. XR/XR chest 2V IMPRESSION: Unremarkable examination. Prescriptions: New ketorolac 10 mg tablet 10 mg PO TID PRN (Reason: pain) 5 Days Qty: 15 0RF prednisone 20 mg tablet 20 mg PO DAILY 5 Days Qty: 5 0RF No Action amoxicillin 500 mg capsule 500 mg PO Q8H 5 Days Qty: 15 0RF Rx Instructions: complete all medication cyclobenzaprine 10 mg tablet 10 mg PO TID PRN (Reason: muscle spasm) Qty: 14 0RF meclizine 25 mg tablet 1 tab PO TID PRN (Reason: Dizziness) fluticasone propionate 50 mcg/actuation spray,suspension 1 - 2 spray intranasal DAILY PRN (Reason: Nasal Congestion) Pain Reliever Plus 250-250-65 mg tablet 2 tab PO DAILY PRN (Reason: headache) ondansetron 4 mg tablet,disintegrating 4 mg PO Q6H PRN (Reason: nausea and vomiting) Qty: 14 0RF ketorolac 10 mg tablet 10 mg PO TID PRN (Reason: pain) 5 Days Qty: 15 0RF ibuprofen 400 mg tablet 400 mg PO Q6H PRN (Reason: pain) Qty: 20 0RF cholecalciferol (vitamin D3) 25 mcg (1,000 unit) capsule 25 mcg PO DAILY atorvastatin 20 mg tablet 20 mg PO DAILY dicyclomine 10 mg capsule 10 mg PO QID 30 Days Qty: 120 6RF Referrals: [facility] [Primary Care Provider] - 1 day Stand Alone Forms: Work/School Release Print Language: Slovak
--- NOTE | 2023-10-06 12:36 | ECG_ITS ---
Test Reason : CHEST PAIN Blood Pressure : / mmHG Vent. Rate : 057 BPM Atrial Rate : 057 BPM P-R Int : 130 ms QRS Dur : 088 ms QT Int : 440 ms P-R-T Axes : 030 013 006 degrees QTc Int : 428 ms Sinus bradycardia Otherwise normal ECG When compared with ECG of 01-APR-2021 14:59, No significant change was found Referred By: Myranda Galarza Electronically Signed By:ALEXIA SANDS
[2023-10-06 13:13] LABS: MANUAL DIFF FLAG NO
[2023-10-06 13:16] LABS: Basophils Absolute Auto 0.1 X10*3/uL (0.0-0.2); Basophils Percent Auto 1.2 % (0-2); Eosinophils Absolute Auto 0.1 X10*3/uL (0.0-0.4); Eosinophils Percent Auto 1.2 % (0-4); Hematocrit 35.7 % (37.0-47.0); Hemoglobin 11.9 g/dl (12.0-16.0); Imm Gran Abs Auto 0.01 X10*3/uL (0.00-0.03); Imm Gran Pct Auto 0.2 % (0.0-0.4); Lymphocytes Absolute Auto 2.3 X10*3/uL (1.2-4.9); Lymphocytes Percent Auto 43.6 % (20-40); Mean Corpuscular HGB Conc 33.3 g/dl (31.0-35.0); Mean Corpuscular Hemoglobin 27.8 pg (27.0-33.0); Mean Corpuscular Volume 83.4 fL (80.0-98.0); Monocytes Absolute Auto 0.7 X10*3/uL (0.1-1.2); Monocytes Percent Auto 13.4 % (2-11); Neutrophils Absolute Auto 2.1 x10*3/uL (2.0-8.3); Neutrophils Percent Auto 40.4 % (45-73); Platelet Count 354 X10*3/uL (160-400); Red Blood Count 4.28 X10*6/uL (4.20-5.50); White Blood Count 5.2 X10*3/uL (4.8-10.8)
[2023-10-06 13:25] LABS: Prothrombin Time 12.3 SEC (11.1-13.3)
[2023-10-06 13:32] LABS: Alanine Aminotransferase 12 U/L (0-31); Albumin Level 3.6 g/dL (3.5-5.0); Alkaline Phosphatase 45 U/L (39-117); Anion Gap 11 (12-20); Aspartate Amino Transferase 20 U/L (5-31); Bilirubin Total 0.4 mg/dL (0.0-1.0); Blood Urea Nitrogen 9 mg/dL (9-16); Calcium 8.9 mg/dL (8.4-10.2); Carbon Dioxide 22 mmol/L (22-29); Chloride 110 mmol/L (96-108); Creatinine Clr Calc Pharmacy 96.8; Estimated Glomerular Filt Rate > 60; Glucose Random 91 mg/dL (60-115); Potassium 3.8 mmol/L (3.3-5.1); Sodium 139 mmol/L (135-145); Total Protein 7.5 g/dL (6.5-8.0)
[2023-10-06 13:33] LABS: D Dimer High Sensitivity < 150 NG/ML
[2023-10-06 13:40] LABS: Troponin-I High Sensitivity < 2.7 ng/L (<3.5-17.0)
[2023-10-06 14:05] VITALS: BP 111/67; PULSE 87; RESP 13; TEMP 37; O2SAT 91
[2023-10-06 14:19] LABS: Influenza A PCR NEGATIVE (Negative); Influenza B PCR NEGATIVE (Negative); Resp Syncy Virus RNA Qual PCR NEGATIVE (Negative); SARS COV2 PCR INHOUSE NEGATIVE (Negative)
[2023-10-06 14:55] VITALS: BP 129/72; PULSE 55; RESP 16; TEMP 36.7; O2SAT 100
[2023-10-06] MEDS: Ketorolac Tromethamine 30 MG/ML VIAL IM (15:00)
--- NOTE | 2023-10-06 15:21 | PC.NURSE ---
Addendum entered by Bernadette Alonso 10/06/23 15:21: WRONG PATIENT Original Note: VS DONE AT 1405 IS INCORRECT - WRONG PAPER.
[2023-10-06 15:28] VITALS: BP 129/72; PULSE 55; RESP 16; TEMP 36.7; O2SAT 100
== END 2023-10-06 15:29 | disposition home or self-care (01) ==
PROVIDERS: Nurse Practitioner Family; Physician Assistant; Emergency Provider Student in an Organized Health Care Education/Training Program
DX: R07.89 Other chest pain (principal)
CPT/HCPCS: 0241U; 36415; 71046; 80053; 84484; 85025; 85379; 85610; 93005; 96372; 99284; 99285; J1885

== ENCOUNTER → 2023-10-06 12:36 | Outpatient (BNV) | payer MEDICAID, SELFPAY | PROVIDERS: Emergency Provider Student in an Organized Health Care Education/Training Program; Visit Provider Internal Medicine | DX: R00.1 Bradycardia, unspecified (principal) | CPT/HCPCS: 93010 ==

== ENCOUNTER 2023-10-21 11:03 | Outpatient (REF) | payer MEDICAID, SELFPAY | END 2023-10-21 11:04 | disposition home or self-care (01) | LOC: HO.MAMMO 11:03 | PROVIDERS: PCP Registered Nurse; Visit Provider Advanced Practice Midwife | DX: Z12.31 Encounter for screening mammogram for malignant neoplasm of breast (principal) | CPT/HCPCS: 77063; 77067 ==

== ENCOUNTER → 2023-10-21 11:05 | Outpatient (BNV) | payer MEDICAID, SELFPAY | PROVIDERS: PCP Registered Nurse; Visit Provider Radiology Diagnostic Radiology | DX: Z12.31 Encounter for screening mammogram for malignant neoplasm of breast (principal) | CPT/HCPCS: 77063; 77067 ==

== ENCOUNTER 2024-01-08 11:22 | Outpatient (REF) | payer MEDICAID, SELFPAY ==
[2024-01-08 12:55] LABS: MANUAL DIFF FLAG NO
[2024-01-08 13:07] LABS: Basophils Absolute Auto 0.1 X10*3/uL (0.0-0.2); Basophils Percent Auto 1.4 % (0-2); Eosinophils Absolute Auto 0.1 X10*3/uL (0.0-0.4); Eosinophils Percent Auto 1.4 % (0-4); Hematocrit 38.6 % (37.0-47.0); Hemoglobin 12.3 g/dl (12.0-16.0); Imm Gran Abs Auto 0.01 X10*3/uL (0.00-0.03); Imm Gran Pct Auto 0.2 % (0.0-0.4); Lymphocytes Absolute Auto 2.5 X10*3/uL (1.2-4.9); Lymphocytes Percent Auto 48.6 % (20-40); Mean Corpuscular HGB Conc 31.9 g/dl (31.0-35.0); Mean Corpuscular Hemoglobin 27.2 pg (27.0-33.0); Mean Corpuscular Volume 85.2 fL (80.0-98.0); Mean Platelet Volume 9.9 fL (9.4-12.3); Monocytes Absolute Auto 0.7 X10*3/uL (0.1-1.2); Monocytes Percent Auto 12.8 % (2-11); Neutrophils Absolute Auto 1.8 x10*3/uL (2.0-8.3); Neutrophils Percent Auto 35.6 % (45-73); Platelet Count 359 X10*3/uL (160-400); Red Blood Count 4.53 X10*6/uL (4.20-5.50); Red Cell Distribution Width 13.3 % (11.0-16.0); White Blood Count 5.1 X10*3/uL (4.8-10.8)
[2024-01-08 13:40] LABS: Cholesterol 208 mg/dL (<200); HDL Cholesterol 48 mg/dL (>40); Iron 56 mcg/dL (30-160); LDL Cholesterol Calculated 140 mg/dL (<100); Percent Iron Saturation 22 % (15-50); Total Iron Binding Capacity 251 mcg/dL (228-428); Triglycerides 103 mg/dL (<150); Unsaturated Iron Binding 195 ug/dL
[2024-01-08 13:59] LABS: Ferritin 87 ng/mL (10-250); Vitamin D 25-OH Total 27.1 ng/mL (>30)
== END 2024-01-08 11:23 | disposition home or self-care (01) ==
LOC: HO.HHCL 11:22
PROVIDERS: Visit Provider Registered Nurse
DX: E78.5 Hyperlipidemia, unspecified (principal); Z86.2 Personal history of diseases of the blood and blood-forming organs and certain disorders involving the immune mechanism
CPT/HCPCS: 36415; 80061; 82306; 82728; 83540; 85025

== ENCOUNTER 2024-02-28 13:26 | Outpatient (AMB) | payer MEDICAID, SELFPAY ==
[2024-02-28 13:29] VITALS: BMI 34.9
--- NOTE | 2024-02-28 13:29 | MHC.OFFVIS ---
Vital Signs 02/28/24 13:29 Height 4 ft 10 in Weight 167 lb BMI 34.9 Intake Visit Reasons: New Prob - Left Hip Pain Intake Note: Manuel Mojica presents with complaints of pain along the lateral aspect of her left hip. She describes her pain as achy in nature. She denies any numbness or tingling in either of her legs. Her pain has gotten worse over the last few months in spite of continued non operative treatments. She does not recall any specific traumatic event preceding the onset of her pain. She has done stretching exercises which seemed to aggravate her pain. She has also tried Tylenol and ibuprofen which gave her minimal relief. Allergies No Known Allergies [No Known Allergies*] Allergy (Verified 02/28/24 13:31) Medication List - Last Reconciled 02/28/24 by Markus Bergman MD amoxicillin 500 mg PO Q8H 5 days quzqfmk-lqigkcjpshfgv-bjhnjrzc 250-250-65 mg (Pain Reliever Plus) 2 tabs PO DAILY PRN atorvastatin 20 mg PO DAILY cholecalciferol (vitamin D3) 25 mcg PO DAILY cyclobenzaprine 10 mg PO TID PRN dicyclomine 10 mg PO QID 30 days fluticasone propionate 50 mcg/actuation 1 - 2 sprays intranasal DAILY PRN ibuprofen 400 mg PO Q6H PRN ketorolac 10 mg PO TID PRN 5 days ketorolac 10 mg PO TID PRN 5 days meclizine 1 tab PO TID PRN ondansetron 4 mg PO Q6H PRN prednisone 20 mg PO DAILY 5 days PFSH Medical History Abdominal cramping Colon cancer screening Lower abdominal pain Pulmonary hypertension Migraine Anxiety and depression Vitamin D deficiency Iron (Fe) deficiency anemia Hyperlipidemia Abnormal EKG Precordial chest pain Surgical History History of endometrial ablation Hx of colonoscopy History of tubal ligation Family History Father Cardiovascular disease Mother Heart valve disease Diabetes HTN (hypertension) Social History Household Members: Children Alcohol intake: never Patient Tobacco Use Status: Never used Tobacco Sexual orientation: Straight/Heterosexual Gender identity: Female Female Reproductive History Menstrual Age of Menarche: 14 Physical Exam Vital Signs: BMI result Body Mass Index 34.9 Const Other: Well-nourished well-developed very friendly female awake alert and oriented x3 in no acute distress Extrem Other: Bilateral lower extremity examination shows good capillary refill, no skin lesions noted, normal sensation light touch Left hip examination shows slightly decreased range of motion when compared to her right hip, mild pain with range of motion, tenderness over her bursa, no overlying skin lesions Results Reviewed Results Reviewed: X-rays of the patient's left hip taken last year show mild diffuse joint space narrowing, no acute bony abnormalities Assessment & Plan Assessment & Plan (1) Left hip pain: Code(s): M25.552 - Pain in left hip Category: Medical Plan Ms. Eros Jackson presents with left hip pain most likely due to greater trochanteric bursitis. I had a lengthy discussion with the patient regarding the treatment options. We will hold off on a cortisone injection for now. I did give her a prescription for a Medrol Dosepak. She will contact me prior to her follow-up appointment in 3-4 weeks should her symptoms worsen in any way. Feel free to call me at any time should questions regarding her orthopedic management arise. Thank you very much for asking me to see this very friendly patient. I spent 22 minutes in reviewing the patient's records and imaging studies, seeing the patient and documenting in the medical record. Medications: New methylprednisolone (Medrol (Daquan)) PO PER PKG DIR 21 ea 0RF Coding Level of Care Code Est Pt Level 3 (89209) Complex EM visit Add On G2211 Diagnoses Left hip pain M25.552
== END 2024-02-28 13:51 | disposition home or self-care (01) ==
PROVIDERS: PCP Registered Nurse; Referring Provider Registered Nurse; Visit Provider Orthopaedic Surgery
DX: M25.552 Pain in left hip (principal)
CPT/HCPCS: 99214

== ENCOUNTER → 2024-02-28 13:26 | Outpatient (BNVA) | payer MEDICAID, SELFPAY | PROVIDERS: PCP Registered Nurse; Visit Provider Orthopaedic Surgery | DX: M25.552 Pain in left hip (principal) | CPT/HCPCS: 99212 ==

== ENCOUNTER 2024-03-02 17:46 | Outpatient (REF) | payer MEDICAID, SELFPAY ==
[2024-03-04 14:24] LABS: HPV mRNA E6/E7 Not Detected (Not Detected)
== END 2024-03-02 17:47 | disposition home or self-care (01) ==
LOC: HO.HHCLNP 17:46
PROVIDERS: Visit Provider Advanced Practice Midwife
DX: R35.0 Frequency of micturition (principal); Z12.4 Encounter for screening for malignant neoplasm of cervix
CPT/HCPCS: 36415; 87086; 87624; 88175

== ENCOUNTER 2024-03-05 17:31 | Outpatient (REF) | payer MEDICAID, SELFPAY | END 2024-03-05 17:32 | disposition home or self-care (01) | LOC: HO.HHCLNP 17:31 | PROVIDERS: Visit Provider Family Medicine | DX: R39.9 Unspecified symptoms and signs involving the genitourinary system (principal) | CPT/HCPCS: 87086; 87147 ==

== ENCOUNTER 2024-03-11 09:44 | Outpatient (AMB) | payer MEDICAID, SELFPAY ==
[2024-03-11 09:50] VITALS: BP 122/70; BMI 34.5
--- NOTE | 2024-03-11 09:50 | MHC.OFFVIS ---
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 On questioning she says she does have diabetes but she can not give me a number. She has an appointment with her primary here at [facility] next month. She has an appointment next month also for her annual exam. She also has arthritis and she has been on prednisone and a Medrol Daquan for that. She was on antibiotics for urinary tract infection a while back as well. [facility] Medical History Abdominal cramping Colon cancer screening Lower abdominal pain Pulmonary hypertension Migraine Anxiety and depression Vitamin D deficiency Iron (Fe) deficiency anemia Hyperlipidemia Abnormal EKG Precordial chest pain Surgical History History of endometrial ablation Hx of colonoscopy History of tubal ligation Family History Father Cardiovascular disease Mother Heart valve disease Diabetes HTN (hypertension) Social History Household Members: Children Alcohol intake: never Patient Tobacco Use Status: Never used Tobacco Sexual orientation: Straight/Heterosexual Gender identity: Female Female Reproductive History Menstrual Age of Menarche: 14 control method: permanent sterilization Total pregnancies: 4 Full term: 3 Date of last pap smear: 05/18/20 (negative) Physical Exam Vital Signs: Last Vital Signs BP 122/70 03/11/24 09:50 BMI result Body Mass Index 34.5 Other: External exam only patient has recently shaved there is a raised excoriated dear moved area where there was clearly a cut/abrasion from shaving on left labia with slightly raised tissue underneath consistent with a superficial abrasion. It is not especially reddened that the borders there is no exudate it appears to be in a healing stage. There is no other vulvar redness or inflammation that would be consistent with yeast or any other infection process. Assessment & Plan Assessment & Plan (1) Lesion of labia: Comment: Abrasions/cut from shaving... Recommend warm water in shower at least t.i.d. no Rx. If it becomes inflamed seek same day care at [facility] tomorrow Code(s): N90.89 - Other specified noninflammatory disorders of vulva and perineum Category: Medical Plan I do not think her cut is at the this current time infected. I think she literally cut herself shaving I recommend warm soaks and not to put Vaseline as she had been putting on it. There are no indications for antibiotics at this time however if it becomes more reddened and more inflamed I do think she should seek care downstairs at the same day care center as they will have access to her more recent blood sugar in office records. She recently was on steroids and sometime in the past antibiotics and she is diabetic. I do not recommend shaving. Medications: Refilled ketorolac 10 mg PO TID 5 days PRN 15 tabs 0RF pain Coding Level of Care Code Est Pt Level 3 (17151) Diagnoses Lesion of labia N90.89
== END 2024-03-11 11:08 | disposition home or self-care (01) ==
LOC: HO.HWSM 09:44
PROVIDERS: PCP Registered Nurse; Visit Provider Advanced Practice Midwife
DX: N90.89 Other specified noninflammatory disorders of vulva and perineum (principal)
CPT/HCPCS: 99213

== ENCOUNTER → 2024-03-11 09:44 | Outpatient (BNVA) | payer MEDICAID, SELFPAY | PROVIDERS: PCP Registered Nurse; Visit Provider Advanced Practice Midwife | DX: N90.89 Other specified noninflammatory disorders of vulva and perineum (principal) | CPT/HCPCS: 99212 ==

== ENCOUNTER 2024-03-26 11:13 | Outpatient (AMB) | payer MEDICAID, SELFPAY ==
--- NOTE | 2024-03-26 11:36 | MHC.OFFVIS ---
Intake Visit Reasons: OV Left Hip Pain Intake Note: Zoila is a 49 year old female who presents with complaints of progressively worsening left hip pain. The patient describes her hip pain as sharp in nature. Most of the pain is located within her left groin. She denies any numbness or tingling in either of her lower extremities. Her symptoms have gotten worse over the last year. She has failed the last 6 weeks of conservative treatment which consisted of topical creams, physical therapy exercises, Tylenol, Advil and a Medrol Dosepak. The patient states that her left hip pain is interfering with her activities of daily living and her ability to sleep well through the night. Allergies No Known Allergies [No Known Allergies*] Allergy (Verified 03/26/24 11:36) Medication List - Last Reconciled 03/26/24 by Markus Bergman MD [id number]-[id number] 250-250-65 mg (Pain Reliever Plus) 2 tabs PO DAILY PRN atorvastatin 20 mg PO DAILY cholecalciferol (vitamin D3) 25 mcg PO DAILY cyclobenzaprine 10 mg PO TID PRN dicyclomine 10 mg PO QID 30 days fluticasone propionate 50 mcg/actuation 1 - 2 sprays intranasal DAILY PRN ibuprofen 400 mg PO Q6H PRN ketorolac 10 mg PO TID PRN 5 days ketorolac 10 mg PO TID PRN 5 days meclizine 1 tab PO TID PRN ondansetron 4 mg PO Q6H PRN PFSH Medical History (Updated 03/20/24 @ 13:24 by Markus Bergman MD) Left hip pain Abdominal cramping Colon cancer screening Lower abdominal pain Pulmonary hypertension Migraine Anxiety and depression Vitamin D deficiency Iron (Fe) deficiency anemia Hyperlipidemia Abnormal EKG Precordial chest pain Surgical History History of endometrial ablation Hx of colonoscopy History of tubal ligation Family History Father Cardiovascular disease Mother Heart valve disease Diabetes HTN (hypertension) Social History Household Members: Children Alcohol intake: never Patient Tobacco Use Status: Never used Tobacco Sexual orientation: Straight/Heterosexual Gender identity: Female Female Reproductive History Menstrual Age of Menarche: 14 Physical Exam Const Other: Well-nourished well-developed very friendly female awake alert and oriented x3 in no acute distress Extrem Other: Bilateral lower extremity examination shows good capillary refill, no skin lesions noted, normal sensation light touch Left hip examination shows decreased range of motion when compared to her right hip, pain with range of motion, no tenderness over her bursa Results Reviewed Results Reviewed: X-rays of the patient's left hip show mild diffuse joint space narrowing, no acute bony abnormalities Assessment & Plan Assessment & Plan (1) Left hip pain: Code(s): M25.552 - Pain in left hip Category: Medical Plan Ms. 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 Thus, I will send the patient for an MRI of her left hip for further evaluation. I will see her back once the MRI is completed to discuss the findings and treatment options. She will call me prior to that time should her symptoms worsen in any way. Feel free to call me at any time should questions regarding her orthopedic management arise. I spent 22 minutes in reviewing the patient's records and imaging studies, seeing the patient and documenting in the medical record. Orders: Orders MR hip LT wo con 03/26/24 M25.552 - Pain in left hip XR hip LT min 2V 03/26/24 M25.552 - Pain in left hip Coding Level of Care Code Est Pt Level 3 (94603) Complex EM visit Add On G2211 Diagnoses Left hip pain M25.552
== END 2024-03-26 11:59 | disposition home or self-care (01) ==
PROVIDERS: PCP Registered Nurse; Visit Provider Orthopaedic Surgery
DX: M25.552 Pain in left hip (principal)
CPT/HCPCS: 99213

== ENCOUNTER 2024-03-26 12:33 | Outpatient (REF) | payer MEDICAID, SELFPAY ==
--- NOTE | ~2024-03-26 | XR_ITS ---
EXAMINATION: XR HIP, LEFT CLINICAL INFORMATION: Left hip pain. COMPARISON: CT abdomen/pelvis dated 09/15/2022. TECHNIQUE: AP view of the pelvis and frog-leg lateral view of the left hip. FINDINGS: No acute fracture or dislocation. No joint space narrowing or marginal osteophytes. No osseous erosion. No abnormal soft tissue calcification. XR/XR hip LT min 2V IMPRESSION: Unremarkable examination. Electronically signed by: Jono Andrade MD 04/20/2024 01:11 PM EDT
== END 2024-03-26 12:34 | disposition home or self-care (01) ==
LOC: HO.HOSX 12:33
PROVIDERS: Visit Provider Orthopaedic Surgery
DX: M25.552 Pain in left hip (principal)
CPT/HCPCS: 73502; 99212

== ENCOUNTER 2024-04-11 09:02 | Outpatient (REF) | payer MEDICAID, SELFPAY ==
--- NOTE | ~2024-04-11 | MR_ITS ---
EXAMINATION: MR HIP WITHOUT CONTRAST, LEFT CLINICAL INFORMATION: Left hip pain, burning, weakness. COMPARISON: Left hip radiographs dated 03/26/2024. CT abdomen/pelvis dated 09/15/2022. TECHNIQUE: MRI of the left hip was obtained using routine sequences on a high-field magnet. FINDINGS: ACETABULAR LABRUM: Linear fluid signal within the undersurface of the anterosuperior labrum (sagittal image 15/), which could represent a nondisplaced undersurface tear. ARTICULAR CARTILAGE/BONE: Intact articular cartilage. No stress reaction, fracture, or avascular necrosis. No concerning lytic or blastic osseous lesion. The acetabular depth is within normal limits. MUSCLES/TENDONS: Mild gluteus medius and gluteus minimus tendinosis. No transverse tendon tear or tendon retraction. JOINT FLUID/BURSA: No joint effusion. Trace edema and stranding within the greater trochanteric bursa, consistent with minimal bursitis. INTRAPELVIC STRUCTURES: Small amount of fluid within the endometrial cavity, which may be physiologic. No pelvic mass or organized fluid collection. MR/MR hip LT wo con IMPRESSION: 1. Possible nondisplaced undersurface tear of the anterosuperior labrum. 2. No stress reaction, fracture, or avascular necrosis. 3. Mild gluteus medius and gluteus minimus tendinosis. Minimal greater trochanteric bursitis. Electronically signed by: Jono Andrade MD 04/20/2024 01:13 PM EDT Workstation: [email or web address]
== END 2024-04-11 09:03 | disposition home or self-care (01) ==
LOC: HO.MRI 09:02
PROVIDERS: PCP Registered Nurse; Visit Provider Orthopaedic Surgery
DX: M25.552 Pain in left hip (principal)
CPT/HCPCS: 73721

== ENCOUNTER 2024-04-13 12:52 | Emergency (ER) | payer MEDICAID, SELFPAY ==
[2024-04-13 13:07] VITALS: BP 120/70; PULSE 84; RESP 16; TEMP 36.6; O2SAT 98; BMI 34.5
--- NOTE | 2024-04-13 13:07 | ED_ITS ---
HPI - General Adult General Chief complaint: Back Pain/Injury Stated complaint: HIP PAIN GOING DOWN LEG Time Seen by Provider: 04/13/24 21:21 Source: patient Mode of arrival: ambulatory Limitations: no limitations History of Present Illness ED Provider: kenya VALENZUELA narrative: Patient's history of chronic hip pain secondary to avascular necrosis see orthopedics comes here for low back pain which started 2 days ago while she was bending down and lifting some stuff from the ground no radiation of the pain pain is localized more on the left side of the lower back Related Data Home Medications ?Medication ?Instructions ?Recorded ?Confirmed atorvastatin 20 mg tablet 20 mg PO DAILY 05/02/20 03/26/24 cholecalciferol (vitamin D3) 25 25 mcg PO DAILY 05/02/20 03/26/24 mcg (1,000 unit) capsule [id number] 250 2 tab PO DAILY PRN headache 04/14/21 03/26/24 mg-250 mg-65 mg tablet (Pain Reliever Plus) fluticasone propionate 50 1 - 2 spray intranasal DAILY PRN 04/14/21 03/26/24 mcg/actuation nasal Nasal Congestion spray,suspension meclizine 25 mg tablet 1 tab PO TID PRN Dizziness 04/14/21 03/26/24 Previous Rx's ?Medication ?Instructions ?Recorded cyclobenzaprine 10 mg tablet 10 mg PO TID PRN muscle spasm #14 05/05/20 tabs dicyclomine 10 mg capsule 10 mg PO QID 30 days #120 caps 08/29/21 ketorolac 10 mg tablet 10 mg PO TID PRN pain 5 days #15 09/15/22 tabs ondansetron 4 mg disintegrating 4 mg PO Q6H PRN nausea and 09/15/22 tablet vomiting #14 tabs ibuprofen 400 mg tablet 400 mg PO Q6H PRN pain #20 tabs 09/18/22 ketorolac 10 mg tablet 10 mg PO TID PRN pain 5 days #15 03/11/24 tabs tramadol 50 mg tablet 50 mg PO Q6H PRN pain #20 tabs 04/13/24 Allergies Allergy/AdvReac Type Severity Reaction Status Date / Time No Known Allergies Allergy Verified 04/13/24 13:10 [No Known Allergies*] Review of Systems 2 Review of Systems: Yes all other systems are reviewed and are negative PMFSH Past Medical History Medical History Left hip pain Abdominal cramping Colon cancer screening Lower abdominal pain Pulmonary hypertension Migraine Anxiety and depression Vitamin D deficiency Iron (Fe) deficiency anemia Hyperlipidemia Abnormal EKG Precordial chest pain Surgical History History of endometrial ablation Hx of colonoscopy History of tubal ligation Family History Family History Father Cardiovascular disease Mother Heart valve disease Diabetes HTN (hypertension) Social History Social History Household Members: Children Alcohol intake: never Patient Tobacco Use Status: Never used Tobacco Smoked in Last 30 Days: No Use of substances other than those prescribed or required for medical reasons: No Advance Directives: No Advance Directives Information Provided: Yes Do you have a plan to hurt others: No Plan Patient : No Sexual orientation: Straight/Heterosexual Gender identity: Female Physical Exam ED Vital Signs: Vital Signs - 24 hr 04/13/24 13:07 04/13/24 21:29 Temperature 98 F 97.6 F Pulse Rate 84 63 Respiratory Rate 16 17 Blood Pressure 120/70 130/71 Pulse Oximetry 98 99 Oxygen Delivery Method Room Air Room Air BMI result Body Mass Index 34.5 Appearance: Alert. Oriented X3. No acute distress. Neck: Normal inspection. Neck supple. CVS: Normal heart rate and rhythm. Pulses normal. Respiratory: No respiratory distress. Equal air entry bilateral, no wheezing/rales/rhonchi Abdomen: Soft and nontender. Bowel sounds are present, no mass palpable, no CVA tenderness Skin: Skin warm and dry. Normal skin color. Normal skin turgor. Extremities: No lower extremity edema. No calf tenderness back: Diffuse tenderness left paraspinal area no midline tenderness SLR negative bilaterally Neuro: Oriented X 3. No motor deficit. No sensory deficit.No cerebellar signs , cranial nerves II-XII intact Course Course Course Narrative: RME performed by Quynh Jeffers PA-C. Patient is a 49 year old assigned female at presenting to the emergency department with low back pain that radiates into the abdomen. Patient states she has been having low back pain that radiates into the abdomen for a few days. Detailed physical exam and review of systems are deferred to the theater projectionist. Labs ordered. Patient placed back in the waiting room pending room availability and results. Medications Administered Discontinued Medications Generic Name Dose Route Start Last Admin Trade Name Gautam PRN Reason Stop Dose Admin Tramadol HCl 50 mg 04/13/24 21:43 04/13/24 22:16 Tramadol Hcl 50 Mg Tablet PO 04/13/24 21:44 50 mg ONCE ONE Administration Medical Decision Making Medical Decision Making [facility] [place] Narrative: Patient with lumbar strain no signs of significant injuries labs are stable will prescribe Tramadol Differential Diagnosis Differential Diagnoses: The differential diagnosis associated with the presentation includes Lab Data [facility] [place] Lab Attestation statement: I reviewed the patient's lab results. 04/13/24 14:06 04/13/24 14:06 Labs: Lab Results 04/13/24 Range/Units 14:06 WBC 6.0 (4.8-10.8) X10*3/uL RBC 4.29 (4.20-5.50) X10*6/uL Hgb 11.9 L (12.0-16.0) g/dl Hct 36.4 L (37.0-47.0) % MCV 84.8 (80.0-98.0) fL MCH 27.7 (27.0-33.0) pg MCHC 32.7 (31.0-35.0) g/dl RDW 13.4 (11.0-16.0) % Plt Count 344 (160-400) X10*3/uL MPV 9.2 L (9.4-12.3) fL Immature Gran % (Auto) 0.2 (0.0-0.4) % Neut % (Auto) 35.4 L (45-73) % Lymph % (Auto) 48.8 H (20-40) % [place] % (Auto) 13.3 H (2-11) % Eos % (Auto) 0.8 (0-4) % Baso % (Auto) 1.5 (0-2) % Lymph # (Auto) 2.9 (1.2-4.9) X10*3/uL [place] # (Auto) 0.8 (0.1-1.2) X10*3/uL Eos # (Auto) 0.1 (0.0-0.4) X10*3/uL Baso # (Auto) 0.1 (0.0-0.2) X10*3/uL Abs Immat Gran (auto) 0.01 (0.00-0.03) X10*3/uL Absolute Neuts (auto) 2.1 (2.0-8.3) x10*3/uL Absolute Nucleated RBC 0.000 (0.0-0.012) X10*3/uL Nucleated RBC % (auto) 0.0 (0.0-0.2) /100WBC Sodium 141 (135-145) mmol/L Potassium 3.9 (3.3-5.1) mmol/L Chloride 109 H (96-108) mmol/L Carbon Dioxide 26 (22-29) mmol/L Anion Gap 10 L (12-20) BUN 7 L (9-16) mg/dL Creatinine 0.76 (0.5-1.4) mg/dL Estim Creat Clear Calc 76.2 Estimated GFR > 60 Random Glucose 90 (60-115) mg/dL Calcium 9.6 D (8.4-10.2) mg/dL Magnesium 2.0 (1.6-2.6) mg/dL Total Bilirubin 0.4 (0.0-1.0) mg/dL AST 23 (5-31) U/L ALT 11 (0-31) U/L Alkaline Phosphatase 45 (39-117) U/L Total Protein 7.2 (6.5-8.0) g/dL Albumin 3.8 (3.5-5.0) g/dL Urine Color Yellow Urine Appearance Clear Urine pH 5.5 (5.0-9.0) Ur Specific Pooler 1.020 (1.005-1.025) Urine Protein Negative (Neg-Trace) mg/dL Urine Glucose (UA) Negative (Negative) mg/dL Urine Ketones Negative (Negative) mg/dL Urine Blood Negative (Negative) Urine Nitrite Negative (Negative) Ur Leukocyte Esterase Negative (Negative) Discharge Plan Discharge Clinical Impression: Strain of lumbar region Patient Disposition: Home, Self-Care Instructions: Low Back Strain (ED) Additional Instructions: Apply ice pack Take pain medication as prescribed Follow with your PCP/orthopedic Prescriptions: New tramadol 50 mg tablet 50 mg PO Q6H PRN (Reason: pain) Qty: 20 0RF No Action cyclobenzaprine 10 mg tablet 10 mg PO TID PRN (Reason: muscle spasm) Qty: 14 0RF meclizine 25 mg tablet 1 tab PO TID PRN (Reason: Dizziness) fluticasone propionate 50 mcg/actuation spray,suspension 1 - 2 spray intranasal DAILY PRN (Reason: Nasal Congestion) Pain Reliever Plus 250-250-65 mg tablet 2 tab PO DAILY PRN (Reason: headache) ondansetron 4 mg tablet,disintegrating 4 mg PO Q6H PRN (Reason: nausea and vomiting) Qty: 14 0RF ketorolac 10 mg tablet 10 mg PO TID PRN (Reason: pain) 5 Days Qty: 15 0RF ibuprofen 400 mg tablet 400 mg PO Q6H PRN (Reason: pain) Qty: 20 0RF cholecalciferol (vitamin D3) 25 mcg (1,000 unit) capsule 25 mcg PO DAILY atorvastatin 20 mg tablet 20 mg PO DAILY dicyclomine 10 mg capsule 10 mg PO QID 30 Days Qty: 120 6RF ketorolac 10 mg tablet 10 mg PO TID PRN (Reason: pain) 5 Days Qty: 15 0RF Interventions: ED Discharge Assessment Last Done: 04/13/24 22:18 Discharge Date/Time: 04/13/24 22:18 Print Language: Iranian
[2024-04-13 14:11] LABS: Basophils Absolute Auto 0.1 X10*3/uL (0.0-0.2); Basophils Percent Auto 1.5 % (0-2); Eosinophils Absolute Auto 0.1 X10*3/uL (0.0-0.4); Eosinophils Percent Auto 0.8 % (0-4); Hematocrit 36.4 % (37.0-47.0); Hemoglobin 11.9 g/dl (12.0-16.0); Imm Gran Abs Auto 0.01 X10*3/uL (0.00-0.03); Imm Gran Pct Auto 0.2 % (0.0-0.4); Lymphocytes Absolute Auto 2.9 X10*3/uL (1.2-4.9); Lymphocytes Percent Auto 48.8 % (20-40); MANUAL DIFF FLAG NO; Mean Corpuscular HGB Conc 32.7 g/dl (31.0-35.0); Mean Corpuscular Hemoglobin 27.7 pg (27.0-33.0); Mean Corpuscular Volume 84.8 fL (80.0-98.0); Mean Platelet Volume 9.2 fL (9.4-12.3); Monocytes Absolute Auto 0.8 X10*3/uL (0.1-1.2); Monocytes Percent Auto 13.3 % (2-11); Neutrophils Absolute Auto 2.1 x10*3/uL (2.0-8.3); Neutrophils Percent Auto 35.4 % (45-73); Platelet Count 344 X10*3/uL (160-400); Red Blood Count 4.29 X10*6/uL (4.20-5.50); Red Cell Distribution Width 13.4 % (11.0-16.0)
[2024-04-13 14:14] LABS: Appearance Urine Clear; Color Urine Yellow; Glucose Urine UA Negative (Negative); Leukocyte Esterase Urine Negative (Negative); Nitrite Urine Negative (Negative); PH 5.5 (5.0-9.0); Urine Blood Negative (Negative); Urine Ketones Negative (Negative); Urine Protein Negative (Neg-Trace)
[2024-04-13 14:39] LABS: Alanine Aminotransferase 11 U/L (0-31); Albumin Level 3.8 g/dL (3.5-5.0); Alkaline Phosphatase 45 U/L (39-117); Anion Gap 10 (12-20); Aspartate Amino Transferase 23 U/L (5-31); Bilirubin Total 0.4 mg/dL (0.0-1.0); Blood Urea Nitrogen 7 mg/dL (9-16); Calcium 9.6 mg/dL (8.4-10.2); Carbon Dioxide 26 mmol/L (22-29); Chloride 109 mmol/L (96-108); Creatinine Clr Calc Pharmacy 76.2; Estimated Glomerular Filt Rate > 60; Glucose Random 90 mg/dL (60-115); Potassium 3.9 mmol/L (3.3-5.1); Sodium 141 mmol/L (135-145); Total Protein 7.2 g/dL (6.5-8.0)
[2024-04-13 21:29] VITALS: BP 130/71; PULSE 63; RESP 17; TEMP 36.4; O2SAT 99
[2024-04-13] MEDS: traMADoL HCL 50 MG TABLET PO (22:16)
[2024-04-13 22:18] VITALS: BP 130/71; PULSE 63; RESP 17; TEMP 36.4; O2SAT 99
== END 2024-04-13 22:18 | disposition home or self-care (01) ==
PROVIDERS: Physician Assistant Medical; Emergency Provider Internal Medicine; PCP Registered Nurse
DX: S39.012A Strain of muscle, fascia and tendon of lower back, initial encounter (principal); X50.9XXA Other and unspecified overexertion or strenuous movements or postures, initial encounter; Y93.9 Activity, unspecified; Y92.9 Unspecified place or not applicable; Y99.9 Unspecified external cause status
CPT/HCPCS: 36415; 80053; 81003; 83735; 85025; 99283; 99284

== ENCOUNTER 2024-04-21 11:05 | Outpatient (AMB) | payer MEDICAID, SELFPAY ==
--- NOTE | 2024-04-21 11:18 | MHC.OFFVIS ---
Vital Signs 04/21/24 11:20 Height 4 ft 10 in Weight 165 lb BMI 34.5 Intake Visit Reasons: OV- Left Hip MRI review Intake Note: Zoila is a 49 year old female who presents with complaints of mild intermittent discomfort in her left hip. The patient states that her symptoms have gotten somewhat better over the last few weeks. She does continue with her activity modifications. She has tried Tylenol and anti-inflammatory medicines which gave her fairly good relief. Allergies No Known Allergies [No Known Allergies*] Allergy (Verified 04/21/24 11:20) Medication List - Last Reconciled 04/21/24 by Markus Bergman MD [id number] 250-250-65 mg (Pain Reliever Plus) 2 tabs PO DAILY PRN atorvastatin 20 mg PO DAILY cholecalciferol (vitamin D3) 25 mcg PO DAILY cyclobenzaprine 10 mg PO TID PRN dicyclomine 10 mg PO QID 30 days fluticasone propionate 50 mcg/actuation 1 - 2 sprays intranasal DAILY PRN ibuprofen 400 mg PO Q6H PRN meclizine 1 tab PO TID PRN ondansetron 4 mg PO Q6H PRN tramadol 50 mg PO Q6H PRN PFSH Medical History Left hip pain Abdominal cramping Colon cancer screening Lower abdominal pain Pulmonary hypertension Migraine Anxiety and depression Vitamin D deficiency Iron (Fe) deficiency anemia Hyperlipidemia Abnormal EKG Precordial chest pain Surgical History History of endometrial ablation Hx of colonoscopy History of tubal ligation Family History Father Cardiovascular disease Mother Heart valve disease Diabetes HTN (hypertension) Social History Household Members: Children Alcohol intake: never Patient Tobacco Use Status: Never used Tobacco Sexual orientation: Straight/Heterosexual Gender identity: Female Female Reproductive History Menstrual Age of Menarche: 14 Physical Exam Vital Signs: BMI result Body Mass Index 34.5 Const Other: Well-nourished well-developed very friendly female awake alert and oriented x3 in no acute distress Extrem Other: Bilateral lower extremity examination shows good capillary refill, no skin lesions noted, normal sensation light touch Left hip examination shows full range of motion when compared to her right hip, mild tenderness over her bursa, no overlying skin lesions Results Reviewed Results Reviewed: MRI of the patient's left hip shows minimal degenerative changes, possible small nondisplaced tear of the anterior labrum Assessment & Plan Assessment & Plan (1) Left hip pain: Code(s): M25.552 - Pain in left hip Category: Medical Plan Zoila presents with intermittent left hip discomfort most likely due to greater trochanteric bursitis as well as possible small labral tear. I had a lengthy discussion with the patient regarding the treatment options. At this point the patient's symptoms are tolerable to her. She will continue with her activity modifications. She will follow up with me on an as-needed basis should her symptoms worsen in any way. Feel free to call me at any time should questions regarding her orthopedic management arise. I spent 20 minutes in reviewing the patient's records and imaging studies, seeing the patient and documenting in the medical record. Coding Level of Care Code Est Pt Level 3 (44182) Complex EM visit Add On G2211 Diagnoses Left hip pain M25.552
[2024-04-21 11:20] VITALS: BMI 34.5
== END 2024-04-21 11:36 | disposition home or self-care (01) ==
LOC: HO.HOS 11:06
PROVIDERS: PCP Registered Nurse; Visit Provider Orthopaedic Surgery
DX: M25.552 Pain in left hip (principal)
CPT/HCPCS: 99213

== ENCOUNTER → 2024-04-21 11:05 | Outpatient (BNVA) | payer MEDICAID, SELFPAY | PROVIDERS: PCP Registered Nurse; Visit Provider Orthopaedic Surgery | DX: M25.552 Pain in left hip (principal) | CPT/HCPCS: 99212 ==

== ENCOUNTER 2024-04-23 10:44 | Outpatient (AMB) | payer MEDICAID, SELFPAY ==
--- NOTE | 2024-04-23 10:46 | MHC.OFFVIS ---
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 She is doing well with no concerns. Attempting to eat a healthy diet with calcium and vitamin D and stays active with exercise. Currently sexually active. Denies any vaginal dryness or irritation. History of uterine ablation. STI testing offered; she declines. Last pap smear; 2019. Last mammogram; 2023. Colonoscopy is not booked. Denies any family history of breast, ovarian or colon cancer. COUNT INCLUDES THE [facility] Medical History (Updated 04/23/24 @ 11:08 by Janis Foreman CNM) Left hip pain Abdominal cramping Colon cancer screening Lower abdominal pain Pulmonary hypertension Migraine Anxiety and depression Vitamin D deficiency Iron (Fe) deficiency anemia Hyperlipidemia Abnormal EKG Precordial chest pain Surgical History History of endometrial ablation Hx of colonoscopy History of tubal ligation Family History Father Cardiovascular disease Mother Heart valve disease Diabetes HTN (hypertension) Social History Household Members: Children Alcohol intake: never Patient Tobacco Use Status: Never used Tobacco Sexual orientation: Straight/Heterosexual Gender identity: Female Female Reproductive History Menstrual Age of Menarche: 14 control method: permanent sterilization Permanent Sterilization: BTL Total pregnancies: 4 Full term: 3 Number of Living Children: 3 Date of last pap smear: 05/17/20 (neg pap and hpv) Date of Mammogram: 10/21/23 (Birad 1) Review of Systems Const All systems reviewed & are unremarkable except as noted in HPI and below Reports as per HPI Eyes Reports no additional complaints ENT Reports no additional complaints Card Reports no additional complaints Resp Reports no additional complaints GI Reports as per HPI and Reports no additional complaints Reports as per HPI Musc Reports no additional complaints Skin/Breast Reports as per HPI Neuro Reports no additional complaints Psych Reports no additional complaints Endo Reports no additional complaints Jamil/Lymph Reports no additional complaints Aller/Immun Reports no additional complaints Physical Exam Vital Signs: Last Vital Signs BP 112/74 04/23/24 10:48 BMI result Body Mass Index 33.4 Const General: cooperative, healthy appearing, no acute distress, well developed and alert Orientation/consciousness: patient oriented x3 HEENT Head: Yes normal to inspection Eyes General: appearance normal, both eyes and all related structures Neck Neck: Yes normal visual inspection Thyroid: Thyroid normal Chest Chest palpation & inspection: normal inspection of the chest and other (no puckering, dimpling, peau de orange, retraction, discharge, masses) Breast/axilla inspection: normal inspection of the breasts Breast/axilla palpation: normal palpation of the breasts Resp Effort & Inspection: normal respiratory effort GI Inspection: Yes normal to inspection Palpation (GI): Soft to palpation Rectal Exam - Female: deferred General: Yes bladder normal to palpation External Female Exam: normal external appearance and normal appearance of the urethra Speculum Exam - Vagina: normal appearance of the vagina, normal palpation and normal vaginal discharge Speculum Exam - Cervix: normal appearance of the cervix and normal palpation Bimanual exam- vagina & uterus: normal bimanual exam, normal palpation, uterine size normal, bladder normal to palpation, normal palpation and non-tender Bimanual Exam- Adnexa, other: no masses Skin General skin exam: no rashes or lesions noted Rashes: no rashes Neuro General: patient oriented x3 Cognition (Neuro): normal cognition Extrem General: Yes normal to inspection Psych Attitude: cooperative Thought process: Normal thought process present Assessment & Plan Assessment & Plan (1) Well woman exam with routine gynecological exam: Code(s): Z01.419 - Encounter for gynecological examination (general) (routine) without abnormal findings Category: Medical Plan Discussed: Current recommendations for pap smears per ASCCP guidelines. Breast awareness, periodic self breast exams and yearly mammogram. Mammogram order placed. Maintain a healthy lifestyle, well balanced diet including Calcium 1,200 mg and Vitamin D 600 IU daily, and routine exercise. Discussed colonoscopy prep planning with primary care at her next visit. Contact the office with any postmenopausal bleeding. Patient verbalizes understanding and agrees to the plan of care. She was given opportunity to ask questions and all questions were answered to the best of my ability. 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 This note is constructed using voice recognition software. While every effort has been made to ensure accuracy, net software architect errors may have been included. Orders: Orders MM tomosynthesis screening BI Today Z12.31 - Encounter for screening mammogram for malignant neoplasm of breast Coding Level of Care Code Est Pt Prev Care 40-64y(57089) Diagnoses Well woman exam with routine gynecological exam Z01.419
[2024-04-23 10:48] VITALS: BP 112/74; BMI 33.4
== END 2024-04-23 11:10 | disposition home or self-care (01) ==
LOC: HO.HWS 10:44
PROVIDERS: PCP Registered Nurse; Visit Provider Advanced Practice Midwife
DX: Z01.419 Encounter for gynecological examination (general) (routine) without abnormal findings (principal)
CPT/HCPCS: 99396

== ENCOUNTER → 2024-04-23 10:44 | Outpatient (BNVA) | payer MEDICAID, SELFPAY | PROVIDERS: PCP Registered Nurse; Visit Provider Advanced Practice Midwife | DX: Z01.419 Encounter for gynecological examination (general) (routine) without abnormal findings (principal) | CPT/HCPCS: 99396 ==

== ENCOUNTER 2024-05-11 12:43 | Outpatient (REF) | payer MEDICAID, SELFPAY | END 2024-05-11 12:44 | disposition home or self-care (01) | LOC: HO.HHCL 12:43 | PROVIDERS: Visit Provider Registered Nurse | DX: L60.2 Onychogryphosis (principal) | CPT/HCPCS: 87101; 87220 ==

== ENCOUNTER 2024-06-27 14:37 | Outpatient (REF) | payer MEDICAID, SELFPAY | END 2024-06-27 14:38 | disposition home or self-care (01) | LOC: HO.HHCLNP 14:37 | PROVIDERS: Visit Provider Family Medicine | DX: R30.9 Painful micturition, unspecified (principal) | CPT/HCPCS: 87086 ==

== ENCOUNTER 2024-08-05 13:26 | Outpatient (AMB) | payer MEDICAID, SELFPAY ==
--- NOTE | 2024-08-05 13:29 | MHC.OFFVIS ---
Vital Signs 08/05/24 13:34 Height 4 ft 10 in Weight 160 lb BMI 33.4 Intake Visit Reasons: OV-Left hip pain/hurts when walking on it Intake Note: Zoila is a 49 year old female who presents with complaints of intermittent left hip pain. She notices the pain most when she is walking a significant distance. She has tried Tylenol and ibuprofen which gave her only mild relief. She denies any numbness or tingling in either of her lower extremities. Allergies No Known Allergies [No Known Allergies*] Allergy (Verified 08/05/24 13:29) Medication List - Last Reconciled 08/05/24 by Markus Bergman MD [id number] 250-250-65 mg (Pain Reliever Plus) 2 tabs PO DAILY PRN atorvastatin 20 mg PO DAILY cholecalciferol (vitamin D3) 25 mcg PO DAILY cyclobenzaprine 10 mg PO TID PRN dicyclomine 10 mg PO QID 30 days fluticasone propionate 50 mcg/actuation 1 - 2 sprays intranasal DAILY PRN ibuprofen 400 mg PO Q6H PRN meclizine 1 tab PO TID PRN ondansetron 4 mg PO Q6H PRN PFSH Medical History (Updated 08/05/24 @ 13:50 by Markus Bergman MD) Left hip pain Abdominal cramping Colon cancer screening Lower abdominal pain Pulmonary hypertension Migraine Anxiety and depression Vitamin D deficiency Iron (Fe) deficiency anemia Hyperlipidemia Abnormal EKG Precordial chest pain Surgical History History of endometrial ablation Hx of colonoscopy History of tubal ligation Family History Father Cardiovascular disease Mother Heart valve disease Diabetes HTN (hypertension) Social History Household Members: Children Alcohol intake: never Patient Tobacco Use Status: Never used Tobacco Sexual orientation: Straight/Heterosexual Gender identity: Female Female Reproductive History Menstrual Age of Menarche: 14 Physical Exam Vital Signs: BMI result Body Mass Index 33.4 Const Other: Well-nourished well-developed very friendly female awake alert and oriented x3 in no acute distress Extrem Other: Bilateral lower extremity examination shows good capillary refill, no skin lesions noted, normal sensation light touch Left hip examination shows slightly decreased range of motion when compared to her right hip, pain with internal rotation and forward flexion, no tenderness over her bursa Results Reviewed Results Reviewed: MRI of the patient's left hip shows minimal diffuse degenerative changes as well as a small tear of the anterosuperior labrum Assessment & Plan Assessment & Plan (1) Labral tear of left hip joint: Code(s): S73.192A - Other sprain of left hip, initial encounter Category: Medical Plan Ms. Eros Jackson presents with left hip pain most likely due to a small labral tear. I had a lengthy discussion with the patient regarding the treatment options. She wishes to hold off on surgery if at all possible. I agree with this plan. I will try to arrange for the patient to have an intra-articular cortisone injection. She will follow-up as instructed. She will follow up with me on an as-needed basis should her symptoms not plateau at an unacceptable level over the next few months. Feel free to call me at any time should questions regarding her orthopedic management arise. I spent 21 minutes in reviewing the patient's records and imaging studies, seeing the patient and documenting in the medical record. Orders: Referrals Pain Management Referral S73.192A - Other sprain of left hip, initial encounter Coding Level of Care Code Est Pt Level 3 (91171) Complex EM visit Add On G2211 Diagnoses Labral tear of left hip joint S73.192A
[2024-08-05 13:34] VITALS: BMI 33.4
--- OUTSIDE RECORDS SUMMARY | 2024-08-05 14:50 | XMS_ITS | Encounter Summary ---
Author Organization [employer] Address [address] [facility] [address] [place] [address] Care Team Providers Care Senior Managing Director Name Role Phone Bita Muñoz Primary Care Provider [phone] Reason for Referral * Consultation (Routine) - Closed Specialty Diagnoses / Procedures Referred By Sol liao Referred To Contact Orthopaedic Surgery Diagnoses Left hip pain Bita Muñoz FNP [address] [place] [address] Phone: tel: fax: Referral ID Status Reason Start Date Expiration Date V isits Requested Visits Authorized [id number] Closed Specialty Services Required 07/06/2024 07/06/2025 1 1 Reason for Visit * Reason Onset Date Comments Nurse Triage 06/26/2024 Referral Request 06/26/2024 Encounter Details Date Type Department Care Team (Late st Contact Info) Description 06/26/[address] [facility] MEDICINE [address] [place] [address] Bita Muñoz FNP [address] [place] [address] Nurse Triage; Referral Request Social History Tobacco Use Types Packs/Day Years Used Date Smoking Tobacco: Never Smokeless Tobacco: Never Alcohol Use Standard Drinks/Week Comments Never 0 (1 standard drink = 0.6 oz pur e alcohol) Depression Answer Date Recorded Patient Health Questionnaire-9 Score 01/08/2024 Patient Health Questionnaire-9 Score 20 01/08/2024 Last PHQ-9: Questionnaire Data Not on file 0 01/08/2024 Housing Stability Answer Date Recorded What is your housing situation today? I have dylan crane 07/03/[address] you li ve. Do you have problems with any of the following? Pests such as bugs, ants, or mice 07/03/2024 Food Insecurity Answer Date Recorded Within the past 12 months, y ou worried that your food would run out before you got money to buy more: Often true 06/02/2024 Within the past 12 months,th e food you bought just didn't last and you didn't have enough money to get more: Often true 03/2024 Transportation Answer Date Recorded In the past 12 months, has l ack of transportation kept you from medical appts, meetings, work or from getting things needed for daily living? Yes, it has kept me from medical appointments or getting medications. 06/02/2024 Utilities Answer Date Recorded In the past 12 months, has t he electric, gas, oil or water company threatened to shut off services in your home? No 04/10/2023 Depression Answer Date Recorded Patient Health Questionnaire-2 Score 6 01/08/2024 Internet Access Answer Date Recorded Internet Access Q1 Yes 06/02/2024 Internet Access Q2 Not on file 06/02/2024 Comments No Sex and Gender Information Value Date Recorded Sex Assigned at Female 04/23/2022 10:15 AM EDT Legal Sex Female 10:15 AM EDT Gender Identity Female 04/23/2022 10:15 AM EDT Sexual Orientation Choose not to disclose 2021 10:15 AM EDT documented as of this encounter Miscellaneous Notes * Telephone Encounter - ARLET Clinton - 07/06/2024 12:51 PM EST Referral to [facility] Ortho for left hip pain sent. Thanks! * Telephone Encounter - Marcy Davis - 07/03/2024 12:18 PM EST Patient walked in requesting a new referral for an upcoming appt on 08/05/24 at 1:30pm at [address] [place] [address] [address]. Gonzales is schedule with Dr. Markus Bergman, Leadership Intern. The Specialist office can be reached at [phone]. . Thanks, Marcy Duque * Telephone Encounter - Sonia Ingram - 06/26/2024 2:38 PM EST Symptom: Urine Symptoms Outcome: Schedule an urgent appointment (within 4 hours) or talk to a nurse or provider soon Reason: Pain when passing urine (peeing) The caller accepted this outcome. [phone] Maldivian documented in this encounter Plan of Treatment Upcoming Encounters Date Type Department Care Team (Late st Contact Info) Description 08/12/2024 11:15 AM EST Office Visit [facility] MEDICINE [address] [place] [address] Bita Muñoz FNP [address] [place] [address] Scheduled Referrals Name Type Priority Associated Diagnoses Order Schedule Referral to Orthopaedic Surgery Outpatient Referral Routine Left hip pain Expected: 07/06/2024 (Approximate), Expires: 07/06/2025 documented as of this encounter Visit Diagnoses Diagnosis Left hip pain- Primary Pain in joint, pelvic region and thigh documented in this encounter Additional Health Concerns Assessment Noted Time PHQ-9 Depression Total Score: 20 024 9:07 AM EDT documented as of this encounter Care Teams Senior Managing Director Relationship Specialty Start Date End Date Bita Muñoz FNP [address] [place] [address] PCP - General Family Medicine 02/19/22 Karen Edward Nut Roaster HelperBi Application Developer 10/17/23 documented as of this encounter
--- OUTSIDE RECORDS SUMMARY | 2024-08-05 14:50 | XMS_ITS | Encounter Summary ---
Author Organization [employer] Address [address] [facility] [address] [place] [address] Care Team Providers Care Publication Distributor Name Role Phone Bita Muñoz Primary Care Provider [phone] Reason for Visit * Reason Onset Date Comments Returning Call 06/10/2024 Encounter Details Date Type Department Care Team ([facility] Contact Info) Description 06/10/2024 Telephone [facility] MEDICINE [address] [place] [address] Bita Muñoz FNP [address] [place] [address] Returning Call Social History Tobacco Use Types Packs/Day Years Used Date Smoking Tobacco: Never Smokeless Tobacco: Never Alcohol Use Standard Drinks/Week Comments Never 0 (1 standard drink = 0.6 oz pur e alcohol) Depression Answer Date Recorded Patient Health Questionnaire-9 Score 20 01/08/2024 Patient Health Questionnaire-9 Score 20 01/08/2024 Last PHQ-9: Questionnaire Data Not on file 0 01/08/2024 Housing Stability Answer Date Recorded What is your housing situation today? I have dylan crane 06/05/[address] you li ve. Do you have problems with any of the following? None of the above 06/05/2023 Food Insecurity Answer Date Recorded Within the [...] encounter Miscellaneous Notes * Telephone Encounter - Dewayne Rahman - 06/10/2024 3:57 PM EST Tc from pt returning call regarding follow up with pcp. documented in this encounter Plan of Treatment Upcoming Encounters Date Type Department Care Team (Late st Contact Info) Description 08/12/2024 11:15 AM EST Office Visit [facility] MEDICINE [address] [place] [address] Bita Muñoz FNP [address] [place] [address] documented as of this encounter Visit Diagnoses Not on filedocumented in this encounter Additional Health Concerns Assessment Noted Time PHQ-9 Depression Total Score: 20 024 9:07 AM EDT documented as of this encounter Care Teams Publication Distributor Relationship Specialty Start Date End Date Bita Muñoz FNP [address] [place] [address] PCP - General Family Medicine 02/19/22 Karen Edward Animal Humane Agent SupervisorElectrical Tests Supervisor 10/17/23 documented as of this encounter
--- OUTSIDE RECORDS SUMMARY | 2024-08-05 14:51 | XMS_ITS | Encounter Summary ---
Author Organization [email or web address] Address [address] [facility] [address] [address] Care Team Providers Care Tub Rider Name Role Phone Bita Muñoz Primary Care Provider [phone] Encounter Details Date Type Department Care Team (Late st Contact Info) Description 05/03/2022 [facility] Health Information Management [address] [place] [address] Bita Muñoz FNP [address] [place] [address] Social History Tobacco Use Types Packs/Day Years Used Date Smoking Tobacco: Never Assessed Comments Unknown Sex and Gender Information Value Date Recorded Sex Assigned at Female 04/23/2022 10:15 AM EDT Legal Sex Female 10:15 AM EDT Gender Identity Female 04/23/2022 10:15 AM EDT Sexual Orientation Choose not to disclose 2021 10:15 AM EDT documented as of this encounter Plan of Treatment Upcoming Encounters Date Type Department Care Team (Late st Contact Info) Description 08/12/2024 11:15 AM EST Office Visit [facility] MEDICINE [address] [place] [address] Bita Muñoz FNP [address] [place], [place] [id number] documented as of this encounter Visit Diagnoses Not on filedocumented in this encounter Care Teams Tub Rider Relationship Specialty Start Date End Date Bita Muñoz FNP [address] [place] [address] PCP - General Family Medicine 02/19/22 Karen Edward Tile DecoratorManager Of Selection And Assessment 10/17/23 documented as of this encounter
--- OUTSIDE RECORDS SUMMARY | 2024-08-05 14:51 | XMS_ITS | Encounter Summary ---
Author Organization [employer] Address [address] [facility] [address] [place] [address] Care Team Providers Care Eyeglass Lens Generator Name Role Phone Bita Muñoz BAND NAILER Primary Care Provider Reason for Visit * Reason Comments Med Refill Encounter Details Date Type Department Care Team ([facility] st Contact Info) Description 07/23/2024 Refill [facility] MEDICINE [address] [place] [address] Natalie Sue MD [address] [place] [address] Social History Tobacco Use Types Packs/Day Years Used Date Smoking Tobacco: Never Smokeless Tobacco: Never Alcohol Use Standard Drinks/Week Comments Never 0 (1 standard drink = 0.6 oz pur e alcohol) Depression Answer Date Recorded Patient Health Questionnaire-9 Score 10 07/15/2024 Patient Health Questionnaire-9 Score 10 07/15/2024 Last PHQ-9: Questionnaire Data Not on file 0 07/15/2024 Housing Stability Answer Date Recorded What is [...] Answer Date Recorded Patient Health Questionnaire-2 Score 2 07/15/2024 Internet Access Answer Date Recorded Internet Access [...] Description 08/12/2024 11:15 AM EST Office Visit [facility] MEDICINE [address] [place] [address] Bita Muñoz FNP [address] [place] [address] documented as of this encounter Visit Diagnoses Not on filedocumented in this encounter Additional Health Concerns Assessment Noted Time PHQ-9 Depression Total Score: 10 025 3:23 PM EST documented as of this encounter Care Teams Eyeglass Lens Generator Relationship Specialty Start Date End Date Bita Muñoz FNP [address] [place] [address] PCP - General Family Medicine 02/19/22 Karen Edward Business Operations AnalystNightman 10/17/23 documented as of this encounter
--- OUTSIDE RECORDS SUMMARY | 2024-08-05 14:51 | XMS_ITS | Clinical Summary ---
Author Organization [facility] Address [address] [place] [address] Care Team Providers Care Squirrel Worker Name Role Phone Unavailable Primary Care Provider Unavailabl e Source Comments PLEASE NOTE, if this patient is a minor, it may be UNLAWFUL to discuss sensitive information that is contained in these records (such as FAMILY PLANNING, MENTAL HEALTH or SUBSTANCE ABUSE) with the minor patient's parent or other person without the patient's specific authorization.[facility] Allergies No known active allergies Medications No known medications Active Problems No known active problems Social History Tobacco Use Types Packs/Day Years Used Date Smoking Tobacco: Never Smokeless Tobacco: Never Tobacco Cessation:Counseling Given: Not Answered Social Connections Answer Date Recorded Connectedness 0 03/10/2024 Financial Resource Strain Answer Date R ecorded Financial Resource Strain 0 2023 Stress Answer Date Recorded Stress 0 01/09/2024 Physical Activity Answer Date Recorded Physical Activity 0 01/09/2024 Food Insecurity Answer Date Recorded Food 0 03/19/2024 Transportation Needs Answer Date Record ed Transportation 0 01/09/2024 Housing Stability Answer Date Recorded Housing 0 01/09/2024 Safety and Environment Answer Date Keshav rded Safety 0 01/09/2024 Utilities Answer Date Recorded Utilities 0 01/09/2024 Employment Answer Date Recorded Stress 0 03/10/2024 Comments Unknown Sex and Gender Information Value Date Recorded Sex Assigned at Not on file Legal Sex Female 6:09 AM PDT Gender Identity Not on file Sexual Orientation Not on file Last Filed Vital Signs Vital Sign Reading Time Taken Comments Blood Pressure 133/78 01/24/2024 2:46 PM EDT Pulse 67 01/24/2024 2:46 PM EDT Temperature - - Respiratory Rate - - Oxygen Saturation - - Inhaled Oxygen Concentration - - Weight - - Height - - Body Mass Index - - Plan of Treatment Health Maintenance Due Date Last Done Comments Dental Perio Charting 1974 HPV Screening 1974 Hepatitis C Screening 1974 Pap + HPV 1974 Cervical Cancer Screening 1995 Pap Smear 1995 Breast Cancer Screening (Mammogram) 2014 CT Colonography 2019 Colonoscopy 2019 Colorectal Cancer Screening 2019 FIT/gFOBT 2019 Fecal DNA 2019 Flexible Sigmoidoscopy 2019 [id number] ( season) 2024 Imm-Influenza (#1) 2024 04/17/2023, 1 , 03/31/2021, Additional history exists Imm-Zoster, Recombinant (1 of 2) 2024 Alcohol and Drug Screen 06/24/2024 Depression Annual Screen 06/24/2024 Dental BW 01/10/2025 01/09/2024 Dental Examination 01/10/2025 01/09/2024 Hypertension Screening (#1) 01/23/2025 Tobacco Screening 01/23/2025 01/24/2024 Dental Prophy 01/25/2025 01/24/2024 Diabetes Screening 06/05/2026 06/05/2023, 0 11/07/2021, 03/23/2020 Lipid Screening 01/07/2029 01/08/2024 Dental FMX/Pano 01/10/2029 01/09/2024 Imm-DTaP/Tdap/Td (3 - Td or Tdap) 04/17/2033 023, 02/12/2013 HIV Screening Completed 04/23/2022 Imm-Hepatitis B Completed 04/23/2022, 03/0 10/2018, 07/22/2018 Cervical Ablation/Cold-Knife Conization Discontinued Cervical Cryotherapy Discontinued Colposcopy Discontinued Endometrial Biopsy Discontinued Excision/Leep Discontinued HPV Genotyping Discontinued Vaginal Pap Discontinued Vulvoscopy Discontinued Procedures Procedure Name Priority Date/Time Associated Diagnosis Comments Full PROPHYLAXIS - ADULT Routine 024 2:20 PM EDT Need for prophylactic measure INTRAORAL - COMP SERIES OF RADIOGRAPHIC IMAGES Routine 01/09/2024 3:40 PM EDT Caries Caries of enamel (incipient) COMP ORAL EVALUATION - NEW/ESTABLISHED PATIENT Routine 01/09/2024 3:40 PM EDT Caries Caries of enamel (incipient) from Last 3 Months or Most Recently Relevant to Health Maintenance Insurance ID MEDICAID DENTAL
--- OUTSIDE RECORDS SUMMARY | 2024-08-05 14:51 | XMS_ITS | Encounter Summary ---
Author Organization [employer] Address [address] [place] [address] [address] [place] [address] Care Team Providers Care Improvement Manager Name Role Phone Bita Muñoz ORAL AND MAXILLOFACIAL SURGERY RESIDENT Primary Care Provider [phone] Reason for Referral * Consultation (Routine) - Authorized Specialty Diagnoses / Procedures Referred By Sol liao Referred To Contact Cardiology Diagnoses Pulmonary hypertension (CMS/HCC) Eros Mandel CNP [address] [place] [address] Phone: tel: fax: [address] Phone: tel: fax: Referral ID Status Reason Start Date Expiration Date Visits Requested Visits Authorized [id number] Authorized Specialty Services Required 07/15/2024 07/15/2025 6 6 * Consultation (Routine) - Authorized Specialty Diagnoses / Procedures Referred By Sol t Referred To Contact Dental Remelt Operator / Dentistry Diagnoses Health care maintenance Eros Mandel CNP [address] [place] [address] Phone: tel: fax: Referral ID Status Reason Start Date Expiration Date Visits Requested Visits Authorized [id number] Authorized Consult and Treat 07/15/2024 07/15/2025 1 1 Reason for Visit * Reason Comments Annual Exam Encounter Details Date Type Department Care Team ([facility] st Contact Info) Description 07/15/2024 2:45 PM EST Office Visit [facility] [address] [place] [address] Ministerio Moodyulysses, ALVIN [address] [place] [address] Routine health maintenance (Primary Dx); Migraine with aura and without status migrainosus, not intractable; Chronic pain of left knee; Dietary counseling; Exercise counseling; Pulmonary hypertension (CMS/HCC); Hot flashes Social History Tobacco Use Types Packs/Day Years [...] AM EDT documented as of this encounter Last Filed Vital Signs Vital Sign Reading Time Taken Comments Blood Pressure 125/76 07/15/2024 2:51 PM EST Pulse 77 07/15/2024 2:51 PM EST Temperature 36.8 ??C (98.2 ??F) 07/15/2024 2:[address] Respiratory Rate 18 07/15/2024 2:51 PM EST Oxygen Saturation 97% 07/15/2024 2:51 PM EST Inhaled Oxygen Concentration - - Weight 78.6 kg (173 lb 3.2 oz) 07/15/2024 2:51 P M EST Height - - Body Mass Index 36.2 06/27/2024 10:13 AM EST documented in this encounter Progress Notes * Eros Mandel CNP - 07/15/2024 2:45 PM EST Subjective: Zoila Jackson is a 49 y.o. female who presents to the office for a physical exam. PCP ARLET Clinton. Interim history: Patient has CHW Gabriel Connor who has been in contact with patient. Patient having SDOH housing, food, and transportation insecurities. Pt seen in [facility] on 06/27/24 for UTI sx,no tx initiated. U/A and culture neg. Pt followed by [facility] Ortho ( Dr. Bergman) for chronic L hip pain, she takes tylenol and ibuprofen for pain which provides relief. Per MD, pain is r/t bursitis of hip as well as possible small labral tear. At this time pt proceeded with activity modifications and conservative tx and plan to f/u on prn basis for sx. Pulm HTN - previously followed by [facility], last available consult notefrom 2019. Current concerns: Hot flashes. Patient says that happen sporadically during the day and at night. Requesting medication refills- Topiramate for migraines, was taking prior and was very effective. Patient Active Problem List Diagnosis Depression Disorder of thyroid gland Dyslipidemia Irregular periods Migraine Pulmonary hypertension (CMS/HCC) Routine health maintenance Benign paroxysmal positional vertigo due to bilateral vestibular disorder Anxiety disorder, unspecified Primary osteoarthritis of right knee Knee pain, left Vaginal atrophy Left hip pain Hyperlipidemia Dietary counseling Exercise counseling Hot flashes Past Surgical History: Procedure Laterality Date ENDOMETRIAL ABLATION TUBAL LIGATION Bilateral Family History Problem Relation Name Age of Onset Heart attack Mother Hypertension Mother Heart attack Father Hypertension Father Social History Living situation: has housing at this moment, feels safe and happy. Also says she has access to food and is eating well. Employment/Education: not employed Diet/exercise: does workout videos at home, likes to walk around the mall Substance use: -alcohol : occasional (1-2 drinks a month) -tobacco : none -opioids: none Sexual activity: no Contraception: BTL Mental health: Patient Health Questionnaire-9 Score: 10 (07/15/2024 3:23 PM) Patient Health Questionnaire-2 Score: 2 (07/15/2024 3:23 PM) Thoughts that you would be better off or hurting yourself in some way: Not at all (07/15/2024 3:23 PM) ANTONIO-7 Total Score: 11 (07/15/2024 3:23 PM) Routine Screening and Health Maintenance Mammo: 10/21/23 BIRADS 1 Pap: Feb 2024: NIL, HPV neg. Previous 12/2018: NIL, HPV neg. Due Feb 2029 Colonoscopy: 07/22/20, 5 year follow-up Contraception: BTL Smoking status: non-smoker Eye Exam: 04/10/[address] [facility] Routine Cancer Screening Breast CA: UTD Cervical CA: UTD Colon CA: UTD Lung CA: n/a No LMP recorded. Patient has had an ablation. No Known Allergies Review of Systems Constitutional: Negative for activity change, appetite change, diaphoresis, fatigue, fever and unexpected weight change. HENT: Negative. Eyes: Negative. Respiratory: Negative for cough, choking, chest tightness, shortness of breath and wheezing. Cardiovascular: Negative for chest pain, palpitations and leg swelling. Gastrointestinal: Negative. Endocrine: Negative. Genitourinary: Negative. Musculoskeletal: Positive for arthralgias. Skin: Negative. Allergic/Immunologic: Negative. Neurological: Negative. Hematological: Negative. Psychiatric/Behavioral: Negative. Vitals: 07/15/24 1451 BP: 125/76 Pulse: 77 Resp: 18 Temp: 98.2 ??F (36.8 ??C) TempSrc: Oral SpO2: 97% Weight: 173 lb 3.2 oz (78.6 kg) Lab Results Component Value Date GLUCOSE 90 04/13/2024 NA 141 04/13/2024 K 3.9 04/13/2024 CO2 26 04/13/2024 CL 109 (H) 04/13/2024 BUN 7 (L) 04/13/2024 CREATININE 0.76 04/13/2024 Lab Results Component Value Date WBC 6.0 04/13/2024 HGB 11.9 (L) 04/13/2024 HCT 36.4 (L) 04/13/2024 MCV 84.8 04/13/2024 PLT 344 04/13/2024 Lab Results Component Value Date TSH 2.23 06/05/2023 Physical Exam Vitals reviewed. Constitutional: General: She is not in acute distress. Appearance: Normal appearance. She is not ill-appearing or toxic-appearing. HENT: Head: Normocephalic and atraumatic. Right Ear: Tympanic membrane, ear canal and external ear normal. There is no impacted cerumen. Left Ear: Tympanic membrane, ear canal and external ear normal. There is no impacted cerumen. Nose: Nose normal. Mouth/Throat: Mouth: Mucous membranes are moist. Pharynx: No oropharyngeal exudate or posterior oropharyngeal erythema. Eyes: General: Right eye: No discharge. Left eye: No discharge. Extraocular Movements: Extraocular movements intact. Conjunctiva/sclera: Conjunctivae normal. Pupils: Pupils are equal, round, and reactive to light. Cardiovascular: Rate and Rhythm: Normal rate and regular rhythm. Pulses: Normal pulses. Heart sounds: Normal heart sounds. No murmur heard. No friction rub. No gallop. Pulmonary: Effort: Pulmonary effort is normal. No respiratory distress. Breath sounds: Normal breath sounds. No stridor. No wheezing, rhonchi or rales. Chest: Chest wall: No tenderness. Abdominal: General: Abdomen is flat. Bowel sounds are normal. There is no distension. Palpations: Abdomen is soft. There is no mass. Tenderness: There is no abdominal tenderness. There is no right CVA tenderness, left CVA tenderness, guarding or rebound. Hernia: No hernia is present. Musculoskeletal: General: No swelling, tenderness, deformity or signs of injury. Normal range of motion. Cervical back: Normal range of motion. Right lower leg: No edema. Left lower leg: No edema. Lymphadenopathy: Cervical: No cervical adenopathy. Skin: General: Skin is warm and dry. Capillary Refill: Capillary refill takes less than 2 seconds. Coloration: Skin is not jaundiced or pale. Findings: No bruising or lesion. Neurological: General: No focal deficit present. Mental Status: She is alert and oriented to person, place, and time. Cranial Nerves: No cranial nerve deficit. Sensory: No sensory deficit. Motor: No weakness. Coordination: Coordination normal. Gait: Gait normal. Deep Tendon Reflexes: Reflexes normal. Psychiatric: Mood and Affect: Mood normal. Behavior: Behavior normal. 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 12/05/22: MRI brain w/ & w/o WNL Upcoming appt to establish with [facility]rology Well controlled with topiramate 25mg nightly Current Assessment & Plan Pt has hx of chronic migraines, no GALARZA red flags Pt reports that her migraines are well controlled on Topamax which she was previously rx'd Sent refills to pharmacy today Relevant Medications topiramate (Topamax) 25 MG tablet Pulmonary hypertension (CMS/HCC) Current Assessment & Plan Pulmonary exam wnl today Pt hasn't seen specialist since [address] referral today and advised pt to f/u with specialist regarding this condition Relevant Orders Referral to Cardiology Routine health maintenance - Primary Overview Mammo: 10/21/23 BIRADS 1 Pap: Feb 2024: NIL, HPV neg. Previous 12/2018: NIL, HPV neg. Due Feb 2029 Colonoscopy: 07/22/20, 5 year follow-up Contraception: BTL Smoking status: non-smoker Eye Exam: 04/10/[address] [facility], requested referral to [facility] dental Current Assessment & Plan Referral sent to [facility] Dental Advised pt to go get Zoster vaccination at pharmacy Relevant Orders Referral to [facility] Dental Adult Knee pain, left Overview Xray unremarkable May 2023 Referral to physical therapy and Ortho Found TENS unit helpful in physical therapy, will request DME September 2023 Relevant Medications acetaminophen (Tylenol Extra Strength) 500 MG tablet Dietary counseling Current Assessment & Plan Dietary Recommendations: Fruits, vegetables, whole grains, protein foods, and fat-free or low-fat dairy products are healthychoices. Eat different types of protein foods in your diet. This can include seafood, lean meats, poultry, beans, peas, lentils, nuts, seeds, soy products, and eggs. Limit foods and beverages higher in added sugars, saturated fat, and sodium. Patient plans to reduce intake of sugary candy by incorporating healthier forms of carbohydrates such as fruits Exercise counseling Current Assessment & Plan Exercise Recommendations: At least 150 minutes of moderate-intensity physical activity per week, or an equivalent combinationof moderate- and vigorous-intensity activity Plans to continue with home workouts and walks around neighborhood or mall during cold weather Hot flashes Current Assessment & Plan Discussed treatment options including SSRIs, serotonin-norepinephrine reuptake inhibitors (SNRIs), antiepileptics, and other centrally acting drugs. Also discussed HRT and alternative therapies such as Veozah At this time patient declines pharmacological therapy but would like to consider these options in the future. Pt plans to f/u with PCP prn for new or worsening conditions, recommended scheduling a f/u janey d/tschedules booking out. [facility] TELEPHONE SEX WORKER Attestation TELEPHONE SEX WORKER Resident Attestation: Patient was seen and evaluated by Eros Mandel CNP, in collaboration with Carri Rowell MD who has reviewed my assessment and plan. I, Carri Rowell MD, have reviewed the resident's note and agree with the assessment &plan of care as documented above. documented in this encounter Miscellaneous Notes * Assessment & Plan Note - Eros Mandel CNP - 07/15/2024 3:42 PM EST Associated Problem(s): Hot flashes Discussed treatment options including SSRIs, serotonin-norepinephrine reuptake inhibitors (SNRIs), antiepileptics, and other centrally acting drugs. Also discussed HRT and alternative therapies such as Veozah At this time patient declines pharmacological therapy but would like to consider these options in the future. * Assessment & Plan Note - Eros Mandel CNP - 07/15/2024 3:38 PM EST Associated Problem(s): Pulmonary hypertension (CMS/HCC) Pulmonary exam wnl today Pt hasn't seen specialist since [address] referral today and advised pt to f/u with specialist regarding this condition * Assessment & Plan Note - Eros Mandel CNP - 07/15/2024 3:37 PM EST Associated Problem(s): Routine health maintenance Referral sent to [facility] Dental Advised pt to go get Zoster vaccination at pharmacy * Assessment & Plan Note - Eros Mandel CNP - 07/15/2024 3:36 PM EST Associated Problem(s): Exercise counseling Exercise Recommendations: At least 150 minutes of moderate-intensity physical activity per week, or an equivalent combinationof moderate- and vigorous-intensity activity Plans to continue with home workouts and walks around neighborhood or mall during cold weather * Assessment & Plan Note - Eros Mandel CNP - 07/15/2024 3:36 PM EST Associated Problem(s): Dietary counseling Dietary Recommendations: Fruits, vegetables, whole grains, protein foods, and fat-free or low-fat dairy products are healthychoices. Eat different types of protein foods in your diet. This can include seafood, lean meats, poultry, beans, peas, lentils, nuts, seeds, soy products, and eggs. Limit foods and beverages higher in added sugars, saturated fat, and sodium. Patient plans to reduce intake of sugary candy by incorporating healthier forms of carbohydrates such as fruits * Assessment & Plan Note - Eros Mandel CNP - 07/15/2024 3:34 PM EST Associated Problem(s): Migraine Pt has hx of chronic migraines, no GALARZA red flags Pt reports that her migraines are well controlled on Topamax which she was previously rx'd Sent refills to pharmacy today documented in this encounter Plan of Treatment Upcoming Encounters Date Type Department Care Team (Late st Contact Info) Description 08/12/2024 11:15 AM EST Office Visit [facility] [address] [place] [address] Bita Muñoz FNP [address] [place] [address] Scheduled Referrals Name Type Priority Associated Diagnoses Orde r Schedule Referral to [facility] Dental Adult Outpatient Referral Routine Routine health maintenance Expected: 07/15/2024 (Approximate), Expires: 07/15/2025 Referral to Cardiology Outpatient Referral Routine Pulmonary hypertension (CMS/HCC) Expected: 07/15/2024 (Approximate), Expires: 07/15/2025 documented as of this encounter Visit Diagnoses Diagnosis Routine health maintenance- Primary Unspecified examination Migraine with aura and without status migrainosus, not intractable Chronic pain of left knee Dietary counseling Dietary surveillance and counseling Exercise counseling Pulmonary hypertension (CMS/HCC) Other chronic pulmonary heart diseases Hot flashes documented in this encounter Additional Health Concerns Assessment Noted Time PHQ-9 Depression Total Score: 10 025 3:23 PM EST documented as of this encounter Care Teams Improvement Manager Relationship Specialty Start Date End Date Bita Muñoz FNP [address] [place] [address] PCP - General Family Medicine 02/19/22 Karen Edward Therapeutic Recreation DirectorSed High School Teacher 10/17/23 documented as of this encounter
--- OUTSIDE RECORDS SUMMARY | 2024-08-05 14:51 | XMS_ITS | Encounter Summary ---
Author Organization [email or web address] Address [address] [place] [address] Care Team Providers Care Surg Rn Name Role Phone Bita Muñoz Primary Care Provider [phone] Reason for Visit * Reason Onset Date Comments Referral 03/15/2023 Encounter Details Date Type Department Care Team ([facility] st Contact Info) Description 03/15/2023 Telephone [facility] [address] [place] [address] Bita Muñoz FNP [address] [place] [address] Referral Social History Tobacco Use Types Packs/Day Years [...] Access Q2 Not on file 06/02/2024 Comments Unknown Sex and Gender Information Value Date Recorded Sex Assigned at Female 04/23/2022 10:15 AM EDT Legal Sex Female 10:15 AM EDT Gender Identity Female 04/23/2022 10:15 AM EDT Sexual Orientation Choose not to disclose 2021 10:15 AM EDT documented as of this encounter Miscellaneous Notes * Telephone Encounter - Natasha Dash RN - 03/19/2023 9:03 AM EDT Referral faxed to [facility]. Confirmation received. Please f/u with request for insurance referral and fax to [facility]. Pt has visit scheduled on 03/22/23. * Telephone Encounter - ARLET Clinton - 03/18/2023 6:49 PM EDT Referral placed, please call to let pt know. Thank you. * Telephone Encounter - Natasha Dash RN - 03/18/2023 1:42 PM EDT [facility] Spoke with Beata who states the pt is scheduled to be seen by PT on 03/22/23 @5:00pm for c/o right hip pain and swelling of right leg. Per Beata, pts are able to schedule their own visits but will need a referral from PCP as well as an order. Will also need an insurance referral. She provided NPI #[id number]. Fax number [phone]. Call to pt at [phone]. Per pt, PCP aware of right hip and right leg pain/swelling. States she discussed this with PCP during last office visit in December. RN advised will forward to provider to inform. Will return call to pt with provider response. Pt agrees. * Telephone Encounter - Leslie Parsons - 03/15/2023 10:19 AM EDT Tc from pt requesting a referral for [facility], [address] [place] [phone] , states they are scheduled for 03/22/23 @ 5pm. Please contact at [phone] documented in this encounter Plan of Treatment Upcoming Encounters Date Type Department Care Team (Late st Contact Info) Description 08/12/2024 11:15 AM EST Office Visit [facility] [address] [place] [address] Bita Muñoz FNP [address] [place] [address] documented as of this encounter Visit Diagnoses Diagnosis Right hip pain- Primary Pain in joint, pelvic region and thigh Right leg pain Pain in soft tissues of limb documented in this encounter Additional Health Concerns Assessment Noted Time PHQ-9 Depression Total Score: 16 023 9:26 AM EDT documented as of this encounter Care Teams Surg Rn Relationship Specialty Start Date End Date Bita Muñoz FNP [address] [place] [address] PCP - General Family Medicine 02/19/22 Karen Edward Master Police DetectiveStaff Radiation Therapist 10/17/23 documented as of this encounter
--- OUTSIDE RECORDS SUMMARY | 2024-08-05 14:51 | XMS_ITS | Encounter Summary ---
Author Organization [employer] Address [address] [place] [address] Care Team Providers Care Powertrain Design Engineer Name Role Phone Bita Muñoz Primary Care Provider [phone] Reason for Visit * Reason Onset Date Comments Medication Question 05/24/2022 Reviewed sym ptoms with patient and ED precautions. Pt eligible for Paxlovid, will send rx to pharmacy. Reviewed potential med interactions. Encounter Details Date Type Department Care Team ([facility] st Contact Info) Description 05/24/2022 Telephone [facility] [address] [place] [address] Bita Muñoz FNP [address] [place], [place] [id number] Medication Question (Reviewed symptoms with patient and ED precautions. Pt eligible for Paxlovid, will send rx to pharmacy. Reviewed potential med interactions. ) Social History Tobacco Use Types Packs/Day Years [...] encounter Miscellaneous Notes * Telephone Encounter - Jonelle Hooker RN - 05/24/2022 4:32 PM EST Davon Sunshine, Please review message from Triage Nurse, Pt. Is looking for Rx of Plaxlovid. Please review and advise. * Telephone Encounter - Moriah Solomon RN - 05/24/2022 12:55 PM EST Call returned, pt reports completed home kit for COVID-19 yesterday and today with positive result.Just having mild nasal congestion and ST. Per pt no fever, CP, SOB or loss of taste or smell. Pt has dx of pulmonary htn and has obesity. May be eligible for plaxlovid. No tele visits available. Pt advised will forward to Blue Team nurses to review request with PCP and follow up if Rx for Plaxlovid sent. Pt advised of home care advise below for sx management. To seek ER if CP or SOB. Pt agrees. Protocol Used: COVID-19 - Diagnosed or Suspected (Adult) Protocol-Based Disposition: Home Care Override (Final) Disposition: Discuss with PCP and Callback by Nurse Override Reason: Prescription issue Positive Triage Question: * [1] COVID-19 diagnosed by positive lab test (e.g., PCR, rapid self-test kit) AND [2] mild symptoms (e.g., cough, fever, others) AND [3] no complications or SOB * All higher-acuity triage questions were negative Care Advice Discussed: * Reassurance and Education - Positive COVID-19 Lab Test and Mild Symptoms * Humidifier * Coughing Spells * Pain and Fever Medicines * Reasons To Call Back - Fever over 103 F (39.4 C) - Chest pain or difficulty breathing occurs - You become worse * COVID-19 - How to Protect Others - When You Are Sick With COVID-19 * Reasons To Call Back - You have more questions * Telephone Encounter - Vanna Ingram - 05/24/2022 10:55 AM EST Symptom: Sore Throat Outcome: Schedule an appointment to be seen within 24 hours Reason: No high acuity concerns reported by caller The caller accepted this outcome * states did a home covid kit 05/23/22 and came back positive. Pt speaks chilean returning call from yesterday . documented in this encounter Plan of Treatment Upcoming Encounters Date Type Department Care Team (Late st Contact Info) Description 08/12/2024 11:15 AM EST Office Visit [facility] [address] [place] [address] Bita Muñoz FNP [address] [place] [address] documented as of this encounter Visit Diagnoses Diagnosis COVID-19 virus infection- Primary documented in this encounter Care Teams Powertrain Design Engineer Relationship Specialty Start Date End Date Bita Muñoz FNP [address] [place] [address] PCP - General Family Medicine 02/19/22 Karen Edward Professional Services ManagerAutopsy Assistant 10/17/23 documented as of this encounter
--- OUTSIDE RECORDS SUMMARY | 2024-08-05 14:51 | XMS_ITS | Clinical Summary ---
Author Organization [employer] Address [address] [place] [address] Care Team Providers Care Websphere Commerce Architect Name Role Phone Bita Muñoz DEPARTMENT HELPER Primary Care Provider [phone] Allergies No known active allergies Medications * This document contains information received from the source organization and may not represent a complete record from that organization. dicyclomine (Bentyl) 10 MG capsule Take 1 capsule by mouth every 6 (six) hours. Active fluticasone (Flonase) 50 MCG/ACT nasal spray Administer 1-2 sprays into affected nostril(s) if needed each day. 12/01/19 21 Active ibuprofen 600 MG tablet Take 1 tablet by mouth if needed in the morning, at noon, and at bedtime. 02/16/20 21 Active PARoxetine (Paxil) 10 MG tablet Take 1 tablet by mouth at bedtime. 01/10/20 22 Active sodium chloride ([place]) 0.65 % nasal spray Administer 2 sprays into each nostril if needed each day. 03/23/20 20 Active guaiFENesin (Mucinex) 600 MG 12 hr tabletIndication s:Acute viral syndrome Take 1 tablet (600 mg) by mouth in the morning and at bedtime. 60 tablet 06/20/20 22 Active cetirizine (ZyrTEC) 10 MG tabletIndication s:Acute viral syndrome Take 1 tablet (10 mg) by mouth if needed each day for allergies. 90 tablet 3 04/24/20 23 Active ARIPiprazole (Abilify) 2 MG tablet TAKE 1 TABLET BY MOUTH ONCE DAILY FOR MOOD 12/04/19 24 Active FLUoxetine (PROzac) 10 MG capsule Take 10 mg by mouth Once per day. 10/15/19 24 Active estradiol (Estrace) 0.1 MG/GM vaginal cream INSERT 1 GRAM VAGINALLY TWICE A WEEK AT BEDTIME DIRECTED 11/12/19 24 Active atorvastatin (Lipitor) 80 MG tabletIndication s:Dyslipidemia TAKE 1 TABLET BY MOUTH EVERY EVENING 90 tablet 3 04/15/20 24 Active cholecalciferol (Vitamin D-3) 25 MCG (1000 UT) tabletIndication s:Vitamin D insufficiency Take 1 tablet (25 mcg) by mouth Once per day. 90 tablet 3 06/04/20 24 Active meclizine (Antivert) 25 MG tablet Take 1 tablet (25 mg) by mouth if needed in the morning, at noon, and at bedtime for dizziness. 30 tablet 3 06/18/20 24 Active traMADol (Ultram) 50 MG tablet Take 1 tablet by mouth every 6 (six) hours if needed for pain. 04/14/20 24 Active topiramate (Topamax) 25 MG tabletIndication s:Migraine with aura and without status migrainosus, not intractable Take 1 tablet (25 mg) by mouth at bedtime. 90 tablet 1 07/15/19 25 2025 Active celecoxib (CeleBREX) 100 MG capsule TAKE 1 CAPSULE BY MOUTH TWICE DAILY IN THE MORNING AND AT BEDTIME NEEDED FOR MILD PAIN 60 capsule 1 07/24/19 25 Active topiramate (Topamax) 25 MG tabletIndication s:Migraine with aura and without status migrainosus, not intractable Take 1 tablet (25 mg) by mouth at bedtime. 90 tablet 1 04/17/20 23 2024 Discontinued(R eorder (will not trigger notification to Pharmacy)) celecoxib (CeleBREX) 100 MG capsule Take 1 capsule (100 mg) by mouth if needed in the morning and at bedtime for mild pain. 30 capsule 1 04/13/20 24 2024 Discontinued acetaminophen (Tylenol Extra Strength) 500 MG tabletIndication s:Chronic pain of left knee Take 1 tablet (500 mg) by mouth every 6 (six) hours if needed for mild pain for up to 10 days. 30 tablet 07/15/19 25 2024 Active Problems Problem Noted Date Diagnosed Date Hyperlipidemia 07/15/2024 Dietary counseling 07/15/2024 Assessment & Plan (07/15/2024 3:36 PM EST): Dietary Recommendations: Fruits, vegetables, whole grains, protein foods, and fat-free or low-fat dairy products are healthy choices. Eat different types of protein foods in your diet. This can include seafood, lean meats, poultry, beans, peas, lentils, nuts, seeds, soy products, and eggs. Limit foods and beverages higher in added sugars, saturated fat, and sodium. Patient plans to reduce intake of sugary candy by incorporating healthier forms of carbohydrates such as fruits Exercise counseling 07/15/2024 Assessment & Plan (07/15/2024 3:36 PM EST): Exercise Recommendations: At least 150 minutes of moderate-intensity physical activity per week, or an equivalent combination of moderate- and vigorous-intensity activity Plans to continue with home workouts and walks around neighborhood or mall during cold weather Hot flashes 07/15/2024 Assessment & Plan (07/15/2024 3:42 PM EST): Discussed treatment options including SSRIs, serotonin-norepinephrine reuptake inhibitors (SNRIs), antiepileptics, and other centrally acting drugs. Also discussed HRT and alternative therapies such as Veozah At this time patient declines pharmacological therapy but would like to consider these options in the future. Left hip pain 04/13/2024 Assessment & Plan (04/15/2024 10:18 AM EDT): - Chronic pain left low back radiating to left groin - No acute changes - Following with [facility], consult scheduled next week to review MRI results Assessment & Plan (04/13/2024 8:09 PM EDT): Reports bilateral flank/back pain worse on the left. Likely due to right hip pain. Had MRI done on 04/11/24 that has not been read yet. -tried tylenol, ibuprofen, heat and messaging without relief. -prescribed celecoxib (CeleBREX) 100 MG capsule -ER and return precautions given. -has f/u with specialist on 04/21/24 and scheduled f/u with PCP. Vaginal atrophy 01/13/2024 Assessment & Plan (01/13/2024 8:05 PM EDT): Following with [facility] - Vicenta Robison, TRANSFER CLERK Continues on vaginal estrogen through specialist, has helped to alleviate sensation of incomplete bladder emptying Knee pain, left 09/29/2023 Overview (09/29/2023): Xray unremarkable May 2023 Referral to physical therapy and Ortho Found TENS unit helpful in physical therapy, will request DME September 2023 Primary osteoarthritis of right knee 05/27/2023 Assessment & Plan (01/13/2024 8:00 PM EDT): -XR May 2023 demonstrated mild degenerative changes -Referral to physical therapy May 2023 -Completed physical therapy and symptoms persist -Referral to Ortho placed Assessment & Plan (06/06/2023 6:04 PM EST): -XR May 2023 demonstrated mild degenerative changes -Referral to physical therapy May 2023 Assessment & Plan (05/27/2023 1:58 PM EST): Has mild effusion. Use ibuprofen 600mg alternated with tylenol 500mg q8hs prn pain Rest with elevation of the right knee to 60 degrees few times per day Compressive elastic bandage every day For ambulation. Ice to affected area 2-3x/d Order Xray or right knee and refer to PT. If sxs do not improve within 4-6w, she will call back PCP for further eval. Anxiety disorder, unspecified 01/22/2023 Assessment & Plan (04/19/2023 8:28 AM EDT): Assessment: Patient presents with high levels of stress. No risk for self-harm,SI, HI. Reason for visit was to provide support to patient. Patient was provided coping skills to manage stress. An OP therapy referral with be completed. At this time Zoila Jackson meets criteria for Visit Diagnoses: Problem List Items Addressed This Visit Other Depression, unspecified Relevant Orders Referral to Behavioral Health Anxiety disorder, unspecified - Primary Relevant Orders Referral to Behavioral Health Patient ready to address current needs Yes Strengths include patient in the action stage. PLAN: 1. Follow up with [facility]: Not recommended for follow-up 2. Patient goal is to decrease stress level 3. Behavioral Recommendations a. Utilize coping skills provided b. Engage in therapy when established c. May reach out to [facility] for additional support Assessment & Plan (01/29/2023 5:50 PM EDT): ?? Housing is significant stressor ?? Currently housed, although not necessarily stable in the future ?? BE conducted today, please see note for further details ?? Referral to [facility] team placed Benign paroxysmal positional vertigo due to bilateral vestibular disorder 10/31/2022 Assessment & Plan (10/31/2022 8:18 AM EDT): ?? Describes episodes as brief, lasting seconds, and occur on daily basis. Associated with temporary loss of balance ?? Completed vestibular rehab and continues with exercises at home with mild improvement ?? Meclizine PRN, reviewed med use and safety ?? 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 MRI ordered for further eval Routine health maintenance 10/30/2022 Overview (07/15/2024): Mammo: 10/21/23 BIRADS 1 Pap: Feb 2024: NIL, HPV neg. Previous 12/2018: NIL, HPV neg. Due Feb 2029 Colonoscopy: 07/22/20, 5 year follow-up Contraception: BTL Smoking status: non-smoker Eye Exam: 04/10/23 Dental: [facility], requested referral to [facility] dental Assessment & Plan (07/15/2024 3:37 PM EST): Referral sent to [facility] Dental Advised pt to go get Zoster vaccination at pharmacy Assessment & Plan (05/09/2023 7:52 PM EST): -Influenza and tetanus vaccines administered today Pulmonary hypertension 02/25/2015 Assessment & Plan (07/15/2024 3:38 PM EST): Pulmonary exam wnl today Pt hasn't seen specialist since [address] referral today and advised pt to f/u with specialist regarding this condition Dyslipidemia 04/24/2013 Overview (04/15/2024): Lab Results Component Value Date TRIG 103 01/08/2024 CHOL 208 (H) 01/08/2024 LDLCHOLCAL 140 (H) 01/08/2024 HDL 48 01/08/2024 -Continue lifestyle modifications -Cont atorvastatin 80mg nightly Disorder of thyroid gland 12/24/2011 Overview (09/29/2023): Lab Results Component Value Date TSH 2.23 06/05/2023 Assessment & Plan (06/06/2023 6:08 PM EST): Repeat TSH and TPO ordered Migraine 12/24/2011 Overview (05/09/2023): ?? Hx TBI as a child ?? 12/05/22: MRI brain w/ & w/o WNL ?? Upcoming appt to establish with [facility] Neurology ?? Well controlled with topiramate 25mg nightly Assessment & Plan (07/15/2024 3:34 PM EST): Pt has hx of chronic migraines, no GALARZA red flags Pt reports that her migraines are well controlled on Topamax which she was previously rx'd Sent refills to pharmacy today Assessment & Plan (01/29/2023 5:49 PM EDT): ?? Re-start on topiramate 25mg nightly. Reviewed med safety and SE ?? ED precautions reviewed Depression 12/13/2011 Assessment & Plan (01/23/2023 8:47 AM EDT): Assessment: Patient with anhedonia, depressed mood, sleep disturbance, lack of motivation, fluctuating appetite, feeling like a failure, and trouble concentrating. She denies SI/HI. She also presents with feeling anxious, unable to stop worrying excessively, trouble relaxing, restlessness, panic attacks and irritability. Presentation is in the context of lack of services and issues with her [address] 8 housing. Patient is interested in a OP therapy referral. At this time Zoila Jackson meets criteria for Visit Diagnoses: Problem List Items Addressed This Visit Other Depression, unspecified Anxiety disorder, unspecified Patient ready to address current needs Yes Strengths include motivation to seek service PLAN: 1. Follow up with [facility]: Not recommended for follow-up 2. Patient goal is resolve housing issues and be connected with a therapist 3. Behavioral Recommendations a. Patient will engage in therapy, once service is established b. Patient will reach out to appropriate resources regarding housing issue c. Patient will utilize coping techniques provided d. Patient may ask to speak with an [facility] during next PCP visit, if needed Irregular periods 12/13/2011 Assessment & Plan (09/29/2023 8:06 PM EDT): -EMB performed 04/21/[address] Antony for hx of menometrorrhagia -Denies further menstrual bleeding or AUB -Pelvic US August 2021 demonstrated small uterine calcifications. Possibly r/t degenerative fibroids. Normal thickness endometrium and normal-appearing ovaries -Continue following with [facility] CLIENT DELIVERY MANAGER Resolved Problems Problem Noted Date Diagnosed Date Resolved Date Sore throat 10/08/2023 01/07/2024 Assessment & Plan (10/08/2023 2:28 PM EDT): Drink plenty of fluids and rest Cough drops PRN Ibuprofen PRN Acute cystitis with hematuria 08/05/2023 09/29/2023 Assessment & Plan (08/05/2023 11:42 AM EST): History consistent with uti, culture pending rx for macrobid 100 mg bid x 7 days Pt aware to rtc for increasing pain, fever , flank pain or failure to improve Pt advised to continue abx as prescribed every if symptoms improve, Call if develops side effects Blurring of visual image 10/26/202205/2023 Iron deficiency anemia 02/26/201206/04 Encounters Date Type Department Care Team Description 07/23/2024 Refill [facility] [address] [place] [phone] Natalie Sue MD 07/15/2024 2:45 PM EST Office Visit [facility] [address] [place] [address] [phone] Eros Mandel CNP Routine health maintenance (Primary Dx); Migraine with aura and without status migrainosus, not intractable; Chronic pain of left knee; Dietary counseling; Exercise counseling; Pulmonary hypertension ([facility]/HCC); Hot flashes 07/03/2024 Patient Outreach [facility] [address] [place] [phone] Bita Muñoz FNP Care Coordination (CHW outreach for SDOH PT-1 and food needs-referral completed /) 07/03/2024 Patient Outreach [facility] [address] [place] [phone] Bita Muñoz FNP Pre-visit Planning (SDOH Screening positive and Tobacco screening negative) 06/27/2024 11:40 AM EST Office Visit [facility] [address] [place] [phone] Jayjay Benjamin MD Burning with urination 06/26/2024 Telephone [facility] [address] [place] [phone] Bita Muñoz FNP Nurse Triage; Referral Request 06/18/2024 Refill [facility] [address] [place] [phone] Bita Muñoz FNP 06/16/2024 Telephone [facility] [address], [place] [phone] Bita Muñoz FNP Results 06/16/2024 Telephone [facility] [address] [place] [phone] Bita Muñoz FNP Chart Prep 06/11/2024 Patient Outreach [facility] [address], [place] [phone] Bita Muñoz FNP Pre-visit Planning (Returning patient call. ) 06/10/2024 Telephone [facility] [address] [place] [phone] Bita Muñoz FNP Returning Call 06/04/2024 Refill [facility] [address] [place] [phone] Bita Muñoz FNP Vitamin D insufficiency (Primary Dx); Primary osteoarthritis of right knee 06/02/2024 Patient Outreach [facility] [address] [place] [phone] Bita Muñoz FNP Care Coordination (CHW outreach for SDOH PT-1 and food needs-referral completed /) 06/02/2024 Patient Outreach [facility] [address], [place] [phone] Bita Muñoz FNP Pre-visit Planning (SDOH positive, Tobacco screening negative.); Reschedule appointmet 05/11/2024 Orders Only [facility] [address], [place] [phone] Bita Muñoz FNP 05/11/2024 Telephone [facility] [address], [place] [phone] Dayna Hoang RN from Last 3 Months Immunizations Name Administration Dates Next Due Hep B, adult 04/23/2022,08/26/2018,07/22/2018 Influenza injectable quadriv alent preservative free 04/17/2023,04/23/2022,03/31/2021,2019 Influenza, IIV3, injectable 04/01/2014, 1 Influenza, Split (incl. mando fied surface antigen) 04/24/2013,07/28/2012 Tdap 04/17/2023,02/12/2013 Family History Medical History Relation Name Comments Heart attack Father Hypertension Father Heart attack Mother Hypertension Mother Relation Name Status Comments Father Mother Social History Tobacco Use Types Packs/Day Years Used Date Smoking Tobacco: Never Smokeless Tobacco: Never Tobacco Cessation:Counseling Given: Not Answered Alcohol Use Standard Drinks/Week Comments Never 0 [...] not to disclose 2021 10:15 AM EDT Last Filed Vital Signs Vital Sign Reading Time Taken Comments Blood Pressure 125/76 07/15/2024 2:51 PM EST Pulse 77 07/15/2024 2:51 PM EST Temperature 36.8 ??C (98.2 ??F) 07/15/2024 2:51 PM ES T Respiratory Rate 18 07/15/2024 2:51 PM EST Oxygen Saturation 97% 07/15/2024 2:51 PM EST Inhaled Oxygen Concentration - - Weight 78.6 kg (173 lb 3.2 oz) 07/15/2024 2:51 P M EST Height 147.3 cm (4' 10 ) 06/27/2024 10:13 AM EST Body Mass Index 36.2 06/27/2024 10:13 AM EST Plan of Treatment Upcoming Encounters Date Type Department Care Team (Late st Contact Info) Description 08/12/2024 11:15 AM EST Office Visit [facility] [address] [place] [phone] Bita Muñoz, DEPARTMENT HELPER [address] [place] [address] Health Maintenance Due Date Last Done Comments CT Colonography 1974 FIT DNA/Cologuard 1974 FIT 1974 FOBT 1974 Sigmoidoscopy 1974 Pneumococcal Vaccine: 50+ Years (1 of 1 - PCV) 2024 Zoster Vaccines (1 of 2) 2024 Mammogram 10/20/2024 10/21/2023, 04/2 09/2022, 01/03/2018 Influenza Vaccine (#1) 2024 , 04/23/2022, 03/31/2021, Additional history exists Postponed from 02/23/2024 (Patient Refused) Depression Monitoring (PHQ-9) 01/12/2025 07/15/2024, 07/15/2024 Alcohol/Substance Use Screening 04/15/2025 04/15/2024 COVID-19 Vaccine ( - season) 2025 Postponed from 02/23/2024 (Patient Refused) Tobacco Screening 04/15/2025 04/15/2024 SDOH Screening 07/03/2025 07/03/2024 Depression Screening 07/15/2025 07/15/2024, 07/15/19 Family Planning (PISQ) 07/15/2025 07/15/2024 Colonoscopy 07/22/2025 07/22/2020 Colorectal Cancer Screening 07/22/2025 Lipid Panel 01/07/2029 01/08/2024, 05/24, 04/23/2022, Additional history exists Cervical Cancer Screening 03/02/2029 HPV/Cotest 03/02/2029 03/02/2024, 09/10/2018 Pap Smear 03/02/2029 03/02/2024, 12/22/2018 DTaP/Tdap/Td Vaccines (3 - Td or Tdap) 04/17/2033 04/17/2023, 02/12/2013 RSV Patients and Patients Aged 60 years or older (1 - 1-dose 75+ series) 2049 Hepatitis B Vaccines Completed 04/23/2022, 08/26/2018, 07/22/2018 HIV Screening Completed 03/07/2023, 04/23/2022 Hepatitis C Screening Completed 03/07/2023 , 04/23/2022, 11/07/2021 HIB Vaccines Aged Out No longer eligi ble based on patient's age to complete this topic HPV Vaccines Aged Out No longer eligi ble based on patient's age to complete this topic Hepatitis A Vaccines Aged Out No long er eligible based on patient's age to complete this topic IPV Vaccines Aged Out No longer eligi ble based on patient's age to complete this topic Meningococcal Vaccine Aged Out No sepideh awilda eligible based on patient's age to complete this topic RSV under 20 months Aged Out No longe r eligible based on patient's age to complete this topic Rotavirus Vaccines Aged Out No longer eligible based on patient's age to complete this topic Procedures Procedure Name Priority Date/Time Associated Diagnosis Comments CULTURE, URINE, ROUTINE Routine 06/27/2024 10:24 AM EST Burning with urination POCT URINALYSIS DIPSTICK Routine 06/27/2024 10:21 AM EST Burning with urination CULTURE, FUNGAL (SKIN,NAIL,HAIR) Routine 05/11/2024 12:47 PM EST THINPREP IMAGING PAP AND HPV MRNA E6/E7 Routine 03/02/2024 12:10 PM EDT LIPID PANEL, STANDARD Routine 01/08/2024 11:29 AM EDT Dyslipidemia BI MAMMOGRAM SCREENING TOMOSYNTHESIS BILATERAL Routine 10/21/2023 11:20 AM EDT HEPATITIS C ANTIBODY Routine 03/07/2023 12:19 PM EDT HIV ANTIBODY/ANTIGEN ([place] DPH) Routine 03/07/2023 12:19 PM EDT HM COLONOSCOPY Routine 07/22/2020 from Last 3 Months or Most Recently Relevant to Health Maintenance Results * Culture, Urine, Routine (06/27/2024 10:24 AM EST) Urine Urine specimen obtained by clean catch procedure / Unknown 06/27/2024 10:24 AM EST 06/27/2024 2:40 PM EST Comment:UACC Narrative [facility] - 06/29/2024 8:04 AM EST Urine Culture Report Result Urine Culture > 100,000 cfu/ml Urine Culture Mixed bacterial mercedez characteristic of Urine Culture urogenital contamination. Specimen Source: Urine clean catch Jayjay Benjamin MD LAB MICROBIOLOGY - GENERAL ORDER CHUN Final Result [facility] [address] [place] [phone] * POCT Urinalysis (06/27/2024 10:21 AM EST) Color, UA Light Yellow Clarity, UA Clear Glucose, UA Negative Bilirubin, UA Negative Ketones, UA Negative Spec Grav, UA 1.025 Blood, UA Negative Negative, None Detected pH, UA 5.5 Protein, UA Negative Urobilinogen, UA 0.2 Leukocytes, UA Negative Negative, Rare, Trace Nitrite, UA Negative Negative, None Detected Appearance, UA clear QC Media Lot # [id number] Lot# Expiration Date Urine 06/27/2024 10:2 1 AM EST Jayjay Benjamin MD POINT OF CARE TEST ENTER/EDIT OR DERABLES Final Result * Culture, Fungal (Skin,Nail, Hair) (05/11/2024 12:47 PM EST) 05/11/2024 12:4 7 PM EST 05/11/2024 2:02 PM EST Comment:Nail Narrative [facility] - 06/13/2024 2:19 PM EST CULTURE,FUNGUS,SKIN,HAIR, NAIL W/DIRECT FLUOR/UNRULY: null null Result: ?No fungi isolated to date. Culture is examined weekly for a total of 28 days incubation. A change in status will result in an updated culture report. null 06/13/24 null Result: ?No fungal growth at 4 Weeks null null PERFORMING SITE: [facility] [address] [place] [phone] Gas Reverser: Mary Ann Fulton M.D. Fungus Smear Hair/Skin/Nail null Fungus Smear Hair/Skin/Nail null Fungus Smear Hair/Skin/Nail null Fungus Smear Hair/Skin/Nail null Fungus Smear Hair/Skin/Nail null Fungus Smear Hair/Skin/Nail null Fungus Smear Hair/Skin/Nail null Fungus Smear Hair/Skin/Nail null Fungus Smear Hair/Skin/Nail null Fungus Smear Hair/Skin/Nail null Specimen Source: Nail Bita Muñoz [facility] MICROBIOLOGY - GENERAL ORD ERABLES Final Result [facility] [address] [place] [phone] * ThinPrep Imaging Pap and HPV mRNA E6/E7 (03/02/2024 12:10 PM EDT) HPV nRNA E6/E7 Not Detected Not Detected [facility] Comment:Methodology: Transcr iption-Mediated AmplificationThis assay detects E6/E7 viral messenger RNA (mRNA) from 14high-risk HPV types (16,18,31,33,35,39,45,51,52,56,58,59,66,68).Cervical sources are required for HPV testing.If a vaginal source from a patient who has had atotal hysterectomy with removal of cervix wassubmitted, please contact the testing laboratoryfor alternative testing options.For additional information, please refer [email or web address]/[email or web address](This link if provided for information/educational purposes only.)THIS TEST WAS PERFORMED AT:[email or web address] [place] [phone] ANN FULTON MD SOURCE: SEE NOTE [facility] Comment:None given Report Status: TNP [facility] Clinical Information: SEE NOTE [facility] Comment:None given LMP: SEE NOTE [facility] Comment:NONE GIVEN Prev. PAP: SEE NOTE [facility] Comment:NONE GIVEN Prev. BX: SEE NOTE [facility] Comment:NONE GIVEN Statement Of Adequacy: SEE NOTE [facility] Comment:Satisfactory for sana luation.Endocervical/transformation zone component absent. General Categorization: [facility] Interpretation/Result: SEE NOTE [facility] Comment:Cytology Results: Ne gative for intraepitheliallesion or malignancy. Cytology Comment SEE NOTE [facility] Comment:This Pap test has be en evaluated with computerassisted technology. Mill Supervisor: SEE NOTE [facility] Comment:SL, CT(ASCP)CT margaritae neena location: [place] [address] Review Mill Supervisor: [facility] Pathologist [facility] PAP Infection SEE NOTE [facility] Comment:Fungal organisms mor phologically consistent withCandida spp.Shift in vaginal mercedez suggestive of bacterialvaginosis. See Note SEE NOTE [facility] Comment:EXPLANATORY NOTE:The Pap is a screening test for cervical cancer. It isnot a diagnostic test and is subject to false negativeand false positive results. It is most reliable when asatisfactory sample, regularly obtained, is submittedwith relevant clinical findings and history, and whenthe Pap result is evaluated along with historic andcurrent clinical information. 03/02/2024 12:1 0 PM EDT 03/02/2024 6:27 PM EDT Narrative [facility] - 03/05/2024 12:29 PM EDT SEE SCANNED RESULTS IN EMR us Farida Tiwari CNM LAB PATHOLOGY ORDERABLES Final Result [facility] [address] [place] [phone] [phone] * (ABNORMAL) Lipid Panel, Standard (01/08/2024 11:29 AM EDT) Triglycerides 103 <150 mg/dL [facility] Comment:Desirable Triglyceri de: less than 150 mg/dLBorderline High Triglyceride 150-199 mg/dLHigh Triglyceride: 200-499 mg/dLVery High Triglyceride: greater than or equal to 5OO mg/dL Cholesterol 208(H) <200 mg/dL [facility] Comment:Desirable Cholestero l: less than 200 mg/dLBorderline High Cholesterol: 200-239 mg/dLHigh Cholesterol: greater than 239 mg/dL LDL Cholesterol Calculated 140(H) <100 mg/dL [facility] Comment:Desirable LDL: less than 100 mg/dLNear Optimal/Above Optimal LDL: 110- 129 mg/dLBorderline High LDL: 130-159 mg/dLHigh LDL: 160-189 mg/dLVery High LDL: greater than or equal to 190 mg/dL HDL Cholesterol 48 >40 mg/dL [facility] Comment:Desirable HDL: great er than 40 mg/dL Note: This HDL assay may give artificially low results in patients with liver disease. Blood Venous blood specimen / Unknown 01/08/2024 11:29 AM EDT 01/08/2024 12:51 PM EDT Bita Muñoz DEPARTMENT HELPER LAB BLOOD ORDERABLES Final Res ult [facility] [address] [place] [phone] * BI Mammogram Screening Tomosynthesis Bilateral (10/21/2023 11:20 AM EDT) Anatomical Region Laterality Modality Breast Bilateral Mammography 10/21/2023 11:2 0 AM EDT Narrative 11/17/2023 6:20 AM EDT ? [facility] ? [address] ?[place] [address] ? Mammography Report ? Signed ? Patient: Zoila Petersen ?MR#: [id number] ?? [id number] ? : 1975 ?Acct:[id number] ? Age/Sex: 48 / F ?ADM Date: 04/29/24 ? Loc: HO.MAMMO ? Attending Dr: Janis Foreman CNM ? Ordering Physician: Janis Foreman CNM ?Results: 1Nega ?? tive ? Date of Service: 10/21/23 ?Follow Up: 1 Year From Orig ?? inal Mammogram ? Procedure(s): MM tomosynthesis screening BI ?? Accession Number(s): [id number] ? cc: Janis Foreman CNM; Bita Muñoz DEPARTMENT HELPER ? EXAMINATION: ?? MM SCREENING DIGITAL BREAST TOMOSYNTHESIS, BILATERAL ? CLINICAL INFORMATION: ? Screening. Asymptomatic. ? COMPARISON: ?? Mammography: This study is compared with prior exams dating back to ?? 2019. ? TECHNIQUE: ?? Digital breast tomosynthesis is performed in both the craniocaudal and ?? mediolateral oblique views along with computer-aided detection (CAD). ?? Synthesized 2D images are generated from the tomosynthesis. ? FINDINGS: ?? The breasts are heterogeneously dense, which may obscure small masses ?? (ACR BI-RADS breast composition Category c). ? There are no significant masses, abnormal calcifications, or other ?? abnormalities. ? MM/MM tomosynthesis screening BI ?? IMPRESSION: ?? No mammographic evidence of malignancy. ? ASSESSMENT: ? BI-RADS BI-RADS 1 - Negative ? RECOMMENDATION: ?? Routine annual mammography screening. ? 1 year F/U ? This examination should not preclude the clinical evaluation of a ?? suspicious palpable abnormality. ? This patient's information was entered into a reminder system with a ?? target due date for their next mammogram. ? Dictated By: ?Aurelia Villar MD ? Signed By: ?<Electronically signed by Aurelia Villar MD in OV> ? 11/17/23616 ? DD/ 1120 ? TD/TT: ? Social Media Content Specialist: ? Procedure Note Donotdiainterpreter, Image - 11/17/2023 [facility] [address] [place] [address] Mammography Report Signed Patient: Ish Petersen#: [id number] : 1975Acct:[id number] Age/Sex: 48 / FADM Date: 10/21/23 Loc: HO.MAMMO Attending Dr: Janis Foreman CNM Ordering Physician: Janis Foremanesults: 1Nega tive Date of Service: 10/21/23Follow Up: 1 Year From Orig inal Mammogram Procedure(s): MM tomosynthesis screening BI Accession Number(s): [id number] cc: Janis Foreman CNM; Bita Muñoz DEPARTMENT HELPER EXAMINATION: MM SCREENING DIGITAL BREAST TOMOSYNTHESIS, BILATERAL CLINICAL INFORMATION: Screening. Asymptomatic. COMPARISON: Mammography: This study is compared with prior exams dating back to 2019. TECHNIQUE: Digital breast tomosynthesis is performed in both the craniocaudal and mediolateral oblique views along with computer-aided detection (CAD). Synthesized 2D images are generated from the tomosynthesis. FINDINGS: The breasts are heterogeneously dense, which may obscure small masses (ACR BI-RADS breast composition Category c). There are no significant masses, abnormal calcifications, or other abnormalities. MM/MM tomosynthesis screening BI IMPRESSION: No mammographic evidence of malignancy. ASSESSMENT: BI-RADS BI-RADS 1 - Negative RECOMMENDATION: Routine annual mammography screening. 1 year F/U This examination should not preclude the clinical evaluation of a suspicious palpable abnormality. This patient's information was entered into a reminder system with a target due date for their next mammogram. Dictated By: Aurelia Villar MD Signed By: <Electronically signed by Aurelia Villar MD in OV> 11/17/23 0617 DD/ 1120 TD/TT: Social Media Content Specialist: [facility] External Provider IMG BI PROCEDURES Final Result * Hepatitis C Ab (03/07/2023 12:19 PM EDT) Hepatitis C Antibody Nonreactive Nonreactive [facility] Comment:Antibodies to HCV no t detected; does not exclude early acuteHCV infection. 03/07/2023 12:1 9 PM EDT 03/07/2023 12:19 PM EDT Generic External Data Provider LAB BLOOD ORDERAB LES Final Result [facility] [address] [place] [phone] * HIV Ab/Ag ([facility]) (03/07/2023 12:19 PM EDT) HIV AB/AG Nonreactive Nonreactive [facility] Comment:HIV-1 p24 Ag and/or HIV-1/HIV-2 Ab not detected.A test result that is nonreactive does not exclude thepossibility of exposure to or infection with HIV-1 and/orHIV-2. Nonreactive results in this assay for individualswith prior exposure to HIV-1 and/or HIV-2 may be due toantigen and antibody levels that are below the limit ofdetection of this assay.The [employer] HIV Ag/Ab Combo assay result andsupplemental assay results should be interpreted inconjunction with the patient's clinical presentation,history and other laboratory results. If the results areinconsistent with clinical evidence, additional testing issuggested to confirm the result. 03/07/2023 12:1 9 PM EDT 03/07/2023 12:19 PM EDT us Generic External Data Provider LAB BLOOD ORDERAB LES Final Result [facility] [address] [place] [address] [phone] * Hm Colonoscopy (07/22/2020) Colonoscopy Normal Normal Comment:5 Yr F/U us Historical Provider HEALTH MAINTENANCE Edited Result - Final from Last 3 Months or Most Recently Relevant to Health Maintenance Insurance [employer] C3 Care Teams Websphere Commerce Architect Relationship Specialty Start Date End Date Bita Muñoz FNP [address] [place] [address] PCP - General Family Medicine 02/19/22 Karen Edward Hand Hose CutterBreaker Unit Assembler 10/17/23
--- OUTSIDE RECORDS SUMMARY | 2024-08-05 14:51 | XMS_ITS | Encounter Summary ---
Author Organization [email or web address] Address [address] [facility] [address] [place] [address] Care Team Providers Care Computer System Technician Name Role Phone Bita Muñoz Primary Care Provider [phone] Encounter Details Date Type Department Care Team (Late Contact Info) Description 05/25/2022 Orders Only [facility] [address] [place] [address] Jonelle Hooker RN Social History Tobacco Use Types Packs/Day Years [...] Encounters Date Type Department Care Team (Late Contact Info) Description 08/12/2024 11:15 AM EST Office Visit [facility] MEDICINE [address] [place] [address] Bita Muñoz FNP [address] [place] [address] documented as of this encounter Visit Diagnoses Not on filedocumented in this encounter Care Teams Computer System Technician Relationship Specialty Start Date End Date Bita Muñoz FNP [address] [place] [address] PCP - General Family Medicine 02/19/22 Karen Edward Wallpaper Hanger HelperOutdoor Power Equipment Mechanic 10/17/23 documented as of this encounter
== END 2024-08-05 13:51 | disposition home or self-care (01) ==
PROVIDERS: PCP Registered Nurse; Visit Provider Orthopaedic Surgery
DX: S73.192A Other sprain of left hip, initial encounter (principal)
CPT/HCPCS: 99213

== ENCOUNTER → 2024-08-05 13:26 | Outpatient (BNVA) | payer MEDICAID, SELFPAY | PROVIDERS: PCP Registered Nurse; Visit Provider Orthopaedic Surgery | DX: S73.192A Other sprain of left hip, initial encounter (principal) | CPT/HCPCS: 99212 ==

== ENCOUNTER 2024-08-28 09:30 | Outpatient (AMB) | payer MEDICAID, SELFPAY ==
[2024-08-28 09:36] VITALS: BP 119/77; PULSE 98; RESP 16; O2SAT 83; BMI 35.7
--- NOTE | 2024-08-28 09:36 | A.OFFVIS_ITS ---
Vital Signs 08/28/24 09:36 Height 4 ft 10 in Weight 171 lb BMI 35.7 BP 119/77 Blood Pressure Location Lt brachial Position Sitting Respiration 16 Pulse 98 Pulse Source Pulse Oximeter Pulse Oximetry (%) 83 L Oxygen Delivery Method Room Air Intake Visit Reasons: Other sprain of left hip, initial encounter Spinning Mule Tender Required: No Allergies No Known Allergies [No Known Allergies*] Allergy (Verified 08/28/24 09:40) HPI HPI Other sprain of left hip, initial encounter: Details: History of Present Illness The patient is a 49-year-old female presenting with left hip pain, attributed to a small labral tear and noted degenerative changes. Pain intensity is rated at 6 to 8/10, significantly impacting her sleep and daily activities. Associated with cold weather and movement, she notices the pain predominantly during extended walks. Mild relief is achieved with heat and oral analgesics such as acetaminophen and ibuprofen. An MRI confirmed the tear and degenerative changes. She reports lateral hip pain without groin involvement and tenderness at the left greater trochanter upon examination, contributing to her permanent disability status. Pain Description - Onset and Timing: Chronic, longstanding since diagnosis with labral tear. - Quality and Character: Deep, aching pain rated 6 to 8/10 in intensity. - Primary Location: Left lateral hip. - Exacerbating Factors: Cold weather, physical movement, walking long distances. - Relieving Factors: Heat application, acetaminophen, ibuprofen. - Interference with Activities: Sleep disruption, difficulty performing daily activities and self-care. Physical Exam - Musculoskeletal- Tenderness to palpation overlying the left greater trochanter. Results - MRI of Left Hip: Minimal diffuse degenerative changes and a small tear of the anterior superior labrum. Pain Management - Affect: Pain significantly disrupts normal sleep, daily activities, and self- care. - Analgesia: Pain levels rated 6 to 8/10; mild relief with acetaminophen and ibuprofen. - Adverse Effects: None reported. - Activities of Daily Living: Difficulty with sleep, daily activities, and self- care due to pain. - Aberrant Drug-Related Behaviors: None reported. [facility] Medical History (Updated 08/28/24 @ 09:48 by Leonid Dalton MD) Left hip pain Abdominal cramping Colon cancer screening Lower abdominal pain Pulmonary hypertension Migraine Anxiety and depression Vitamin D deficiency Iron (Fe) deficiency anemia Hyperlipidemia Abnormal EKG Precordial chest pain Surgical History History of endometrial ablation Hx of colonoscopy History of tubal ligation Family History Father Cardiovascular disease Mother Heart valve disease Diabetes HTN (hypertension) Social History Household Members: Children Alcohol intake: never Patient Tobacco Use Status: Never used Tobacco Sexual orientation: Straight/Heterosexual Gender identity: Female Female Reproductive History Menstrual Age of Menarche: 14 Physical Exam Vital Signs: Last Vital Signs Pulse 98 08/28/24 09:36 Resp 16 08/28/24 09:36 BP 119/77 08/28/24 09:36 Pulse Ox 83 L 08/28/24 09:36 Oxygen Delivery Method Room Air 08/28/24 09:36 BMI result Body Mass Index 35.7 Assessment & Plan Assessment & Plan (1) Greater trochanteric pain syndrome of left lower extremity: Code(s): M25.552 - Pain in left hip Category: Medical Plan Plan The plan includes commencing a course of physical therapy for three months to manage the left hip pain associated with GTPS. The expectation is to evaluate the effectiveness prior to considering hip injections. Contact information and order details for physical therapy have been provided, and follow-up evaluation is planned post-therapy period to determine further interventions based on response. Patient was informed and verbally consented to the use of an ambient scribe for clinic note documentation during this visit. Discussion Notes I discussed with the patient the possible exacerbations of her left hip pain secondary to likely GTPS. The management plan includes initiating physical therapy with an understanding that surgery is not presently desired by the patient. I explained the anticipated outcomes of therapy and the plan for possible injections if the therapy is not effective. We reviewed options, including traditional treatments and steps moving forward, emphasizing proactive engagement with physical therapy. Patient Instructions - Schedule an appointment with physical therapy as soon as possible. - Attend physical therapy sessions regularly for the next three months. - Use acetaminophen or ibuprofen for pain relief as needed. - Apply heat to the affected hip for pain relief at home. - Return for re-evaluation in three months or sooner if symptoms worsen. Orders: Orders PT Evaluation and Treatment 08/28/24 M25.552 - Pain in left hip Coding Level of Care Code New Pt Level 4 (02676) Diagnoses Greater trochanteric pain syndrome of left lower extremity M25.552
--- OUTSIDE RECORDS SUMMARY | 2024-08-28 10:19 | XMS_ITS | Encounter Summary ---
Author Organization [employer] Address [address] [facility] [address] [place] [address] Care Team Providers Care Executive Sous Chef Name Role Phone Bita Muñoz Primary Care Provider Reason for Visit * Reason Onset Date Comments Medication Question 05/24/2022 Reviewed sym ptoms with patient and ED precautions. Pt eligible for Paxlovid, will send rx to pharmacy. Reviewed potential med interactions. Encounter Details Date Type Department Care Team ([facility] st Contact Info) Description 05/24/2022 Telephone [facility] MEDICINE [address] [place] [address] Bita Muñoz FNP [address] [place], [place] [phone] Medication Question (Reviewed symptoms with patient and [...] 05/23/22 and came back positive. Pt speaks danish returning call from yesterday . documented in this encounter Plan of Treatment Upcoming Encounters Date Type Department Care Team ([facility] st Contact Info) Description 09/02/2024 10:15 AM EDT Office Visit [facility] MEDICINE [address] [place] [address] Bita Muñoz FNP [address] [place] [address] 10/22/2024 11:00 AM EDT Immunization [facility] PEDS [address] [place] [address] documented as of this encounter Visit Diagnoses Diagnosis COVID-19 virus infection- Primary documented in this encounter Care Teams Executive Sous Chef Relationship Specialty Start Date End Date Bita Muñoz FNP [address] [place] [address] PCP - General Family Medicine 02/19/22 Karen Edward Lead EstheticianFeather Separator 10/17/23 documented as of this encounter
--- OUTSIDE RECORDS SUMMARY | 2024-08-28 10:19 | XMS_ITS | Encounter Summary ---
Author Organization [employer] Address [address] [facility] [address] [place] [address] Care Team Providers Care Um Specialist Name Role Phone Bita Muñoz MARBLE WORKER Primary Care Provider [phone] Encounter Details Date Type Department Care Team (Latest Contact Info) Description 08/12/2024 Travel Social History Tobacco Use Types Packs/Day Years [...] is your housing situation today? I have dylanjulita crane 07/03/[address] you [...] t he electric, gas, oil or water Lighting by [employer] threatened to shut off services in your [...] Care Team (Late st Contact Info) Description 09/02/2024 10:15 AM EDT Office Visit [facility] MEDICINE [address] [place] [address] Bita Muñoz FNP [address] [place] [address] 10/22/2024 11:00 AM EDT Immunization [facility] P[facility]S [address] [place] [address] documented as of this encounter Visit Diagnoses Not on filedocumented in this encounter Additional Health Concerns Assessment Noted Time PHQ-9 Depression Total Score: 10 025 3:23 PM EST documented as of this encounter Care Teams Um Specialist Relationship Specialty Start Date End Date Bita Muñoz FNP [address] [place] [address] PCP - General Family Medicine 02/19/22 Karen Edward Jewelry SetterCommercial Driver 10/17/23 documented as of this encounter
--- OUTSIDE RECORDS SUMMARY | 2024-08-28 10:19 | XMS_ITS | Encounter Summary ---
Author Organization [employer] Address [address] [facility] [address] [place] [address] Care Team Providers Care Online Affiliate Marketing Manager Name Role Phone Bita Muñoz DOUGH CATCHER Primary Care Provider [phone] Reason for Visit * Reason Onset Date Comments Chart Prep 08/11/2024 Encounter Details Date Type Department Care Team ([facility] st Contact Info) Description 08/11/2024 Telephone [facility] [address] [place], [place] [phone] Lauryn Frank MA Chart Prep Social History Tobacco Use Types Packs/Day Years [...] the past 12 months, has t he Screamin Daily Deals, gas, oil or water company threatened to [...] encounter Miscellaneous Notes * Telephone Encounter - Lauryn Del Valle [place] - 08/11/2024 1:43 PM EST Chart Prep Labs: done Images: done Vaccines due: yes Referrals: pending appt Screenings: colonoscopy Overdue care gaps: n/a documented in this encounter Plan of Treatment Upcoming Encounters Date Type Department Care Team ([facility] st Contact Info) Description 09/02/2024 10:15 AM EDT Office Visit [facility] MEDICINE [address] [place] [address] Bita Muñoz FNP [address] [place] [address] 10/22/2024 11:00 AM EDT Immunization [facility] [address] [place] [address] documented as of this encounter Visit Diagnoses Not on filedocumented in this encounter Additional Health Concerns Assessment Noted Time PHQ-9 Depression Total Score: 10 025 3:23 PM EST documented as of this encounter Care Teams Online Affiliate Marketing Manager Relationship Specialty Start Date End Date Bita Muñoz FNP [address] [place] [address] PCP - General Family Medicine 02/19/22 Karen Edward Commercial Drone Software DeveloperRoller Print Tender 10/17/23 documented as of this encounter
--- OUTSIDE RECORDS SUMMARY | 2024-08-28 10:19 | XMS_ITS | Clinical Summary ---
Author Organization [employer] Address [address] [facility] [address] [place] [address] Care Team Providers Care Publishing Systems Analyst Name Role Phone Bita Muñoz SUPERVISOR ASSEMBLY Primary Care Provider [phone] Allergies No known active allergies Medications * [...] noon, and at bedtime. 02/16/20 21 Active sodium chloride (Kings) 0.65 % nasal spray Administer 2 sprays into each nostril if needed each day. 03/23/20 20 Active guaiFENesin (Mucinex) 600 MG 12 hr tabletIndications :Acute viral syndrome Take 1 tablet (600 mg) by mouth in the morning and at bedtime. 60 tablet 06/20/20 22 Active cetirizine (ZyrTEC) 10 MG tabletIndications :Acute viral syndrome Take 1 tablet (10 mg) [...] 11/12/19 24 Active atorvastatin (Lipitor) 80 MG tabletIndications :Dyslipidemia TAKE 1 TABLET BY MOUTH EVERY EVENING 90 tablet 3 04/15/20 24 Active cholecalciferol (Vitamin D-3) 25 MCG (1000 UT) tabletIndications :Vitamin D insufficiency Take 1 tablet (25 mcg) [...] 04/14/20 24 Active topiramate (Topamax) 25 MG tabletIndications :Migraine with aura and without status migrainosus, not intractable Take 1 tablet (25 mg) by mouth at bedtime. 90 tablet 1 07/15/19 25 026 Active celecoxib (CeleBREX) 100 MG capsule TAKE 1 CAPSULE BY MOUTH TWICE DAILY IN THE MORNING AND AT BEDTIME NEEDED FOR MILD PAIN 60 capsule 1 07/24/19 25 Active estradiol-norethi ndrone (CombiPatch) 0.05-0.14 MG/DAYIndications :Hot flashes Place 1 patch on the skin 2 (two) times a week. 8 patch 3 08/13/19 25 026 Active PARoxetine (Paxil) 10 MG tablet Take 1 tablet by mouth at bedtime. 01/10/20 22 025 Discontin ued(Thera py completed ) Active Problems Problem Noted Date Diagnosed Date [...] weather Hot flashes 07/15/2024 Assessment & Plan (08/12/2024 4:58 PM EST): - Given symptom severity she is interested in starting tx - Not ideal candidate for SSRI given current fluoxetine tx - Plan: start combipatch 0.05/0.14 mg/day, 2 patches/week (changing every 3-4 days). Reviewed contraindications and possible SE with pt. Shared decision making to proceed. - Consulted with clinical pharmacist: topiramate may decrease concentration of estrogen, but OK given that she is not using for contraception (see below) Assessment & Plan (07/15/2024 3:42 PM EST): Discussed treatment options including SSRIs, serotonin-norepinephrine reuptake inhibitors (SNRIs), antiepileptics, and other centrally acting drugs. Also discussed HRT and alternative therapies such as Veozah At this time patient declines pharmacological therapy but would like to consider these options in the future. Left hip pain 04/13/2024 Overview (08/12/2024): Following with [facility] Ortho - Dr. Bergman MRI completed Mar 2024: 1. Possible nondisplaced undersurface tear of the anterosuperior labrum. 2. No stress reaction, fracture, or avascular necrosis. 3. Mild gluteus medius and gluteus minimus tendinosis. Minimal greater trochanteric bursitis. Assessment & Plan (08/12/2024 4:12 PM EST): - Left hip pain suspected 2/2 small labral tear. Per consult note Jul 2024, plan for intra articular cortisone injection. Assessment & Plan (04/15/2024 10:18 AM EDT): [...] Plan (01/13/2024 8:05 PM EDT): Following with [facility] - Vicenta Robison, DIGITAL ARTIST Continues on vaginal estrogen through specialist, has [...] action stage. PLAN: 1. Follow up with [facility]: Not recommended for follow-up 2. Patient goal is to decrease stress level 3. Behavioral Recommendations a. Utilize coping skills provided b. Engage in therapy when established c. May reach out to [facility] for additional support Assessment & Plan (01/29/2023 5:50 PM EDT): ?? Housing is significant stressor ?? Currently housed, although not necessarily stable in the future ?? BE conducted today, please see note for further details ?? Referral to [facility] team placed Benign paroxysmal positional vertigo due [...] Dental: [facility], requested referral to [facility] dental Assessment & Plan (07/15/2024 3:37 PM EST): Referral sent to [facility] Dental Advised pt to go get Zoster vaccination at pharmacy Assessment & Plan (05/09/2023 7:52 PM EST): -Influenza and tetanus vaccines administered today Pulmonary hypertension 02/25/2015 Assessment & Plan (08/12/2024 4:16 PM EST): - Previously following with [facility] (discharged from office d/t NS) - BP well controlled - Referral to Cards placed 08/12/24 Assessment & Plan (07/15/2024 3:38 PM EST): [...] WNL ?? Upcoming appt to establish with [facility] Neurology ?? Well controlled with topiramate 25mg [...] seek service PLAN: 1. Follow up with [facility]: Not recommended for follow-up 2. 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 Resolved Problems Problem Noted Date Diagnosed Date [...] Encounters Date Type Department Care Team Description 08/14/2024 Telephone [facility] [address] [place] [address] Bita Muñoz FNP Cardiology Referral 08/12/2024 11:15 AM EST Office Visit [facility] [address] [place] [phone] Bita Muñoz FNP Onychauxis (Primary Dx); Left hip pain; Hot flashes; Pulmonary hypertension (CMS/HCC) 08/12/2024 Travel 08/11/2024 Telephone [facility] [address] [place] [address] Lauryn Frank MA Chart Prep 07/23/2024 Refill [facility] [address] [place] [address] Natalie Sue MD 07/15/2024 2:45 PM EST Office Visit [facility] [address] [place] [address] Eros Mandel CNP Routine health maintenance (Primary Dx); Migraine with aura and without status migrainosus, not intractable; Chronic pain of left knee; Dietary counseling; Exercise counseling; Pulmonary hypertension (CMS/HCC); Hot flashes 07/03/2024 Patient Outreach [facility] [address] [place] [address] Bita Muñoz FNP Care Coordination (CHW outreach for SDOH PT-1 and food needs-referral completed /) 07/03/2024 Patient Outreach [facility] [address] [place] [address] Bita Muñoz FNP Pre-visit Planning (SDOH Screening positive and Tobacco screening negative) 06/27/2024 11:40 AM EST Office Visit [facility] [address] [place] [phone] Jayjay Benjamin MD Burning with urination 06/26/2024 Telephone [facility] [address] [place] [phone] Bita Muñoz FNP Nurse Triage; Referral Request 06/18/2024 Refill [facility] [address] [place] [phone] Bita Muñoz FNP 06/16/2024 Telephone [facility] [address] [place] [address] Bita Muñoz FNP Results 06/16/2024 Telephone [facility] [address] [place] [phone] Bita Muñoz FNP Chart Prep 06/11/2024 Patient Outreach [facility] [address] [place] [address] Bita Muñoz FNP Pre-visit Planning (Returning patient call. ) 06/10/2024 Telephone [facility] [address] [place] [phone] Bita Muñoz FNP Returning Call 06/04/2024 Refill [facility] [address] [place] [phone] Bita Muñoz FNP Vitamin D insufficiency (Primary Dx); Primary osteoarthritis of right knee 06/02/2024 Patient Outreach [facility] [address] [place] [address] Bita Muñoz FNP Care Coordination ([facility] outreach for SDOH PT-1 and food needs-referral completed /) 06/02/2024 Patient Outreach [facility] [address] [place] [address] Bita Muñoz FNP Pre-visit Planning (SDOH positive, Tobacco screening negative.); Reschedule appointmet from Last 3 Months Immunizations Name Administration Dates Next Due Hep B, adult 04/23/2022,08/26/2018,07/22/2018 Influenza injectable quadriv alent preservative free 04/17/2023,04/23/2022,03/31/2021,2019 Influenza, IIV3, injectable 04/01/2014, 1 Influenza, Split (incl. mando fied surface antigen) 04/24/2013,07/28/2012 Tdap 04/17/2023,02/12/2013 Zoster, Recombinant 08/20/2024 Family History Medical History Relation Name Comments [...] Sign Reading Time Taken Comments Blood Pressure 117/80 08/12/2024 11:27 AM EST Pulse 87 08/12/2024 11:27 AM EST Temperature 36 ??C (96.8 ??F) 08/12/2024 11:27 AM EST Respiratory Rate 20 08/12/2024 11:27 AM EST Oxygen Saturation 99% 08/12/2024 11:27 AM EST Inhaled Oxygen Concentration - - Weight 77.6 kg (171 lb 2 oz) 08/12/2024 11:27 AM EST Height 147.3 cm (4' 10 ) 08/12/2024 11:27 AM EST Body Mass Index 35.77 08/12/2024 11:27 AM EST Plan of Treatment Upcoming Encounters Date Type Department Care Team (Late st Contact Info) Description 09/02/2024 10:15 AM EDT Office Visit [facility] [address] [place] [address] Bita Muñoz, SUPERVISOR ASSEMBLY [address] [place] [address] 10/22/2024 11:00 AM EDT Immunization [facility] [address] [place] [address] Health Maintenance Due Date Last Done Comments CT Colonography 1974 FIT DNA/Cologuard 1975 FIT 1975 FOBT 1975 Sigmoidoscopy 1975 Pneumococcal Vaccine: 50+ Years (1 of 1 - PCV) 2024 Zoster Vaccines (2 of 2) 10/15/2024 08/20/2024 Mammogram 10/20/2024 10/21/2023, 09/23, 01/03/2018 Influenza Vaccine (#1) 2024 , 04/23/2022, 03/31/2021, Additional history exists Postponed from 02/23/2024 (Patient Refused) Depression Monitoring (PHQ-9) 01/12/2025 07/15/2024, 07/15/2024 Alcohol/Substance Use Screening 04/15/2025 04/15/2024 COVID-19 Vaccine ( season) 2025 Postponed from 02/23/2024 (Patient Refused) SDOH Screening 07/03/2025 07/03/2024 Depression Screening 07/15/2025 07/15/2024, 07/15/19 Family Planning (PISQ) 07/15/2025 07/15/2024 Colonoscopy 07/22/2025 07/22/2020 Colorectal Cancer Screening 07/22/2025 Tobacco Screening 08/12/2025 08/12/2024 Lipid Panel 01/07/2029 01/08/2024, 05/24, 04/23/2022, Additional [...] 06/27/2024 10:21 AM EST Burning with urination THINPREP IMAGING PAP AND HPV MRNA E6/E7 [...] EST 06/27/2024 2:40 PM EST Comment:UACC Narrative [facility] - 06/29/2024 8:04 AM EST Urine Culture Report Result Urine Culture > 100,000 cfu/ml Urine Culture Mixed bacterial mercedez characteristic of Urine Culture urogenital contamination. Specimen Source: Urine clean catch us Jayjay Benjamin MD LAB MICROBIOLOGY - GENERAL ORDER CHUN Final Result [facility] [address] [place] [address] [phone] * POCT Urinalysis (06/27/2024 10:21 AM [...] Media Lot # [id number] Lot# Expiration Date 554 Urine 06/27/2024 10:2 1 AM EST Jayjay Benjamin MD POINT OF CARE TEST ENTER/EDIT OR DERABLES Final Result * ThinPrep Imaging Pap and HPV mRNA E6/E7 (03/02/2024 12:10 PM EDT) HPV nRNA E6/E7 Not Detected Not Detected [facility] Comment:Methodology: Transcr iption-Mediated AmplificationThis assay detects E6/E7 viral messenger RNA (mRNA) from 14high-risk HPV types (16,18,31,33,35,39,45,51,52,56,58,59,66,68).Cervical sources are required for HPV testing.If a vaginal source from a patient who has had atotal hysterectomy with removal of cervix wassubmitted, please contact the testing laboratoryfor alternative testing options.For additional information, please refer tohttp://education.[employer]/faq/NFF894f1(This link if provided for information/educational purposes only.)THIS TEST WAS PERFORMED AT:[facility] [place] [phone] FULTON MD SOURCE: SEE NOTE [facility] Comment:None given Report Status: TNP [facility] Clinical Information: SEE NOTE [facility] Comment:None given LMP: SEE NOTE [facility] Comment:NONE GIVEN Prev. PAP: SEE NOTE [facility] Comment:NONE GIVEN Prev. BX: SEE NOTE [facility] Comment:NONE GIVEN Statement Of Adequacy: SEE NOTE [facility] Comment:Satisfactory for sana luation.Endocervical/transformation zone component absent. General Categorization: [facility] Interpretation/Result: SEE NOTE [facility] Comment:Cytology Results: Ne gative for intraepitheliallesion or malignancy. Cytology Comment SEE NOTE [facility] Comment:This Pap test has be en evaluated with computerassisted technology. Absorption Plant Operator Helper: SEE NOTE [facility] Comment:SL, CT(ASCP)CT scree neena location: [place] [address] Review Absorption Plant Operator Helper: [facility] Pathologist [facility] PAP Infection SEE NOTE [facility] Comment:Fungal organisms mor phologically consistent withCandida spp.Shift in vaginal mercedez suggestive of bacterialvaginosis. See Note SEE NOTE [facility] Comment:EXPLANATORY NOTE:The Pap is a [...] PM EDT 03/02/2024 6:27 PM EDT Narrative [facility] - 03/05/2024 12:29 PM EDT SEE SCANNED RESULTS IN EMR us Farida NOYOLA LAB PATHOLOGY ORDERABLES Final Result [facility] [address] [place] [address] [phone] * (ABNORMAL) Lipid Panel, Standard (01/08/2024 11:29 AM EDT) Triglycerides 103 <150 mg/dL [facility] Comment:Desirable Triglyceri de: less than 150 mg/dLBorderline High Triglyceride 150-199 mg/dLHigh Triglyceride: 200-499 mg/dLVery High Triglyceride: greater than or equal to 5OO mg/dL Cholesterol 208(H) <200 mg/dL [facility] Comment:Desirable Cholestero l: less than 200 mg/dLBorderline High Cholesterol: 200-239 mg/dLHigh Cholesterol: greater than 239 mg/dL LDL Cholesterol Calculated 140(H) <100 mg/dL [facility] Comment:Desirable LDL: less than 100 mg/dLNear Optimal/Above Optimal LDL: 110- 129 mg/dLBorderline High LDL: 130-159 mg/dLHigh LDL: 160-189 mg/dLVery High LDL: greater than or equal to 190 mg/dL HDL Cholesterol 48 >40 mg/dL [facility] Comment:Desirable HDL: great er than 40 mg/dL Note: This HDL assay may give artificially low results in patients with liver disease. Blood Venous blood specimen / Unknown 01/08/2024 11:29 AM EDT 01/08/2024 12:51 PM EDT Bita Muñoz SUPERVISOR ASSEMBLY LAB BLOOD ORDERABLES Final Res ult [facility] [address] [place] [address] [phone] * BI Mammogram Screening Tomosynthesis Bilateral (10/21/2023 11:20 AM EDT) Anatomical Region Laterality Modality Breast Bilateral Mammography 10/21/2023 11:2 0 AM EDT Narrative 11/17/2023 6:20 AM EDT ? [facility] [place] ? [address] ?[place] [address] ? Mammography Report ? Signed ? Patient: Zoila Petersen ?MR#: [id number] ?? [id number] ? : 1975 ?Acct:[id number] ? Age/Sex: 48 / F ?ADM Date: 04/29/24 ? Loc: HO.MAMMO ? Attending Dr: Janis Foreman CNM ? Ordering Physician: Janis Foreman CNM ?Results: 1Nega ?? tive ? Date of Service: 10/21/23 ?Follow Up: 1 Year From Orig ?? inal Mammogram ? Procedure(s): MM tomosynthesis screening BI ?? Accession Number(s): [id number] ? cc: Janis Foreman CNM; Bita Muñoz SUPERVISOR ASSEMBLY ? EXAMINATION: ?? MM SCREENING DIGITAL BREAST [...] 11/17/23616 ? DD/ 1120 ? TD/TT: ? 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 Procedure Note Donotuseinterpreter, Image - 11/17/2023 Bernie [facility] [address] [place] [address] Mammography Report Signed Patient: Ish Petersen#: [id number] : 1975Acct:[id number] Age/Sex: 48 / FADM Date: 10/21/23 Loc: [facility] Attending Dr: Janis Foreman CNM Ordering Physician: Janis Foremanesults: 1Nega tive Date of Service: 10/21/23Follow Up: 1 Year From Orig inal Mammogram Procedure(s): MM tomosynthesis screening BI Accession Number(s): [id number] cc: Janis Foreman CNM; Bita Muñoz SUPERVISOR ASSEMBLY EXAMINATION: MM SCREENING DIGITAL BREAST TOMOSYNTHESIS, BILATERAL [...] in OV> 11/17/23 0617 DD/ 1120 TD/TT: Excavator Backhoe Operator: [facility] External Provider IMG BI PROCEDURES Final Result * Hepatitis C Ab (03/07/2023 12:19 PM EDT) Hepatitis C Antibody Nonreactive Nonreactive [facility] Comment:Antibodies to HCV no t detected; does not exclude early acuteHCV infection. 03/07/2023 12:1 9 PM EDT 03/07/2023 12:19 PM EDT Generic External Data Provider LAB BLOOD ORDERAB LES Final Result Performing Organization Address [facility] de Phone Number [facility] [address] [place] [phone] * HIV Ab/Ag ([facility]) (03/07/2023 12:19 PM EDT) Pathologist [facility] HIV AB/AG Nonreactive Nonreactive [facility] Comment:HIV-1 p24 Ag and/or HIV-1/HIV-2 Ab not detected.A test result that is nonreactive does not exclude thepossibility of exposure to or infection with HIV-1 and/orHIV-2. Nonreactive results in this assay for individualswith prior exposure to HIV-1 and/or HIV-2 may be due toantigen and antibody levels that are below the limit ofdetection of this assay.The [employer] HIV Ag/Ab Combo assay result andsupplemental assay results should be interpreted inconjunction with the patient's clinical presentation,history and other laboratory results. If the results areinconsistent with clinical evidence, additional testing issuggested to confirm the result. 03/07/2023 12:1 9 PM EDT 03/07/2023 12:19 PM EDT Generic External Data Provider LAB BLOOD ORDERAB LES Final Result Performing Organization Address [facility]/ZIP Co de Phone Number [facility] [address] [place] [address] [place] [phone] * Colonoscopy (07/22/2020) Colonoscopy Normal Normal Comment:5 Yr F/U us Historical Provider HEALTH MAINTENANCE Edited Result - Final from Last 3 Months or Most Recently Relevant to Health Maintenance Insurance [employer] Care Teams Publishing Systems Analyst Relationship Specialty Start Date End Date Bita Muñoz FNP [address] [place] [address] PCP - General Family Medicine 02/19/22 Karen Edward Process PlannerHead Of Geography 10/17/23
--- OUTSIDE RECORDS SUMMARY | 2024-08-28 10:19 | XMS_ITS | Encounter Summary ---
Author Organization [employer] Address [address] [facility] [address] [place] [address] Care Team Providers Care Bus Girl Name Role Phone Bita Muñoz Primary Care Provider [phone] Encounter Details Date Type Department Care Team (Late st Contact Info) Description 05/03/[address] [facility] Health Information Management [address] [place] [address] Bita Muñoz FNP [address] [place] [address] Social History Tobacco Use Types Packs/Day Years [...] Description 09/02/2024 10:15 AM EDT Office Visit [facility] [address] [place] [address] Bita Muñoz FNP [address] [place], [place] [phone] 10/22/2024 11:00 AM EDT Immunization [facility] [address] [place] [address] documented as of this encounter Visit Diagnoses Not on filedocumented in this encounter Care Teams Bus Girl Relationship Specialty Start Date End Date Bita Muñoz FNP [address] [place] [address] PCP - General Family Medicine 02/19/22 Karen Edward Skidder RunnerSand Operator 10/17/23 documented as of this encounter
--- OUTSIDE RECORDS SUMMARY | 2024-08-28 10:19 | XMS_ITS | Encounter Summary ---
Author Organization [employer] Address [address] [facility] [address] [place] [address] Care Team Providers Care Engraver Jewelry Name Role Phone Bita Muñoz Primary Care Provider [phone] Reason for Referral * Consultation (Routine) - Closed Specialty Diagnoses / Procedures Referred By Sol liao Referred To Contact Cardiology Diagnoses Pulmonary hypertension (CMS/HCC) Bita Muñoz FNP [address] [place] [address] Phone: tel: fax: Referral ID Status Reason Start Date Expiration Date V isits Requested Visits Authorized [id number] Closed Specialty Services Required 08/12/2024 08/12/2025 1 1 * Consultation (Routine) - Authorized Specialty Diagnoses / Procedures Referred By Sol liao Referred To Contact Podiatry Diagnoses Onychauxis Bita Muñoz FNP [address] [place] [address] Phone: tel: fax: Dinh Alexander DPM [address] [address] Phone: tel: fax: Referral ID Status Reason Start Date Expiration Date Visits Requested Visits Authorized [id number] Authorized Specialty Services Required 08/13/2024 08/13/2025 6 6 Encounter Details Date Type Department Care Team (Late st Contact Info) Description 08/12/2024 11:15 AM EST Office Visit [facility] MED[facility] [address] [facility] [place] [address] Bita Muñoz, TRUCK DESPATCHER [address] [place] [address] Onychauxis (Primary Dx); Left hip pain; Hot flashes; Pulmonary hypertension (CMS/HCC) Social History Tobacco Use Types Packs/Day Years [...] Mass Index 35.77 08/12/2024 11:27 AM EST documented in this encounter Progress Notes * Bita Muñoz, ARLET - 08/12/2024 11:15 AM EST Subjective Patient ID: Zoila Jackson is a 49 y.o. female w/ PMH Pulm HTN, depression, migraine, dyslipidemia, who presents to the office for a follow up visit: chronic conditions. HPI: - Last PCP appt: March 2024 Left hip pain: completed MRI Mar 2024 through [facility] that demonstrated minimal diffuse degenerative changes as well as a small tear of the anterosuperior labrum. Reports that she continues to feelleft hip pain when ambulating for extended periods of time, enjoys walking. Consult Jul 2024 w/ [facility] Ortho-Dr. Bergman - Suspected hip pain due to a small labral tear. Plan to hold off on surgery if at all possible. Plan for intra articular cortisone injection. Toe Nail thickening and discoloration: tested negative for fungal culture in April 2024. Continues with thickening and discoloration of left great toe nail. Referral to podiatry for further eval. Hx of pulmonary hypertension - previously following with [facility]. Was referred to re-establish care in Jun 2024, but per referrals note has been discharged from office. Will place new Cards referral. BP well controlled. Hot flashes: LMP approx Mar 2023, no menses since. No PMB. Has been experiencing hot flashes nightly. Attempted with conservative measures including fan and dressing in layers, but has been worseningover the past few months. Interested in consideration of tx. Specialists: UroGYN ([facility]) : incomplete bladder emptying Ortho ([facility] - Dr. 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 Denies IPV concerns. Mental health - Denies SI/HI/thoughts of self harm. Review of Systems Constitutional: Negative for chills and fever. Respiratory: Negative for cough and wheezing. Cardiovascular: Negative for chest pain and palpitations. Genitourinary: Hot flashes Musculoskeletal: Positive for arthralgias. Objective Visit Vitals BP 117/80 (BP Location: Left arm, Patient Position: Sitting, BP Cuff Size: Adult) Pulse 87 Temp 96.8 ??F (36 ??C) (Temporal) Resp 20 Ht 4' 10 (1.473 m) Wt 171 lb 2 oz (77.6 kg) LMP (LMP Unknown) SpO2 99% BMI 35.77 kg/m?? OB Status Ablation Smoking Status Never BSA 1.78 m?? Physical Exam Constitutional: Appearance: Normal appearance. HENT: Head: Atraumatic. Right Ear: External ear normal. Left Ear: External ear normal. Cardiovascular: Rate and Rhythm: Normal rate and regular rhythm. Pulmonary: Effort: Pulmonary effort is normal. Breath sounds: Normal breath sounds. Musculoskeletal: Lumbar back: Tenderness present. Comments: Left lumbar paraspinal muscles w/ TTP, discomfort radiates to groin. Gait WNL. Feet: Comments: Left great toe nail with thickening/discoloration to lateral and medial aspect of nail Neurological: Mental Status: She is alert and oriented to person, place, and time. Psychiatric: Mood and Affect: Mood normal. Behavior: Behavior normal. Assessment/Plan Problem List Items Addressed This Visit Circulatory Pulmonary hypertension (CMS/HCC) Current Assessment & Plan - Previously following with [facility] (discharged from office d/t NS) - BP well controlled - Referral to Cards placed 08/12/24 Relevant Orders Referral to Cardiology Musculoskeletal Left hip pain Overview Following with [facility] Ortho - Dr. Bergman MRI completed Mar 2024: 1. Possible nondisplaced undersurface tear of the anterosuperior labrum. 2. No stress reaction, fracture, or avascular necrosis. 3. Mild gluteus medius and gluteus minimus tendinosis. Minimal greater trochanteric bursitis. Current Assessment & Plan - Left hip pain suspected 2/2 small labral tear. Per consult note Jul 2024, plan for intra articular cortisone injection. Other Hot flashes Current Assessment & Plan - Given symptom severity she is interested [...] is not using for contraception (see below) Relevant Medications estradiol-norethindrone (CombiPatch) 0.05-0.14 MG/DAY (Start on 08/13/2024) Other Visit Diagnoses Onychauxis - Primary - Referral to podiatry Relevant Orders Referral to Podiatry Follow up: 1 month for hot flashes, 4 months for clinical conditions, or sooner as needed. From clin pharm: Estrogens affected by CYP3A inducers may have their effect reduced by Topiramate Advise patients taking estrogen hormones for contraception to consider an alternate or additional form of contraception, such as nonhormonal and/or barrier methods, during and for at least 1 month following discontinuation of topiramate especially when topiramate is used at a dosage of greater flrh293 mg per day. Higher-dose hormonal regimens containing a minimum of 30 mcg of ethinyl estradiol or equivalent may also be considered. Patients taking these hormones for other indications may need to be monitored for reduced clinical effect while on topiramate, with dose adjustments made based on clinical efficacy. Topiramate may decrease estrogen hormone concentrations which may decrease efficacy and increase the risk for breakthrough bleeding in patients taking estrogen hormones for contraception. Estrogens are CYP3A substrates and topiramate is a CYP3A inducer. Concomitant use has been observed to decrease ethinyl estradiol exposure by 18%, 21%, and 30% at topiramate daily doses of 200 mg, 400 mg, and 800 mg, respectively. No significant changes in ethinyl estradiol exposure have beenobserved at topiramate doses of 50 mg to 200 mg per day. documented in this encounter Miscellaneous Notes * Assessment & Plan Note - ARLET Clinton - 08/12/2024 4:58 PM ESTAssociated Problem(s): Hot flashes - Given symptom severity she is interested [...] is not using for contraception (see below) * Assessment & Plan Note - ARLET Clinton - 08/12/2024 4:16 PM ESTAssociated Problem(s): Pulmonary hypertension (CMS/HCC) - Previously following with [facility] (discharged from office d/t NS) - BP well controlled - Referral to Cards placed 08/12/24 * Assessment & Plan Note - ARLET Clinton - 08/12/2024 4:12 PM ESTAssociated Problem(s): Left hip pain - Left hip pain suspected 2/2 small labral tear. Per consult note Jul 2024, plan for intra articular cortisone injection. documented in this encounter Plan of Treatment Upcoming Encounters Date Type Department Care Team (Late st Contact Info) Description 09/02/2024 10:15 AM EDT Office Visit [address] [address] Bita Muñoz FNP [address] [place] [address] 10/22/2024 11:00 AM EDT Immunization [facility] MED & PEDS [address] [place] [address] Scheduled Referrals Name Type Priority Associated Diagnoses Orde r Schedule Referral to Podiatry Outpatient Referral Routine Onychauxis Expected: 08/12/2024 (Approximate), Expires: 08/12/2025 Referral to Cardiology Outpatient Referral Routine Pulmonary hypertension (CMS/HCC) Expected: 08/12/2024 (Approximate), Expires: 08/12/2025 documented as of this encounter Visit Diagnoses Diagnosis Onychauxis- Primary Other specified disease of nail Left hip pain Pain in joint, pelvic region and thigh Hot flashes Pulmonary hypertension (CMS/HCC) Other chronic pulmonary heart diseases documented in this encounter Additional Health Concerns Assessment Noted Time PHQ-9 Depression Total Score: 10 025 3:23 PM EST documented as of this encounter Care Teams Engraver Jewelry Relationship Specialty Start Date End Date Bita Muñoz FNP [address] [place] [address] PCP - General Family Medicine 02/19/22 Karen Edward Federal JudgeCommercial Attorney 10/17/23 documented as of this encounter
--- OUTSIDE RECORDS SUMMARY | 2024-08-28 10:19 | XMS_ITS | Encounter Summary ---
Author Organization [employer] Address [address] [facility] 7[address] [place] [address] Care Team Providers Care High School Music Director Name Role Phone Bita Muñoz Primary Care Provider [phone] Reason for Visit * Reason Onset Date Comments Cardiology Referral 08/14/2024 Encounter Details Date Type Department Care Team ([facility] st Contact Info) Description 08/14/2024 Telephone [facility] MED & PEDS [address] [place], [place] [id number] Bita Muñoz FNP [address] [place] [address] Cardiology Referral Social History Tobacco Use Types Packs/Day [...] * Telephone Encounter - ARLET Clinton - 08/14/2024 12:37 PM EST From referrals team 08/14/24: Good morning, I sent referral to [facility] Card[facility] due to the no shows with Dr. Harding. They're not starting to book until September though. [facility] I believe is not bookinguntil February or March. Appt is pending. Thank you. (Documenting here in case Ms. Cooney calls in with questions about referral) documented in this encounter Plan of Treatment Upcoming Encounters Date Type Department Care Team (Late st Contact Info) Description 09/02/2024 10:15 AM EDT Office Visit [facility] MEDICINE [address] [place], [place] [phone] Bita Muñoz FNP [address] [place] [address] 10/22/2024 11:00 AM EDT Immunization [facility] CHC MED & PEDS [address] [place] [address] documented as of this encounter Visit Diagnoses Not on filedocumented in this encounter Additional Health Concerns Assessment Noted Time PHQ-9 Depression Total Score: 10 025 3:23 PM EST documented as of this encounter Care Teams High School Music Director Relationship Specialty Start Date End Date Bita Muñoz FNP [address] [place] [address] PCP - General Family Medicine 02/19/22 Karen Edward Sleeve IronerCommercial Credit Head 10/17/23 documented as of this encounter
--- OUTSIDE RECORDS SUMMARY | 2024-08-28 10:19 | XMS_ITS | Encounter Summary ---
Author Organization [employer] Address [address] [facility] [address] [place] [address] Care Team Providers Care Moss Gatherer Name Role Phone Bita Muñoz Primary Care Provider [phone] Encounter Details Date Type Department Care Team (Late Contact Info) Description 05/25/2022 Orders Only [facility] [address] [place] [address] Jonelle Hooker RN Social History Tobacco Use [...] Department Care Team (Late Contact Info) Description 09/02/2024 10:15 AM EDT Office Visit [facility] MEDICINE [address] [place] [address] Bita Muñoz FNP [address] [place] [address] 10/22/2024 11:00 AM EDT Immunization [facility] CH[facility] MED & PEDS [address] [place] [address] documented as of this encounter Visit Diagnoses Not on filedocumented in this encounter Care Teams Moss Gatherer Relationship Specialty Start Date End Date Bita Muñoz FNP [address] [place] [address] PCP - General Family Medicine 02/19/22 Karen Edward Die AttacherMetallurgical Technician 10/17/23 documented as of this encounter
--- OUTSIDE RECORDS SUMMARY | 2024-08-28 10:19 | XMS_ITS | Encounter Summary ---
Author Organization [employer] Address [address] [facility] [address] [place] [address] Care Team Providers Care Manager Systems Name Role Phone Bita Muñoz Primary Care Provider [phone] Reason for Visit * Reason Onset Date Comments Returning Call 06/10/2024 Encounter Details Date Type Department Care Team ([facility] Contact Info) Description 06/10/2024 Telephone [facility] MEDICINE [address] [place] [address] Bita Muñoz FNP [address] [place] [address] Returning Call Social History Tobacco Use Types [...] Description 09/02/2024 10:15 AM EDT Office Visit [facility] MEDICINE [address] [place] [address] Bita Muñoz FNP [address] [place] [address] 10/22/2024 11:00 AM EDT Immunization [facility] CHC MED & PEDS [address] [place] [address] documented as of this encounter Visit Diagnoses Not on filedocumented in this encounter Additional Health Concerns Assessment Noted Time PHQ-9 Depression Total Score: 20 024 9:07 AM EDT documented as of this encounter Care Teams Manager Systems Relationship Specialty Start Date End Date Bita Muñoz FNP [address] [place] [address] PCP - General Family Medicine 02/19/22 Karen Edward Line Prep CookMarine Photographer 10/17/23 documented as of this encounter
--- OUTSIDE RECORDS SUMMARY | 2024-08-28 10:19 | XMS_ITS | Clinical Summary ---
Author Organization [facility] Address [address] [place] [address] Care Team Providers Care Clothing Presser Name Role Phone Unavailable Primary Care Provider [...] 2019 Fecal DNA 2019 Flexible Sigmoidoscopy 2019 [id number] ( season) 2024 Imm-Influenza (#1) 2024 04/17/2023, [...] Most Recently Relevant to Health Maintenance Insurance [place] D[place]
== END 2024-08-28 09:51 | disposition home or self-care (01) ==
PROVIDERS: PCP Registered Nurse; Referring Provider Orthopaedic Surgery; Visit Provider Internal Medicine
DX: M25.552 Pain in left hip (principal)
CPT/HCPCS: 99204

== ENCOUNTER → 2024-08-28 09:30 | Outpatient (BNVA) | payer MEDICAID, SELFPAY | PROVIDERS: PCP Registered Nurse; Referring Provider Orthopaedic Surgery; Visit Provider Internal Medicine | DX: M25.552 Pain in left hip (principal) | CPT/HCPCS: 99202 ==

== ENCOUNTER 2024-09-08 05:35 | Emergency (ER) | payer MEDICAID, SELFPAY ==
--- NOTE | ~2024-09-08 | CT_ITS ---
EXAMINATION: CT ABDOMEN PELVIS WITHOUT IV CONTRAST HISTORY: left flank pain, LLQ pain COMPARISON: Comparison is made with the prior examination dated 09/15/2022. TECHNIQUE: CT scan of the abdomen and pelvis was performed without contrast using standard departmental protocol. Coronal and sagittal reformatted images were generated and reviewed. Oral contrast material was not administered per department protocol. This CT exam was performed with one or more of the following dose reduction techniques: automated exposure control, adjustment of the mA and/or kV according to patient size, use of iterative reconstruction technique. DLP: 581 mGy-cm FINDINGS: LOWER CHEST: The visualized lung bases are clear. There is no pleural effusion. CARDIOVASCULATURE: The heart is normal in size. There is no pericardial effusion. LIVER: The liver is normal in size and contour. The liver has an unremarkable unenhanced appearance. GALLBLADDER / BILE DUCTS: The gallbladder is unremarkable. There is no intra or extrahepatic biliary ductal dilatation. SPLEEN: The spleen is normal in size and has an unremarkable unenhanced appearance. PANCREAS: The pancreas has an unremarkable unenhanced appearance. ADRENAL GLANDS: Unremarkable. KIDNEYS/RETROPERITONEUM: No renal or ureteral calculi are identified. There is no hydronephrosis or hydroureter. LYMPH NODES: No retroperitoneal lymphadenopathy is identified in the abdomen or pelvis. VASCULATURE: The abdominal aorta is normal in caliber. MESENTERY/PERITONEUM: No free fluid. No masses. There is no free intraperitoneal gas. STOMACH: There is a small hiatal hernia. The remainder of the stomach is collapsed. SMALL BOWEL: The small bowel is normal in caliber. COLON: The colon is unremarkable. APPENDIX: Normal. URINARY BLADDER/PELVIC ORGANS: The urinary bladder is unremarkable. The uterus and ovaries have an unremarkable unenhanced appearance. BONES / SOFT TISSUES: No suspicious bony or soft tissue abnormalities. CT/CT abdomen pelvis wo IV con IMPRESSION: Small hiatal hernia. Otherwise unremarkable unenhanced CT of the abdomen and pelvis. Electronically signed by: Blue James MD 09/08/2024 09:47 AM EDT
[2024-09-08 05:41] VITALS: BP 136/73; PULSE 90; RESP 18; TEMP 36.6; O2SAT 97
[2024-09-08 05:54] VITALS: BP 150/94; PULSE 80; O2SAT 98; BMI 36.9
[2024-09-08 06:16] LABS: Basophils Absolute Auto 0.1 X10*3/uL (0.0-0.2); Basophils Percent Auto 1.2 % (0-2); Eosinophils Absolute Auto 0.1 X10*3/uL (0.0-0.4); Eosinophils Percent Auto 1.3 % (0-4); Hematocrit 34.3 % (37.0-47.0); Hemoglobin 11.5 g/dl (12.0-16.0); Imm Gran Abs Auto 0.03 X10*3/uL (0.00-0.03); Imm Gran Pct Auto 0.4 % (0.0-0.4); Lymphocytes Absolute Auto 2.7 X10*3/uL (1.2-4.9); Lymphocytes Percent Auto 39.6 % (20-40); MANUAL DIFF FLAG SCAN; Mean Corpuscular HGB Conc 33.5 g/dl (31.0-35.0); Mean Corpuscular Hemoglobin 27.9 pg (27.0-33.0); Mean Corpuscular Volume 83.3 fL (80.0-98.0); Mean Platelet Volume 9.1 fL (9.4-12.3); Monocytes Percent Auto 15.1 % (2-11); Neutrophils Absolute Auto 2.9 x10*3/uL (2.0-8.3); Neutrophils Percent Auto 42.4 % (45-73); Platelet Count 326 X10*3/uL (160-400); Red Blood Count 4.12 X10*6/uL (4.20-5.50); Red Cell Distribution Width 13.7 % (11.0-16.0); SCAN SMEAR FLAG 1; White Blood Count 6.9 X10*3/uL (4.8-10.8)
[2024-09-08 06:35] LABS: Alanine Aminotransferase 12 U/L (0-31); Albumin Level 3.7 g/dL (3.5-5.0); Alkaline Phosphatase 46 U/L (39-117); Anion Gap 11 (12-20); Aspartate Amino Transferase 26 U/L (5-31); Bilirubin Total 0.2 mg/dL (0.0-1.0); Blood Urea Nitrogen 15 mg/dL (9-16); Calcium 9.2 mg/dL (8.4-10.2); Carbon Dioxide 22 mmol/L (22-29); Chloride 109 mmol/L (96-108); Creatinine Clr Calc Pharmacy 88.4; Estimated Glomerular Filt Rate > 60; Glucose Random 104 mg/dL (60-115); Potassium 4.1 mmol/L (3.3-5.1); Sodium 138 mmol/L (135-145); Total Protein 7.5 g/dL (6.5-8.0)
[2024-09-08 06:58] LABS: SLIDE REVIEW VERIFIED
--- NOTE | 2024-09-08 07:17 | ED_ITS ---
HPI - Abdominal Pain General Chief Complaint: Abdominal Pain Stated Complaint: Lower Left ab pain since 0 Time Seen by Provider: 09/08/24 07:04 History of Present Illness HPI narrative: Patient is a 49-year-old female presents today with having abdominal pain in the left flank area radiating to the left lower quadrant. The pain started last night at about 11 took a Tylenol no relief. History of ovarian cysts in the past. No fever no chills. No history of kidney stone in the past. The pain is very sharp. Patient is postmenopausal. No coughing or congestion or upper respiratory symptoms. No diaphoresis. No vomiting. Related Data Home Medications ?Medication ?Instructions ?Recorded ?Confirmed atorvastatin 20 mg tablet 20 mg PO DAILY 05/02/20 08/05/24 cholecalciferol (vitamin D3) 25 25 mcg PO DAILY 05/02/20 08/05/24 mcg (1,000 unit) capsule csbxgwz-wuumssvpvklgc-tsihwtqh 250 2 tab PO DAILY PRN headache 04/14/21 08/05/24 mg-250 mg-65 mg tablet (Pain Reliever Plus) fluticasone propionate 50 1 - 2 spray intranasal DAILY PRN 04/14/21 08/05/24 mcg/actuation nasal Nasal Congestion spray,suspension meclizine 25 mg tablet 1 tab PO TID PRN Dizziness 04/14/21 08/05/24 Previous Rx's ?Medication ?Instructions ?Recorded cyclobenzaprine 10 mg tablet 10 mg PO TID PRN muscle spasm #14 05/05/20 tabs dicyclomine 10 mg capsule 10 mg PO QID 30 days #120 caps 08/29/21 ondansetron 4 mg disintegrating 4 mg PO Q6H PRN nausea and 09/15/22 tablet vomiting #14 tabs ibuprofen 400 mg tablet 400 mg PO Q6H PRN pain #20 tabs 09/18/22 ibuprofen 400 mg tablet 400 mg PO Q6H PRN pain #20 tabs 09/08/24 Allergies Allergy/AdvReac Type Severity Reaction Status Date / Time No Known Allergies Allergy Verified 09/08/24 05:56 [No Known Allergies*] Review of Systems Review of Systems Positive abdominal pain Yes all other systems are reviewed and are negative PMFSH Past Medical History Attestation statement: The following information was validated with the patient. Medical History Left hip pain Abdominal cramping Colon cancer screening Lower abdominal pain Pulmonary hypertension Migraine Anxiety and depression Vitamin D deficiency Iron (Fe) deficiency anemia Hyperlipidemia Abnormal EKG Precordial chest pain Surgical History History of endometrial ablation Hx of colonoscopy History of tubal ligation Family History Family History Father Cardiovascular disease Mother Heart valve disease Diabetes HTN (hypertension) Social History Social History Household Members: Children Alcohol intake: never Patient Tobacco Use Status: Never used Tobacco Smoked in Last 30 Days: No Use of substances other than those prescribed or required for medical reasons: No Advance Directives: No Advance Directives Information Provided: Yes Do you have a plan to hurt others: No Plan Patient : No Sexual orientation: Straight/Heterosexual Gender identity: Female Physical Exam ED Vital Signs: Vital Signs - 24 hr 09/08/24 05:41 09/08/24 09:18 Temperature 97.8 F 98.0 F Pulse Rate 90 71 Respiratory Rate 18 16 Blood Pressure 136/73 118/70 Pulse Oximetry 97 99 Oxygen Delivery Method Room Air Nasal Cannula BMI result Body Mass Index 36.9 Appearance: Alert. Oriented X3. No acute distress. Eyes: Pupils equal, round and reactive to light. ENT: Pharynx normal. Neck: Normal inspection. Neck supple. No lymph nodes noted. No crepitus CVS: Normal heart rate and rhythm. Pulses normal. Normal S1 and S2 Respiratory: No respiratory distress. Breath sounds normal. No Wheezing. No rales Abdomen: Soft, mild left lower quadrant tenderness. No rigidity. No distention. good BS x4 Skin: Skin warm and dry. Normal skin color. Normal skin turgor. Extremities: No lower extremity edema. Neurovascular intact to all extremities. No Lacerations. No Rash Neuro: Oriented X 3. No motor deficit. No sensory deficit. Moving all extermities. No slurred speech Medical Decision Making Medical Decision Making MDM Narrative: Patient is 49 years old presents today with having left lower abdominal pain flank pain. Patient took Tylenol with no relief. Has a history of ovarian cysts in the past. Patient is postmenopausal. CT scan of the abdomen pelvis was done. My interpretation is there is no gross kidney stone no gross obstruction I reviewed radiology's reading which was grossly negative except for hiatal hernia probably not relating to patient's pain patient's urine showed no signs of infection no evidence for pyelonephritis electrolytes are normal hemoglobin is normal patient is in no distress. Will discharge patient home close follow-up on an outpatient basis. Differential Diagnosis Differential Diagnoses: The differential diagnosis associated with the presentation includes Flank pain, kidney stone, diverticulitis, UTI, pyelonephritis, hernia Admission/Observation Consideration of admission/observation: Escalation of care including admission/observation considered Lab Data MDM Lab Attestation statement: I reviewed the patient's lab results. 09/08/24 06:09 09/08/24 06:09 Labs: Lab Results 09/08/24 09/08/24 Range/Units 06:09 09:22 WBC 6.9 (4.8-10.8) X10*3/uL RBC 4.12 L (4.20-5.50) X10*6/uL Hgb 11.5 L (12.0-16.0) g/dl Hct 34.3 L (37.0-47.0) % MCV 83.3 (80.0-98.0) fL MCH 27.9 (27.0-33.0) pg MCHC 33.5 (31.0-35.0) g/dl RDW 13.7 (11.0-16.0) % Plt Count 326 (160-400) X10*3/uL MPV 9.1 L (9.4-12.3) fL Immature Gran % (Auto) 0.4 (0.0-0.4) % Neut % (Auto) 42.4 L (45-73) % Lymph % (Auto) 39.6 (20-40) % Edmunds % (Auto) 15.1 H (2-11) % Eos % (Auto) 1.3 (0-4) % Baso % (Auto) 1.2 (0-2) % Lymph # (Auto) 2.7 (1.2-4.9) X10*3/uL Edmunds # (Auto) 1.0 (0.1-1.2) X10*3/uL Eos # (Auto) 0.1 (0.0-0.4) X10*3/uL Baso # (Auto) 0.1 (0.0-0.2) X10*3/uL Abs Immat Gran (auto) 0.03 (0.00-0.03) X10*3/uL Absolute Neuts (auto) 2.9 (2.0-8.3) x10*3/uL Absolute Nucleated RBC 0.000 (0.0-0.012) X10*3/uL Nucleated RBC % (auto) 0.0 (0.0-0.2) /100WBC Smear Tech's Comments VERIFIED Sodium 138 (135-145) mmol/L Potassium 4.1 (3.3-5.1) mmol/L Chloride 109 H (96-108) mmol/L Carbon Dioxide 22 (22-29) mmol/L Anion Gap 11 L (12-20) BUN 15 (9-16) mg/dL Creatinine 0.68 (0.5-1.4) mg/dL Estim Creat Clear Calc 88.4 Estimated GFR > 60 Random Glucose 104 (60-115) mg/dL Calcium 9.2 (8.4-10.2) mg/dL Total Bilirubin 0.2 (0.0-1.0) mg/dL AST 26 (5-31) U/L ALT 12 (0-31) U/L Alkaline Phosphatase 46 (39-117) U/L Total Protein 7.5 (6.5-8.0) g/dL Albumin 3.7 (3.5-5.0) g/dL Urine Color Yellow Urine Appearance Clear Urine pH 7.5 (5.0-9.0) Ur Specific [place] 1.020 (1.005-1.025) Urine Protein Negative (Neg-Trace) mg/dL Urine Glucose (UA) Negative (Negative) mg/dL Urine Ketones Negative (Negative) mg/dL Urine Blood Negative (Negative) Urine Nitrite Negative (Negative) Ur Leukocyte Esterase Negative (Negative) Urine RBC 0-2 (0-2) /HPF Urine WBC 0-5 (0-5) /HPF Ur Squamous Epith Cells 0-2 (0-2) /HPF Urine Bacteria None Seen (None Seen) Hyaline Casts 0-2 (0-2) /LPF Independent Interpretation I performed an independent interpretation of an: CT Scan (CT scan negative for obstruction abscess perforation) Radiology Impression Discussion of test interpretation with radiology: I have reviewed the radiologist's reading. External Record Review External record reviewed: Inpatient record Discharge Plan Discharge Clinical Impression: Acute flank pain Patient Disposition: Home, Self-Care Instructions: Flank Pain (ED) Prescriptions: New ibuprofen 400 mg tablet 400 mg PO Q6H PRN (Reason: pain) Qty: 20 0RF No Action cyclobenzaprine 10 mg tablet 10 mg PO TID PRN (Reason: muscle spasm) Qty: 14 0RF meclizine 25 mg tablet 1 tab PO TID PRN (Reason: Dizziness) fluticasone propionate 50 mcg/actuation spray,suspension 1 - 2 spray intranasal DAILY PRN (Reason: Nasal Congestion) Pain Reliever Plus 250-250-65 mg tablet 2 tab PO DAILY PRN (Reason: headache) ondansetron 4 mg tablet,disintegrating 4 mg PO Q6H PRN (Reason: nausea and vomiting) Qty: 14 0RF ibuprofen 400 mg tablet 400 mg PO Q6H PRN (Reason: pain) Qty: 20 0RF cholecalciferol (vitamin D3) 25 mcg (1,000 unit) capsule 25 mcg PO DAILY atorvastatin 20 mg tablet 20 mg PO DAILY dicyclomine 10 mg capsule 10 mg PO QID 30 Days Qty: 120 6RF Referrals: [facility] [Primary Care Provider] - 09/10/24 Print Language: Yakut
[2024-09-08 09:18] VITALS: BP 118/70; PULSE 71; RESP 16; TEMP 36.7; O2SAT 99
--- NOTE | 2024-09-08 09:24 | PC.NURSE ---
this nurse took over patient care from charline at 9am, patient a&ox3, vss, pt c/o lt back/flank pain radiating down left leg-810 pain, rr equal/non labored, urine obtained, call orantes within reach, plan of care ongoing
[2024-09-08 09:32] LABS: Appearance Urine Clear; Color Urine Yellow; Glucose Urine UA Negative (Negative); Leukocyte Esterase Urine Negative (Negative); Nitrite Urine Negative (Negative); PH 7.5 (5.0-9.0); Urine Blood Negative (Negative); Urine Ketones Negative (Negative); Urine Protein Negative (Neg-Trace)
[2024-09-08 09:37] LABS: Bacteria Urine None Seen (None Seen); Hyaline Casts Urine 0-2 /LPF (0-2); RBC Urine 0-2 /HPF (0-2); Squamous Epithelial Cell Urine 0-2 /HPF (0-2); WBC Urine 0-5 /HPF (0-5)
[2024-09-08 10:37] VITALS: BP 118/76; PULSE 76; RESP 16; TEMP 36.7; O2SAT 99
== END 2024-09-08 10:38 | disposition home or self-care (01) ==
PROVIDERS: Emergency Provider Emergency Medicine Emergency Medical Services
DX: R10.32 Left lower quadrant pain (principal); R10.9 Unspecified abdominal pain; Z79.899 Other long term (current) drug therapy
CPT/HCPCS: 36415; 74176; 80053; 81001; 85025; 99284

== ENCOUNTER → 2024-09-08 07:17 | Outpatient (BNV) | payer MEDICAID, SELFPAY | PROVIDERS: Emergency Provider Emergency Medicine Emergency Medical Services; Visit Provider Radiology Diagnostic Radiology | DX: R10.32 Left lower quadrant pain (principal); K44.9 Diaphragmatic hernia without obstruction or gangrene | CPT/HCPCS: 74176 ==

== ENCOUNTER 2024-09-23 15:14 | Outpatient (AMB) | payer MEDICAID, SELFPAY ==
--- NOTE | 2024-09-23 15:19 | MHC.OFFVIS ---
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 Seen in the ED 09/08/[address] scan-pelvic anatomy was unremarkable. No vaginal bleeding or urinary symptoms. Urine dip today reveals trace blood, trace protein, trace ketones. History of uterine ablation. Currently not intimate with the partner. Occasionally has with is described as sciatic pain, reports she has seen somebody for that in the past. Patient points to the SI joint area on the left side as where her pain occurs along with lower left pelvic pain along the hip bone, she reports a history of back problems in the past. [facility] Medical History Left hip pain Abdominal cramping Colon cancer screening Lower abdominal pain Pulmonary hypertension Migraine Anxiety and depression Vitamin D deficiency Iron (Fe) deficiency anemia Hyperlipidemia Abnormal EKG Precordial chest pain Surgical History History of endometrial ablation Hx of colonoscopy History of tubal ligation Family History Father Cardiovascular disease Mother Heart valve disease Diabetes HTN (hypertension) Social History Household Members: Children Alcohol intake: never Patient Tobacco Use Status: Never used Tobacco Sexual orientation: Straight/Heterosexual Gender identity: Female Female Reproductive History Menstrual Age of Menarche: 14 Review of Systems Const All systems reviewed & are unremarkable except as noted in HPI and below Physical Exam Vital Signs: BMI result Body Mass Index 36.8 Const General: cooperative, healthy appearing and no acute distress Orientation/consciousness: patient oriented x3 GI Inspection: Yes normal to inspection Palpation (GI): Soft to palpation and Other GI palpation findings present (Nontender) Rectal Exam - Female: visual inspection normal General: Yes bladder normal to palpation External Female Exam: normal appearance of the urethra Speculum Exam - Vagina: normal appearance of the vagina, normal palpation and normal vaginal discharge Speculum Exam - Cervix: normal palpation and Other cervical findings present (Bled slightly from the Q-tip at the os) Bimanual exam- vagina & uterus: normal bimanual exam, normal palpation, uterine size normal, bladder normal to palpation, normal palpation, uterine shape normal and non-tender Bimanual Exam- Adnexa, other: Other (Tender in the left adnexa fullness noted) Neuro General: patient oriented x3 Results AMB Urinalysis, Automated UA Leukoctes 0 Brea/uL Last Edit by MIKE Ly on 09/23/24 15:33 UA Nitrite Negative Last Edit by Hanna Garces Chadwick on 09/23/24 15:33 UA Urobilinogen 0 mg/dL Last Edit by Hanna Garces Chadwick on 09/23/24 15:33 UA Protein 0.5 mg/dL Last Edit by MIKE Ly on 09/23/24 15:33 UA pH 5.5 Last Edit by MIKE Ly on 09/23/24 15:33 UA Blood 0.5 Jason/uL Last Edit by Hanna Garces Chadwick on 09/23/24 15:33 UA Specific [place] 1.030 Last Edit by MIKE Ly on 09/23/24 15:33 UA Ketone Positive Last Edit by MIKE Ly on 09/23/24 15:33 trace Hanna Garces 09/23/24 15:33 UA Bilirubin 0 mg/dL Last Edit by MIKE Ly on 09/23/24 15:33 UA Glucose 0 mg/dL Last Edit by Hanna Garces Chadwick on 09/23/24 15:33 Assessment & Plan Assessment & Plan (1) Pelvic pain: Code(s): R10.2 - Pelvic and perineal pain Category: Medical Plan Patient pointed to the area of her SI joint area in the back left side is where she feels the discomfort. GC chlamydia, BV panel obtained. Plan pelvic ultrasound and follow up in person. Kjyc-[id number] comfort measures reviewed, and when to call/seek emergent care for significant pain. Observe for any vaginal bleeding report any heavy or prolonged episodes. If pelvic workup is negative consider having an evaluation for her back. The patient expressed understanding and agreement with the plan of care. All of her questions and concerns were addressed to the best of my ability. This note is constructed using voice recognition software. While every effort has been made to ensure accuracy, quality analyst errors may have been included. Orders: Orders AMB Urinalysis Automated Today R10.2 - Pelvic and perineal pain US pelvic and transvaginal Today R10.2 - Pelvic and perineal pain Bacterial Vaginosis Panel Today R10.2 - Pelvic and perineal pain CT NG by PCR Today R10.2 - Pelvic and perineal pain Coding Level of Care Code Est Pt Level 3 (65857) Diagnoses Pelvic pain R10.2
[2024-09-23 15:20] VITALS: BP 110/76; BMI 36.8
--- OUTSIDE RECORDS SUMMARY | 2024-09-23 17:41 | XMS_ITS | Clinical Summary ---
Author Organization [address] [facility] Address [address] [place] [address] Phone Care Team Providers Care Aircraft Loadmaster Superintendent Name Role Phone Physician, Pcp Unknown Primary Care Provider Cassy vailable Social History Tobacco Use Types Packs/Day Years Used Date Smoking Tobacco: Never Assessed Comments Unknown Sex and Gender Information Value Date Recorded Sex Assigned at Not on file Legal Sex Female 2:10 PM EDT Gender Identity Not on file Sexual Orientation Not on file Plan of Treatment Upcoming Encounters Date Type Department Care Team ([facility] st Contact Info) Description 10/26/2024 2:30 PM EDT Consult Orthopedic Surgery - [place] [id number] [phone] Dinh Alexander, DPM [address] [address] Health Maintenance Due Date Last Done Comments Breast Cancer Screening 1974 DTaP,Tdap,and Td Vaccines (1 - Tdap) 1993 Hepatitis B Vaccines (1 of 3 - 19+ 3-dose series) 1993 Cervical Cancer Screening: P ap Smear 1995 COVID-19 Vaccine ( - 2023-2 5 season) 2024 Influenza Vaccine (#1) 2024 Pneumococcal Vaccine: 50+ Ye ars (1 of 1 - PCV) 2024 Zoster Vaccines (1 of 2) 2024 Colorectal Cancer Screening: Colonoscopy 08/31/2024 Depression Screening 08/31/2024 HIV Screening 08/31/2024 Hepatitis C Screening 08/31/2024 Social Influencers of Health Screening 08/31/2024 HIB Vaccines Aged Out No longer eligi [...] on patient's age to complete this topic MMR Vaccines Aged Out No longer eligi ble based on patient's age to complete this topic Meningococcal ACWY Vaccine Aged Out N o longer eligible based on patient's age to complete this topic Meningococcal B Vacine Aged Out No lo nger eligible based on patient's age to complete this topic Pneumococcal Vaccine: Pediat rics (0 to 5 Years) and At-Risk Patients (6 to 64 Years) Aged Out No longer eligible b ased on patient's age to complete this topic RSV Immunization Patients Un triston 20 months Aged Out No longer eligible b ased on patient's age to complete this topic Varicella Vaccines Aged Out No longer eligible based on patient's age to complete this topic Insurance MEDICAID - [place] Care Teams Aircraft Loadmaster Superintendent Relationship Specialty Start Date End Date Physician, Pcp Unknown PCP - General 08/31/24
--- OUTSIDE RECORDS SUMMARY | 2024-09-23 17:41 | XMS_ITS | Encounter Summary ---
Author Organization [employer] Address [address] [facility] [address] [place] [address] Care Team Providers Care Rabbit Breeder Name Role Phone Bita Muñoz Primary Care Provider [phone] Encounter Details Date Type Department Care Team (Late st Contact Info) Description 05/03/2022 [facility] Health Information Management [address] [place] [address] Bita Muñoz FNP [address] [place] [address] Social History Tobacco Use Types Packs/Day Years [...] Care Team (Late st Contact Info) Description 10/07/2024 10:30 AM EDT Office Visit [facility] [address] [place] [address] Rebel Birch DMD [address] [place] [address] 10/22/2024 11:00 AM EDT Nurse Only [facility] [address] [place], [place] [phone] 12/02/2024 10:00 AM EDT Office Visit [facility] [address] [place] [address] Bita Muñoz FNP [address] [place] [address] documented as of this encounter Visit Diagnoses Not on filedocumented in this encounter Care Teams Rabbit Breeder Relationship Specialty Start Date End Date Bita Muñoz FNP [address] [place] [address] PCP - General Family Medicine 02/19/22 [facility] [employer] General ManagerLog Check Scaler 10/17/23 documented as of this encounter
--- OUTSIDE RECORDS SUMMARY | 2024-09-23 17:41 | XMS_ITS | Encounter Summary ---
Author Organization [employer] Address [address] [facility] [address] [place] [address] Care Team Providers Care Energy Project Engineer Name Role Phone Bita Muñoz Primary Care Provider [phone] Encounter Details Date Type Department Care Team (Late st Contact Info) Description 05/25/2022 Orders Only [facility] [address] [place] [address] Jonelle Hooker RN Social History Tobacco Use [...] Description 10/07/2024 10:30 AM EDT Office Visit [facility] [address] [place] [address] Rebel Birch, DMD [address] [place] [address] 10/22/2024 11:00 AM EDT Nurse Only [facility] [address] [place], [place] [phone] 12/02/2024 10:00 AM EDT Office Visit [facility] [address] [place] [address] Bita Muñoz FNP [address] [place] [address] documented as of this encounter Visit Diagnoses Not on filedocumented in this encounter Care Teams Energy Project Engineer Relationship Specialty Start Date End Date Bita Muñoz FNP [address] [place] [id number] PCP - General Family Medicine 02/19/22 Karen [facility] [employer] GrinderCyberathlete 10/17/23 documented as of this encounter
--- OUTSIDE RECORDS SUMMARY | 2024-09-23 17:41 | XMS_ITS | Clinical Summary ---
Author Organization [facility] Address [address] [place] [address] Care Team Providers Care Photocomposing Keyboard Operator Name Role Phone Unavailable Primary Care Provider [...] Health Maintenance Due Date Last Done Comments Anxiety Screening 1974 Dental Perio Charting 1974 HPV Screening 1974 Hepatitis C Screening 1974 Pap + HPV 1974 Cervical Cancer Screening 1995 Pap Smear 1995 Breast Cancer Screening (Mammogram) 2014 CT Colonography 2019 Colonoscopy 2019 Colorectal Cancer Screening 2019 FIT/gFOBT 2019 Fecal DNA 2019 Flexible Sigmoidoscopy 2019 Eet-USBSO-24 ( season) 2024 Imm-Influenza (#1) 2024 04/17/2023, 1 , 03/31/2021, Additional history exists Imm-Zoster, Recombinant (1 of 2) 2024 Alcohol and Drug Screen 06/24/2024 Depression Annual Screen 06/24/2024 Dental BW 01/10/2025 01/09/2024 Dental Examination 01/10/2025 01/09/2024 Hypertension Screening (#1) 01/23/2025 Tobacco Screening 01/23/2025 01/24/2024 Dental Prophy 01/25/2025 01/24/2024 Diabetes Screening 06/05/2026 06/05/2023, 1 08/06/2022, 11/07/2021, Additional history exists Lipid Screening 01/07/2029 01/08/2024 Dental FMX/Pano 01/10/2029 [...] Most Recently Relevant to Health Maintenance Insurance [place]
--- OUTSIDE RECORDS SUMMARY | 2024-09-23 17:41 | XMS_ITS | Clinical Summary ---
Author Organization [employer] Address [address] 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 dicyclomine (Bentyl) 10 MG capsule Take 1 capsule by mouth every 6 (six) hours. Active fluticasone (Flonase) 50 MCG/ACT nasal spray Administer 1-2 sprays into affected nostril(s) if needed each day. 1 Active ibuprofen 600 MG tablet Take 1 tablet by mouth if needed in the morning, at noon, and at bedtime. 1 Active sodium chloride (Pavo) 0.65 % nasal spray Administer 2 sprays into each nostril if needed each day. 0 Active guaiFENesin (Mucinex) 600 MG 12 hr tabletIndications :Acute viral syndrome Take 1 tablet (600 mg) by mouth in the morning and at bedtime. 60 tablet 2 Active cetirizine (ZyrTEC) 10 MG tabletIndications :Acute viral syndrome Take 1 tablet (10 mg) by mouth if needed each day for allergies. 90 tablet 3 3 Active ARIPiprazole (Abilify) 2 MG tablet TAKE 1 TABLET BY MOUTH ONCE DAILY FOR MOOD 4 Active FLUoxetine (PROzac) 10 MG capsule Take 10 mg by mouth Once per day. 4 Active estradiol (Estrace) 0.1 MG/GM vaginal cream INSERT 1 GRAM VAGINALLY TWICE A WEEK AT BEDTIME DIRECTED 4 Active atorvastatin (Lipitor) 80 MG tabletIndications :Dyslipidemia TAKE 1 TABLET BY MOUTH EVERY EVENING 90 tablet 3 4 Active cholecalciferol (Vitamin D-3) 25 MCG (1000 UT) tabletIndications :Vitamin D insufficiency Take 1 tablet (25 mcg) by mouth Once per day. 90 tablet 3 4 Active meclizine (Antivert) 25 MG tablet Take 1 tablet (25 mg) by mouth if needed in the morning, at noon, and at bedtime for dizziness. 30 tablet 3 4 Active traMADol (Ultram) 50 MG tablet Take 1 tablet by mouth every 6 (six) hours if needed for pain. 4 Active topiramate (Topamax) 25 MG tabletIndications :Migraine with aura and without status migrainosus, not intractable Take 1 tablet (25 mg) by mouth at bedtime. 90 tablet 1 5 07/15/19 26 Active celecoxib (CeleBREX) 100 MG capsule TAKE 1 CAPSULE BY MOUTH TWICE DAILY IN THE MORNING AND AT BEDTIME NEEDED FOR MILD PAIN 60 capsule 1 5 Active estradiol-norethi ndrone (CombiPatch) 0.05-0.14 MG/DAYIndications :Hot flashes Place 1 patch on the skin 2 (two) times a week. 8 patch 3 5 08/13/19 26 Active Active Problems Problem Noted Date Diagnosed Date [...] weather Hot flashes 07/15/2024 Assessment & Plan (09/02/2024 10:47 AM EDT): - Continue combipatch 0.05/0.14 mg/day, 2 patches/week (changing every 3-4 days). Reviewed contraindications and possible SE with pt. - Continue with lifestyle interventions as well - Well controlled, significant improvement noted s/p initiating tx. Cont current regimen Assessment & Plan (08/12/2024 4:58 PM EST): [...] hip pain 04/13/2024 Overview (08/12/2024): Following with [facility] Ortho - Dr. 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 PLAN: 1. Follow up with [facility] [place]: Not recommended for follow-up 2. Patient goal is to decrease stress level 3. Behavioral Recommendations a. Utilize coping skills provided b. Engage in therapy when established c. May reach out to [facility] for additional support Assessment & Plan (01/29/2023 5:50 PM EDT): ?? Housing is significant stressor ?? Currently housed, although not necessarily stable in the future ?? BE conducted today, please see note for further details ?? Referral to [facility] team placed Benign paroxysmal positional [...] Smoking status: non-smoker Eye Exam: 04/10/23 Dental: [facility], requested referral to [facility] dental Assessment & Plan (07/15/2024 3:37 PM EST): Referral sent to [facility] Dental Advised pt to go get Zoster vaccination at pharmacy Assessment & Plan (05/09/2023 7:52 PM EST): -Influenza and tetanus vaccines administered today Pulmonary hypertension 02/25/2015 Assessment & Plan (08/12/2024 4:16 PM EST): - Previously following with [facility] (discharged from office d/t NS) - BP [...] WNL ?? Upcoming appt to establish with [facility] ?? Well controlled with topiramate [...] seek service PLAN: 1. Follow up with [facility] [place]: Not recommended for follow-up 2. 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 Problems Problem Noted Date Diagnosed Date [...] Encounters Date Type Department Care Team Description 09/11/2024 Refill [facility] [address] [place] [address] Bita Muñoz FNP Hot flashes 09/09/2024 Telephone [facility] [address] [place] [phone] Bita Muñoz FNP ER Follow-up 09/08/2024 Orders Only GENERIC EXTERNAL DATA DEPARTMENT Provider, Generic External Data 09/02/2024 10:15 AM EDT Office Visit [facility] [address] [place] [phone] Bita Muñoz FNP Hot flashes (Primary Dx); Encounter for immunization 09/02/2024 Travel 08/31/[address] [facility] [address] [place] [phone] Lauryn Frank MA Chart Prep 08/14/[address] [facility] [address] [place] [address] Bita Muñoz FNP Cardiology Referral 08/12/2024 11:15 AM EST Office Visit [facility] [address] [place] [address] Bita Muñoz FNP Onychauxis (Primary Dx); Left hip pain; Hot flashes; Pulmonary hypertension (CMS/HCC) 08/12/2024 Travel 08/11/[address] [facility] [address] [place], [place] [phone] Lauryn Frank MA Chart Prep 07/23/2024 Refill [facility] [address] [place] [address] [phone] Natalie Sue MD 07/15/2024 2:45 PM EST Office Visit [facility] [address] [place] [address] [phone] Eros Mandel CNP Routine health maintenance (Primary Dx); Migraine with aura and without status migrainosus, not intractable; Chronic pain of left knee; Dietary counseling; Exercise counseling; Pulmonary hypertension (CMS/HCC); Hot flashes 07/03/2024 Patient Outreach [facility] [address] [place], [place] [phone] Bita Muñoz FNP Care Coordination (CHW outreach for SDOH PT-1 and food needs-referral completed /) 07/03/2024 Patient Outreach [facility] [address] [place], [place] [phone] Bita Muñoz FNP Pre-visit Planning (SDOH Screening positive and Tobacco screening negative) 06/27/2024 11:40 AM EST Office Visit [facility] [address] [place] [address] [phone] Jayjay Benjamin MD Burning with urination 06/26/2024 Telephone [facility] [address] [place] [address] [phone] Bita Muñoz FNP Nurse Triage; Referral Request from Last 3 Months Immunizations Name Administration Dates Next Due Hep B, adult 04/23/2022,08/26/2018,07/22/2018 Influenza injectable quadriv alent preservative free 04/17/2023,04/23/2022,03/31/2021,2019 Influenza, IIV3, injectable 04/01/2014, 1 Influenza, Split (incl. mando fied surface antigen) 04/24/2013,07/28/2012 Pneumococcal Conjugate PCV 20 09/02/2024 Tdap 04/17/2023,02/12/2013 Zoster, Recombinant 08/20/2024 Family History [...] the past 12 months, has t he [employer], gas, oil or water company threatened to [...] Sign Reading Time Taken Comments Blood Pressure 116/74 09/02/2024 10:16 AM EDT Pulse 88 09/02/2024 10:16 AM EDT Temperature 36.4 ??C (97.5 ??F) 09/02/2024 10:16 AM E DT Respiratory Rate 20 09/02/2024 10:16 AM EDT Oxygen Saturation 98% 09/02/2024 10:16 AM EDT Inhaled Oxygen Concentration - - Weight 78.9 kg (174 lb) 09/02/2024 10:16 AM EDT Height 147.3 cm (4' 10 ) 09/02/2024 10:16 AM EDT Body Mass Index 36.37 09/02/2024 10:16 AM EDT Plan of Treatment Upcoming Encounters Date Type Department Care Team (Late st Contact Info) Description 10/07/2024 10:30 AM EDT Office Visit [facility] [address] [place] [phone] Rebel Birch, JASWINDER [address] [place] [address] 10/22/2024 11:00 AM EDT Nurse Only [facility] [address] [place] [phone] 12/02/2024 10:00 AM EDT Office Visit [facility] [address] [place] [phone] Bita Muñoz, INVOICE CHECKER [address] [place] [address] Health Maintenance Due Date Last Done Comments CT Colonography 1975 FIT DNA/Cologuard 1975 FIT 1975 FOBT 1975 Sigmoidoscopy 1975 Zoster Vaccines (2 of 2) 10/15/2024 08/20/2024 Mammogram 10/20/2024 10/21/2023, 09/23, 01/03/2018 Influenza Vaccine (#1) 2024 3, 04/23/2022, 03/31/2021, Additional history exists Postponed from 02/23/2024 (Patient Refused) Depression Monitoring (PHQ-9) 01/12/2025 07/15/2024, 07/15/2024 Alcohol/Substance Use Screening 04/15/2025 04/15/2024 COVID-19 Vaccine ( season) 2025 Postponed from 02/23/2024 (Patient Refused) SDOH Screening 07/03/2025 07/03/2024 Depression Screening 07/15/2025 07/15/2024, 07/15/19 Family Planning (PISQ) 07/15/2025 07/15/2024 Colonoscopy 07/22/2025 07/22/2020 Colorectal Cancer Screening 07/22/2025 Tobacco Screening 09/02/2025 09/02/2024 Lipid Panel 01/07/2029 01/08/2024, 05/24, 04/23/2022, Additional [...] C Screening Completed 03/07/2023 , 04/23/2022, 11/07/2021 Pneumococcal Vaccine: 50+ Years Completed 09/02/2024 HIB Vaccines Aged Out No longer eligi [...] Procedure Name Priority Date/Time Associated Diagnosis Comments URINALYSIS, COMPLETE, WITH REFLEX TO CULTURE Routine 09/08/2024 9:[address] ABDOMEN PELVIS WO CONTRAST Routine 09/08/2024 8:36 AM EDT SLIDE REVIEW Routine 09/08/2024 6:09 AM EDT CBC WITH AUTO DIFFERENTIAL Routine 09/08/2024 6:09 AM EDT COMPREHENSIVE METABOLIC PANEL Routine 09/08/2024 6:09 AM EDT CULTURE, URINE, ROUTINE Routine 06/27/2024 10:24 AM [...] Recently Relevant to Health Maintenance Results * Urinalysis, Complete, with Reflex to Culture (09/08/2024 9:22 AM EDT) Color Urine Yellow [facility] Appearance Urine Clear [facility] PH 7.5 5.0 - 9.0 [facility] Glucose Urine UA Negative Negative mg/dL [facility] Urine Blood Negative Negative [facility] Specific [place] - Urine 1.020 1.005 - 1.025 [facility] Urine Protein Negative Neg-Trace mg/dL [facility] Urine Ketones Negative Negative mg/dL [facility] Nitrite Urine Negative Negative [facility] Leukocyte Esterase Urine Negative Negative [facility] RBC Urine 0-2 0 - 2 /HPF [facility] Urine WBC 0-5 0 - 5 /HPF [facility] Urine Squamous Epithelial Cell 0-2 0 - 2 /HPF [facility] Urine Bacteria None Seen None Seen [facility] Hyaline Casts, Urine 0-2 0 - 2 /LPF [facility] 09/08/2024 9:22 AM EDT 09/08/2024 9:26 AM EDT Narrative [facility] - 09/08/2024 9:39 AM EDT [id number], Clean Catch us Generic External Data Provider LAB URINE ORDERAB LES Final Result Performing Organization Address City/State/[facility] Co de Phone Number [facility] [address] [place] [address] [phone] * CT Abdomen Pelvis w/o Contrast (09/08/2024 8:36 AM EDT) Anatomical Region Laterality Modality Body, Pelvis, Abdomen Computed T omography 09/08/2024 8:36 AM EDT Narrative 09/08/2024 9:50 AM EDT ? [facility] ?[address] ?[place] [address] ? CT Scan Report ? Signed ? Patient: Eros Jackson,Zoila ?MR#: [id number] ?? [id number] ? : 1975 ?Acct:[id number] ? Age/Sex: 49 / F ?ADM Date: 03/18/25 ? Loc: HO.ED ? Attending Dr: ? Ordering Physician: Amber Li MD ?? Date of Service: 09/08/24 ?? Procedure(s): CT abdomen pelvis wo IV con ?? Accession Number(s): [id number] ? cc: [facility]; Amber Li MD ? Report Number: ?? [id number]: Total DLP = ??581.00 mGy-cm ?? EXAMINATION: ??CT ABDOMEN PELVIS WITHOUT IV CONTRAST ? HISTORY: left flank pain, LLQ pain ? COMPARISON: Comparison is made with the prior examination dated ?? 09/15/2022. ? TECHNIQUE: CT scan of the abdomen and pelvis was performed without ?? contrast using standard departmental protocol. ?? Coronal and sagittal ?? reformatted images were generated and reviewed. ??Oral contrast material ?? was not administered per department protocol. ? This CT exam was performed with one or more of the following dose ?? reduction techniques: automated exposure control, adjustment of the mA ?? and/or kV according to patient size, use of iterative reconstruction ?? technique. ? DLP: 581 mGy-cm ? FINDINGS: ? LOWER CHEST: The visualized lung bases are clear. There is no pleural ?? effusion. ? CARDIOVASCULATURE: The heart is normal in size. ??There is no ?? pericardial effusion. ? LIVER: ??The liver is normal in size and contour. ??The liver has an ?? unremarkable unenhanced appearance. ? GALLBLADDER / BILE DUCTS: ??The gallbladder is unremarkable. There is no ?? intra or extrahepatic biliary ductal dilatation. ? SPLEEN: The spleen is normal in size and has an unremarkable unenhanced ?? appearance. ? PANCREAS: The pancreas has an unremarkable unenhanced appearance. ? ADRENAL GLANDS: Unremarkable. ? KIDNEYS/RETROPERITONEUM: No renal or ureteral calculi are identified. ?? There is no hydronephrosis or hydroureter. ? LYMPH NODES: ??No retroperitoneal lymphadenopathy is identified in the ?? abdomen or pelvis. ? VASCULATURE: ??The abdominal aorta is normal in caliber. ? MESENTERY/PERITONEUM: No free fluid. No masses. ??There is no free ?? intraperitoneal gas. ? STOMACH: ??There is a small hiatal hernia. The remainder of the stomach ?? is collapsed. ? SMALL BOWEL: ?? The small bowel is normal in caliber. ? COLON: ??The colon is unremarkable. ? APPENDIX: ??Normal. ? URINARY BLADDER/PELVIC ORGANS: The urinary bladder is unremarkable. ? The uterus and ovaries have an unremarkable unenhanced appearance. ? BONES / SOFT TISSUES: ??No suspicious bony or soft tissue abnormalities. ? CT/CT abdomen pelvis wo IV con ?? IMPRESSION: ?? Small hiatal hernia. Otherwise unremarkable unenhanced CT of the ?? abdomen and pelvis. ? Electronically signed by: ??Blue James MD ??09/08/2024 09:47 AM EDT ? Dictated By: ?Blue James MD ? Signed By: ?<Electronically signed by Blue James MD in OV> ?09/08/2447 ? DD/ ? TD/TT: 09/08/24927 ? Health Navigator: ? Procedure Note Puma Jaquez - 09/08/[address] [place] [address] [address] Scan Report Signed Patient: Zoila PetersenMR#: [id number] : 1975Acct:[id number] Age/Sex: 49 / FADM Date: 09/08/24 Loc: HO.ED Attending Dr: Ordering Physician: Amber Li MD Date of Service: 09/08/24 Procedure(s): CT abdomen pelvis wo IV con Accession Number(s): [id number] cc: [facility]; Amber Li MD Report Number: [id number]: Total DLP = 581.00 mGy-cm EXAMINATION: CT ABDOMEN PELVIS WITHOUT IV CONTRAST HISTORY: left flank pain, LLQ pain COMPARISON: Comparison is made with the prior examination dated 09/15/2022. TECHNIQUE: CT scan of the abdomen and pelvis was performed without contrast using standard departmental protocol. Coronal and sagittal reformatted images were generated and reviewed. Oral contrast material was not administered per department protocol. This CT exam was performed with one or more of the following dose reduction techniques: automated exposure control, adjustment of the mA and/or kV according to patient size, use of iterative reconstruction technique. DLP: 581 mGy-cm FINDINGS: LOWER CHEST: The visualized lung bases are clear. There is no pleural effusion. CARDIOVASCULATURE: The heart is normal in size. There is no pericardial effusion. LIVER: The liver is normal in size and contour. The liver has an unremarkable unenhanced appearance. GALLBLADDER / BILE DUCTS: The gallbladder is unremarkable. There is no intra or extrahepatic biliary ductal dilatation. SPLEEN: The spleen is normal in size and has an unremarkable unenhanced appearance. PANCREAS: The pancreas has an unremarkable unenhanced appearance. ADRENAL GLANDS: Unremarkable. KIDNEYS/RETROPERITONEUM: No renal or ureteral calculi are identified. There is no hydronephrosis or hydroureter. LYMPH NODES: No retroperitoneal lymphadenopathy is identified in the abdomen or pelvis. VASCULATURE: The abdominal aorta is normal in caliber. MESENTERY/PERITONEUM: No free fluid. No masses. There is no free intraperitoneal gas. STOMACH: There is a small hiatal hernia. The remainder of the stomach is collapsed. SMALL BOWEL: The small bowel is normal in caliber. COLON: The colon is unremarkable. APPENDIX: Normal. URINARY BLADDER/PELVIC ORGANS: The urinary bladder is unremarkable. The uterus and ovaries have an unremarkable unenhanced appearance. BONES / SOFT TISSUES: No suspicious bony or soft tissue abnormalities. CT/CT abdomen pelvis wo IV con IMPRESSION: Small hiatal hernia. Otherwise unremarkable unenhanced CT of the abdomen and pelvis. Electronically signed by: Blue James MD 09/08/2024 09:47 AM EDT Dictated By: Blue James MD Signed By: <Electronically signed by Blue James MD in OV> 09/08/24 0947 DD/ 0836 TD/TT: 09/08/24 0928 Health Navigator: [facility] External Provider IMG CT PROCEDURES Final Result * Slide Review (09/08/2024 6:09 AM EDT) Slide Review VERIFIED [facility] 09/08/2024 6:09 AM EDT 09/08/2024 6:14 AM EDT Generic External Data Provider LAB BLOOD ORDERAB LES Final Result [facility] [address] [place] [address] [phone] * (ABNORMAL) CBC auto differential (09/08/2024 6:09 AM EDT) White Blood Count 6.9 4.8 - 10.8 X10*3/uL [facility] Red Blood Count 4.12(L) 4.20 - 5.50 X10*6/uL [facility] Hemoglobin 11.5(L) 12.0 - 16.0 g/dl [facility] Hematocrit 34.3(L) 37.0 - 47.0 % [facility] Mean Corpuscular Volume 83.3 80.0 - 98.0 fL [facility] Mean Corpuscular Hemoglobin 27.9 27.0 - 33.0 pg [facility] Mean Corpuscular HGB Conc 33.5 31.0 - 35.0 g/dl [facility] Red Cell Distribution Width 13.7 11.0 - 16.0 % [facility] Platelet Count 326 160 - 400 X10*3/uL [facility] Mean Platelet Volume 9.1(L) 9.4 - 12.3 fL [facility] Neutrophils Percent Auto 42.4(L) 45 - 73 % [facility] Imm Gran Pct Auto 0.4 0.0 - 0.4 % [facility] Lymphocytes Percent Auto 39.6 20 - 40 % [facility] Monocytes Percent Auto 15.1(H) 2 - 11 % [facility] Eosinophils Percent Auto 1.3 0 - 4 % [facility] Basophils Percent Auto 1.2 0 - 2 % [facility] NRBC Pct Auto 0.0 0.0 - 0.2 /100WBC [facility] Neutrophils Absolute Auto 2.9 2.0 - 8.3 x10*3/uL [facility] Imm Gran Abs Auto 0.03 0.00 - 0.03 X10*3/uL [facility] Lymphocytes Absolute Auto 2.7 1.2 - 4.9 X10*3/uL [facility] Monocytes Absolute Auto 1.0 0.1 - 1.2 X10*3/uL [facility] Eosinophils Absolute Auto 0.1 0.0 - 0.4 X10*3/uL [facility] Basophils Absolute Auto 0.1 0.0 - 0.2 X10*3/uL [facility] NRBC Abs Auto 0.000 0.0 - 0.012 X10*3/uL [facility] 09/08/2024 6:09 AM EDT 09/08/2024 6:14 AM EDT us Generic External Data Provider LAB BLOOD ORDERAB LES Edited Result - Final [facility] [address] [place] [phone] * (ABNORMAL) Comprehensive Metabolic Panel (09/08/2024 6:09 AM EDT) Sodium 138 135 - 145 mmol/L [facility] Potassium 4.1 3.3 - 5.1 mmol/L [facility] Chloride 109(H) 96 - 108 mmol/L [facility] Carbon Dioxide 22 22 - 29 mmol/L [facility] Anion Gap 11(L) 12 - 20 [facility] Urea Nitrogen (BUN) 15 9 - 16 mg/dL [facility] Creatinine, Serum 0.68 0.5 - 1.4 mg/dL [facility] Creatinine Clr Calc Pharmacy 88.4 [facility] Comment:Provided height and weight: 147.32 cm,80.2 kg.eGFR (calculated from the MDRD study equation) and eCrCl(calculated from the Cockcroft-Gault equation) are based ondifferent parameters and may not yield comparable results.If eCrCl result is absurd, please check patient'sheight/weight. Estimated Glomerular Filt Rate >60 [facility] Comment:Chronic Kidney Disea se: Estimated GFR < 60 mL/min/1.08u3Zfhion Kidney Disease: Estimated GFR < 15 mL/min/1.73m2 Glucose 104 60 - 115 mg/dL [facility] Calcium 9.2 8.4 - 10.2 mg/dL [facility] Bilirubin, Total 0.2 0.0 - 1.0 mg/dL [facility] Aspartate Amino Transferase 26 5 - 31 U/L [facility] Alanine Aminotransferase 12 0 - 31 U/L [facility] Total Protein 7.5 6.5 - 8.0 g/dL [facility] Albumin Level 3.7 3.5 - 5.0 g/dL [facility] Alkaline Phosphatase 46 39 - 117 U/L [facility] 09/08/2024 6:09 AM EDT 09/08/2024 6:14 AM EDT us Generic External Data Provider LAB BLOOD ORDERAB LES Final Result [facility] [address] [place] [phone] * Culture, Urine, Routine (06/27/2024 10:24 AM EST) Urine Urine specimen obtained by clean catch procedure / Unknown 06/27/2024 10:24 AM EST 06/27/2024 2:40 PM EST Comment:UACC Narrative [facility] - 06/29/2024 8:04 AM EST Urine Culture Report Result Urine Culture > 100,000 cfu/ml Urine Culture Mixed bacterial mercedez characteristic of Urine Culture urogenital contamination. Specimen Source: Urine clean catch us Jayjay Benjamin MD LAB MICROBIOLOGY - GENERAL ORDER CHUN Final Result [facility] [address] [place] [address] [phone] * POCT Urinalysis (06/27/2024 10:21 AM [...] HPV nRNA E6/E7 Not Detected Not Detected [facility] Comment:Methodology: Transcr iption-Mediated AmplificationThis assay detects E6/E7 viral messenger RNA (mRNA) from 14high-risk HPV types (16,18,31,33,35,39,45,51,52,56,58,59,66,68).Cervical sources are required for HPV testing.If a vaginal source from a patient who has had atotal hysterectomy with removal of cervix wassubmitted, please contact the testing laboratoryfor alternative testing options.For additional information, please refer [email or web address](This link if provided for information/educational purposes only.)THIS TEST WAS PERFORMED AT:[facility] [place] [phone] FULTON MD SOURCE: SEE NOTE [facility] Comment:None given Report Status: TNP [facility] Clinical Information: SEE NOTE [facility] Comment:None given LMP: SEE NOTE [facility] Comment:NONE GIVEN Prev. PAP: SEE NOTE [facility] Comment:NONE GIVEN Prev. BX: SEE NOTE [facility] Comment:NONE GIVEN Statement Of Adequacy: SEE NOTE [facility] Comment:Satisfactory for sana luation.Endocervical/transformation zone component absent. General Categorization: [facility] Interpretation/Result: SEE NOTE [facility] Comment:Cytology Results: Ne gative for intraepitheliallesion or malignancy. Cytology Comment SEE NOTE [facility] Comment:This Pap test has be en evaluated with computerassisted technology. Forensic Dna Analyst: SEE NOTE [facility] Comment:SL, CT(ASCP)CT margaritae neena location: [place] [address] Review Forensic Dna Analyst: [facility] Pathologist [facility] PAP Infection SEE NOTE [facility] Comment:Fungal organisms mor phologically consistent withCandida spp.Shift in vaginal mercedez suggestive of bacterialvaginosis. See Note SEE NOTE [facility] Comment:EXPLANATORY NOTE:The Pap is a [...] PM EDT 03/02/2024 6:27 PM EDT Narrative [facility] - 03/05/2024 12:29 PM EDT SEE SCANNED RESULTS IN EMR us Farida Tiwari CNM LAB PATHOLOGY ORDERABLES Final Result [facility] [address] [place] [address] [phone] * (ABNORMAL) Lipid Panel, Standard (01/08/2024 11:29 AM EDT) Triglycerides 103 <150 mg/dL [facility] Comment:Desirable Triglyceri de: less than 150 mg/dLBorderline High Triglyceride 150-199 mg/dLHigh Triglyceride: 200-499 mg/dLVery High Triglyceride: greater than or equal to 5OO mg/dL Cholesterol 208(H) <200 mg/dL [facility] Comment:Desirable Cholestero l: less than 200 mg/dLBorderline High Cholesterol: 200-239 mg/dLHigh Cholesterol: greater than 239 mg/dL LDL Cholesterol Calculated 140(H) <100 mg/dL [facility] Comment:Desirable LDL: less than 100 mg/dLNear Optimal/Above Optimal LDL: 110- 129 mg/dLBorderline High LDL: 130-159 mg/dLHigh LDL: 160-189 mg/dLVery High LDL: greater than or equal to 190 mg/dL HDL Cholesterol 48 >40 mg/dL [facility] Comment:Desirable HDL: great er than 40 mg/dL Note: This HDL assay may give artificially low results in patients with liver disease. Blood Venous blood specimen / Unknown 01/08/2024 11:29 AM EDT 01/08/2024 12:51 PM EDT us Bita Muñoz INVOICE CHECKER LAB BLOOD ORDERABLES Final Res ult [facility] [address] [place] [phone] * BI Mammogram Screening Tomosynthesis Bilateral (10/21/2023 11:20 AM EDT) Anatomical Region Laterality Modality Breast Bilateral Mammography 10/21/2023 11:2 0 AM EDT Narrative 11/17/2023 6:20 AM EDT ? [facility] ? [address] ?[place] [address] ? Mammography Report ? Signed ? Patient: Cooney Jackson,Zoila ?MR#: [id number] ?? [id number] ? : 1975 ?Acct:[id number] ? Age/Sex: 48 / F ?ADM Date: 04/29/24 ? Loc: HO.MAMMO ? Attending Dr: Janis Foreman CNKaren ? Ordering Physician: Janis Foreman CNM ?Results: 1Nega ?? tive ? Date of Service: 10/21/23 ?Follow Up: 1 Year From Orig ?? inal Mammogram ? Procedure(s): MM tomosynthesis screening BI ?? Accession Number(s): [id number] ? cc: Janis Foreman CNM; Bita Muñoz INVOICE CHECKER ? EXAMINATION: ?? MM SCREENING DIGITAL BREAST [...] MD in OV> ? 11/17/23616 ? DD/ 19 ? TD/TT: ? Health Navigator: ? Procedure Note Donkatieter, Image - 11/17/2023 [facility] [address] [place] [address] Mammography Report Signed Patient: Zoila PetersenMR#: [id number] : 1975Acct:[id number] Age/Sex: 48 / FADM Date: 10/21/23 Loc: HO.MAMMO Attending Dr: Janis Foreman CNM Ordering Physician: Janis Foremanesults: 1Nega tive Date of Service: 10/21/23Follow Up: 1 Year From Orig inal Mammogram Procedure(s): MM tomosynthesis screening BI Accession Number(s): [id number] cc: Janis Foreman CNM; Bita Muñoz INVOICE CHECKER EXAMINATION: MM SCREENING DIGITAL BREAST TOMOSYNTHESIS, BILATERAL [...] in OV> 11/17/23 0617 DD/ 1120 TD/TT: Health Navigator: [facility] External Provider IMG BI PROCEDURES Final Result * Hepatitis C Ab (03/07/2023 12:19 PM EDT) Hepatitis C Antibody Nonreactive Nonreactive [facility] Comment:Antibodies to HCV no t detected; does not exclude early acuteHCV infection. 03/07/2023 12:1 9 PM EDT 03/07/2023 12:19 PM EDT Generic External Data Provider LAB BLOOD ORDERAB LES Final Result [facility] [address] [place] [phone] * HIV Ab/Ag ([facility]) (03/07/2023 12:19 PM EDT) HIV AB/AG Nonreactive Nonreactive [facility] Comment:HIV-1 p24 Ag and/or HIV-1/HIV-2 Ab not detected.A test result that is nonreactive does not exclude thepossibility of exposure to or infection with HIV-1 and/orHIV-2. Nonreactive results in this assay for individualswith prior exposure to HIV-1 and/or HIV-2 may be due toantigen and antibody levels that are below the limit ofdetection of this assay.The [employer] HIV Ag/Ab Combo assay result andsupplemental assay results should be interpreted inconjunction with the patient's clinical presentation,history and other laboratory results. If the results areinconsistent with clinical evidence, additional testing issuggested to confirm the result. 03/07/2023 12:1 9 PM EDT 03/07/2023 12:19 PM EDT us Generic External Data Provider LAB BLOOD ORDERAB LES Final Result [facility] [address] [place] [address] [phone] * Colonoscopy (07/22/2020) Colonoscopy Normal Normal Comment:5 Yr F/U us Historical Provider HEALTH MAINTENANCE Edited Result - Final from Last 3 Months or Most Recently Relevant to Health Maintenance Insurance [facility] C3 DENTAL-[facility] MEDICAID STAND ADULT Care Teams Coin Machine Operator Relationship Specialty Start Date End Date Bita Muñoz FNP [address] [place] [address] PCP - General Family Medicine 02/19/22 Karen Edward Risk Management DirectorShot Grinder Operator 10/17/23
--- OUTSIDE RECORDS SUMMARY | 2024-09-23 17:41 | XMS_ITS | Encounter Summary ---
Author Organization [employer] Address [address] [facility] 7t [place] [address] Care Team Providers Care Domain Architect Name Role Phone Bita Muñoz Primary Care Provider [phone] Reason for Visit * Reason Onset Date Comments Returning Call 06/10/2024 Encounter Details Date Type Department Care Team ([facility] Contact Info) Description 06/10/2024 Telephone [facility] [address] [place] [address] Bita Muñoz FNP [address] [place] [address] Returning Call Social History Tobacco Use Types [...] Description 10/07/2024 10:30 AM EDT Office Visit [facility] ADULT DENTAL [address] [place] [address] Rebel Birch, DMD [address] [place] [address] 10/22/2024 11:00 AM EDT Nurse Only [facility] [address] [place] [address] 12/02/2024 10:00 AM EDT Office Visit [facility] [address] [place] [address] Bita Muñoz, CUSTOMER SERVICE SALES CONSULTANT [address] [place] [address] documented as of this encounter Visit Diagnoses Not on filedocumented in this encounter Additional Health Concerns Assessment Noted Time PHQ-9 Depression Total Score: 20 024 9:07 AM EDT documented as of this encounter Care Teams Domain Architect Relationship Specialty Start Date End Date Bita Muñoz FNP [address] [place] [address] PCP - General Family Medicine 02/19/22 Karen Edward Under Seal OperatorCardiologist 10/17/23 documented as of this encounter
--- OUTSIDE RECORDS SUMMARY | 2024-09-23 17:41 | XMS_ITS | Encounter Summary ---
Author Organization [employer] Address [address] [facility] 7t [place] [address] Care Team Providers Care Integrated Logistics Support Manager Name Role Phone Bita Muñoz Primary Care Provider [phone] Reason for Visit * Reason Onset Date Comments Medication Question 05/24/2022 Reviewed sym ptoms with patient and ED precautions. Pt eligible for Paxlovid, will send rx to pharmacy. Reviewed potential med interactions. Encounter Details Date Type Department Care Team ([facility] st Contact Info) Description 05/24/2022 Telephone [facility] [address] [place] [address] Bita Muñoz FNP [address] [place], [place] [phone] Medication Question (Reviewed symptoms with patient and [...] 05/23/22 and came back positive. Pt speaks nepali returning call from yesterday . documented in this encounter Plan of Treatment Upcoming Encounters Date Type Department Care Team (Late st Contact Info) Description 10/07/2024 10:30 AM EDT Office Visit [facility] ADULT DENTAL [address] [place], [place] [phone] Rebel Birch, DMD [address] [place] [address] 10/22/2024 11:00 AM EDT Nurse Only [facility] [address] [place] [address] 12/02/2024 10:00 AM EDT Office Visit [facility] [address] [place] [address] Bita Muñoz FNP [address] [place] [address] documented as of this encounter Visit Diagnoses Diagnosis COVID-19 virus infection- Primary documented in this encounter Care Teams Integrated Logistics Support Manager Relationship Specialty Start Date End Date Bita Muñoz FNP [address] [place] [address] PCP - General Family Medicine 02/19/22 Karen Edward Back HandRougher For Cement 10/17/23 documented as of this encounter
== END 2024-09-23 16:11 | disposition home or self-care (01) ==
LOC: HO.HWS 15:14
PROVIDERS: Visit Provider Advanced Practice Midwife
DX: R10.2 Pelvic and perineal pain (principal)
CPT/HCPCS: 99213

== ENCOUNTER 2024-09-23 15:14 | Outpatient (REF) | payer MEDICAID, SELFPAY ==
[2024-09-24 02:28] LABS: CT PCR NOT DETECTED (Not Detect.); NG PCR NOT DETECTED (Not Detect.)
[2024-09-24 09:00] LABS: Bacterial Vaginosis PCR POSITIVE (Negative); Candida Group PCR NOT DETECTED (Not Detect); Candida glab krusei PCR NOT DETECTED (Not Detect); Trichomonas vaginalis PCR NOT DETECTED (Not Detect)
== END 2024-09-23 15:15 | disposition home or self-care (01) ==
LOC: HO.LAB 15:14
PROVIDERS: Visit Provider Advanced Practice Midwife
DX: R10.2 Pelvic and perineal pain (principal)
CPT/HCPCS: 81003; 81515; 87491; 87591; 99212; 99459

== ENCOUNTER 2024-09-23 15:32 | Outpatient (REF) | payer MEDICAID, SELFPAY | END 2024-09-23 15:33 | disposition home or self-care (01) | LOC: HO.LNP 15:32 | PROVIDERS: Visit Provider Advanced Practice Midwife | DX: Z13.89 Encounter for screening for other disorder (principal) ==

== ENCOUNTER 2024-10-26 10:52 | Outpatient (REF) | payer MEDICAID, SELFPAY ==
--- OUTSIDE RECORDS SUMMARY | 2024-10-26 12:28 | XMS_ITS | Encounter Summary ---
Author Organization [employer] Address [address] [facility] 7t [place] [address] Care Team Providers Care Asbestos Shingle Roofer Name Role Phone Bita Muñoz Primary Care Provider [phone] Reason for Visit * Reason Onset Date Comments Returning Call 06/10/2024 Encounter Details Date Type Department Care Team ([facility] Contact Info) Description 06/10/2024 Telephone [facility] [address] [place] [address] Bita Muñoz FNP [address] [place] [address] Returning Call Social History Tobacco Use Types [...] Care Team (Late st Contact Info) Description 10/29/2024 8:30 AM EDT Office Visit [facility] ADULT DENTAL [address] [place] [address] Rebel Birch, DMD [address] [place] [address] 12/02/2024 10:00 AM EDT Office Visit [facility] MED[facility] [address] [place] [address] Bita Muñoz, MOLDED PARTS INSPECTOR [address] [place] [address] 04/12/2025 10:00 AM EDT Office Visit [facility] OPTOMETRY [address] [place] [address] Barbara Mayes, OD [address] [place] [address] 04/21/2025 10:00 AM EDT Office Visit [facility] ADULT DENTAL [address] [place] [address] Viri Bennett [address] [place] [address] documented as of this encounter Visit Diagnoses Not on filedocumented in this encounter Additional Health Concerns Assessment Noted Time PHQ-9 Depression Total Score: 20 024 9:07 AM EDT documented as of this encounter Care Teams Asbestos Shingle Roofer Relationship Specialty Start Date End Date Bita Muñoz FNP [address] [place] [address] PCP - General Family Medicine 02/19/22 Karen Edward Book Jacket Cover Machine OperatorScrum Master 10/17/23 documented as of this encounter
--- OUTSIDE RECORDS SUMMARY | 2024-10-26 12:28 | XMS_ITS | Encounter Summary ---
Author Organization [employer] Address [address] [facility] 7t [place] [address] Care Team Providers Care Order Entry Representative Name Role Phone Bita Muñoz Primary Care Provider [phone] Reason for Visit * Reason Onset Date Comments Medication Question 05/24/2022 Reviewed sym ptoms with patient and ED precautions. Pt eligible for Paxlovid, will send rx to pharmacy. Reviewed potential med interactions. Encounter Details Date Type Department Care Team ([facility] st Contact Info) Description 05/24/2022 Telephone [facility] [address] [place] [address] Bita Muñoz FNP [address] [place], [place] [phone] Medication Question (Reviewed symptoms with patient and [...] 05/23/22 and came back positive. Pt speaks kosovan returning call from yesterday . documented in this encounter Plan of Treatment Upcoming Encounters Date Type Department Care Team (Late st Contact Info) Description 10/29/2024 8:30 AM EDT Office Visit [facility] ADULT DENTAL [address] [place] [address] Rebel Birch, DMD [address] [place] [address] 12/02/2024 10:00 AM EDT Office Visit [facility] [address] [place] [address] Bita Muñoz FNP [address] [place] [address] 04/12/2025 10:00 AM EDT Office Visit [facility] OPTOMETRY [address] [place] [address] Gerber, Barbara, OD [address] [place] [address] 04/21/2025 10:00 AM EDT Office Visit [facility] ADULT DENTAL [address] [place] [address] Sabrina, Viri [address] [place] [address] documented as of this encounter Visit Diagnoses Diagnosis COVID-19 virus infection- Primary documented in this encounter Care Teams Order Entry Representative Relationship Specialty Start Date End Date Bita Muñoz FNP [address] [place] [address] PCP - General Family Medicine 02/19/22 Karen Edward Catalogue LibrarianWire Repairer 10/17/23 documented as of this encounter
--- OUTSIDE RECORDS SUMMARY | 2024-10-26 12:28 | XMS_ITS | Encounter Summary ---
Author Organization [employer] Address [address] [facility] [address] [place] [address] Care Team Providers Care Tobacco Drier Operator Name Role Phone Bita Muñoz Primary Care Provider [phone] Encounter Details Date Type Department Care Team (Late st Contact Info) Description 05/25/2022 Orders Only [facility] [address] [place] [address] Jonelle Hooker RN Social History Tobacco Use [...] Description 10/29/2024 8:30 AM EDT Office Visit [facility] ADULT DENTAL [address] [place] [address] Rebel Birch, DMD [address] [place] [address] 12/02/2024 10:00 AM EDT Office Visit [facility] MEDICINE [address] [place] [address] Bita Muñoz FNP [address] [place] [address] 04/12/2025 10:00 AM EDT Office Visit [facility] OPTOMETRY [address] [place] [address] Barbara Mayes, OD [address] [place] [address] 04/21/2025 10:00 AM EDT Office Visit [facility] ADULT DENTAL [address] [place] [address] Sabrina, Viri [address] [place] [address] documented as of this encounter Visit Diagnoses Not on filedocumented in this encounter Care Teams Tobacco Drier Operator Relationship Specialty Start Date End Date Bita Muñoz FNP [address] [place] [address] PCP - General Family Medicine 02/19/22 Karen Edward Carbon Furnace OperatorTube Balancer 10/17/23 documented as of this encounter
--- OUTSIDE RECORDS SUMMARY | 2024-10-26 12:28 | XMS_ITS | Encounter Summary ---
Author Organization [employer] Address [address] [facility] 7t [place] [address] Care Team Providers Care Light Industrial Supervisor Name Role Phone Bita Muñoz GLOBAL HEAD AD[employer] Primary Care Provider [phone] Encounter Details Date Type Department Care Team (Latest Contact Info) Description 10/22/2024 Travel Social History Tobacco Use Types Packs/Day [...] t he electric, gas, oil or water [id number] threatened to shut off services in your [...] Description 10/29/2024 8:30 AM EDT Office Visit [facility] ADULT DENTAL [address] [place] [address] Rebel Birch, DMD [address] [place] [address] 12/02/2024 10:00 AM EDT Office Visit [facility] MEDICINE [address] [place] [address] Bita Muñoz FNP [address] [place] [address] 04/12/2025 10:00 AM EDT Office Visit [facility] OPTOMETRY [address] [place] [address] Gerber, Barbara, OD [address] [place] [address] 04/21/2025 10:00 AM EDT Office Visit [facility] ADULT DENTAL [address] [place] [address] Sabrina, Viri [address] [place] [address] documented as of this encounter Visit Diagnoses Not on filedocumented in this encounter Additional Health Concerns Assessment Noted Time PHQ-9 Depression Total Score: 10 025 3:23 PM EST documented as of this encounter Care Teams Light Industrial Supervisor Relationship Specialty Start Date End Date Bita Muñoz FNP [address] [place] [address] PCP - General Family Medicine 02/19/22 Karen Edward Senior Quality ManagerManager Of Distribution 10/17/23 documented as of this encounter
--- OUTSIDE RECORDS SUMMARY | 2024-10-26 12:28 | XMS_ITS | Clinical Summary ---
Author Organization [address] [facility] Address [address] [place] [address] Phone Care Team Providers Care Open Soaper Tender Name Role Phone Physician, Pcp Unknown Primary [...] Upcoming Encounters Date Type Department Care Team ([facility] st Contact Info) Description 10/26/2024 2:30 PM EDT Consult Orthopedic Surgery - [place] [address] [phone] Dinh Alexander, DPM [address] [address] Health Maintenance Due Date Last Done Comments Breast Cancer Screening 1975 DTaP,Tdap,and Td Vaccines (1 - Tdap) 1993 Hepatitis B Vaccines (1 of 3 - 19+ 3-dose series) 1993 Cervical Cancer Screening: P ap Smear 1995 COVID-19 Vaccine ( - 2023-2 5 season) 2024 Pneumococcal Vaccine: 50+ Ye ars (1 of 1 - PCV) 2024 Zoster Vaccines (1 of 2) 2024 Colorectal Cancer Screening: Colonoscopy 08/31/2024 Depression Screening 08/31/2024 HIV Screening 08/31/2024 Hepatitis C Screening 08/31/2024 Social Influencers of Health Screening 08/31/2024 Influenza Vaccine (Season Ended) 2025 HIB Vaccines Aged Out No longer eligi [...] age to complete this topic Meningococcal B Vaccine Aged Out No l onger eligible based on patient's age to complete [...] topic Insurance MEDICAID - [place] Care Teams Open Soaper Tender Relationship Specialty Start Date End Date Physician, Pcp Unknown PCP - General 08/31/24
--- OUTSIDE RECORDS SUMMARY | 2024-10-26 12:28 | XMS_ITS | Clinical Summary ---
Author Organization [facility] Address [address] [place] [address] Care Team Providers Care Impress Associate Name Role Phone Unavailable Primary Care Provider [...] 2019 Fecal DNA 2019 Flexible Sigmoidoscopy 2019 [id number] ( season) 2024 Imm-Influenza (#1) 2024 04/17/2023, [...] Most Recently Relevant to Health Maintenance Insurance [place]
--- OUTSIDE RECORDS SUMMARY | 2024-10-26 12:28 | XMS_ITS | Clinical Summary ---
Author Organization [employer] Address [address] [place] [address] Care Team Providers Care Prison Guard Supervisor Name Role Phone Bita Muñoz STOCK ASSOCIATE Primary Care Provider [phone] Allergies No known active allergies Medications * [...] and at bedtime. 1 Active sodium chloride (Power) 0.65 % nasal spray Administer 2 sprays [...] Active Problems Problem Noted Date Diagnosed Date Periodontal disease 10/08/2024 Dental caries 10/08/2024 Missing teeth, acquired 10/08/2024 Hyperlipidemia 07/15/2024 Dietary counseling 07/15/2024 Assessment & [...] hip pain 04/13/2024 Overview (08/12/2024): Following with [facility] - Dr. Bergman MRI completed [...] - No acute changes - Following with [facility], consult scheduled next week to [...] Plan (01/13/2024 8:05 PM EDT): Following with [facility] UroGYN - Vicenta Robison, WEB DEVELOPER PROGRAMMER Continues on vaginal estrogen through specialist, has [...] stage. PLAN: 1. Follow up with [facility]: Not recommended for follow-up 2. Patient goal is to decrease stress level 3. Behavioral Recommendations a. Utilize coping skills provided b. Engage in therapy when established c. May reach out to [facility] for additional support Assessment & Plan (01/29/2023 5:50 PM EDT): ?? Housing is significant stressor ?? Currently housed, although not necessarily stable in the future ?? BE conducted today, please see note for further details ?? Referral to [facility] team placed Benign paroxysmal positional vertigo [...] Exam: 04/10/23 Dental: [facility], requested referral to [facility] dental Assessment & Plan (07/15/2024 3:37 PM EST): Referral sent to [facility] Dental Advised pt to go get [...] WNL ?? Upcoming appt to establish with [facility] Neurology ?? Well controlled with topiramate [...] service PLAN: 1. Follow up with [facility]: Not recommended for follow-up 2. Patient goal [...] endometrium and normal-appearing ovaries -Continue following with [facility] WIRE WORKER Resolved Problems Problem Noted Date Diagnosed Date [...] Encounters Date Type Department Care Team Description 10/22/2024 Travel 10/19/2024 Population Health Risk Score [facility] () Department [address] [phone] Provider, Population Health Generic 10/19/2024 Telephone [facility] [address] [place] [address] Bita Muñoz FNP Referral 10/15/2024 Refill [facility] [address] [place] [address] Bita Muñoz FNP Hot flashes 10/08/2024 9:00 AM EDT Office Visit [facility] ADULT DENT[facility] [address] [place] [address] Viri Bennett Periodontal disease (Primary Dx); Dental caries; Missing teeth, acquired 10/07/2024 10:30 AM EDT Office Visit [facility] [address] [place] [address] Rebel Birch DMD Routine health maintenance 09/23/2024 Orders Only GENERIC EXTERNAL DATA DEPARTMENT Provider, Generic External Data 09/11/2024 Refill [facility] [address] [place] [address] Bita Muñoz FNP Hot flashes 09/09/[address] [address] Bita Muñoz, STOCK ASSOCIATE ER Follow-up 09/08/2024 Orders Only GENERIC EXTERNAL DATA DEPARTMENT Provider, Generic External Data 09/02/2024 10:15 AM EDT Office Visit [address] [address] Bita Muñoz FNP Hot flashes (Primary Dx); Encounter for immunization 09/02/2024 Travel 08/31/2024 Telephone [facility] [address] [place] [address] Lauryn Frank MA Chart Prep 08/14/2024 Telephone [facility] [address] [place] [address] Bita Muoñz FNP Cardiology Referral 08/12/2024 11:15 AM EST Office Visit [address] [address] Bita Muñoz, ARLET Onychauxis (Primary Dx); Left hip pain; Hot flashes; Pulmonary hypertension ([facility]/HCC) 08/12/2024 Travel 08/11/2024 Telephone [facility] [address] [place] [address] Lauryn Frank MA Chart Prep from Last 3 Months Immunizations Name Administration [...] Sign Reading Time Taken Comments Blood Pressure 122/78 10/08/2024 8:59 AM EDT Pulse 64 10/07/2024 10:16 AM EDT Temperature 36.4 ??C (97.5 [...] Description 10/29/2024 8:30 AM EDT Office Visit [facility] [address] [place] [address] Rebel Birch, DMD [address] [place] [address] 12/02/2024 10:00 AM EDT Office Visit [facility] [address] [place] [address] Bita Muñoz, STOCK ASSOCIATE [address] [place] [address] 04/12/2025 10:00 AM EDT Office Visit [facility] [address] [place] [address] Gerber, Barbara, OD [address] [place] [address] 04/21/2025 10:00 AM EDT Office Visit [facility] ADULT [facility] [address] [place] [address] Sabrina, Viri [address] [place] [address] Health Maintenance Due Date Last Done Comments CT Colonography 1975 FIT DNA/Cologuard 1975 FIT 1975 FOBT 1975 Sigmoidoscopy 1975 Mammogram 10/20/2024 10/21/2023, 09/23, 01/03/2018 Influenza Vaccine (#1) 2024 3, 04/23/2022, 03/31/2021, Additional history exists Postponed from 02/23/2024 (Patient Refused) Dental Oral Exam 04/09/2025 10/07/2024, 12/15/2013 Dental Prophylaxis 04/10/2025 10/08/2024, 04/26/2008 Alcohol/Substance Use Screening 04/15/2025 04/15/2024 COVID-19 Vaccine ( season) 2025 Postponed from 02/23/2024 (Patient Refused) SDOH Screening 07/03/2025 07/03/2024 Depression Screening 07/15/2025 07/15/2024, 07/15/19 Family Planning (PISQ) 07/15/2025 07/15/2024 Colonoscopy 07/22/2025 07/22/2020 Colorectal Cancer Screening 07/22/2025 Dental X-Ray: Bitewings 10/08/2025 10/08/19, 12/15/2013, 04/26/2008 Tobacco Screening 10/08/2025 10/08/2024 Dental X-Ray: Full Mouth 10/09/2027 10/07/2024, 11/23 Lipid Panel 01/07/2029 01/08/2024, 05/24, 04/23/2022, Additional [...] 11/07/2021 Pneumococcal Vaccine: 50+ Years Completed 09/02/2024 Zoster Vaccines Completed 10/22/2024, 08/20/2024 HIB Vaccines Aged Out No longer eligi [...] Procedure Name Priority Date/Time Associated Diagnosis Comments CASE PRESENTATION, DETAILED AND EXTENSIVE TREATMENT PLANNING Routine 10/08/2024 9:00 AM EDT Periodontal disease Dental caries Missing teeth, acquired ORAL HYGIENE INSTRUCTIONS Routine 10/08/2024 9:00 AM EDT Periodontal disease Dental caries PROPHYLAXIS - ADULT Routine 10/08/2024 9 :00 AM EDT Periodontal disease Dental caries CASE PRESENTATION, DETAILED AND EXTENSIVE TREATMENT PLANNING Routine 10/07/2024 10:30 AM EDT INTRAORAL - COMPLETE SERIES OF RADIOGRAPHIC IMAGES Routine 10/07/2024 10:30 AM EDT PERIODIC ORAL EVALUATION - ESTABLISHED PATIENT Routine 10/07/2024 10:30 AM EDT 12 DO COMPOSITE FILLING Routine 10/07/2024 12:00 AM EDT BACTERIAL VAGINOSIS PANEL Routine 09/23/2024 3:14 PM EDT CHLAMYDIA/N. GONORRHOEAE RNA, TMA, UROGENITAL Routine 09/23/2024 3:14 PM EDT URINALYSIS, COMPLETE, WITH REFLEX TO CULTURE Routine 09/08/2024 9:[address] ABDOMEN PELVIS WO CONTRAST Routine 09/08/2024 8:36 AM EDT SLIDE REVIEW Routine 09/08/2024 6:09 AM EDT CBC WITH AUTO DIFFERENTIAL Routine 09/08/2024 6:09 AM EDT COMPREHENSIVE METABOLIC PANEL Routine 09/08/2024 6:09 AM EDT THINPREP IMAGING PAP AND HPV MRNA E6/E7 [...] Recently Relevant to Health Maintenance Results * (ABNORMAL) Bacterial Vaginosis (09/23/2024 3:14 PM EDT) TRICHOMONAS VAGINALIS DETECTION BY PCR NOT DETECTED Not Detect [facility] BACTERIAL VAGINOSIS DETECTION BY PCR POSITIVE(A) Negative [facility] Comment:The BV organism targ ets of the Xpert Xpress MVP test can becommensal in women; Xpert Xpress MVP positive results forbacterial vaginosis should be considered in conjunction withother clinical and patient information to determine thedisease status. Organisms that are not detected by the XpertXpress MVP test have also been reported to be associatedwith BV and aerobic vaginitis.The Xpert Xpress MVP test performance has not been evaluatedin patients under the age of 14. GLADIS GROUP DETECTION BY PCR NOT DETECTED Not Detect [facility] Gladis glab krusei PCR NOT DETECTED Not Detect [facility] 09/23/2024 3:14 PM EDT 09/23/2024 4:37 PM EDT us Generic External Data Provider LAB MICROBIOLOGY - GENERAL ORDERABLES Final Result [facility] [address] [place] [address] [phone] * Chlamydia/N. Gonorrhoeae RNA, TMA, Urogenitial (09/23/2024 3:14 PM EDT) CT PCR NOT DETECTED Not Detect. [facility] Comment:A not detected test result does not exclude the possibilityof infection because test results can be affected byimproper specimen collection, concurrent antibiotic therapy,or the number of organisms in the specimen which may bebelow the sensitivity of the test. As with many diagnostictests, results from the Xpert CT/NG assay should beinterpreted in conjunction with other laboratory andclinical data available to the clinician.Xpert CT/NG performance has not been evaluated in patientsless than 14 years of age. The assay should not be used forthe evaluationof suspected sexual abuse or for other medico-legalindications. Additional testing is recommended in anycircumstance when false positive or false negative resultscould lead to adverse medical, social or psychologicalconsequences. NG PCR NOT DETECTED Not Detect. [facility] Comment:A not detected test result does not exclude the possibilityof infection because test results can be affected byimproper specimen collection, concurrent antibiotic therapy,or the number of organisms in the specimen which may bebelow the sensitivity of the test. As with many diagnostictests, results from the Xpert CT/NG assay should beinterpreted in conjunction with other laboratory andclinical data available to the clinician.Xpert CT/NG performance has not been evaluated in patientsless than 14 years of age. The assay should not be used forthe evaluationof suspected sexual abuse or for other medico-legalindications. Additional testing is recommended in anycircumstance when false positive or false negative resultscould lead to adverse medical, social or psychologicalconsequences. 09/23/2024 3:14 PM EDT 09/23/2024 4:37 PM EDT Narrative [facility] - 09/24/2024 2:28 AM EDT Vaginal us Generic External Data Provider LAB MICROBIOLOGY - GENERAL ORDERABLES Final Result [facility] [address] [place] [address] [phone] * Urinalysis, Complete, with Reflex to Culture (09/08/2024 9:22 AM EDT) Color Urine Yellow [facility] Appearance Urine Clear [facility] PH 7.5 5.0 - 9.0 [facility] Glucose Urine UA Negative Negative mg/dL [facility] Urine Blood Negative Negative [facility] Specific [place] - Urine 1.020 1.005 - 1.025 [facility] Urine Protein Negative Neg-Trace mg/dL [facility] Urine Ketones Negative Negative mg/dL [facility] Nitrite Urine Negative Negative [facility] Leukocyte Esterase Urine Negative Negative [facility] RBC Urine 0-2 0 - 2 /HPF [facility] Urine WBC 0-5 0 - 5 /HPF [facility] Urine Squamous Epithelial Cell 0-2 0 - 2 /HPF [facility] Urine Bacteria None Seen None Seen [facility] Hyaline Casts, Urine 0-2 0 - 2 /LPF [facility] 09/08/2024 9:22 AM EDT 09/08/2024 9:26 AM EDT Narrative [facility] - 09/08/2024 9:39 AM EDT [id number], Clean Catch us Generic External Data Provider LAB URINE ORDERAB LES Final Result Performing Organization Address [facility]/ZIP Co de Phone Number [facility] [address] [place] [address] [phone] * CT Abdomen Pelvis w/o Contrast (09/08/2024 8:36 AM EDT) Anatomical Region Laterality Modality Body, Pelvis, Abdomen Computed T omography 09/08/2024 8:36 AM EDT Narrative 09/08/2024 9:50 AM EDT ? [facility] ?[address] ?[place] [address] ? CT Scan Report ? Signed ? Patient: Eros Jackson,Zoila ?MR#: [id number] ?? [id number] ? : 1975 ?Acct:[id number] ? Age/Sex: 49 / F ?ADM Date: 09/08/24 ? Loc: HO.ED ? Attending Dr: ? Ordering Physician: Amber Li MD ?? Date of Service: 09/08/24 ?? Procedure(s): CT abdomen pelvis wo IV con ?? Accession Number(s): [id number] ? cc: [facility]; Amber Li MD ? Report Number: ?? [id number]: Total DLP = ??581.00 mGy-cm ?? EXAMINATION: [...] ??Blue James MD ??09/08/2024 09:47 AM EDT ?? RP ? Dictated By: ?Blue James MD ? Signed By: ?<Electronically signed by Blue James MD in OV> ?09/08/24 0947 ? DD/ 0836 ? TD/TT: 09/08/24 0928 ? Chief Meteorologist: ? Procedure Note Gisele, Image - 09/08/[address] [address] [address] Scan Report Signed Patient: Zoila Petersen#: [id number] : 1975Acct:[id number] Age/Sex: 49 / FADM Date: 09/08/24 Loc: HO.ED Attending Dr: Ordering Physician: Amber Li MD Date of Service: 09/08/24 Procedure(s): CT abdomen pelvis wo IV con Accession Number(s): [id number] cc: [facility]; Amber Li MD Report Number: [id number]: Total DLP = 581.00 mGy-cm EXAMINATION: CT [...] Blue James MD 09/08/2024 09:47 AM EDT RP Dictated By: Blue James MD Signed By: <Electronically signed by Blue James MD in OV> 09/08/24 0947 DD/ TD/TT: 09/08/24 09 Chief Meteorologist: us [facility] External Provider IMG CT PROCEDURES Final Result * Slide Review (09/08/2024 6:09 AM EDT) Slide Review VERIFIED [facility] 09/08/2024 6:09 AM EDT 09/08/2024 6:14 AM EDT Generic External Data Provider LAB BLOOD ORDERAB LES Final Result [facility] [address] [place] [phone] * (ABNORMAL) CBC auto differential (09/08/2024 6:09 AM EDT) White Blood Count 6.9 4.8 - 10.8 X10*3/uL [facility] Red Blood Count 4.12(L) 4.20 - 5.50 X10*6/uL [facility] Hemoglobin 11.5(L) 12.0 - 16.0 g/dl [facility] Hematocrit 34.3(L) 37.0 - 47.0 % [facility] Mean Corpuscular Volume 83.3 80.0 - 98.0 fL [facility] Mean Corpuscular Hemoglobin 27.9 27.0 - 33.0 pg [facility] Mean Corpuscular HGB Conc 33.5 31.0 - 35.0 g/dl [facility] Red Cell Distribution Width 13.7 11.0 - 16.0 % [facility] Platelet Count 326 160 - 400 X10*3/uL [facility] Mean Platelet Volume 9.1(L) 9.4 - 12.3 fL [facility] Neutrophils Percent Auto 42.4(L) 45 - 73 % [facility] Imm Gran Pct Auto 0.4 0.0 - 0.4 % [facility] Lymphocytes Percent Auto 39.6 20 - 40 % [facility] Monocytes Percent Auto 15.1(H) 2 - 11 % [facility] Eosinophils Percent Auto 1.3 0 - 4 % [facility] Basophils Percent Auto 1.2 0 - 2 % [facility] NRBC Pct Auto 0.0 0.0 - 0.2 /100WBC [facility] Neutrophils Absolute Auto 2.9 2.0 - 8.3 x10*3/uL [facility] Imm Gran Abs Auto 0.03 0.00 - 0.03 X10*3/uL [facility] Lymphocytes Absolute Auto 2.7 1.2 - 4.9 X10*3/uL [facility] Monocytes Absolute Auto 1.0 0.1 - 1.2 X10*3/uL [facility] Eosinophils Absolute Auto 0.1 0.0 - 0.4 X10*3/uL [facility] Basophils Absolute Auto 0.1 0.0 - 0.2 X10*3/uL [facility] NRBC Abs Auto 0.000 0.0 - 0.012 X10*3/uL [facility] 09/08/2024 6:09 AM EDT 09/08/2024 6:14 AM EDT us Generic External Data Provider LAB BLOOD ORDERAB LES Edited Result - Final [facility] [address] [place] [address] [phone] * (ABNORMAL) Comprehensive Metabolic Panel (09/08/2024 6:09 AM EDT) Sodium 138 135 - 145 mmol/L [facility] Potassium 4.1 3.3 - 5.1 mmol/L [facility] Chloride 109(H) 96 - 108 mmol/L [facility] Carbon Dioxide 22 22 - 29 mmol/L [facility] Anion Gap 11(L) 12 - 20 [facility] Urea Nitrogen (BUN) 15 9 - 16 mg/dL [facility] Creatinine, Serum 0.68 0.5 - 1.4 mg/dL [facility] Creatinine Clr Calc Pharmacy 88.4 [facility] Comment:Provided height and weight: 147.32 cm,80.2 kg.eGFR (calculated from the MDRD study equation) and eCrCl(calculated from the Cockcroft-Gault equation) are based ondifferent parameters and may not yield comparable results.If eCrCl result is absurd, please check patient'sheight/weight. Estimated Glomerular Filt Rate >60 [facility] Comment:Chronic Kidney Disea se: Estimated GFR < 60 mL/min/1.10n9Lqncam Kidney Disease: Estimated GFR < 15 mL/min/1.73m2 Glucose 104 60 - 115 mg/dL [facility] Calcium 9.2 8.4 - 10.2 mg/dL [facility] Bilirubin, Total 0.2 0.0 - 1.0 mg/dL [facility] Aspartate Amino Transferase 26 5 - 31 U/L [facility] Alanine Aminotransferase 12 0 - 31 U/L [facility] Total Protein 7.5 6.5 - 8.0 g/dL [facility] Albumin Level 3.7 3.5 - 5.0 g/dL [facility] Alkaline Phosphatase 46 39 - 117 U/L [facility] 09/08/2024 6:09 AM EDT 09/08/2024 6:14 AM EDT us Generic External Data Provider LAB BLOOD ORDERAB LES Final Result [facility] [address] [place] [phone] * ThinPrep Imaging Pap and HPV mRNA E6/E7 (03/02/2024 12:10 PM EDT) HPV nRNA E6/E7 Not Detected Not Detected [facility] Comment:Methodology: Transcr iption-Mediated AmplificationThis assay detects E6/E7 viral messenger RNA (mRNA) from 14high-risk HPV types (16,18,31,33,35,39,45,51,52,56,58,59,66,68).Cervical sources are required for HPV testing.If a vaginal source from a patient who has had atotal hysterectomy with removal of cervix wassubmitted, please contact the testing laboratoryfor alternative testing options.For additional information, please refer [email or web address]/KRB790t7(This link if provided for information/educational purposes only.)THIS TEST WAS PERFORMED AT:[employer] [address] [phone] FULTON MD SOURCE: SEE NOTE [facility] Comment:None given Report Status: [facility] Clinical Information: SEE NOTE [facility] Comment:None given LMP: SEE NOTE [facility] Comment:NONE GIVEN Prev. PAP: SEE NOTE [facility] Comment:NONE GIVEN Prev. BX: SEE NOTE [facility] Comment:NONE GIVEN Statement Of Adequacy: SEE NOTE [facility] Comment:Satisfactory for sana luation.Endocervical/transformation zone component absent. General Categorization: [facility] Interpretation/Result: SEE NOTE [facility] Comment:Cytology Results: Ne gative for intraepitheliallesion or malignancy. Cytology Comment SEE NOTE [facility] Comment:This Pap test has be en evaluated with computerassisted technology. Preventive Medicine Officer: SEE NOTE [facility] Comment:SL, CT(ASCP)CT brian chaudhary location: [address] [address] Review Preventive Medicine Officer: [facility] Pathologist [facility] PAP Infection SEE NOTE [facility] Comment:Fungal organisms mor phologically consistent withCandida spp.Shift in vaginal mercedez suggestive of bacterialvaginosis. See Note SEE [facility] Comment:EXPLANATORY NOTE:The Pap is a [...] PM EDT 03/02/2024 6:27 PM EDT Narrative [facility] - 03/05/2024 12:29 PM EDT SEE SCANNED RESULTS IN EMR us Farida Tiwari CNM LAB PATHOLOGY ORDERABLES Final Result [facility] [address] [place], [place] [phone] * (ABNORMAL) Lipid Panel, Standard (01/08/2024 11:29 AM EDT) Triglycerides 103 <150 mg/dL [facility] Comment:Desirable Triglyceri de: less than 150 mg/dLBorderline High Triglyceride 150-199 mg/dLHigh Triglyceride: 200-499 mg/dLVery High Triglyceride: greater than or equal to 5OO mg/dL Cholesterol 208(H) <200 mg/dL [facility] Comment:Desirable Cholestero l: less than 200 mg/dLBorderline High Cholesterol: 200-239 mg/dLHigh Cholesterol: greater than 239 mg/dL LDL Cholesterol Calculated 140(H) <100 mg/dL [facility] Comment:Desirable LDL: less than 100 mg/dLNear Optimal/Above Optimal LDL: 110- 129 mg/dLBorderline High LDL: 130-159 mg/dLHigh LDL: 160-189 mg/dLVery High LDL: greater than or equal to 190 mg/dL HDL Cholesterol 48 >40 mg/dL [facility] Comment:Desirable HDL: great er than 40 mg/dL Note: This HDL assay may give artificially low results in patients with liver disease. Blood Venous blood specimen / Unknown 01/08/2024 11:29 AM EDT 01/08/2024 12:51 PM EDT us Bita Muñoz STOCK ASSOCIATE LAB BLOOD ORDERABLES Final Res ult [facility] [address] [place] [address] [phone] * BI Mammogram Screening Tomosynthesis Bilateral (10/21/2023 11:20 AM EDT) Anatomical Region Laterality Modality Breast Bilateral Mammography 10/21/2023 11:2 0 AM EDT Narrative 11/17/2023 6:20 AM EDT ? [facility] [place] ? [address] ?[place] [address] ? Mammography Report ? Signed ? Patient: Zoila Petersen ?MR#: [id number] ?? [id number] ? : 1975 ?Acct:[id number] ? Age/Sex: 48 / F ?ADM Date: 10/21/23 ? Loc: HO.MAMMO ? Attending Dr: Janis Foreman CNM ? Ordering Physician: Janis Foreman CNKaren ?Results: 1Nega ?? tive ? Date of Service: 10/21/23 ?Follow Up: 1 Year From Orig ?? inal Mammogram ? Procedure(s): MM tomosynthesis screening BI ?? Accession Number(s): [id number] ? cc: Janis Foreman CNM; Bita Muñoz STOCK ASSOCIATE ? EXAMINATION: ?? MM SCREENING DIGITAL BREAST [...] by Aurelia Villar MD in OV> ? 11/17/23 0617 ? DD/ 1120 ? TD/TT: ? Chief Meteorologist: ? Procedure Note Gisele, Image - 11/17/2023 [facility] [address] [place] [address] Mammography Report Signed Patient: Zoila Petersen#: [id number] : 1975Acct:[id number] Age/Sex: 48 / FADM Date: 10/21/23 Loc: ELAN Attending Dr: Janis Foreman CNM Ordering Physician: Janis Foremanesults: 1Nega tive Date of Service: 10/21/23Follow Up: 1 Year From Orig inal Mammogram Procedure(s): MM tomosynthesis screening BI Accession Number(s): [id number] cc: Janis Foreman CNM; Bita Muñoz STOCK ASSOCIATE EXAMINATION: MM SCREENING DIGITAL BREAST TOMOSYNTHESIS, BILATERAL [...] in OV> 11/17/23 0617 DD/ 1120 TD/TT: Chief Meteorologist: [facility] External Provider IMG BI PROCEDURES Final Result * Hepatitis C Ab (03/07/2023 12:19 PM EDT) Hepatitis C Antibody Nonreactive Nonreactive [facility] Comment:Antibodies to HCV no t detected; does not exclude early acuteHCV infection. 03/07/2023 12:1 9 PM EDT 03/07/2023 12:19 PM EDT Generic External Data Provider LAB BLOOD ORDERAB LES Final Result [facility] [address] [place] [phone] * HIV Ab/Ag ([facility]) (03/07/2023 12:19 PM EDT) HIV AB/AG Nonreactive Nonreactive [facility] Comment:HIV-1 p24 Ag and/or HIV-1/HIV-2 Ab not detected.A test result that is nonreactive does not exclude thepossibility of exposure to or infection with HIV-1 and/orHIV-2. Nonreactive results in this assay for individualswith prior exposure to HIV-1 and/or HIV-2 may be due toantigen and antibody levels that are below the limit ofdetection of this assay.The [employer]To[employer]ity HIV Ag/Ab Combo assay result andsupplemental assay results should be interpreted inconjunction with the patient's clinical presentation,history and other laboratory results. If the results areinconsistent with clinical evidence, additional testing issuggested to confirm the result. 03/07/2023 12:1 9 PM EDT 03/07/2023 12:19 PM EDT us Generic External Data Provider LAB BLOOD ORDERAB LES Final Result [facility] [address] [place] [address] [phone] * Hm Colonoscopy (07/22/2020) Colonoscopy Normal Normal Comment:5 Yr F/U Historical Provider HEALTH MAINTENANCE Edited Result - Final from Last 3 Months or Most Recently Relevant to Health Maintenance Insurance Fast Orientation [facility] MEDICAID STAND ADULT Care Teams Prison Guard Supervisor Relationship Specialty Start Date End Date Bita Muñoz FNP [address] [place] [address] PCP - General Family Medicine 02/19/22 Karen Edward Accounting Practice ManagerStudent Services Vice President 10/17/23
--- OUTSIDE RECORDS SUMMARY | 2024-10-26 12:28 | XMS_ITS | Encounter Summary ---
Author Organization [employer] Address [address] [facility] 7t [place] [address] Care Team Providers Care Supervisor Sewing Department Name Role Phone Bita Muñoz Primary Care Provider [phone] Encounter Details Date Type Department Care Team (Late st Contact Info) Description 05/03/2022 [facility] Health Information Management [address] [place] [address] Bita Muñoz FNP [address] [place] [address] Social History Tobacco Use Types Packs/Day Years [...] 10/29/2024 8:30 AM EDT Office Visit [facility] ADULT DENTAL [address] [place] [address] Rebel Birch DMD [address] [place] [address] 12/02/2024 10:00 AM EDT Office Visit [facility] MEDICINE [address] [place] [address] Bita Muñoz FNP [address] [place] [address] 04/12/2025 10:00 AM EDT Office Visit [facility] OPTOMETRY [address] [place] [address] Gerber, Barbara, OD [address] [place] [address] 04/21/2025 10:00 AM EDT Office Visit [facility] ADULT DENTAL [address] [place] [address] Sabrina, Viri [address] [place] [address] documented as of this encounter Visit Diagnoses Not on filedocumented in this encounter Care Teams Supervisor Sewing Department Relationship Specialty Start Date End Date Bita Muñoz FNP [address] [place] [address] PCP - General Family Medicine 02/19/22 Karen Edward Machine Ii CutterAnimal Maintenance Supervisor 10/17/23 documented as of this encounter
== END 2024-10-26 10:53 | disposition home or self-care (01) ==
LOC: HO.MAMMO 10:52
PROVIDERS: PCP Registered Nurse; Visit Provider Registered Nurse
DX: Z12.31 Encounter for screening mammogram for malignant neoplasm of breast (principal)
CPT/HCPCS: 77063; 77067

== ENCOUNTER → 2024-10-26 11:00 | Outpatient (BNV) | payer MEDICAID, SELFPAY | PROVIDERS: PCP Registered Nurse; Visit Provider Internal Medicine | DX: Z12.31 Encounter for screening mammogram for malignant neoplasm of breast (principal) | CPT/HCPCS: 77063; 77067 ==

== ENCOUNTER 2024-10-30 13:09 | Outpatient (REF) | payer MEDICAID, SELFPAY ==
--- OUTSIDE RECORDS SUMMARY | 2024-10-30 13:13 | XMS_ITS | Encounter Summary ---
Author Organization [employer] Address [address] [facility] 7t [place] [address] Care Team Providers Care Lead Oxide Mill Tender Name Role Phone Bita Muñoz Primary Care Provider [phone] Reason for Visit * Reason Onset Date Comments Returning Call 06/10/2024 Encounter Details Date Type Department Care Team ([facility] st Contact Info) Description 06/10/2024 Telephone [facility] MEDICINE [address] [place] [address] Bita Muñoz FNP [address] [place] [address] Returning Call Social History Tobacco Use Types [...] Care Team (Late st Contact Info) Description 11/19/2024 10:30 AM EDT Office Visit [facility] ADULT DENTAL [address] [place] [address] Rebel Birch, DMD [address] [place] [address] 12/02/2024 10:00 AM EDT Office Visit [facility] MEDICINE [address] [place] [address] Bita Muñoz, RESTAURANT LINE COOK [address] [place] [address] 04/12/2025 10:00 AM EDT Office Visit [facility] OPTOMETRY [address] [place] [address] Barbara Mayes, OD [address] [place] [address] 04/21/2025 10:00 AM EDT Office Visit [facility] ADULT DENTAL [address] [place] [address] Viri Bennett [address] [place] [address] documented as of this encounter Visit Diagnoses Not on filedocumented in this encounter Additional Health Concerns Assessment Noted Time PHQ-9 Depression Total Score: 20 024 9:07 AM EDT documented as of this encounter Care Teams Lead Oxide Mill Tender Relationship Specialty Start Date End Date Bita Muñoz FNP [address] [place] [address] PCP - General Family Medicine 02/19/22 Karen Edward Room ServerCase Technician 10/17/23 documented as of this encounter
--- OUTSIDE RECORDS SUMMARY | 2024-10-30 13:14 | XMS_ITS | Encounter Summary ---
Author Organization [employer] Address [address] [facility] 7[address] [place] [address] Care Team Providers Care Firer Retort Name Role Phone Bita Muñoz Primary Care Provider [phone] Reason for Visit * Reason Onset Date Comments Nurse Triage 10/30/2024 Encounter Details Date Type Department Care Team ([facility] st Contact Info) Description 10/30/2024 Telephone [facility] MEDICINE [address] [place] [address] Bita Muñoz FNP [address] [place] [address] Nurse Triage Social History Tobacco Use Types Packs/Day Years [...] encounter Miscellaneous Notes * Telephone Encounter - Moriah Solomon RN - 10/30/2024 9:25 AM EDT Call returned to Zoila Jackson to triage below. Reports having abdominal pain and bloody urine x 1 day. Per pt blood in both urine and upon wiping. No N/V or fever. Pt also having lower back pain. Pt advised of disposition, already pending walk in visit. Reviewed home care advise, ER pre cautions and reasons to call back. Protocol Used: Urination Pain - Female (Adult) Protocol-Based Disposition: Go to Office or Video Visit Now Video visit offer not recorded Positive Triage Question: * Side (flank) or lower back pain present * All higher-acuity triage questions were negative Care Advice Discussed: * Reassurance and Education - Possible Urine Infection * Drink Extra Fluids * Reasons To Call Back - Fever or back pain occurs - You become worse * Telephone Encounter - Sonia Ingram - 10/30/2024 8:44 AM EDT Symptoms: Abdominal Pain - Female - Not , Urine - Blood In Outcome: Schedule an urgent appointment (within 4 hours) or talk to a nurse or provider soon Reason: Getting worse The caller accepted this outcome. [phone] documented in this encounter Plan of Treatment Upcoming Encounters Date Type Department Care Team (Late st Contact Info) Description 11/19/2024 10:30 AM EDT Office Visit [facility] ADULT DENTAL [address] [place] [address] Rebel Birch, DMD [address] [place] [address] 12/02/2024 10:00 AM EDT Office Visit [facility] MEDICINE [address] [place] [address] Bita Muñoz FNP [address] [place] [address] 04/12/2025 10:00 AM EDT Office Visit [facility] OPTOMETRY [address] [place] [address] Gerber, Barbara, OD [address] [place] [address] 04/21/2025 10:00 AM EDT Office Visit [facility] ADULT DENTAL [address] [place] [address] Sabrina, Viri [address] [place] [address] documented as of this encounter Visit Diagnoses Not on filedocumented in this encounter Additional Health Concerns Assessment Noted Time PHQ-9 Depression Total Score: 10 025 3:23 PM EST documented as of this encounter Care Teams Firer Retort Relationship Specialty Start Date End Date Bita Muñoz FNP [address] [place] [address] PCP - General Family Medicine 02/19/22 Karen Edward Collar Shaper OperatorIt Business Analyst 10/17/23 documented as of this encounter
--- OUTSIDE RECORDS SUMMARY | 2024-10-30 13:14 | XMS_ITS | Encounter Summary ---
Author Organization [employer] Address [address] [facility] 7t [place] [address] Care Team Providers Care Census Enumerator Name Role Phone Bita Muñoz SOCIOLOGY TEACHER Primary Care Provider [phone] Encounter Details Date Type Department Care Team (Latest Contact Info) Description 10/30/2024 Travel Social History Tobacco Use Types Packs/Day [...] the past 12 months, has t he [employer], [employer], oil or water [employer] threatened to shut off services in your [...] Description 11/19/2024 10:30 AM EDT Office Visit [facility] ADULT DENTAL [address] [place] [address] Rebel Birch, DMD [address] [place] [address] 12/02/2024 10:00 AM EDT Office Visit [facility] MEDICINE [address] [place] [address] Bita Muñoz FNP [address] [place] [address] 04/12/2025 10:00 AM EDT Office Visit [facility] OPTOMETRY [address] [place] [address] Gerber, Barbara, OD [address] [place] [address] 04/21/2025 10:00 AM EDT Office Visit [facility] ADULT DENTAL [address] [place] [address] Sabrina, Viri [address] [place] [address] documented as of this encounter Visit Diagnoses Not on filedocumented in this encounter Additional Health Concerns Assessment Noted Time PHQ-9 Depression Total Score: 10 025 3:23 PM EST documented as of this encounter Care Teams Census Enumerator Relationship Specialty Start Date End Date Bita Muñoz FNP [address] [place] [address] PCP - General Family Medicine 02/19/22 Karen Edward Hand ModelBench Examiner 10/17/23 documented as of this encounter
--- OUTSIDE RECORDS SUMMARY | 2024-10-30 13:14 | XMS_ITS | Encounter Summary ---
Author Organization [facility] [employer] Address [address] [facility] 7t [place] [address] Care Team Providers Care Operating Room Tech Name Role Phone Bita Muñoz Primary Care Provider Encounter Details Date Type Department Care Team (Late st Contact Info) Description 05/03/2022 [facility] Health Information Management [address] [place] [address] Bita Muñoz FNP [address] [place] [address] Social History Tobacco Use Types Packs/Day Years [...] Description 11/19/2024 10:30 AM EDT Office Visit [facility] ADULT DENTAL [address] [place] [address] Rebel Birch DMD [address] [place] [address] 12/02/2024 10:00 AM EDT Office Visit [facility] MEDICINE [address] [place] [address] Bita Muñoz FNP [address] [place] [address] 04/12/2025 10:00 AM EDT Office Visit [facility] OPTOMETRY [address] [place] [address] Gerber, Barbara, OD [address] [place] [address] 04/21/2025 10:00 AM EDT Office Visit [facility] ADULT DENTAL [address] [place] [address] Sabrina, Viri [address] [place] [address] documented as of this encounter Visit Diagnoses Not on filedocumented in this encounter Care Teams Operating Room Tech Relationship Specialty Start Date End Date Bita Muñoz FNP [address] [place] [address] PCP - General Family Medicine 02/19/22 Karen Edward BrickmasonPainting Department Supervisor 10/17/23 documented as of this encounter
--- OUTSIDE RECORDS SUMMARY | 2024-10-30 13:14 | XMS_ITS | Clinical Summary ---
Author Organization [facility] Address [address] [place] [address] Phone Care Team Providers Care Teacher Instrumental Name Role Phone Physician, Pcp Unknown Primary Care Provider Cassy vailable Medications acetaminophen (TYLENOL) 500 mg tablet Take 1 tablet (500 mg total) by mouth every 6 (six) hours if needed. for mild pain 5 Active ARIPiprazole (ABILIFY) 5 mg tablet Take 1 tablet (5 mg total) by mouth 1 (one) time each day. 5 Active atorvastatin (LIPITOR) 80 mg tablet Take 1 tablet (80 mg total) by mouth. 4 Active celecoxib (CeleBREX) 100 mg capsule TAKE 1 CAPSULE BY MOUTH TWICE DAILY IN THE MORNING AND AT BEDTIME NEEDED FOR MILD PAIN 5 Active cholecalciferol (VITAMIN D-3) 25 mcg (1,000 unit) tablet Take 1 tablet (1,000 Units total) by mouth daily. 4 Active CombiPatch 0.05-0.14 mg/[address] 1 patch on the skin 2 (two) times a week. 5 08/13/19 26 Active FLUoxetine (PROzac) 10 mg capsule Take 1 capsule (10 mg total) by mouth 1 (one) time each day. Active ibuprofen (ADVIL,MOTRIN) 400 mg tablet Take 1 tablet (400 mg total) by mouth every 6 (six) hours if needed. for pain 5 Active meclizine (ANTIVERT) 25 mg tablet Take 1 tablet (25 mg total) by mouth 3 times daily as needed. 4 Active topiramate (TOPAMAX) 25 mg tablet Take 1 tablet (25 mg total) by mouth. 5 07/15/19 26 Active traMADoL (ULTRAM) 50 mg tablet Take 1 tablet (50 mg total) by mouth every 6 hours as needed. Max Daily Amount: 200 mg 4 Active ketoconazole (NIZORAL) 2 % cream Apply topically 1 (one) time each day. 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 Months Social History Tobacco Use Types Packs/Day Years Used Date Smoking Tobacco: Never Assessed Comments Unknown Sex and Gender Information Value Date Recorded Sex Assigned at Not on file Legal Sex Female 2:10 PM EDT Gender Identity Not on file Sexual Orientation Not on file Last Filed Vital Signs Vital Sign Reading Time Taken Comments Blood Pressure - - Pulse - - Temperature - - Respiratory Rate - - Oxygen Saturation - - Inhaled Oxygen Concentration - - Weight 79.4 kg (175 lb) 10/26/2024 2:44 PM EDT Height 154.9 cm (5' 1 ) 10/26/2024 2:44 PM EDT Body Mass Index 33.07 10/26/2024 2:44 PM EDT Plan of Treatment Upcoming Encounters Date Type Department Care Team (Late st Contact Info) Description 01/26/2025 1:45 PM EDT Office Visit Orthopedic Surgery [facility] [address] [phone] Dinh Alexander DPM [address] [address] Health Maintenance Due Date Last Done Comments Breast Cancer Screening 1974 Cervical Cancer Screening: Pap Smear 1995 COVID-19 Vaccine ( season) 2024 Colorectal Cancer Screening: Colonoscopy 08/31/2024 HIV Screening 08/31/2024 Hepatitis C Screening 08/31/2024 Social Influencers of Health Screening 08/31/2024 Influenza Vaccine (Season Ended) 2025 04/17/2023, 04/23/2022, 03/31/2021, Additional history exists Depression Screening 07/15/2025 07/15/2024 Cholesterol Screening (Lipid Panel) 01/07/2029 01/08/2024 DTaP,Tdap,and Td Vaccines (3 - Td or Tdap) 04/17/2033 04/17/2023, 02/12/2013 Hepatitis B Vaccines Completed 04/23/2022, 08/26/2018, 07/22/2018 Pneumococcal Vaccine: 50+ Years Completed 09/02/2024 Pneumococcal Vaccine: Pediatrics (0 to 5 Years) and At-Risk Patients (6 to 64 Years) Aged Out 09/02/2024 No longer eligible based on patient's age to complete this topic Zoster Vaccines Completed 10/22/2024, 08/20/2024 HIB Vaccines [...] to complete this topic RSV Immunization Patients Under 20 months Aged Out No longer eligible based on patient's age to complete this topic Varicella Vaccines Aged Out No longer eligible based on patient's age to complete this topic Insurance [place] - [place] Member Subscriber Plan / Payer (Ef fective 2024-Present) Name:Zoila Petersen Relation to Subscriber:Self Name:Zoila Petersen Payer ID:[id number] Group ID:Not on file Type:Not on file Address: [facility] [employer] ATTN:CLAIMS [address] [place] [address] Care Teams Teacher Instrumental Relationship Specialty Start Date End Date Physician, Pcp Unknown PCP - General 08/31/24
--- OUTSIDE RECORDS SUMMARY | 2024-10-30 13:14 | XMS_ITS | Clinical Summary ---
Author Organization [facility] Address [address] [place] [address] Care Team Providers Care Distribution Systems Superintendent Name Role Phone Unavailable Primary Care Provider [...] 2019 Fecal DNA 2019 Flexible Sigmoidoscopy 2019 [id number] ( season) 2024 Imm-Influenza (#1) 2024 04/17/2023, [...] Most Recently Relevant to Health Maintenance Insurance [place]
--- OUTSIDE RECORDS SUMMARY | 2024-10-30 13:14 | XMS_ITS | Encounter Summary ---
Author Organization [employer] Address [address] [facility] 7t [place] [address] Care Team Providers Care Ski Maker Name Role Phone Bita Muñoz UNIT AID Primary Care Provider [phone] Reason for Visit * Reason Comments Dentures Encounter Details Date Type Department Care Team ([facility] st Contact Info) Description 10/29/2024 8:30 AM EDT Office Visit [facility] ADULT DENTAL [address] [place] [address] Rebel Birch, JASWINDER [address] [place] [address] Social History Tobacco Use Types Packs/Day Years [...] Sign Reading Time Taken Comments Blood Pressure 132/80 10/29/2024 8:42 AM EDT Pulse 66 10/29/2024 8:42 AM EDT Temperature - - Respiratory Rate - - Oxygen Saturation - - Inhaled Oxygen Concentration - - Weight - - Height - - Body Mass Index - - documented in this encounter Progress Notes * Rebel Birch DMD - 10/29/2024 8:30 AM EDT Impression of P/P NV: Bite registration of P/P Madalyn documented in this encounter Plan of Treatment Upcoming Encounters Date Type Department Care Team (Late st Contact Info) Description 11/19/2024 10:30 AM EDT Office Visit [facility] ADULT DENTAL [address] [place] [address] Rebel Birch DMD [address] [place] [address] 12/02/2024 10:00 AM EDT Office Visit [facility] MEDICINE [address] [place] [address] Bita Muñoz FNP [address] [place] [address] 04/12/2025 10:00 AM EDT Office Visit [facility] OPTOMETRY [address] [place] [address] GerberBarbara valverde, OD [address] [place] [address] 04/21/2025 10:00 AM EDT Office Visit [facility] ADULT DENTAL [address] [place] [address] Sabrina, Viri [address] [place] [address] documented as of this encounter Procedures Procedure Name Priority Date/Time Associated Diagnosis Comments DENTURE IMPRESSION Routine 10/29/2024 8:30 AM EDT documented in this encounter Visit Diagnoses Not on filedocumented in this encounter Additional Health Concerns Assessment Noted Time PHQ-9 Depression Total Score: 10 07/15/ 025 3:23 PM EST documented as of this encounter Care Teams Ski Maker Relationship Specialty Start Date End Date Bita Muñoz FNP [address] [place] [address] PCP - General Family Medicine 02/19/22 Karen Edward Filter Press OperatorRail Car Loader 10/17/23 documented as of this encounter
--- OUTSIDE RECORDS SUMMARY | 2024-10-30 13:14 | XMS_ITS | Encounter Summary ---
Author Organization [employer] Address [address] [facility] 7t [place] [address] Care Team Providers Care Technology And Engineering Teacher Name Role Phone Bita Muñoz Primary Care Provider [phone] Encounter Details Date Type Department Care Team (Late st Contact Info) Description 05/25/2022 Orders Only [facility] [address] [place] [address] Jonelle Hooker RN Social History Tobacco Use [...] EDT Office Visit [facility] ADULT DENTAL [address] [place] [address] Rebel Birch, DMD [address] [place] [address] 12/02/2024 10:00 AM EDT Office Visit [facility] MEDICINE [address] [place] [address] Bita Muñoz FNP [address] [place] [address] 04/12/2025 10:00 AM EDT Office Visit [facility] OPTOMETRY [address] [place] [address] Barbara Mayes, OD [address] [place] [address] 04/21/2025 10:00 AM EDT Office Visit [facility] ADULT DENTAL [address] [place] [address] Sabrina, Viri [address] [place] [address] documented as of this encounter Visit Diagnoses Not on filedocumented in this encounter Care Teams Technology And Engineering Teacher Relationship Specialty Start Date End Date Bita Muñoz FNP [address] [place] [address] PCP - General Family Medicine 02/19/22 Karen Edward Pharmacognosy TeacherJava Development Team Lead 10/17/23 documented as of this encounter
--- OUTSIDE RECORDS SUMMARY | 2024-10-30 13:14 | XMS_ITS | Encounter Summary ---
Author Organization [employer] Address [address] [facility] 7[address] [place] [address] Care Team Providers Care Head Of Precision Targeting Name Role Phone Bita Muñoz ARLET Primary Care Provider [phone] Reason for Visit * Reason Comments uti symptoms Encounter Details Date Type Department Care Team ([facility] st Contact Info) Description 10/30/2024 9:40 AM EDT Office Visit [facility] [address] [place] [address] Parish Paiz MD [address] [place] [address] Dysuria (Primary Dx); UTI symptoms Social History Tobacco Use Types Packs/Day Years [...] Sign Reading Time Taken Comments Blood Pressure 136/88 10/30/2024 9:31 AM EDT Pulse 83 10/30/2024 9:31 AM EDT Temperature 36.4 ??C (97.5 ??F) 10/30/2024 9:31 AM ED T Respiratory Rate 18 10/30/2024 9:31 AM EDT Oxygen Saturation 98% 10/30/2024 9:31 AM EDT Inhaled Oxygen Concentration - - Weight 78 kg (172 lb) 10/30/2024 9:31 AM EDT Height - - Body Mass Index 35.95 09/02/2024 10:16 AM EDT documented in this encounter Progress Notes * Parish Paiz MD - 10/30/2024 9:40 AM EDT Subjective Patient ID: Zoila Jackson is a 49 y.o. female. HPI Zoila had onset last night of burning on urination, urgency, frequency, hematuria. Denies fever, chills, n/v, vaginal discharge, abdominal or flank pain. Lives with 2 sons. LMP=years ago. Not employed. Never smoked. Patient Active Problem List Diagnosis Depression Disorder of thyroid gland Dyslipidemia Irregular periods Migraine Pulmonary hypertension (CMS/HCC) Routine health maintenance Benign paroxysmal positional vertigo due to bilateral vestibular disorder Anxiety disorder, unspecified Primary osteoarthritis of right knee Knee pain, left Vaginal atrophy Left hip pain Hyperlipidemia Dietary counseling Exercise counseling Hot flashes Periodontal disease Dental caries Missing teeth, acquired The following portions of the chart were reviewed this encounter and updated as appropriate: Review of Systems Constitutional: Negative for fever. Respiratory: Negative for shortness of breath. Cardiovascular: Negative for chest pain. Gastrointestinal: Negative for abdominal pain. Genitourinary: Positive for dysuria, frequency, hematuria and urgency. Negative for flank pain and vaginal discharge. Skin: Negative for rash. Neurological: Negative for headaches. Objective Physical Exam Constitutional: Appearance: Normal appearance. HENT: Right Ear: Tympanic membrane, ear canal and external ear normal. Left Ear: Tympanic membrane, ear canal and external ear normal. Nose: Nose normal. Mouth/Throat: Mouth: Mucous membranes are moist. Pharynx: Oropharynx is clear. Eyes: Conjunctiva/sclera: Conjunctivae normal. Pupils: Pupils are equal, round, and reactive to light. Cardiovascular: Rate and Rhythm: Normal rate and regular rhythm. Heart sounds: No murmur heard. Pulmonary: Effort: Pulmonary effort is normal. Breath sounds: Normal breath sounds. Abdominal: Tenderness: There is no right CVA tenderness or left CVA tenderness. Musculoskeletal: General: Normal range of motion. Cervical back: No tenderness. Skin: Findings: No rash. Neurological: Mental Status: She is alert. Gait: Gait is intact. Psychiatric: Mood and Affect: Mood normal. Behavior: Behavior normal. Procedures Assessment/Plan Diagnoses and all orders for this visit: Dysuria Urine C&S pending. Prescribed Macrobid and Pyridium. Also prescribed fluconazole (states h/o Candidal vulvovaginitis with antibiotics). Return to clinic if not improving. POCT urinalysis dipstick manually resulted - Culture, Urine, Routine Other orders - nitrofurantoin, macrocrystal-monohydrate, (Macrobid) 100 MG capsule; Take 1 capsule (100 mg) by mouth 2 times daily for 5 days. - fluconazole (Diflucan) 150 MG tablet; Take 1 tablet (150 mg) by mouth Once per day. May repeat dose in 3 days prn. - phenazopyridine (Pyridium) 200 MG tablet; Take 1 tablet (200 mg) by mouth with breakfast, with lunch, and with evening meal for 2 days. documented in this encounter Plan of Treatment Upcoming Encounters Date Type Department Care Team (Late st Contact Info) Description 11/19/2024 10:30 AM EDT Office Visit [facility] [address] [place] [address] Rebel Birch, DMD [address] [place] [address] 12/02/2024 10:00 AM EDT Office Visit [facility] [address] [place] [address] Bita Muñoz, WOOD SETTER [address] [place] [address] 04/12/2025 10:00 AM EDT Office Visit [facility] [address] [place] [address] Gerber, Barbara, OD [address] [place] [address] 04/21/2025 10:00 AM EDT Office Visit [facility] [address] [place] [address] Sabrina, Viri [address] [place] [address] Scheduled Orders Name Type Priority Associated Diagnoses Orde r Schedule Culture, Urine, Routine Microbiology Routine UTI symptoms Ordered: 10/30/2024 documented as of this encounter Procedures Procedure Name Priority Date/Time Associated Diagnosis Comments POCT URINALYSIS DIPSTICK Routine 10/30/2024 9:41 AM EDT UTI symptoms documented in this encounter Results * (ABNORMAL) POCT urinalysis dipstick manually resulted (10/30/2024 9:41 AM EDT) Color, UA Yellow Clarity, UA Clear Glucose, UA Negative Bilirubin, UA Negative Ketones, UA Positive Comment:40 md/dL Spec Grav, UA 1.020 Blood, UA Positive(A) Negative, None Detected Comment:Moderate pH, UA 6.0 Protein, UA Trace Comment:100 mg/dL Urobilinogen, UA 0.2 Leukocytes, UA Few 15(A) Negative, Rare, Trace Comment:Small Nitrite, UA Positive(A) Negative, None Detected Urine 10/30/2024 9:41 AM EDT Parish Paiz MD POINT OF CARE TEST ENTER/EDIT OR DERABLES Final Result documented in this encounter Visit Diagnoses Diagnosis Dysuria- Primary UTI symptoms documented in this encounter Additional Health Concerns Assessment Noted Time PHQ-9 Depression Total Score: 10 025 3:23 PM EST documented as of this encounter Care Teams Head Of Precision Targeting Relationship Specialty Start Date End Date Bita Muñoz FNP [address] [place] [address] PCP - General Family Medicine 02/19/22 Karen Edward Non Ferrous Material HandlerElectronic Commerce Specialist 10/17/23 documented as of this encounter
--- OUTSIDE RECORDS SUMMARY | 2024-10-30 13:14 | XMS_ITS | Encounter Summary ---
Author Organization [employer] Address [address] [facility] [address] [place] [address] Care Team Providers Care Draw Operator Name Role Phone Bita Muñoz Primary Care Provider [phone] Reason for Visit * Reason Onset Date Comments Medication Question 05/24/2022 Reviewed sym ptoms with patient and ED precautions. Pt eligible for Paxlovid, will send rx to pharmacy. Reviewed potential med interactions. Encounter Details Date Type Department Care Team ([facility] st Contact Info) Description 05/24/2022 Telephone [facility] [address] [place] [address] Bita Muñoz FNP [address] [place], [place] [phone] Medication Question (Reviewed symptoms with patient and [...] 05/23/22 and came back positive. Pt speaks syriac returning call from yesterday . documented in this encounter Plan of Treatment Upcoming Encounters Date Type Department Care Team (Late st Contact Info) Description 11/19/2024 10:30 AM EDT Office Visit [facility] [address] [place] [address] Rebel Birch, DMD [address] [place] [address] 12/02/2024 10:00 AM EDT Office Visit [facility] [address] [place] [address] Bita Muñoz FNP [address] [place] [address] 04/12/2025 10:00 AM EDT Office Visit [facility] [address] [place] [address] GerberBarbara valverde, OD [address] [place] [address] 04/21/2025 10:00 AM EDT Office Visit [facility] [address] [place] [address] Sabrina, Viri [address] [place] [address] documented as of this encounter Visit Diagnoses Diagnosis COVID-19 virus infection- Primary documented in this encounter Care Teams Draw Operator Relationship Specialty Start Date End Date Bita Muñoz FNP [address] [place] [address] PCP - General Family Medicine 02/19/22 Karen Edward Power Lineman TechnicianSpecial Day Class Teacher 10/17/23 documented as of this encounter
--- OUTSIDE RECORDS SUMMARY | 2024-10-30 13:14 | XMS_ITS | Encounter Summary ---
Author Organization [employer] Address [address] [place] [address] Care Team Providers Care Skin Toggler Name Role Phone Physician, Pcp Unknown Primary Care Provider Cassy vailable Reason for Visit * Reason Comments Consult Nail Problem * Consultation (Routine) - Authorized Specialty Diagnoses / Procedures Referred By Contact Referred To Contact Podiatry / Orthopaedic Surgery Diagnoses Onychogryphosis Bita Muñoz RN [address] [address] Phone: tel: fax: Dinh Alexander DPM [address] [address] Phone: tel: fax: Referral ID Status Reason Start Date Expiration Date Visits Requested Visits Authorized [id number] Authorized Specialty Services Required 08/13/2024 08/13/2025 6 6 Encounter Details Date Type Department Care Team ([facility] st Contact Info) Description 10/26/2024 2:30 PM EDT Consult Orthopedic Surgery - [place] [address] [phone] Dinh Alexander DPM [address] [address] Dermatophytosis of nail (Primary Dx); Onychogryphosis Social History Tobacco Use Types Packs/Day Years Used Date Smoking Tobacco: Never Assessed Comments Unknown Sex and Gender Information Value Date Recorded Sex Assigned at Not on file Legal Sex Female 2:10 PM EDT Gender Identity Not on file Sexual Orientation Not on file documented as of this encounter Last Filed [...] Mass Index 33.07 10/26/2024 2:44 PM EDT documented in this encounter Ordered Prescriptions Prescription Sig Dispense Quantity Refills Last Filled Start Date End Date ketoconazole (NIZORAL) 2 % cream Apply topically 1 (one) time each day. 30 g 2 10/26/2024 documented in this encounter Progress Notes * Dinh Alexander DPM - 10/26/2024 2:30 PM EDT Last PCP visit:Referring MD: Bita Muñoz* IDENTIFIER: Eros Jackson is a 49 y.o. year old female who presents for consultation. CC: Foot pain HPI: Eros Jackson is a 49 y.o. year old female presents complaining of thickened deformed discolored nail of her left great toe has been going for the last several months to slightly getting worse to theelongated painful thickened discolored with irritation of her skin patient denies a history of treatment states is been bothering her constantly she would like to know what it is and how it should betreated ROS: GENERAL: Pt denies nausea, fever, vomiting, chills, or shortness of breath. Pt in NAD. CARDIOLOGY: pt denies chest pain, palpitations LUNGS: pt denies shortness of breath MUSCULOSKELETAL: See HPI, otherwise no joint pain or swelling, back pain, or muscle pain. SKIN: see HPI, otherwise no lesions, rash or itching NEURO: No persistent headache, weakness or numbness The remainder of the review of systems is noncontributory PAST MEDICAL HISTORY: There is no problem list on file for this patient. SOCIAL HISTORY: Social History Tobacco Use Smoking status: Not on file Smokeless tobacco: Not on file Substance Use Topics Alcohol use: Not on file ACTIVE MEDICATIONS: Outpatient Medications Marked as Taking for the 10/26/24 encounter (Consult) with Dinh Alexander DPM Medication Sig Dispense Refill acetaminophen (TYLENOL) 500 mg tablet Take 1 tablet (500 mg total) by mouth every 6 (six) hours if needed. for mild pain ARIPiprazole (ABILIFY) 5 mg tablet Take 1 tablet (5 mg total) by mouth 1 (one) time each day. atorvastatin (LIPITOR) 80 mg tablet Take 1 tablet (80 mg total) by mouth. celecoxib (CeleBREX) 100 mg capsule TAKE 1 CAPSULE BY MOUTH TWICE DAILY IN THE MORNING AND AT BEDTIME NEEDED FOR MILD PAIN cholecalciferol (VITAMIN D-3) 25 mcg (1,000 unit) tablet Take 1 tablet (1,000 Units total) by mouthdaily. CombiPatch 0.05-0.14 mg/[address] 1 patch on the skin 2 (two) times a week. ibuprofen (ADVIL,MOTRIN) 400 mg tablet Take 1 tablet (400 mg total) by mouth every 6 (six) hours ifneeded. for pain meclizine (ANTIVERT) 25 mg tablet Take 1 tablet (25 mg total) by mouth 3 times daily as needed. topiramate (TOPAMAX) 25 mg tablet Take 1 tablet (25 mg total) by mouth. traMADoL (ULTRAM) 50 mg tablet Take 1 tablet (50 mg total) by mouth every 6 hours as needed. Max Daily Amount: 200 mg ALLERGIES: Not on File PHYSICAL EXAM: Visit Vitals Ht 1.549 m (61 ) Wt 79.4 kg (175 lb) BMI 33.07 kg/m?? BSA 1.78 m?? PODIATRIC EXAMINATION: GENERAL: Patient appears well nourished, with NAD. VASCULAR: Dorsalis pedis pulses are 2/4 bilaterally and Posterior tibial pulses are 2/4 bilaterally. Capillary filling time within normal limits the digits. No pallor on elevation or rubor on dependency. No varicosities. Denies rest pain or claudication pain. NEUROLOGICAL: Sharp/dull sensation intact, protective sensation intact 10/10 with Ipswitch touch test bilaterally, vibratory sensation intact to the tibial tuberosity. ORTHOPEDIC: Good muscle strength 5/5 of all flexors and extensors. Dorsi flexion of ankle ,10 degrees, plantar flexion WNL. No muscle atrophy. DERMATOLOGICAL:. Toenails: Left Toenail(s) 1: subungual debris, discoloration, hypertrophic, elongation, mycotic appearance, onychomycosis, pain and thickening. Annular scaling bilateral feet moccasin distribution Skin thinning texture shiny appearance diffuse hyperpigmentation bilaterally pedal hair decreased BIOMECHANICS: Ankle ROM WNL, STJ ROM wnl, MTJ ROM wnl, 1st MPJ ROM wnl. IMAGING: IMPRESSION: 1. Dermatophytosis of nail 2. Onychogryphosis PLAN: Pt was seen and examined, history reviewed. Ketoconazole prescribed Discussed oral therapy would recommend biopsy for definitive diagnosis Labs reviewed Biopsy taken below Follow-up in 1 to 2 months [id number]: (location modifier needed) Procedure Utilizing sterile instramentation the affected nail(s) and subungual tissue were removed/Biopsy of nail unit left great toenail nails was achieved and the nail and tissue were subsequently placed in a specimen container and will be sent to pathology for definitive diagnosis and lab evaluation to define treatment for this condition Dinh Alexander DPM documented in this encounter Plan of Treatment Upcoming Encounters Date Type Department Care Team (Late st Contact Info) Description 01/26/2025 1:45 PM EDT Office Visit Orthopedic Surgery - [place] [address] [phone] Dinh Alexander DPM [address] [address] documented as of this encounter Visit Diagnoses Diagnosis Dermatophytosis of nail- Primary Onychogryphosis Other specified disease of nail documented in this encounter Historical Medications * This list may reflect changes made after this encounter. traMADoL (ULTRAM) 50 mg tablet Take 1 tablet (50 mg total) by mouth every 6 hours as needed. Max Daily Amount: 200 mg 04/14/2024 topiramate (TOPAMAX) 25 mg tablet Take 1 tablet (25 mg total) by mouth. 07/15/2024 07/15/2025 meclizine (ANTIVERT) 25 mg tablet Take 1 tablet (25 mg total) by mouth 3 times daily as needed. 06/18/2024 ibuprofen (ADVIL,MOTRIN) 400 mg tablet Take 1 tablet (400 mg total) by mouth every 6 (six) hours if needed. for pain 09/08/2024 FLUoxetine (PROzac) 10 mg capsule Take 1 capsule (10 mg total) by mouth 1 (one) time each day. CombiPatch 0.05-0.14 mg/[address] 1 patch on the skin 2 (two) times a week. 08/13/2024 08/13/2025 cholecalciferol (VITAMIN D-3) 25 mcg (1,000 unit) tablet Take 1 tablet (1,000 Units total) by mouth daily. 06/04/2024 celecoxib (CeleBREX) 100 mg capsule TAKE 1 CAPSULE BY MOUTH TWICE DAILY IN THE MORNING AND AT BEDTIME NEEDED FOR MILD PAIN 07/24/2024 atorvastatin (LIPITOR) 80 mg tablet Take 1 tablet (80 mg total) by mouth. 04/15/2024 ARIPiprazole (ABILIFY) 5 mg tablet Take 1 tablet (5 mg total) by mouth 1 (one) time each day. 09/28/2024 acetaminophen (TYLENOL) 500 mg tablet Take 1 tablet (500 mg total) by mouth every 6 (six) hours if needed. for mild pain 07/15/2024 added in this encounter Orders Outpatient Referral Count Last Ordered Date Fir st Ordered Date AMB REFERRAL TO PODIATRY 1 10/26/2024 documented in this encounter Care Teams Skin Toggler Relationship Specialty Start Date End Date Physician, Pcp Unknown PCP - General 08/31/24 documented as of this encounter
--- OUTSIDE RECORDS SUMMARY | 2024-10-30 13:14 | XMS_ITS | Clinical Summary ---
Author Organization [employer] Address [address] [place] [address] Care Team Providers Care Steam And Gas Turbine Assembler Name Role Phone Bita Muñoz COMPUTER TYPESETTER Primary Care Provider [phone] Allergies No known active allergies Medications * [...] and at bedtime. 1 Active sodium chloride (Herricks) 0.65 % nasal spray Administer 2 sprays [...] 8 patch 3 5 08/13/19 26 Active nitrofurantoin, macrocrystal-mono hydrate, (Macrobid) 100 MG capsule Take 1 capsule (100 mg) by mouth 2 times daily for 5 days. 10 capsule 5 11/05/19 25 Active fluconazole (Diflucan) 150 MG tablet Take 1 tablet (150 mg) by mouth Once per day. May repeat dose in 3 days prn. 2 tablet 5 Active phenazopyridine (Pyridium) 200 MG tablet Take 1 tablet (200 mg) by mouth with breakfast, with lunch, and with evening meal for 2 days. 6 tablet 5 11/02/19 25 Active Active Problems Problem Noted Date Diagnosed [...] hip pain 04/13/2024 Overview (08/12/2024): Following with [facility] Ortho - Dr. 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 PLAN: 1. Follow up with [facility]: Not recommended for follow-up 2. Patient goal is to decrease stress level 3. Behavioral Recommendations a. Utilize coping skills provided b. Engage in therapy when established c. May reach out to [facility] for additional support Assessment & Plan (01/29/2023 5:50 PM EDT): ?? Housing is significant stressor ?? Currently housed, although not necessarily stable in the future ?? BE conducted today, please see note for further details ?? Referral to [facility] team placed Benign paroxysmal positional vertigo due [...] [facility], requested referral to [facility] dental Assessment & Plan (07/15/2024 3:37 PM EST): Referral sent to [facility] Dental Advised pt to go get [...] WNL ?? Upcoming appt to establish with [facility] ?? Well controlled with topiramate 25mg [...] seek service PLAN: 1. Follow up with [facility]: Not recommended for follow-up 2. 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 Resolved Problems Problem Noted Date Diagnosed Date [...] Encounters Date Type Department Care Team Description 10/30/2024 9:40 AM EDT Office Visit [facility] [address] [place] [phone] Parish Paiz MD Dysuria (Primary Dx); UTI symptoms 10/30/2024 Travel 10/30/2024 Telephone [facility] [address] [place] [phone] Bita Muñoz FNP Nurse Triage 10/29/2024 8:30 AM EDT Office Visit [facility] [address] [place] [address] Rebel Birch DMD 10/22/2024 Travel 10/19/2024 Population Health Risk Score [facility] ([facility]) Department [address] [place] [phone] Provider, Population Health Generic 10/19/2024 Telephone [facility] [address] [place] [address] Bita Muñoz FNP Referral 10/15/2024 Refill [facility] [address] [place] [address] Bita Muñoz FNP Hot flashes 10/08/2024 9:00 AM EDT Office Visit [facility] [address] [place] [address] Viri Bennett Periodontal disease (Primary Dx); Dental caries; Missing teeth, acquired 10/07/2024 10:30 AM EDT Office Visit [facility] [address] [place] [address] Rebel Birch DMD Routine health maintenance 09/23/2024 Orders Only GENERIC EXTERNAL DATA DEPARTMENT Provider, Generic External Data 09/11/2024 Refill [facility] [address] [place] [address] Bita Muñoz FNP Hot flashes 09/09/[address] [address] Bita Muñoz FNP ER Follow-up 09/08/2024 Orders Only GENERIC EXTERNAL DATA DEPARTMENT Provider, Generic External Data 09/02/2024 10:15 AM EDT Office Visit [facility] [address] [place] [address] Bita Muñoz FNP Hot flashes (Primary Dx); Encounter for immunization 09/02/2024 Travel 08/31/2024 Telephone [facility] [address] [place], [place] [phone] Lauryn Frank MA Chart Prep 08/14/2024 Telephone [facility] [address] [place], [place] [phone] Bita Muñoz FNP Cardiology Referral 08/12/2024 11:15 AM EST Office Visit [facility] [address] [place] [address] Bita Muñoz FNP Onychauxis (Primary Dx); Left hip pain; Hot flashes; Pulmonary hypertension (CMS/HCC) 08/12/2024 Travel 08/11/2024 Telephone [facility] [address] [place] [address] Lauryn Frank MA Chart Prep from Last [...] (172 lb) 10/30/2024 9:31 AM EDT Height 147.3 cm (4' 10 ) 09/02/2024 10:16 AM EDT Body Mass Index 35.95 09/02/2024 10:16 AM EDT Plan of Treatment Upcoming Encounters Date Type Department Care Team (Late st Contact Info) Description 11/19/2024 10:30 AM EDT Office Visit [facility] [address] [place] [address] Rebel Birch, JASWINDER [address] [place] [address] 12/02/2024 10:00 AM EDT Office Visit [facility] [address] [place] [address] RafaelenBita, COMPUTER TYPESETTER [address] [place] [address] 04/12/2025 10:00 AM EDT Office Visit [facility] [address] [place] [address] Gerber, Barbara, OD [address] [place] [address] 04/21/2025 10:00 AM EDT Office Visit [facility] [address] [place] [address] Sabrina, Viri [address] [place] [address] Health Maintenance Due Date Last Done Comments [...] Bitewings 10/08/2025 10/08/19, 12/15/2013, 04/26/2008 Tobacco Screening 10/30/2025 10/30/2024 Dental X-Ray: Full Mouth 10/09/2027 10/07/2024, 11/23 [...] Routine 10/30/2024 9:41 AM EDT UTI symptoms DENTURE IMPRESSION Routine 10/29/2024 8: 30 AM EDT AMB REFERRAL TO PODIATRY Routine 10/26/2024 Onychauxis CASE PRESENTATION, DETAILED AND EXTENSIVE TREATMENT PLANNING [...] ([place] [facility]) Routine 03/07/2023 12:19 PM EDT COLONOSCOPY Routine 07/22/2020 from Last 3 Months or Most Recently Relevant to Health Maintenance Results * (ABNORMAL) POCT urinalysis dipstick manually [...] None Detected Urine 10/30/2024 9:41 AM EDT us Parish Paiz MD POINT OF CARE TEST ENTER/EDIT OR DERABLES Final Result * Referral to Podiatry (10/26/2024) us Bita Muñoz [facility] OUTPATIENT REFERRAL ORDERABLES Final Result * (ABNORMAL) Bacterial Vaginosis (09/23/2024 3:14 PM EDT) TRICHOMONAS VAGINALIS DETECTION BY PCR NOT DETECTED Not Detect [facility] BACTERIAL VAGINOSIS DETECTION BY PCR POSITIVE(A) Negative [facility] Comment:The BV organism targ ets of [...] DETECTION BY PCR NOT DETECTED Not Detect [facility] Gladis glab krusei PCR NOT DETECTED Not Detect [facility] 09/23/2024 3:14 PM EDT 09/23/2024 4:37 PM EDT us Generic External Data Provider LAB MICROBIOLOGY - GENERAL ORDERABLES Final Result [facility] [address] [place] [address] [phone] * Chlamydia/N. Gonorrhoeae RNA, TMA, Urogenitial (09/23/2024 3:14 PM EDT) CT PCR NOT DETECTED Not Detect. [facility] Comment:A not detected test result does [...] psychologicalconsequences. NG PCR NOT DETECTED Not Detect. [facility] Comment:A not detected test result does [...] 3:14 PM EDT 09/23/2024 4:37 PM EDT [facility] - 09/24/2024 2:28 AM EDT Vaginal Generic External Data Provider LAB MICROBIOLOGY - GENERAL ORDERABLES Final Result Performing Organization Address [facility]/ZIP Co de Phone Number [facility] [address] [place] [address] [phone] * Urinalysis, Complete, with Reflex to Culture (09/08/2024 9:22 AM EDT) Color Urine Yellow [facility] Appearance Urine Clear [facility] PH 7.5 5.0 - 9.0 [facility] Glucose Urine UA Negative Negative mg/dL [facility] Urine Blood Negative Negative [facility] Specific [place] - Urine 1.020 1.005 - 1.025 [facility] Urine Protein Negative Neg-Trace mg/dL [facility] Urine Ketones Negative Negative mg/dL [facility] Nitrite Urine Negative Negative [facility] Leukocyte Esterase Urine Negative Negative [facility] RBC Urine 0-2 0 - 2 /HPF [facility] Urine WBC 0-5 0 - 5 /HPF [facility] Urine Squamous Epithelial Cell 0-2 0 - 2 /HPF [facility] Urine Bacteria None Seen None Seen [facility] Hyaline Casts, Urine 0-2 0 - 2 /LPF [facility] 09/08/2024 9:22 AM EDT 09/08/2024 9:26 AM EDT Narrative [facility] - 09/08/2024 9:39 AM EDT [id number], Clean Catch Generic External Data Provider LAB URINE ORDERAB LES Final Result Performing Organization Address [facility]/ZIP Co de Phone Number [facility] [address] [place] [address] [phone] * CT Abdomen Pelvis w/o Contrast (09/08/2024 8:36 AM EDT) Anatomical Region Laterality Modality Body, Pelvis, Abdomen Computed T omography 09/08/2024 8:36 AM EDT Narrative 09/08/2024 9:50 AM EDT ? [facility] ?[address] ?[place] [address] ? [address] Scan Report ? Signed ? Patient: Eros Jackson,Zoila ?MR#: [id number] ?? [id number] ? : 1975 ?Acct:[id number] ? Age/Sex: 49 / F ?ADM Date: 09/08/24 ? Loc: HO.ED ? Attending Dr: ? Ordering Physician: Amber Li MD ?? Date of Service: 09/08/24 ?? Procedure(s): CT abdomen pelvis wo IV con ?? Accession Number(s): [id number] ? cc: [facility]; Amber Li MD ? Report Number: ?? [id number]: Total DLP = ??581.00 mGy-cm ?? EXAMINATION: [...] DD/ 0836 ? TD/TT: 09/08/24 0928 ? Marine Driller: ? Procedure Note Puma Jaquez - 09/08/2024 [place] [id number] [place] [address] CT Scan Report Signed Patient: Ish Petersen#: [id number] : 1975Acct:[id number] Age/Sex: 49 / FADM Date: 09/08/24 Loc: HO.ED Attending Dr: Ordering Physician: Amber Li MD Date of Service: 09/08/24 Procedure(s): CT abdomen pelvis wo IV con Accession Number(s): [id number] cc: [facility]; Amber Li MD Report Number: [id number]: Total DLP = 581.00 mGy-cm EXAMINATION: CT [...] signed by Blue James MD in OV> 09/08/2447 DD/ 5 TD/TT: 09/08/24927 Marine Driller: [facility] External Provider IMG CT PROCEDURES Final Result * Slide Review (09/08/2024 6:09 AM EDT) Slide Review VERIFIED [facility] 09/08/2024 6:09 AM EDT 09/08/2024 6:14 AM EDT Generic External Data Provider LAB BLOOD ORDERAB LES Final Result [facility] [address] [place] [phone] * (ABNORMAL) CBC auto differential (09/08/2024 6:09 AM EDT) White Blood Count 6.9 4.8 - 10.8 X10*3/uL [facility] Red Blood Count 4.12(L) 4.20 - 5.50 X10*6/uL [facility] Hemoglobin 11.5(L) 12.0 - 16.0 g/dl [facility] Hematocrit 34.3(L) 37.0 - 47.0 % [facility] Mean Corpuscular Volume 83.3 80.0 - 98.0 fL [facility] Mean Corpuscular Hemoglobin 27.9 27.0 - 33.0 pg [facility] Mean Corpuscular HGB Conc 33.5 31.0 - 35.0 g/dl [facility] Red Cell Distribution Width 13.7 11.0 - 16.0 % [facility] Platelet Count 326 160 - 400 X10*3/uL [facility] Mean Platelet Volume 9.1(L) 9.4 - 12.3 fL [facility] Neutrophils Percent Auto 42.4(L) 45 - 73 % [facility] Imm Gran Pct Auto 0.4 0.0 - 0.4 % [facility] Lymphocytes Percent Auto 39.6 20 - 40 % [facility] Monocytes Percent Auto 15.1(H) 2 - 11 % [facility] Eosinophils Percent Auto 1.3 0 - 4 % [facility] Basophils Percent Auto 1.2 0 - 2 % [facility] NRBC Pct Auto 0.0 0.0 - 0.2 /100WBC [facility] Neutrophils Absolute Auto 2.9 2.0 - 8.3 x10*3/uL [facility] Imm Gran Abs Auto 0.03 0.00 - 0.03 X10*3/uL [facility] Lymphocytes Absolute Auto 2.7 1.2 - 4.9 X10*3/uL [facility] Monocytes Absolute Auto 1.0 0.1 - 1.2 X10*3/uL [facility] Eosinophils Absolute Auto 0.1 0.0 - 0.4 X10*3/uL [facility] Basophils Absolute Auto 0.1 0.0 - 0.2 X10*3/uL [facility] NRBC Abs Auto 0.000 0.0 - 0.012 X10*3/uL [facility] 09/08/2024 6:09 AM EDT 09/08/2024 6:14 AM EDT us Generic External Data Provider LAB BLOOD ORDERAB LES Edited Result - Final [facility] [address] [place] [address] [phone] * (ABNORMAL) Comprehensive Metabolic Panel (09/08/2024 6:09 AM EDT) Sodium 138 135 - 145 mmol/L [facility] Potassium 4.1 3.3 - 5.1 mmol/L [facility] Chloride 109(H) 96 - 108 mmol/L [facility] Carbon Dioxide 22 22 - 29 mmol/L [facility] Anion Gap 11(L) 12 - 20 [facility] Urea Nitrogen (BUN) 15 9 - 16 mg/dL [facility] Creatinine, Serum 0.68 0.5 - 1.4 mg/dL [facility] Creatinine Clr Calc Pharmacy 88.4 [facility] Comment:Provided height and weight: 147.32 cm,80.2 kg.eGFR (calculated from the MDRD study equation) and eCrCl(calculated from the Cockcroft-Gault equation) are based ondifferent parameters and may not yield comparable results.If eCrCl result is absurd, please check patient'sheight/weight. Estimated Glomerular Filt Rate >60 [facility] Comment:Chronic Kidney Disea se: Estimated GFR < 60 mL/min/1.81p6Qdeioz Kidney Disease: Estimated GFR < 15 mL/min/1.73m2 Glucose 104 60 - 115 mg/dL [facility] Calcium 9.2 8.4 - 10.2 mg/dL [facility] Bilirubin, Total 0.2 0.0 - 1.0 mg/dL [facility] Aspartate Amino Transferase 26 5 - 31 U/L [facility] Alanine Aminotransferase 12 0 - 31 U/L [facility] Total Protein 7.5 6.5 - 8.0 g/dL [facility] Albumin Level 3.7 3.5 - 5.0 g/dL [facility] Alkaline Phosphatase 46 39 - 117 U/L [facility] 09/08/2024 6:09 AM EDT 09/08/2024 6:14 AM EDT us Generic External Data Provider LAB BLOOD ORDERAB LES Final Result [facility] [address] [place] [phone] [phone] * ThinPrep Imaging Pap and HPV mRNA E6/E7 (03/02/2024 12:10 PM EDT) HPV nRNA E6/E7 Not Detected Not Detected [facility] Comment:Methodology: Transcr iption-Mediated AmplificationThis assay detects E6/E7 viral messenger RNA (mRNA) from 14high-risk HPV types (16,18,31,33,35,39,45,51,52,56,58,59,66,68).Cervical sources are required for HPV testing.If a vaginal source from a patient who has had atotal hysterectomy with removal of cervix wassubmitted, please contact the testing laboratoryfor alternative testing options.For additional information, please refer tohttp://education.Asktourism/faq/SZA154s7(This link if provided for information/educational purposes only.)THIS TEST WAS PERFORMED AT:[facility] [address] [phone] FULTON MD SOURCE: SEE NOTE [facility] Comment:None given Report Status: [facility] Clinical Information: SEE NOTE [facility] Comment:None given LMP: SEE [facility] Comment:NONE GIVEN Prev. PAP: SEE NOTE [facility] Comment:NONE GIVEN Prev. BX: SEE NOTE [facility] Comment:NONE GIVEN Statement Of Adequacy: SEE NOTE [facility] Comment:Satisfactory for snaa luation.Endocervical/transformation zone component absent. General Categorization: [facility] Interpretation/Result: SEE NOTE [facility] Comment:Cytology Results: Ne gative for intraepitheliallesion or malignancy. Cytology Comment SEE NOTE [facility] Comment:This Pap test has be en evaluated with computerassisted technology. Backhoe Operator: SEE NOTE [facility] Comment:SL, CT(ASCP)CT scree neena location: [place] [address] Review Backhoe Operator: [facility] Pathologist TNP [facility] PAP Infection SEE NOTE [facility] Comment:Fungal organisms mor phologically consistent withCandida spp.Shift in vaginal mercedez suggestive of bacterialvaginosis. See Note SEE NOTE [facility] Comment:EXPLANATORY NOTE:The Pap is a screening test for cervical cancer. It isnot a diagnostic test and is subject to false negativeand false positive results. It is most reliable when asatisfactory sample, regularly obtained, is submittedwith relevant clinical findings and history, and whenthe Pap result is evaluated along with historic andcurrent clinical information. 03/02/2024 12:1 0 PM EDT 03/02/2024 6:27 PM EDT Narrative [facility] - 03/05/2024 12:29 PM EDT SEE SCANNED RESULTS IN EMR us Farida NOYOLA LAB PATHOLOGY ORDERABLES Final Result [facility] [address] [place] [phone] * (ABNORMAL) Lipid Panel, Standard (01/08/2024 11:29 AM EDT) Triglycerides 103 <150 mg/dL [facility] Comment:Desirable Triglyceri de: less than 150 mg/dLBorderline High Triglyceride 150-199 mg/dLHigh Triglyceride: 200-499 mg/dLVery High Triglyceride: greater than or equal to 5OO mg/dL Cholesterol 208(H) <200 mg/dL [facility] Comment:Desirable Cholestero l: less than 200 mg/dLBorderline High Cholesterol: 200-239 mg/dLHigh Cholesterol: greater than 239 mg/dL LDL Cholesterol Calculated 140(H) <100 mg/dL [facility] Comment:Desirable LDL: less than 100 mg/dLNear Optimal/Above Optimal LDL: 110- 129 mg/dLBorderline High LDL: 130-159 mg/dLHigh LDL: 160-189 mg/dLVery High LDL: greater than or equal to 190 mg/dL HDL Cholesterol 48 >40 mg/dL [facility] Comment:Desirable HDL: great er than 40 mg/dL Note: This HDL assay may give artificially low results in patients with liver disease. Blood Venous blood specimen / Unknown 01/08/2024 11:29 AM EDT 01/08/2024 12:51 PM EDT us Bita Muñoz COMPUTER TYPESETTER LAB BLOOD ORDERABLES Final Res ult [facility] [address] [place] [phone] [phone] * BI Mammogram Screening Tomosynthesis Bilateral (10/21/2023 11:20 AM EDT) Anatomical Region Laterality Modality Breast Bilateral Mammography 10/21/2023 11:2 0 AM EDT Narrative 11/17/2023 6:20 AM EDT ? [facility] [place] ? [address] ?[place] [address] ? Mammography Report ? Signed ? Patient: Cooney Jackson,Zoila ?MR#: [id number] ?? [id number] ? : 1975 ?Acct:[id number] ? Age/Sex: 48 / F ?ADM Date: 10/20/ ? Loc: HO.MAMMO ? Attending Dr: Janis Foreman CNM ? Ordering Physician: Kellen,Janis CNM ?Results: 1Nega ?? tive ? Date of Service: 10/20/24 ?Follow Up: 1 Year From Orig ?? inal Mammogram ? Procedure(s): MM tomosynthesis screening BI ?? Accession Number(s): [id number] ? cc: Janis Foreman CNM; Bita Muñoz COMPUTER TYPESETTER ? EXAMINATION: ?? MM SCREENING DIGITAL BREAST [...] 0617 ? DD/ 1120 ? TD/TT: ? Marine Driller: ? Procedure Note Gisele, Puma - 11/17/2023 [facility] [address] [place] [address] Dr. Gibbs, BOBBY [address] Mammography Report Signed Patient: Zoila Petersen#: [id number] : 1975Acct:[id number] Age/Sex: 48 / FADM Date: 10/21/23 Loc: HO.MAMMO Attending Dr: Janis Foreman CNM Ordering Physician: Janis Foremanesults: 1Nega tive Date of Service: 10/21/23Follow Up: 1 Year From Orig ina Mammogram Procedure(s): MM tomosynthesis screening BI Accession Number(s): [id number] cc: Janis Foreman CNM; Bita Muñoz COMPUTER TYPESETTER EXAMINATION: MM SCREENING DIGITAL BREAST TOMOSYNTHESIS, BILATERAL [...] in OV> 11/17/23 0617 DD/ 1120 TD/TT: Marine Driller: [facility] External Provider IMG BI PROCEDURES Final Result * Hepatitis C Ab (03/07/2023 12:19 PM EDT) Hepatitis C Antibody Nonreactive Nonreactive [facility] Comment:Antibodies to HCV no t detected; does not exclude early acuteHCV infection. 03/07/2023 12:1 9 PM EDT 03/07/2023 12:19 PM EDT Generic External Data Provider LAB BLOOD ORDERAB LES Final Result Performing Organization Address [facility]/ZIP Co de Phone Number [facility] [address] [place] [address] [phone] * HIV Ab/Ag (BOBBY DP) (03/07/2023 12:19 PM EDT) Pathologist [facility] HIV AB/AG Nonreactive Nonreactive [facility] Comment:HIV-1 p24 Ag and/or HIV-1/HIV-2 Ab not detected.A test result that is nonreactive does not exclude thepossibility of exposure to or infection with HIV-1 and/orHIV-2. Nonreactive results in this assay for individualswith prior exposure to HIV-1 and/or HIV-2 may be due toantigen and antibody levels that are below the limit ofdetection of this assay.The MtoV HIV Ag/Ab Combo assay result andsupplemental assay results should be interpreted inconjunction with the patient's clinical presentation,history and other laboratory results. If the results areinconsistent with clinical evidence, additional testing issuggested to confirm the result. 03/07/2023 12:1 9 PM EDT 03/07/2023 12:19 PM EDT us Generic External Data Provider LAB BLOOD ORDERAB LES Final Result Performing Organization Address [facility]/ZIP Co de Phone Number [facility] [address] [place] [address] [phone] * Colonoscopy (07/22/2020) Colonoscopy Normal Normal Comment:5 Yr F/U Historical Provider HEALTH MAINTENANCE Edited Result - Final from Last 3 Months or Most Recently Relevant to Health Maintenance Insurance [employer] [place] Care Teams Steam And Gas Turbine Assembler Relationship Specialty Start Date End Date Bita Muñoz FNP [address] [place] [phone] PCP - General Family Medicine 02/19/22 Karen Edward Certified Physician AssistantEnvironmental Protection Inspector 10/17/23
== END 2024-10-30 13:10 | disposition home or self-care (01) ==
LOC: HO.HHCLNP 13:09
PROVIDERS: Visit Provider Emergency Medicine
DX: R39.9 Unspecified symptoms and signs involving the genitourinary system (principal)
CPT/HCPCS: 87086; 87088; 87147; 87186

== ENCOUNTER → 2024-11-02 12:43 | Outpatient (REF) | payer MEDICAID, SELFPAY ==
--- NOTE | 2024-11-02 12:47 | CA_ITS ---
Transthoracic Echocardiogram Patient (Last, First, Middle): Zoila Petersen, Gender: Female Date of : 1975 Age: 49 Procedure Date: 11/02/2024 Procedure Type: Transthoracic Echocardiogram Location: OP Height: 147.32 cm Weight: 79.83 kg BSA: 1.72 m2 Heart Rate: 60 bpm BP: 110 / 74 mmHg Rubber Tester: DANIEL Referring MD: Bita NICE Billet Inspector: Roger Fernandez MD Symptoms: I27.20 PULMONARY HTN Study Quality: Adequate ECG Rhythm: Sinus Conclusions: - Essentially normal study Findings Left Ventricle Normal left ventricular size, thickness, and systolic function. The visually estimated ejection fraction is between 60-65%. Spectral Doppler is indicative of a normal filling pattern. Right Ventricle Normal right ventricular cavity size and systolic function. Atria Both atria are normal in size. There is no evidence of interatrial shunt. Aortic Valve Normal aortic valve structure and function. There is no aortic valve stenosis. There is no aortic valve regurgitation. Mitral Valve Normal mitral valve structure and function. There is trace mitral valve regurgitation. There is no mitral valve stenosis. Pulmonic Valve The pulmonic valve is likely normal. There is trace pulmonic valve regurgitation. Tricuspid Valve Normal tricuspid valve structure. There is trace tricuspid valve regurgitation. The right ventricular systolic pressure is normal. The right ventricular systolic pressure is 26 mmHg. Normal right atrial pressure. There is no evidence of pulmonary hypertension. Great Vessels All visible segments of the aorta are normal in size. The pulmonary artery was not well visualized. There is no dilatation of the ascending aorta measuring 3.40 cm. Venous The inferior vena cava is normal in size and collapses greater than 50% with inspiration. Pericardium/Pleural There is no evidence of pericardial effusion. Prior Study Comparison No significant change compared to prior study dated: 05/27/2020. Measurements 2D Linear Measurements IVSd: 0.79 0.6-0.9/0.6-1.0 cm LVIDd: 4.37 3.9-5.3/4.2-5.9 cm LVIDd Index: 2.54 2.4-3.2/2.2-3.1 cm/m2 LVIDs: 2.51 2.0-3.6 cm LVPWd: 0.64 0.7-1.1 cm LA Diam: 3.60 2.7-3.8/3.0-4.0 cm LAIDs Index: 2.09 1.5-2.3 cm/m2 LV Mass: 116.02 67-162/88-224 g LV Mass Index: 67.45 43-95/49-115 g/m2 LVOT Diam: 2.20 3.0+(-)1.3 cm 2D Systolic Function EF 4C: 58.70 >55% EF 2C: 64.90 >55% EF BiP: 62.30 >55% Mitral Valve MV Pk E: 0.90 MV PK A: 0.73 MV Decel Time: 192.00 E/A: 1.20 E'Lateral: 7.51 E'Medial: 7.72 E/E' Med: 11.60 E/E' Lat: 11.90 PHT: 56.00 MVA PHT: 3.93 Decel Franklin: 4.66 Aortic Valve AoV Pk Kuldip: 1.13 AoV Pk Grad: 5.00 GARY: 3.19 LVOT LVOT Pk Kuldip: 1.04 LVOT Mn Kuldip: 0.68 LVOT VTI: 0.23 LVOT Pk Grad: 4.00 LVOT Mn Grad: 3.00 LVOT Diam: 2.20 LVOT Area: 3.80 Diastolic Function MV Pk E: 0.90 MV Pk A: 0.73 E/A: 1.20 E'Medial: 7.72 E/E' Med: 11.60 E' Laterial: 7.51 E/E' Lat: 11.90 Right Ventricle TAPSE (mm): 25.20 TVS' Kuldip: 10.10 Tricuspid Valve TR Pk Kuldip: 2.42 TR Pk Grad: 23.00 RA Press: 3.00 RVSP: 26.00 Great Vessels Aorta Sinus of Valsalva: 2.70 2.0-3.5 cm Ao Asc: 3.40 2.1-3.4 cm Ao Arch: 2.90 Pulmonary Valve PV Pk Kuldip: 0.80 Peak PV Grad: 3.00 Updated in Other Vendor System with Status of Final Roger Fernandez MD electronically signed on 11/03/2024 10:43:01 AM with status of Final
--- OUTSIDE RECORDS SUMMARY | 2024-11-02 13:04 | XMS_ITS | Clinical Summary ---
Author Organization [employer] Address [address] [facility] [address] [place] [address] Care Team Providers Care Pourer Name Role Phone Bita Muñoz [employer] Primary Care Provider [phone] Allergies No known active allergies Medications * [...] and at bedtime. 1 Active sodium chloride (Riley) 0.65 % nasal spray Administer 2 sprays [...] mouth at bedtime. 90 tablet 1 5 026 Active celecoxib (CeleBREX) 100 MG capsule TAKE 1 CAPSULE BY MOUTH TWICE DAILY IN THE MORNING AND AT BEDTIME NEEDED FOR MILD PAIN 60 capsule 1 5 Active estradiol-norethi ndrone (CombiPatch) 0.05-0.14 MG/DAYIndications :Hot flashes Place 1 patch on the skin 2 (two) times a week. 8 patch 3 5 026 Active nitrofurantoin, macrocrystal-mono hydrate, (Macrobid) 100 MG capsule Take 1 capsule (100 mg) by mouth 2 times daily for 5 days. 10 capsule 5 025 Active fluconazole (Diflucan) 150 MG tablet Take 1 tablet (150 mg) by mouth Once per day. May repeat dose in 3 days prn. 2 tablet 5 Active phenazopyridine (Pyridium) 200 MG tablet Take 1 tablet (200 mg) by mouth with breakfast, with lunch, and with evening meal for 2 days. 6 tablet 5 025 Active Problems Problem Noted Date Diagnosed Date [...] hip pain 04/13/2024 Overview (08/12/2024): [facility] with [facility] - Dr. Bergman MRI completed Mar [...] - No acute changes - Following with [facility], consult scheduled next week to review [...] Plan (01/13/2024 8:05 PM EDT): Following with [facility] U[facility] - Vicenta Robison, [employer] Continues on vaginal estrogen through specialist, has [...] stage. PLAN: 1. Follow up with [facility]: Not recommended for follow-up 2. Patient goal is to decrease stress level 3. Behavioral Recommendations a. Utilize coping skills provided b. Engage in therapy when established c. May reach out to [facility] for additional support Assessment & Plan (01/29/2023 5:50 PM EDT): ?? Housing is significant stressor ?? Currently housed, although not necessarily stable in the future ?? BE conducted today, please see note for further details ?? Referral to SDOH team placed Benign paroxysmal positional vertigo due [...] Smoking status: non-smoker Eye Exam: 04/10/23 Dental: , requested referral to [facility] dental Assessment & Plan (07/15/2024 3:37 PM EST): Referral sent to [facility] Dental Advised pt to go get [...] WNL ?? Upcoming appt to establish with [facility] Neurology ?? Well controlled with topiramate 25mg [...] service PLAN: 1. Follow up with [facility]: Not recommended for follow-up 2. Patient goal [...] endometrium and normal-appearing ovaries -Continue following with [facility] [employer] EXECUTIVE Resolved Problems Problem Noted Date Diagnosed Date [...] Description 10/30/2024 9:40 AM EDT Office Visit [facility] [address] [place] [phone] Parish Paiz MD Dysuria (Primary Dx); UTI symptoms 10/30/2024 Travel 10/30/2024 Telephone [facility] MEDIC[facility] [address] [place] [address] Bita Muñoz FNP Nurse Triage 10/29/2024 8:30 AM EDT Office Visit [facility] ADULT DENTAL [address] [place] [address] Rebel Birch DMD 10/26/2024 Orders Only [facility] External Provider, [facility] 10/22/2024 Travel 10/19/2024 Population Health Risk Score [facility] (C3) Department [address] [place] [phone] Provider, Population Health Generic 10/19/2024 Telephone [facility] [address] [place] [address] Bita Muñoz FNP Referral 10/15/2024 Refill [facility] [address] [place] [address] Bita Muñoz FNP Hot flashes 10/08/2024 9:00 AM EDT Office Visit [facility] ADULT [facility] [address] [place] [address] Viri Bennett Periodontal disease (Primary Dx); Dental caries; Missing teeth, acquired 10/07/2024 10:30 AM EDT Office Visit [facility] ADULT [facility]ENT[facility] [address] [place] [address] Rebel Birch DMD Routine health maintenance 09/23/2024 Orders Only GENERIC EXTERNAL DATA DEPARTMENT Provider, Generic External Data 09/11/2024 Refill [facility] [address] [place] [address] Bita Muñoz FNP Hot flashes 09/09/2024 Telephone [facility] [address] [place] [address] Bita Muñoz FNP ER Follow-up 09/08/2024 Orders Only GENERIC EXTERNAL DATA DEPARTMENT Provider, Generic External Data 09/02/2024 10:15 AM EDT Office Visit [facility] [address] [place] [address] Bita Muñoz FNP Hot flashes (Primary Dx); Encounter for immunization 09/02/2024 Travel 08/31/[address] [facility] [address] [place] [address] Lauryn Frank MA Chart Prep 08/14/[address] [facility] [address] [place] [address] Bita Muñoz FNP Cardiology Referral 08/12/2024 11:15 AM EST Office Visit [facility] [address] [place] [address] Bita Muñoz FNP Onychauxis (Primary Dx); Left hip pain; Hot flashes; Pulmonary hypertension (CMS/HCC) 08/12/2024 Travel 08/11/[address] [facility] [address] [place] [address] Lauryn Frank MA Chart Prep from Last [...] the past 12 months, has t he OCP Collective, gas, oil or water company threatened to [...] Description 11/19/2024 10:30 AM EDT Office Visit [facility] [address] [place] [address] Rebel Birch, DMD [address] [place] [address] 12/02/2024 10:00 AM EDT Office Visit [facility] [address] [place] [address] Rafaelen, Bita, [employer] [address] [place] [address] 04/12/2025 10:00 AM EDT Office Visit [facility] OPTOMETRY [address] [place] [address] Gerber, Barbara, OD [address] [place] [address] 04/21/2025 10:00 AM EDT Office Visit [facility] ADULT DENTAL [address] [place] [address] Sabrina, Viri [address] [place] [address] Health Maintenance Due Date Last Done Comments CT Colonography 1974 FIT DNA/Cologuard 1975 FIT 1975 FOBT 1975 Sigmoidoscopy 1975 Influenza Vaccine (#1) 2024 , 04/23/2022, 03/31/2021, [...] Dental X-Ray: [facility] 10/08/2025 10/08/19, 12/15/2013, 04/26/2008 Mammogram 10/26/2025 10/26/2024, 09/23, 10/15/2022, Additional history exists Tobacco Screening 10/30/2025 10/30/2024 Dental X-Ray: Full [...] Associated Diagnosis Comments CULTURE, URINE, ROUTINE Routine 10/30/2024 9:42 AM EDT UTI symptoms POCT URINALYSIS DIPSTICK Routine 10/30/2024 9:41 AM EDT UTI symptoms DENTURE IMPRESSION Routine 10/29/2024 8: 30 AM EDT BI MAMMOGRAM SCREENING TOMOSYNTHESIS BILATERAL Routine 10/26/2024 11:00 AM EDT AMB REFERRAL TO PODIATRY Routine [...] STANDARD Routine 01/08/2024 11:29 AM EDT Dyslipidemia HEPATITIS C ANTIBODY Routine 03/07/2023 12:19 PM EDT HIV ANTIBODY/ANTIGEN ([place] D[facility]) Routine 03/07/2023 12:19 PM EDT HM COLONOSCOPY Routine 07/22/2020 from Last 3 Months or Most Recently Relevant to Health Maintenance Results * Culture, Urine, Routine (10/30/2024 9:42 AM EDT) Urine Urine specimen obtained by clean catch procedure / Unknown 10/30/2024 9:42 AM EDT 10/30/2024 1:10 PM EDT Comment:UACC Narrative [facility] - 11/01/2024 11:13 AM EDT Escherichia coli Quant > 100,000 cfu/mL Strep agalactiae (Grp B) Quant 10,000 to 50,000 cfu/mL Susc N/A Susceptibility not routinely performed on this isolate. Escherichia coli: Ampicillin 4(S) Escherichia coli: Cefazolin (Urine) <=1(S) Escherichia coli: Cefepime <=0.12(S) Escherichia coli: Ceftriaxone <=0.25(S) Escherichia coli: Ciprofloxacin <=0.06(S) Escherichia coli: Gentamicin <=1(S) Escherichia coli: Nitrofurantoin <=16(S) Escherichia coli: Trimethoprim/Sulfamethoxazole >=320(R) Specimen Source: Urine clean catch us Parish Paiz MD LAB MICROBIOLOGY - GENERAL ORDER CHUN Final Result [facility] [address] [place] [phone] * (ABNORMAL) POCT urinalysis dipstick manually resulted [...] TEST ENTER/EDIT OR DERABLES Final Result * BI Mammogram Screening Tomosynthesis Bilateral (10/26/2024 11:00 AM EDT) Anatomical Region Laterality Modality Breast Bilateral Mammography 10/26/2024 11:0 0 AM EDT Narrative 11/01/2024 9:13 PM EDT ? [facility] ? [address] ?[place] [address] ?[phone] ? Mammography Report ? Signed ? Patient: Zoila Petersen ?MR#: [id number] ?? [id number] ? : 1975 ?Acct:[id number] ? Age/Sex: 49 / F ?ADM Date: 05/05/25 ? Loc: HO.MAMMO ? Attending Dr: Bita Muñoz [employer] ? Ordering Physician: Janis Foreman CNKaren ?Results: 1Nega ?? tive ? Date of Service: 05/05/25 ?Follow Up: 1 Year From Orig ?? inal Mammogram ? Procedure(s): MM tomosynthesis screening BI ?? Accession Number(s): [id number] ? cc: Janis Foreman CNM; Bita Muñoz [employer] ? EXAMINATION: ?? MM SCREENING DIGITAL BREAST TOMOSYNTHESIS, BILATERAL ? CLINICAL INFORMATION: ? Screening. Asymptomatic. ? COMPARISON: ?? Mammography: Comparison is made with available priors ? TECHNIQUE: ?? Digital breast mammography with tomosynthesis is performed in both the ?? craniocaudal and mediolateral oblique views along with computer-aided ?? detection (CAD). ? FINDINGS: ?? The breasts are heterogeneously [...] due date for their next mammogram. ? Electronically signed by: ??Lindsey Garrett DO ??11/01/2024 09:11 PM EDT ?? RP ? Dictated By: ?Lindsey Garrett DO ? Signed By: ?<Electronically signed by Lindsey Garrett, DO in OV> ? 11/01/24 2111 ? DD/ 1100 ? TD/TT: 10/26/24 1117 ? Music Theory Teacher: ? Procedure Note Puma Jaquez - 11/01/2024 [facility] [address] [place] [address] [place] [address] Mammography Report Signed Patient: Zoila Petersen#: [id number] : 1975Acct:[id number] Age/Sex: 49 / FADM Date: 10/26/24 Loc: HO.MAMMO Attending Dr: Bita Muñoz [employer] Ordering Physician: Janis ForemanMResults: 1Nega tive Date of Service: 10/26/24Follow Up: 1 Year From Orig ina Mammogram Procedure(s): MM tomosynthesis screening BI Accession Number(s): [id number] cc: Janis Foreman CNM; Bita Muñoz [employer] EXAMINATION: MM SCREENING DIGITAL BREAST TOMOSYNTHESIS, BILATERAL CLINICAL INFORMATION: Screening. Asymptomatic. COMPARISON: Mammography: Comparison is made with available priors TECHNIQUE: Digital breast mammography with tomosynthesis is performed in both the craniocaudal and mediolateral oblique views along with computer-aided detection (CAD). FINDINGS: The breasts are heterogeneously dense, which [...] target due date for their next mammogram. Electronically signed by: Lindsey Garrett DO 11/01/2024 09:11 PM EDT Dictated By: Lindsey Garrett DO Signed By: <Electronically signed by Lindsey Garrett DO in OV> 11/01/24 2111 DD/ 1100 TD/TT: 10/26/24 1117 Music Theory Teacher: [facility] External Provider IMG BI PROCEDURES Final Result * Referral to Podiatry (10/26/2024) us Bita Muñoz [facility] OUTPATIENT REFERRAL ORDERABLES Final Result * (ABNORMAL) Bacterial Vaginosis (09/23/2024 3:14 PM EDT) TRICHOMONAS VAGINALIS DETECTION BY PCR NOT DETECTED Not Detect [facility] BACTERIAL VAGINOSIS DETECTION BY PCR POSITIVE(A) Negative [facility] Comment:The BV organism targ ets [...] DETECTION BY PCR NOT DETECTED Not Detect [facility] Gladis glab krusei PCR NOT DETECTED Not Detect [facility] 09/23/2024 3:14 PM EDT 09/23/2024 4:37 PM EDT us Generic External Data Provider LAB MICROBIOLOGY - GENERAL ORDERABLES Final Result [facility] [address] [place] [phone] * Chlamydia/N. Gonorrhoeae RNA, TMA, Urogenitial (09/23/2024 3:14 PM EDT) CT PCR NOT DETECTED Not Detect. [facility] Comment:A not detected test result [...] psychologicalconsequences. NG PCR NOT DETECTED Not Detect. [facility] Comment:A not detected test result [...] PM EDT 09/23/2024 4:37 PM EDT Narrative [facility] - 09/24/2024 2:28 AM EDT Vaginal us Generic External Data Provider LAB MICROBIOLOGY - GENERAL ORDERABLES Final Result [facility] [address] [place] [phone] * Urinalysis, Complete, with Reflex to Culture (09/08/2024 9:22 AM EDT) Color Urine Yellow [facility] Appearance Urine Clear [facility] PH 7.5 5.0 - 9.0 [facility] Glucose Urine UA Negative Negative mg/dL [facility] Urine Blood Negative Negative [facility] Specific [place] - Urine 1.020 1.005 - 1.025 [facility] Urine Protein Negative Neg-Trace mg/dL [facility] Urine Ketones Negative Negative mg/dL [facility] Nitrite Urine Negative Negative [facility] Leukocyte Esterase Urine Negative Negative [facility] RBC Urine 0-2 0 - 2 /HPF [facility] Urine WBC 0-5 0 - 5 /HPF [facility] Urine Squamous Epithelial Cell 0-2 0 - 2 /HPF [facility] Urine Bacteria None Seen None Seen [facility] Hyaline Casts, Urine 0-2 0 - 2 /LPF [facility] 09/08/2024 9:22 AM EDT 09/08/2024 9:26 AM EDT Narrative [facility] - 09/08/2024 9:39 AM EDT [id number], Clean Catch us Generic External Data Provider LAB URINE ORDERAB LES Final Result [facility] [address] [place] [address] [phone] * CT Abdomen Pelvis w/o Contrast (09/08/2024 8:36 AM EDT) Anatomical Region Laterality Modality Body, Pelvis, Abdomen Computed T omography 09/08/2024 8:36 AM EDT Narrative 09/08/2024 9:50 AM EDT ? [facility] ?[address] ?[place] [address] ? CT Scan Report ? Signed ? Patient: Zoila Petersen ?MR#: [id number] ?? [id number] ? : 1975 ?Acct:[id number] ? Age/Sex: 49 / F ?ADM Date: 09/08/24 ? Loc: HO.ED ? Attending Dr: ? Ordering Physician: Amber Li MD ?? Date of Service: 09/08/24 ?? Procedure(s): CT abdomen pelvis wo IV con ?? Accession Number(s): [id number] ? cc: [facility]; Amber Li MD ? Report Number: ?? [id number]: Total DLP = ??581.00 mGy-cm ?? EXAMINATION: [...] DD/ 0836 ? TD/TT: 09/08/24 0928 ? Music Theory Teacher: ? Procedure Note Donotuseinterpreter, Image - 09/08/[address] [address] [address] Scan Report Signed Patient: Zoila PetersenMR#: [id number] : 1975Acct:[id number] Age/Sex: 49 / FADM Date: 09/08/24 Loc: .ED Attending Dr: Ordering Physician: Amber Li MD Date of Service: 09/08/24 Procedure(s): CT abdomen pelvis wo IV con Accession Number(s): [id number] cc: [facility]; Amber Li MD Report Number: [id number]: Total DLP = 581.00 mGy-cm EXAMINATION: CT [...] in OV> 09/08/2447 DD/ 5 TD/TT: 09/08/24927 Music Theory Teacher: [facility] External Provider IMG CT PROCEDURES Final Result * Slide Review (09/08/2024 6:09 AM EDT) Slide Review VERIFIED [facility] 09/08/2024 6:09 AM EDT 09/08/2024 6:14 AM EDT Generic External Data Provider LAB BLOOD ORDERAB LES Final Result [facility] [address] [place] [phone] * (ABNORMAL) CBC auto differential (09/08/2024 6:09 AM EDT) White Blood Count 6.9 4.8 - 10.8 X10*3/uL [facility] Red Blood Count 4.12(L) 4.20 - 5.50 X10*6/uL [facility] Hemoglobin 11.5(L) 12.0 - 16.0 g/dl [facility] Hematocrit 34.3(L) 37.0 - 47.0 % [facility] Mean Corpuscular Volume 83.3 80.0 - 98.0 fL [facility] Mean Corpuscular Hemoglobin 27.9 27.0 - 33.0 pg [facility] Mean Corpuscular HGB Conc 33.5 31.0 - 35.0 g/dl [facility] Red Cell Distribution Width 13.7 11.0 - 16.0 % [facility] Platelet Count 326 160 - 400 X10*3/uL [facility] Mean Platelet Volume 9.1(L) 9.4 - 12.3 fL [facility] Neutrophils Percent Auto 42.4(L) 45 - 73 % [facility] Imm Gran Pct Auto 0.4 0.0 - 0.4 % [facility] Lymphocytes Percent Auto 39.6 20 - 40 % [facility] Monocytes Percent Auto 15.1(H) 2 - 11 % [facility] Eosinophils Percent Auto 1.3 0 - 4 % [facility] Basophils Percent Auto 1.2 0 - 2 % [facility] NRBC Pct Auto 0.0 0.0 - 0.2 /100WBC [facility] Neutrophils Absolute Auto 2.9 2.0 - 8.3 x10*3/uL [facility] Imm Gran Abs Auto 0.03 0.00 - 0.03 X10*3/uL [facility] Lymphocytes Absolute Auto 2.7 1.2 - 4.9 X10*3/uL [facility] Monocytes Absolute Auto 1.0 0.1 - 1.2 X10*3/uL [facility] Eosinophils Absolute Auto 0.1 0.0 - 0.4 X10*3/uL [facility] Basophils Absolute Auto 0.1 0.0 - 0.2 X10*3/uL [facility] NRBC Abs Auto 0.000 0.0 - 0.012 X10*3/uL [facility] 09/08/2024 6:09 AM EDT 09/08/2024 6:14 AM EDT us Generic External Data Provider LAB BLOOD ORDERAB LES Edited Result - Final [facility] [address] [place] [address] [phone] * (ABNORMAL) Comprehensive Metabolic Panel (09/08/2024 6:09 AM EDT) Sodium 138 135 - 145 mmol/L [facility] Potassium 4.1 3.3 - 5.1 mmol/L [facility] Chloride 109(H) 96 - 108 mmol/L [facility] Carbon Dioxide 22 22 - 29 mmol/L [facility] Anion Gap 11(L) 12 - 20 [facility] Urea Nitrogen (BUN) 15 9 - 16 mg/dL [facility] Creatinine, Serum 0.68 0.5 - 1.4 mg/dL [facility] Creatinine Clr Calc Pharmacy 88.4 [facility] Comment:Provided height and weight: 147.32 cm,80.2 kg.eGFR (calculated from the MDRD study equation) and eCrCl(calculated from the Cockcroft-Gault equation) are based ondifferent parameters and may not yield comparable results.If eCrCl result is absurd, please check patient'sheight/weight. Estimated Glomerular Filt Rate >60 [facility] Comment:Chronic Kidney Disea se: Estimated GFR < 60 mL/min/[id number] Kidney Disease: Estimated GFR < 15 mL/min/1.73m2 Glucose 104 60 - 115 mg/dL [facility] Calcium 9.2 8.4 - 10.2 mg/dL [facility] Bilirubin, Total 0.2 0.0 - 1.0 mg/dL [facility] Aspartate Amino Transferase 26 5 - 31 U/L [facility] Alanine Aminotransferase 12 0 - 31 U/L [facility] Total Protein 7.5 6.5 - 8.0 g/dL [facility] Albumin Level 3.7 3.5 - 5.0 g/dL [facility] Alkaline Phosphatase 46 39 - 117 U/L [facility] 09/08/2024 6:09 AM EDT 09/08/2024 6:14 AM EDT us Generic External Data Provider LAB BLOOD ORDERAB LES Final Result [facility] [address] [place] [address] [phone] * [facility] Imaging Pap and HPV mRNA E6/E7 (03/02/2024 12:10 PM EDT) HPV nRNA E6/E7 Not Detected Not Detected [facility] Comment:Methodology: Transcr iption-Mediated AmplificationThis assay detects E6/E7 viral messenger RNA (mRNA) from 14high-risk HPV types (16,18,31,33,35,39,45,51,52,56,58,59,66,68).Cervical sources are required for HPV testing.If a vaginal source from a patient who has had atotal hysterectomy with removal of cervix wassubmitted, please contact the testing laboratoryfor alternative testing options.For additional information, please refer tohttp://education.[employer]uk[employer].com/faq/CNY250d1(This link if provided for information/educational purposes only.)THIS TEST WAS PERFORMED AT:[employer] [place] [phone] FULTON MD SOURCE: SEE NOTE [facility] Comment:None given Report Status: TNP [facility] Clinical Information: SEE NOTE [facility] Comment:None given LMP: SEE NOTE [facility] Comment:NONE GIVEN Prev. PAP: SEE NOTE [facility] Comment:NONE GIVEN Prev. BX: SEE NOTE [facility] Comment:NONE GIVEN Statement Of Adequacy: SEE NOTE [facility] Comment:Satisfactory for sana luation.Endocervical/transformation zone component absent. General Categorization: [facility] Interpretation/Result: SEE NOTE [facility] Comment:Cytology Results: Ne gative for intraepitheliallesion or malignancy. Cytology Comment SEE NOTE [facility] Comment:This Pap test has be en evaluated with computerassisted technology. Wind Turbine Controls Engineer: SEE NOTE [facility] Comment:SL, CT(ASCP)CT scree neena location: [place] [address] Review [employer]urbine Controls Engineer: [facility] Pathologist [facility] PAP Infection SEE NOTE [facility] Comment:Fungal organisms mor phologically consistent withCandida spp.Shift in vaginal mercedez suggestive of bacterialvaginosis. See Note SEE NOTE [facility] Comment:EXPLANATORY NOTE:The Pap is a [...] PM EDT 03/02/2024 6:27 PM EDT Narrative [facility] - 03/05/2024 12:29 PM EDT SEE SCANNED RESULTS IN EMR us Farida Tiwari CNM LAB PATHOLOGY ORDERABLES Final Result [facility] [address] [place] [address] [phone] * (ABNORMAL) Lipid Panel, Standard (01/08/2024 11:29 AM EDT) Triglycerides 103 <150 mg/dL [facility] Comment:Desirable Triglyceri de: less than 150 mg/dLBorderline High Triglyceride 150-199 mg/dLHigh Triglyceride: 200-499 mg/dLVery High Triglyceride: greater than or equal to 5OO mg/dL Cholesterol 208(H) <200 mg/dL [facility] Comment:Desirable Cholestero l: less than 200 mg/dLBorderline High Cholesterol: 200-239 mg/dLHigh Cholesterol: greater than 239 mg/dL LDL Cholesterol Calculated 140(H) <100 mg/dL [facility] Comment:Desirable LDL: less than 100 mg/dLNear Optimal/Above Optimal LDL: 110- 129 mg/dLBorderline High LDL: 130-159 mg/dLHigh LDL: 160-189 mg/dLVery High LDL: greater than or equal to 190 mg/dL HDL Cholesterol 48 >40 mg/dL [facility] Comment:Desirable HDL: great er than 40 mg/dL Note: This HDL assay may give artificially low results in patients with liver disease. Blood Venous blood specimen / Unknown 01/08/2024 11:29 AM EDT 01/08/2024 12:51 PM EDT Bita Muñoz [employer] LAB BLOOD ORDERABLES Final Res ult Performing Organization Address City/[facility]/ZIP Co de Phone Number [facility] [address] [place] [phone] * Hepatitis C Ab (03/07/2023 12:19 PM EDT) Hepatitis C Antibody Nonreactive Nonreactive [facility] Comment:Antibodies to HCV no t detected; does not exclude early acuteHCV infection. 03/07/2023 12:1 9 PM EDT 03/07/2023 12:19 PM EDT us Generic External Data Provider LAB BLOOD ORDERAB LES Final Result Performing Organization Address [facility]/ZIP Co de Phone Number [facility] [address] [place] [address] [phone] * HIV Ab/Ag ([facility]) (03/07/2023 12:19 PM EDT) HIV AB/AG Nonreactive Nonreactive [facility] Comment:HIV-1 p24 Ag and/or HIV-1/HIV-2 Ab not detected.A test result that is nonreactive does not exclude thepossibility of exposure to or infection with HIV-1 and/orHIV-2. Nonreactive results in this assay for individualswith prior exposure to HIV-1 and/or HIV-2 may be due toantigen and antibody levels that are below the limit ofdetection of this assay.The [email or web address] HIV Ag/Ab Combo assay result andsupplemental assay results should be interpreted inconjunction with the patient's clinical presentation,history and other laboratory results. If the results areinconsistent with clinical evidence, additional testing issuggested to confirm the result. 03/07/2023 12:1 9 PM EDT 03/07/2023 12:19 PM EDT us Generic External Data Provider LAB BLOOD ORDERAB LES Final Result [facility] [address] [place], [place] [phone] * Colonoscopy (07/22/2020) [facility] Colonoscopy Normal Normal Comment:5 Yr F/U Historical Provider HEALTH MAINTENANCE Edited Result - Final from Last 3 Months or Most Recently Relevant to Health Maintenance Insurance [employer] [facility] AD[facility] Care Teams Pourer Relationship Specialty Start Date End Date Bita Muñoz FNP [address] [place] [phone] PCP - General Family Medicine 02/19/22 Karen Edward Rv TechnicianRope Rider 10/17/23
--- OUTSIDE RECORDS SUMMARY | 2024-11-02 13:04 | XMS_ITS | Clinical Summary ---
Author Organization 175 [facility] Address 175 [place] [address] Phone Care Team Providers Care Set Rider Name Role Phone Physician, Pcp Unknown Primary [...] 10/26/2024 2:30 PM EDT Consult Orthopedic Surgery [facility] [address] [id number] Dinh Alexander DPM Dermatophytosis of nail (Primary [...] 1:45 PM EDT Office Visit Orthopedic Surgery [facility] [address] [id number] Dinh Alexander DPM [address] [address] Health Maintenance Due Date Last Done Comments [...] to complete this topic Insurance MEDICAID - [place] Care Teams Set Rider Relationship Specialty Start Date End Date Physician, Pcp Unknown PCP - General 08/31/24
--- OUTSIDE RECORDS SUMMARY | 2024-11-02 13:04 | XMS_ITS | Encounter Summary ---
Author Organization [employer] Address 75 [facility] 7t [place] [address] Care Team Providers Care Anatomic Pathologist Name Role Phone Bita Muñoz Primary Care Provider [phone] Reason for Visit * Reason Onset Date Comments Returning Call 06/10/2024 Encounter Details Date Type Department Care Team ([facility] st Contact Info) Description 06/10/2024 Telephone [facility] MEDICINE [address] [place] [address] Bita Muñoz FNP [address] [place] [address] Returning Call Social History Tobacco Use Types [...] Description 11/19/2024 10:30 AM EDT Office Visit [facility] ADULT DENTAL [address] [place] [address] Rebel Birch, DMD [address] [place] [address] 12/02/2024 10:00 AM EDT Office Visit [facility] MEDICINE [address] [place] [address] Bita Muñoz, FREIGHT BOOKER [address] [place] [address] 04/12/2025 10:00 AM EDT Office Visit [facility] OPTOMETRY [address] [place] [address] Barbara Mayes, OD [address] [place] [address] 04/21/2025 10:00 AM EDT Office Visit [facility] ADULT DENTAL [address] [place] [address] Viri Bennett [address] [place] [address] documented as of this encounter Visit Diagnoses Not on filedocumented in this encounter Additional Health Concerns Assessment Noted Time PHQ-9 Depression Total Score: 20 024 9:07 AM EDT documented as of this encounter Care Teams Anatomic Pathologist Relationship Specialty Start Date End Date Bita Muñoz FNP [address] [place] [address] PCP - General Family Medicine 02/19/22 Karen Edward Lone Lead LinemanOperating Table Assembler 10/17/23 documented as of this encounter
--- OUTSIDE RECORDS SUMMARY | 2024-11-02 13:04 | XMS_ITS | Encounter Summary ---
Author Organization [employer] Address 75 [facility] 7t [place] [address] Care Team Providers Care Shop Helper Name Role Phone Bita Muñoz Primary Care Provider [phone] Encounter Details Date Type Department Care Team (Late st Contact Info) Description 05/25/2022 Orders Only [facility] [address] [place] [address] Jonelle Hooker RN Social History Tobacco Use [...] Description 11/19/2024 10:30 AM EDT Office Visit [facility] [address] [place] [address] Rebel Birch, DMD [address] [place] [address] 12/02/2024 10:00 AM EDT [facility] [address] [place] [address] Bita Muñoz FNP [address] [place] [address] 04/12/2025 10:00 AM EDT [facility] Visit [facility] [address] [place] [address] Barbara Mayes, OD [address] [place] [address] 04/21/2025 10:00 AM EDT Office Visit [facility] [address] [place] [address] Sabrina, Viri [address] [place] [address] documented as of this encounter Visit Diagnoses Not on filedocumented in this encounter Care Teams Shop Helper Relationship Specialty Start Date End Date Bita Muñoz FNP 230 [place] [address] PCP - General Family Medicine 02/19/22 Karen Edward Member Of The Legislative AssemblySocial Media Assistant 10/17/23 documented as of this encounter
--- OUTSIDE RECORDS SUMMARY | 2024-11-02 13:04 | XMS_ITS | Encounter Summary ---
Author Organization [employer] Address 75 [facility] 7t [place] [address] Care Team Providers Care Aircraft Sheet Metal Mechanic Name Role Phone Bita Muñoz Primary Care Provider [phone] Reason for Visit * Reason Onset Date Comments Nurse Triage 10/30/2024 Encounter Details Date Type Department Care Team ([facility] st Contact Info) Description 10/30/2024 Telephone [facility] [address] [place] [address] Bita Muñoz FNP [address] [place] [address] Nurse Triage Social History Tobacco Use Types [...] Getting worse The caller accepted this outcome. [phone] documented in this encounter Plan of Treatment Upcoming Encounters Date Type Department Care Team (Late st Contact Info) Description 11/19/2024 10:30 AM EDT Office Visit [facility] ADULT DENTAL [address] [place] [address] Rebel Birch, DMD [address] [place] [address] 12/02/2024 10:00 AM EDT Office Visit [facility] MED[facility]INE [address] [place] [address] Bita Muñoz FNP [address] [place] [address] 04/12/2025 10:00 AM EDT Office Visit [facility] OPTOMETRY [address] [place] [address] Gerber, Barbara, OD [address] [place] [address] 04/21/2025 10:00 AM EDT Office Visit [facility] ADULT DENTAL [address] [place] [address] Sabrina, Viri [address] [place] [address] documented as of this encounter Visit Diagnoses Not on filedocumented in this encounter Additional Health Concerns Assessment Noted Time PHQ-9 Depression Total Score: 10 025 3:23 PM EST documented as of this encounter Care Teams Aircraft Sheet Metal Mechanic Relationship Specialty Start Date End Date Bita Muñoz FNP [address] [place] [address] PCP - General Family Medicine 02/19/22 Karen Edward Fireworks InspectorHorticulture Teacher 10/17/23 documented as of this encounter
--- OUTSIDE RECORDS SUMMARY | 2024-11-02 13:04 | XMS_ITS | Encounter Summary ---
Author Organization [employer] Address 75 [facility] 7t [place] [address] Care Team Providers Care Game Master Name Role Phone Bita Muñoz COSMETIC ACCOUNT COORDINATOR Primary Care Provider [phone] Encounter Details Date Type Department Care Team (Late st Contact Info) Description 10/26/2024 Orders Only [facility] External Provider, [facility] Social History Tobacco Use Types Packs/Day Years [...] AM EDT Office Visit [facility] ADULT DENTAL [address] [place] [address] Rebel Birch, DMD [address] [place] [address] 12/02/2024 10:00 AM EDT Office Visit [facility] MEDICINE [address] [place] [address] Bita Muñoz, COSMETIC ACCOUNT COORDINATOR [address] [place] [address] 04/12/2025 10:00 AM EDT Office Visit [facility] OPTOMETRY [address] [place] [address] Gerber, Barbara, OD [address] [place] [address] 04/21/2025 10:00 AM EDT Office Visit [facility] ADULT DENTAL [address] [place] [address] Sabrina Viri [address] [place] [address] documented as of this encounter Procedures Procedure Name Priority Date/Time Associated Diagnosis Comments BI MAMMOGRAM SCREENING TOMOSYNTHESIS BILATERAL Routine 10/26/2024 11:00 AM EDT documented in this encounter Results * BI Mammogram Screening Tomosynthesis Bilateral (10/26/2024 11:00 AM EDT) Anatomical Region Laterality Modality Breast Bilateral Mammography 10/26/2024 11:0 0 AM EDT Narrative 11/01/2024 9:13 PM EDT ? [facility] ? [address] ?[place] [address] ?[phone] ? Mammography Report ? Signed ? Patient: Zoila Petersen ?MR#: [id number] ?? [id number] ? : 1975 ?Acct:[id number] ? Age/Sex: 49 / F ?ADM Date: // ? Loc: HO.MAMMO ? Attending Dr: Bita Muñoz COSMETIC ACCOUNT COORDINATOR ? Ordering Physician: Janis Foreman CNM ?Results: 1Nega ?? tive ? Date of Service: // ?Follow Up: 1 Year From Orig ?? inal Mammogram ? Procedure(s): MM tomosynthesis screening BI ?? Accession Number(s): [id number] ? cc: Janis Foreman CNM; Bita Muñoz COSMETIC ACCOUNT COORDINATOR ? EXAMINATION: ?? MM SCREENING DIGITAL BREAST [...] ??Lindsey Garrett DO ??11/01/2024 09:11 PM EDT ? Dictated By: ?Lindsey Garrett DO ? Signed By: ?<Electronically signed by Lindsey Garrett, DO in OV> ? 05/11/25 2111 ? DD/ 1100 ? TD/TT: 10/26/24 1117 ? Vamp Throater: ? Procedure Note Puma Jaquez - 11/01/2024 [facility] [address] [place] [address] Mammography Report Signed Patient: Zoila Petersen#: [id number] : 1975Acct:[id number] Age/Sex: 49 / FADM Date: 10/26/24 Loc: [place] Attending Dr: Bita Muñoz COSMETIC ACCOUNT COORDINATOR Ordering Physician: Janis Foremanesults: 1Nega tive Date of Service: 10/26/24Follow Up: 1 Year From Orig inal Mammogram Procedure(s): MM tomosynthesis screening BI Accession Number(s): [id number] cc: Janis Foreman CNM; Bita Muñoz COSMETIC ACCOUNT COORDINATOR EXAMINATION: MM SCREENING DIGITAL BREAST TOMOSYNTHESIS, BILATERAL [...] Lindsey Garrett DO 11/01/2024 09:11 PM EDT RP Dictated By: Lindsey Garrett DO Signed By: <Electronically signed by Lindsey Garrett DO in OV> 11/01/24 2111 DD/ 1100 TD/TT: 10/26/24 1117 Vamp Throater: [facility] External Provider IMG BI PROCEDURES Final Result documented in this encounter Visit Diagnoses Not on filedocumented in this encounter Additional Health Concerns Assessment Noted Time PHQ-9 Depression Total Score: 10 025 3:23 PM EST documented as of this encounter Care Teams Game Master Relationship Specialty Start Date End Date Bita Muñoz FNP [address] [place] [address] PCP - General Family Medicine 02/19/22 Karen Edward Human Resources MgrGreenhouse Instructor 10/17/23 documented as of this encounter
--- OUTSIDE RECORDS SUMMARY | 2024-11-02 13:04 | XMS_ITS | Encounter Summary ---
Author Organization [employer] Address 75 [facility] 7t [place] [address] Care Team Providers Care Horse Buyer Name Role Phone Bita Muñoz EMERGENCY ROOM TECHNICIAN Primary Care Provider [phone] Reason for Visit * Reason Comments Dentures Encounter Details Date Type Department Care Team ([facility] st Contact Info) Description 10/29/2024 8:30 AM EDT Office Visit [facility] ADULT DENTAL [address] [place] [address] Rebel Birch, JASWINDER [address] [place] [address] Social History Tobacco Use Types Packs/Day Years [...] Description 11/19/2024 10:30 AM EDT Office Visit [facility] ADULT DENTAL [address] [place] [address] Rebel Birch DMD [address] [place] [address] 12/02/2024 10:00 AM EDT Office Visit [facility] MEDICINE [address] [place] [address] Bita Muñoz FNP [address] [place] [address] 04/12/2025 10:00 AM EDT Office Visit [facility] OPTOMETRY [address] [place] [address] GerberBarbara valverde, OD 230 [place] [address] 04/21/2025 10:00 AM EDT Office Visit [facility] ADULT DENTAL [address] [place] [address] Sabrina, Viri [address] [place] [address] documented as of this encounter Procedures Procedure Name Priority Date/Time Associated Diagnosis Comments DENTURE IMPRESSION Routine 10/29/2024 8:30 AM EDT documented in this encounter Visit Diagnoses Not on filedocumented in this encounter Additional Health Concerns Assessment Noted Time PHQ-9 Depression Total Score: 10 07/15/ 025 3:23 PM EST documented as of this encounter Care Teams Horse Buyer Relationship Specialty Start Date End Date Bita Muñoz FNP [address] [place] [address] PCP - General Family Medicine 02/19/22 Karen Edward Pathological TechnicianPaper Pattern Folder 10/17/23 documented as of this encounter
--- OUTSIDE RECORDS SUMMARY | 2024-11-02 13:04 | XMS_ITS | Encounter Summary ---
Author Organization [employer] Address 75 [facility] 7t [place] [address] Care Team Providers Care Machine Load Clerk Name Role Phone Bita Muñoz Primary Care Provider [phone] Encounter Details Date Type Department Care Team (Late st Contact Info) Description 05/03/2022 [facility] Information Management [address] [place] [address] Bita Muñoz FNP [address] [place] [address] Social History Tobacco Use Types Packs/Day Years [...] Description 11/19/2024 10:30 AM EDT Office Visit [facility] ADULT DENTAL [address] [place] [address] Rebel Birch DMD [address] [place] [address] 12/02/2024 10:00 AM EDT Office Visit [facility] MEDICINE [address] [place] [address] Bita Muñoz FNP 505 [place] [address] 04/12/2025 10:00 AM EDT Office Visit [facility] OPTOMETRY [address] [place] [address] Gerber, Barbara, OD 230 [place] [address] 04/21/2025 10:00 AM EDT Office Visit [facility] ADULT DENTAL [address] [place] [address] Sabrina, Viri [address] [place] [address] documented as of this encounter Visit Diagnoses Not on filedocumented in this encounter Care Teams Machine Load Clerk Relationship Specialty Start Date End Date Bita Muñoz FNP [address] [place] [address] PCP - General Family Medicine 02/19/22 Karen Edward Lead Project EngineerSlagger 10/17/23 documented as of this encounter
--- OUTSIDE RECORDS SUMMARY | 2024-11-02 13:04 | XMS_ITS | Encounter Summary ---
Author Organization [employer] Address 75 [facility] 7t [place] [address] Care Team Providers Care Flight Service Specialist Name Role Phone Bita Muñoz Primary Care Provider [phone] Reason for Visit * Reason Onset Date Comments Medication Question 05/24/2022 Reviewed sym ptoms with patient and ED precautions. Pt eligible for Paxlovid, will send rx to pharmacy. Reviewed potential med interactions. Encounter Details Date Type Department Care Team ([facility] st Contact Info) Description 05/24/2022 Telephone [facility] [address] [place] [address] Bita Muñoz FNP [address] [place], [place] [phone] Medication Question (Reviewed symptoms with patient and [...] 05/23/22 and came back positive. Pt speaks pashto returning call from yesterday . documented in this encounter Plan of Treatment Upcoming Encounters Date Type Department Care Team (Late st Contact Info) Description 11/19/2024 10:30 AM EDT Office Visit [facility] [address] [place] [address] Rebel Birch, DMD [address] [place] [address] 12/02/2024 10:00 AM EDT Office Visit [facility] [address] [place] [address] Bita Muñoz FNP [address] [place] [address] 04/12/2025 10:00 AM EDT Office Visit [facility] OPTOMETRY [address] [place] [address] GerberBarbara valverde, OD [address] [place] [address] 04/21/2025 10:00 AM EDT Office Visit [facility] ADULT D[facility] [address] [place] [address] Sabrina, Viri [address] [place] [address] documented as of this encounter Visit Diagnoses Diagnosis COVID-19 virus infection- Primary documented in this encounter Care Teams Flight Service Specialist Relationship Specialty Start Date End Date Bita Muñoz FNP [address] [place] [address] PCP - General Family Medicine 02/19/22 Karen Edward Vault KeeperUmbrella Repairer 10/17/23 documented as of this encounter
--- OUTSIDE RECORDS SUMMARY | 2024-11-02 13:04 | XMS_ITS | Encounter Summary ---
Author Organization [employer] Address [address] [facility] 7t [place] [address] Care Team Providers Care Recessing Machine Operator Name Role Phone Bita Muñoz FINANCIAL HEALTH COUNSELOR Primary Care Provider [phone] Encounter Details Date Type Department Care Team [...] the past 12 months, has t he [employer], oil or water [employer] threatened to shut off services in your [...] Description 11/19/2024 10:30 AM EDT Office Visit [facility] ADULT DENTAL [address] [place] [address] Rebel Birch, DMD [address] [place] [address] 12/02/2024 10:00 AM EDT Office Visit [facility] MEDICINE [address] [place] [address] Bita Muñoz FNP 505 [place] [address] 04/12/2025 10:00 AM EDT Office Visit [facility] OPTOMETRY [address] [place] [address] Gerber, Barbara, OD [address] [place] [address] 04/21/2025 10:00 AM EDT Office Visit [facility] ADULT DENTAL [address] [place] [address] Sabrina, Viri [address] [place] [address] documented as of this encounter Visit Diagnoses Not on filedocumented in this encounter Additional Health Concerns Assessment Noted Time PHQ-9 Depression Total Score: 10 025 3:23 PM EST documented as of this encounter Care Teams Recessing Machine Operator Relationship Specialty Start Date End Date Bita Muñoz FNP [address] [place] [address] PCP - General Family Medicine 02/19/22 Karen Edward [employer] CafeteriaButton Broacher 10/17/23 documented as of this encounter
--- OUTSIDE RECORDS SUMMARY | 2024-11-02 13:04 | XMS_ITS | Clinical Summary ---
Author Organization [facility] Address [address] [place] [address] Care Team Providers Care Ice Resurfacing Machine Operators Name Role Phone Unavailable Primary Care Provider [...] 2019 Fecal DNA 2019 Flexible Sigmoidoscopy 2019 Esl-OTDZF-10 ( season) 2024 Imm-Influenza (#1) 2024 04/17/2023, [...]
--- OUTSIDE RECORDS SUMMARY | 2024-11-02 13:04 | XMS_ITS | Encounter Summary ---
Author Organization [facility] [employer] Address 75 [facility] 7t [place] [address] Care Team Providers Care Supervisor Dry Cell Assembly Name Role Phone Bita Muñoz ARLET Primary Care Provider Reason for Visit * Reason Comments uti symptoms Encounter Details Date Type Department Care Team ([facility] st Contact Info) Description 10/30/2024 9:40 AM EDT Office Visit [facility] [address] [place] [address] Parish Paiz MD 230 [place] [address] Dysuria (Primary Dx); UTI symptoms Social History [...] Description 11/19/2024 10:30 AM EDT Office Visit [facility] ADULT DENTAL [address] [place] [address] Rebel Birch, DMD [address] [place] [address] 12/02/2024 10:00 AM EDT Office Visit [facility] MEDICINE [address] [place] [address] Bita Muñoz, HVAC RESIDENTIAL SERVICE TECHNICIAN [address] [place] [address] 04/12/2025 10:00 AM EDT Office Visit [facility] OPTOMETRY [address] [place] [address] Gerber, Barbara, OD 230 [place] [address] 04/21/2025 10:00 AM EDT Office Visit [facility] ADULT DENTAL [address] [place] [address] Sabrina, Viri [address] [place] [address] documented as of this encounter Procedures Procedure Name Priority Date/Time Associated Diagnosis Comments CULTURE, URINE, ROUTINE Routine 10/30/2024 9:42 AM EDT UTI symptoms POCT URINALYSIS DIPSTICK Routine 10/30/2024 9:41 AM EDT UTI symptoms documented in this encounter Results * Culture, Urine, Routine (10/30/2024 9:42 AM EDT) Urine Urine specimen obtained by clean catch procedure / Unknown 10/30/2024 9:42 AM EDT 10/30/2024 1:10 PM EDT Comment:[facility] - 11/01/2024 11:13 AM EDT Escherichia [...] Trimethoprim/Sulfamethoxazole >=320(R) Specimen Source: Urine clean catch Parish Paiz MD LAB MICROBIOLOGY - GENERAL ORDER CHUN Final Result [facility] [address] [place] [phone] * (ABNORMAL) POCT urinalysis dipstick manually resulted [...] documented as of this encounter Care Teams Supervisor Dry Cell Assembly Relationship Specialty Start Date End Date Bita Muñoz FNP [address] [place] [address] PCP - General Family Medicine 02/19/22 Karen Edward Grinding Machine OperatorSupervisor Alteration Workroom 10/17/23 documented as of this encounter
== END ==
LOC: HO.CARD 12:43
PROVIDERS: PCP Registered Nurse; Visit Provider Registered Nurse
DX: I27.20 Pulmonary hypertension, unspecified (principal)
CPT/HCPCS: 93306

== ENCOUNTER → 2024-11-02 12:47 | Outpatient (BNV) | payer MEDICAID, SELFPAY | PROVIDERS: PCP Registered Nurse; Visit Provider Internal Medicine Cardiovascular Disease | DX: I27.20 Pulmonary hypertension, unspecified (principal) | CPT/HCPCS: 93306 ==

== ENCOUNTER 2024-11-20 11:56 | Outpatient (REF) | payer MEDICAID, SELFPAY ==
--- NOTE | ~2024-11-20 | US_ITS ---
EXAMINATION: US PELVIS TRANSABDOMINAL AND TRANSVAGINAL HISTORY: R10.2 - Pelvic and perineal pain COMPARISON: Comparison is made with the prior examination dated 09/17/2022. TECHNIQUE: Transabdominal and endovaginal real-time 2D avina-scale ultrasound was performed. FINDINGS: Uterus: The uterus is normal in size, measuring 7.3 x 3.2 x 4.4 cm. Myometrium has a normal echotexture. There is an anterior fibroid measuring 1.4 x 1.0 x 1.5 cm. Endometrium: The endometrial stripe is not thickened. However, there is a moderate amount of complex fluid in the endometrial canal. Right ovary: The right ovary measures 1.7 x 0.9 x 1.0 cm. The right ovary is normal in size and echotexture. Left ovary: The left ovary measures 1.2 1.3 x 1.2 cm. The left ovary is normal in size and echotexture. Pelvic fluid: none. US/US pelvic and transvaginal IMPRESSION: 1.5 cm anterior uterine fibroid. Moderate amount of complex fluid in the endometrial canal. Findings could represent cervical stenosis or an obstructing lesion. Direct visualization is recommended. Electronically signed by: Blue James MD 11/20/2024 12:49 PM EDT
--- OUTSIDE RECORDS SUMMARY | 2024-11-20 12:42 | XMS_ITS | Encounter Summary ---
Author Organization [employer] Address 75 [facility] 7t [place] [address] Care Team Providers Care Molder Fitting Name Role Phone Bita Muñoz Primary Care Provider [phone] Reason for Visit * Reason Onset Date Comments Returning Call 06/10/2024 Encounter Details Date Type Department Care Team ([facility] st Contact Info) Description 06/10/2024 Telephone [facility] MEDICINE [address] [place] [address] Bita Muñoz FNP [address] [place] [address] Returning Call Social History Tobacco Use Types [...] Care Team (Late st Contact Info) Description 12/02/2024 10:00 AM EDT Office Visit [facility] MED[facility] [address] [place] [address] Bita Muñoz, COMMUNICABLE DISEASE SPECIALIST [address] [place] [address] 12/04/2024 8:00 AM EDT Office Visit [facility] ADULT DENTAL [address] [place] [address] Rebel Birch, JASWINDER [address] [place] [address] 04/12/2025 10:00 AM EDT Office Visit [facility] OPTOMETRY [address] [place] [address] Barbara Mayes, OD 230 [place] [address] 04/21/2025 10:00 AM EDT Office Visit [facility] ADULT DENTAL [address] [place] [address] Viri Bennett [address] [place] [address] documented as of this encounter Visit Diagnoses Not on filedocumented in this encounter Additional Health Concerns Assessment Noted Time PHQ-9 Depression Total Score: 20 024 9:07 AM EDT documented as of this encounter Care Teams Molder Fitting Relationship Specialty Start Date End Date Bita Muñoz FNP [address] [place] [address] PCP - General Family Medicine 02/19/22 Karen Edward Ekg ManagerPalliative Senior Np 10/17/23 Mady Landin Ekg ManagerPalliative Senior Np 11/03/24 documented as of this encounter
== END 2024-11-20 11:57 | disposition home or self-care (01) ==
LOC: HO.US 11:56
PROVIDERS: PCP Registered Nurse; Visit Provider Advanced Practice Midwife
DX: R10.2 Pelvic and perineal pain (principal)
CPT/HCPCS: 76830; 76856

== ENCOUNTER → 2024-11-20 11:59 | Outpatient (BNV) | payer MEDICAID, SELFPAY | PROVIDERS: PCP Registered Nurse; Visit Provider Radiology Diagnostic Radiology | DX: D25.1 Intramural leiomyoma of uterus (principal) | CPT/HCPCS: 76830; 76856 ==

== ENCOUNTER 2024-11-23 10:45 | Outpatient (RCR) | payer MEDICAID, SELFPAY | END 2024-12-31 13:17 | disposition home or self-care (01) | LOC: HO.PT 10:45 | PROVIDERS: PCP Registered Nurse; Visit Provider Internal Medicine | DX: M25.552 Pain in left hip (principal) | CPT/HCPCS: 97110; 97140; 97161; 97530; 97535 ==

== ENCOUNTER 2024-11-25 13:12 | Outpatient (AMB) | payer MEDICAID, SELFPAY ==
--- NOTE | 2024-11-25 13:13 | A.OFFVIS_ITS ---
Intake Visit Reasons: Follow up ? hysteroscopy per Janis Huller Operator: Huller Operator Present Allergies No Known Allergies [No Known Allergies*] Allergy (Verified 09/23/24 15:19) Is last menstrual period known: Yes HPI Comments Details: Tele Health Visit Total time I personally spent on visit and management today: 14 minutes. Time spent included review of pertinent office notes in the electronic health record; review of laboratory and imaging results; review of personal family medical history; discussing diagnosis and plan of care with the patient; documenting the encounter in the EMR. Patient presents to discuss: Ultrasound findings, history of pelvic pain. She reports she was not bleeding at the time of her ultrasound. [facility] Medical History Abnormal finding on ultrasound Pelvic pain Left hip pain Abdominal cramping Colon cancer screening Lower abdominal pain Pulmonary hypertension Migraine Anxiety and depression Vitamin D deficiency Iron (Fe) deficiency anemia Hyperlipidemia Abnormal EKG Precordial chest pain Surgical History History of endometrial ablation Hx of colonoscopy History of tubal ligation Family History Father Cardiovascular disease Mother Heart valve disease Diabetes HTN (hypertension) Social History Household Members: Children Alcohol intake: never Patient Tobacco Use Status: Never used Tobacco Sexual orientation: Straight/Heterosexual Gender identity: Female Female Reproductive History Menstrual Age of Menarche: 14 Review of Systems Const All systems reviewed & are unremarkable except as noted in HPI and below Endo Reports no additional complaints Physical Exam Const General: cooperative, healthy appearing and no acute distress Psych Appearance: well kempt Attitude: cooperative Thought process: Normal thought process present Telehealth Telehealth Telehealth Platform: Echodio Location of provider rendering services: practice address Location of patient: address on file Patient Identification confirmed using: Name, : Yes Telehealth method: video Patient verbally consented to treatment: Yes Patient verbally consented to billing insurance company: Yes Patient informed of any privacy concerns related to visit: Yes Results Reviewed Results Reviewed: [address] [address] Ultrasound Report Signed Patient: Zoila Petersen MR#: [id number] : 1975 Acct:[id number] Age/Sex: 49 / F ADM Date: 11/20/24 Loc: HO.US Attending Dr: Janis Foreman CNM Ordering Physician: Janis Foreman CNM Date of Service: 11/20/24 Procedure(s): US pelvic and transvaginal Accession Number(s): [id number] cc: Janis Foreman CNM; Bita Muñoz BAND SCROLL SAW OPERATOR~ EXAMINATION: US PELVIS TRANSABDOMINAL AND TRANSVAGINAL HISTORY: R10.2 - Pelvic and perineal pain COMPARISON: Comparison is made with the prior examination dated 09/17/2022. TECHNIQUE: Transabdominal and endovaginal real-time 2D avina-scale ultrasound was performed. FINDINGS: Uterus: The uterus is normal in size, measuring 7.3 x 3.2 x 4.4 cm. Myometrium has a normal echotexture. There is an anterior fibroid measuring 1.4 x 1.0 x 1.5 cm. Endometrium: The endometrial stripe is not thickened. However, there is a moderate amount of complex fluid in the endometrial canal. Right ovary: The right ovary measures 1.7 x 0.9 x 1.0 cm. The right ovary is normal in size and echotexture. Left ovary: The left ovary measures 1.2 1.3 x 1.2 cm. The left ovary is normal in size and echotexture. Pelvic fluid: none. US/US pelvic and transvaginal IMPRESSION: 1.5 cm anterior uterine fibroid. Moderate amount of complex fluid in the endometrial canal. Findings could represent cervical stenosis or an obstructing lesion. Direct visualization is recommended. Electronically signed by: Blue James MD 11/20/2024 12:49 PM EDT Dictated By: Blue James MD Signed By: <Electronically signed by Blue James MD in OV> 11/20/24 1249 DD/ 1215 TD/TT: 11/20/24 1227 Certified Financial Planner: Assessment & Plan Assessment & Plan (1) Abnormal finding on ultrasound: Code(s): R93.89 - Abnormal findings on diagnostic imaging of other specified body structures Category: Medical Plan: Discussed: IMPRESSION: 1.5 cm anterior uterine fibroid. Moderate amount of complex fluid in the endometrial canal. Findings could represent cervical stenosis or an obstructing lesion. Direct visualization is recommended. Appointment to be made for consult for hysteroscopy with Dr. Antony. Willie germain guidance for procedure day stay surgery reviewed with patient. The patient expressed understanding and agreement with the plan of care. All of her questions and concerns were addressed to the best of my ability. Plan Discussed: As noted above ultrasound findings previous fibroid 0.6 x 0.4 x 0.5 cm August 2022. Counseled re: Leiomyoma: common pelvic neoplasm. Differential diagnosis-may include but not limited to- leiomyosarcoma which is a rare uterine sarcoma 3- 7/100,000, difficult to distinguish from fibroids on ultrasound from uterine sarcoma's. Unlikely any single test will have a highly positive predictive value. Hysterectomy is not recommended for sole purpose of excluding malignant neoplasm. Consult for surgical exploration, medical treatment, other treatments, verses expectant management, pros and cons, risks and benefits. Expectant management follow up in 6 months, then yearly for stability. Patient prefers to proceed with expectant management. Referral to MD if indicated for level of care if indicated Report any PMB/AUB, pelvic pressure, bloating, or pain. The patient expressed understanding and agreement with the plan of care. All of her questions and concerns were addressed to the best of my ability. This note is constructed using voice recognition software. While every effort has been made to ensure accuracy, motor vehicle license clerk errors may have been included. Orders: Orders US pelvic and transvaginal 6 Months D21.9 - Benign neoplasm of connective and other soft tissue, unspecified Coding Level of Care Code Tele Est Pt Level 3 (74930) Diagnoses Abnormal finding on ultrasound R93.89
--- OUTSIDE RECORDS SUMMARY | 2024-11-25 13:30 | XMS_ITS | Encounter Summary ---
Author Organization [employer] Address [address] [facility] [address] [place] [address] Care Team Providers Care Counselor Marriage And Family Name Role Phone Bita Muñoz Primary Care Provider Reason for Visit * Reason Onset Date Comments Returning Call 06/10/2024 Encounter Details Date Type Department Care Team ([facility] st Contact Info) Description 06/10/2024 Telephone [facility] MEDICINE [address] [place] [address] Bita Muñoz FNP [address] [place] [address] Returning Call Social History Tobacco Use Types [...] Description 12/02/2024 10:00 AM EDT Office Visit [facility] MEDICINE [address] [place] [address] Bita Muñoz, WARD MAID [address] [place] [address] 12/04/2024 8:00 AM EDT Office Visit [facility] ADULT DENTAL [address] [place] [address] Rebel Birch, JASWINDER [address] [place] [address] 01/05/2025 11:00 AM EDT Office Visit [facility] ADULT DENTAL [address] [place] [address] Viri Bennett [address] [place] [address] 01/12/2025 11:00 AM EDT Office Visit [facility] ADULT DENTAL [address] [place] [address] Viri Bennett [address] [place] [address] 04/12/2025 10:00 AM EDT Office Visit [facility] OPTOMETRY [address] [place] [address] Gerber, Barbara, OD [address] [place] [address] 04/21/2025 10:00 AM EDT Office Visit [facility] ADULT DENTAL [address] [place] [address] Viri Bennett [address] [place] [address] documented as of this encounter Visit Diagnoses Not on filedocumented in this encounter Additional Health Concerns Assessment Noted Time PHQ-9 Depression Total Score: 20 024 9:07 AM EDT documented as of this encounter Care Teams Counselor Marriage And Family Relationship Specialty Start Date End Date Bita Muñoz FNP [address] [place] [address] PCP - General Family Medicine 02/19/22 Karen Edward Knitted Garment FinisherMechanical Commissioning Engineer 10/17/23 Mady Landin Knitted Garment FinisherMechanical Commissioning Engineer 11/03/24 documented as of this encounter
== END 2024-11-25 13:41 | disposition home or self-care (01) ==
LOC: HO.HWS 13:12
PROVIDERS: PCP Registered Nurse; Visit Provider Advanced Practice Midwife
DX: R93.89 Abnormal findings on diagnostic imaging of other specified body structures (principal)
CPT/HCPCS: 99213

== ENCOUNTER → 2024-11-25 13:12 | Outpatient (BNVA) | payer MEDICAID, SELFPAY | PROVIDERS: PCP Registered Nurse; Visit Provider Advanced Practice Midwife ==

== ENCOUNTER 2024-12-04 10:25 | Outpatient (AMB) | payer MEDICAID, SELFPAY ==
--- NOTE | 2024-12-04 10:27 | MHC.OFFVIS ---
Vital Signs 12/04/24 10:28 Height 4 ft 10 in Weight 166 lb BMI 34.7 BP 124/80 Blood Pressure Location Lt brachial Position Sitting Respiration 16 Pulse 88 Pulse Source Pulse Oximeter Pulse Oximetry (%) 98 Oxygen Delivery Method Room Air Intake Visit Reasons: 3 months FU Inspector Screen Printing Required: No Allergies No Known Allergies (No Known Allergies*) Allergy (Verified 12/17/24 09:59) Medication List - Last Reconciled 12/04/24 by Quynh Silva LPN [id number] 250-250-65 mg (Pain Reliever Plus) 2 tabs PO DAILY PRN atorvastatin 20 mg PO DAILY cholecalciferol (vitamin D3) 25 mcg PO DAILY cyclobenzaprine 10 mg PO TID PRN dicyclomine 10 mg PO QID 30 days fluticasone propionate 50 mcg/actuation 1 - 2 sprays intranasal DAILY PRN ibuprofen 400 mg PO Q6H PRN meclizine 1 tab PO TID PRN ondansetron 4 mg PO Q6H PRN HPI HPI 3 months FU: Details: History of Present Illness The patient is a 49-year-old female presenting with hip pain. She has experienced left hip pain which has been managed through physical therapy for three months. During the initial phase of therapy, the exercises induced discomfort; however, they have contributed to significant improvement in her symptoms. The patient has been diligent in her exercise routine, continuing them at home daily, which has maintained the reduction in her hip pain. No additional exacerbating factors or associated symptoms have been reported, and she notes a general resolution of her hip discomfort. Pain Description - Onset: Initially significant, prior to physical therapy - Timing: Duration of three months with physical therapy - Quality: Painful at start of exercises - Primary Location: Left hip - Exacerbating Factors: None currently identified - Relieving Factors: Consistent performance of prescribed exercises - Interference with Activities: Initially significant but improved with therapy Physical Exam - Appears afebrile. - Alert and oriented. - Mood and affect appropriate. - Follows and participates in conversation appropriately. - Respiratory effort is unlabored. - Able to transition from sit to stand unassisted. - Ambulates with bilaterally normal heel strike and toe off. - Able to stand and walk on toes and heels. Results Pain Management - Affect: Patient reports improved mood as pain has resolved - Analgesia: No current use of pain medications; pain levels reportedly resolved with exercise - Adverse Effects: None reported from therapy - Activities of Daily Living: Patient able to maintain daily exercises, indicating improvement in functionality - Aberrant Drug Related Behaviors: None reported [facility] Medical History (Updated 12/17/24 @ 10:29 by Julio C Antony MD) Abnormal finding on ultrasound Pelvic pain Left hip pain Abdominal cramping Colon cancer screening Lower abdominal pain Pulmonary hypertension Migraine Anxiety and depression Vitamin D deficiency Iron (Fe) deficiency anemia Hyperlipidemia Abnormal EKG Precordial chest pain Surgical History History of endometrial ablation Hx of colonoscopy History of tubal ligation Family History Father Cardiovascular disease Mother Heart valve disease Diabetes HTN (hypertension) Social History Household Members: Children Alcohol intake: never Patient Tobacco Use Status: Never used Tobacco Sexual orientation: Straight/Heterosexual Gender identity: Female Female Reproductive History Menstrual Age of Menarche: 14 Physical Exam Vital Signs: Last Vital Signs Pulse 88 12/04/24 10:28 Resp 16 12/04/24 10:28 BP 124/80 12/04/24 10:28 Pulse Ox 98 12/04/24 10:28 Oxygen Delivery Method Room Air 12/04/24 10:28 BMI result Body Mass Index 34.7 Assessment & Plan Assessment & Plan (1) Left hip pain: Code(s): M25.552 - Pain in left hip Category: Medical Plan Plan - Continuation of home exercise regimen to sustain pain relief. - Follow-up if necessary based on symptom recurrence. Patient was informed and verbally consented to the use of an ambient scribe for clinic note documentation during this visit. Discussion Notes I had a detailed discussion with the patient regarding the importance of continuing the exercises she was taught during physical therapy to maintain the resolution of her hip pain. We reviewed that despite the initial discomfort, the exercises have provided significant benefit, and it is crucial to maintain this regimen even after symptoms improve. I emphasized that stopping could lead to recurrence of pain. She understands the connection between continuing exercises and sustained symptom relief. Patient Instructions - Continue performing your prescribed exercises every day at home. - Monitor for any return of pain or new symptoms. - Follow up if pain returns or worsens. Coding Level of Care Code Est Pt Level 2 (55057) Diagnoses Left hip pain M25.552
[2024-12-04 10:28] VITALS: BP 124/80; PULSE 88; RESP 16; O2SAT 98; BMI 34.7
--- OUTSIDE RECORDS SUMMARY | 2024-12-04 11:24 | XMS_ITS | Encounter Summary ---
Author Organization [employer] Address [address] [facility] [address] [place] [address] Care Team Providers Care Floor Plan Adjuster Name Role Phone Bita Muñoz Primary Care Provider [phone] Reason for Visit * Reason Onset Date Comments Returning Call 06/10/2024 Encounter Details Date Type Department Care Team ([facility] st Contact Info) Description 06/10/2024 Telephone [facility] MEDICINE [address] [place] [address] Bita Muñoz FNP [address] [place] [address] Returning Call Social History Tobacco Use Types [...] Care Team (Late st Contact Info) Description 12/18/2024 2:30 PM EDT Office Visit [facility] ADULT DENTAL [address] [place] [address] Rebel Birch, DMD [address] [place] [address] 01/05/2025 11:00 AM EDT Office Visit [facility] ADULT DENTAL [address] [place] [address] Viri Bennett [address] [place] [address] 01/12/2025 11:00 AM EDT Office Visit [facility] ADULT DENTAL [address] [place] [address] Sabirna Viri [address] [place] [address] 03/10/2025 10:00 AM EDT Office Visit [facility] MEDICINE [address] [place] [address] Bita Muñoz FNP [address] [place] [address] 04/12/2025 10:00 AM EDT Office Visit [facility] OPTOMETRY [address] [place] [address] Gerber, Barbara, OD [address] [place] [address] 04/21/2025 10:00 AM EDT Office Visit [facility] ADULT DENTAL [address] [place] [address] Viri Bennett [address] [place] [address] documented as of this encounter Visit Diagnoses Not on filedocumented in this encounter Additional Health Concerns Assessment Noted Time PHQ-9 Depression Total Score: 20 024 9:07 AM EDT documented as of this encounter Care Teams Floor Plan Adjuster Relationship Specialty Start Date End Date Bita Muñoz FNP [address] [place] [address] PCP - General Family Medicine 02/19/22 Karen Edward Squad BossPatient Safety Manager 10/17/23 Mady Landin Squad BossPatient Safety Manager 11/03/24 documented as of this encounter
== END 2024-12-04 11:04 | disposition home or self-care (01) ==
LOC: HO.PMC 10:26
PROVIDERS: PCP Registered Nurse; Visit Provider Internal Medicine
DX: M25.552 Pain in left hip (principal)
CPT/HCPCS: 99212

== ENCOUNTER → 2024-12-04 10:25 | Outpatient (BNVA) | payer MEDICAID, SELFPAY | PROVIDERS: PCP Registered Nurse; Visit Provider Internal Medicine | DX: M25.552 Pain in left hip (principal) | CPT/HCPCS: 99212 ==

== ENCOUNTER 2024-12-17 09:57 | Outpatient (AMB) | payer MEDICAID, SELFPAY ==
--- NOTE | 2024-12-17 09:58 | MHC.OFFVIS ---
Intake Visit Reasons: Hysteroscopy consult Accompanied by: Self / Same As Patient Allergies No Known Allergies (No Known Allergies*) Allergy (Verified 12/17/24 09:59) HPI Comments Details: Presenting referred from Janis Foreman regarding abnormal finding on pelvic ultrasound that was ordered for pelvic pain. The patient reports pelvic pain on an off in addition to amenorrhea since ablation in 2020 except 1 episode of postcoital bleeding few months ago Pelvic ultrasound done recently showed the following: Uterus: The uterus is normal in size, measuring 7.3 x 3.2 x 4.4 cm. Myometrium has a normal echotexture. There is an anterior fibroid measuring 1.4 x 1.0 x 1.5 cm. Endometrium: The endometrial stripe is not thickened. However, there is a moderate amount of complex fluid in the endometrial canal. Right ovary: The right ovary measures 1.7 x 0.9 x 1.0 cm. The right ovary is normal in size and echotexture. Left ovary: The left ovary measures 1.2 1.3 x 1.2 cm. The left ovary is normal in size and echotexture. Pelvic fluid: none. Last co testing in 05/13 was negative [facility] Medical History (Updated 12/17/24 @ 10:29 by Julio C Antony MD) Abnormal finding on ultrasound Pelvic pain Left hip pain Abdominal cramping Colon cancer screening Lower abdominal pain Pulmonary hypertension Migraine Anxiety and depression Vitamin D deficiency Iron (Fe) deficiency anemia Hyperlipidemia Abnormal EKG Precordial chest pain Surgical History History of endometrial ablation Hx of colonoscopy History of tubal ligation Family History Father Cardiovascular disease Mother Heart valve disease Diabetes HTN (hypertension) Social History Household Members: Children Alcohol intake: never Patient Tobacco Use Status: Never used Tobacco Sexual orientation: Straight/Heterosexual Gender identity: Female Female Reproductive History Menstrual Age of Menarche: 14 Review of Systems Const All systems reviewed & are unremarkable except as noted in HPI and below Physical Exam General: Yes no CVA tenderness External Female Exam: normal external appearance and normal appearance of the urethra Speculum Exam - Vagina: normal appearance of the vagina, normal palpation, no lesions and no masses Speculum Exam - Cervix: normal appearance of the cervix, normal palpation, no lesions, no masses and nontender Bimanual exam- vagina & uterus: normal bimanual exam, normal palpation, uterine size normal, normal palpation, uterine shape normal, No Cervical tenderness present and non-tender Bimanual Exam- Adnexa, other: normal adnexae Back/Spine/Pelvis Back: no CVA tenderness Office Procedures Endometrial Biopsy Details: The patient was counseled regarding the indication and benefits of endometrial sampling to rule out endometrial pathology including not limited to endometrial hyperplasia or endometrial cancer and others; The alternatives (Either do nothing vs. hysteroscopy D&C) & the risks were discussed with the patient including but not limited: pain, uterine perforation, bleeding, infection, possible injury to bladder, bowel, ureter, possible need for blood transfusion with all its possible risks. The patient verbalized understanding all questions answered and signed consent. Urine test done in the office was negative The patient was placed into the dorsal lithotomy position; a speculum was inserted in the vagina. Using aseptic technique for the procedure, the cervix was cleansed with Betadine. The anterior lip of the cervix was grasped with a single tooth tenaculum. The uterus was sounded to 3.5 cm (not deeper secondary to possible intrauterine adhesions from previous endometrial ablation) with a 4 mm Pipelle was used. Tissues samples were obtained and placed in formalin, in a patient labeled container and sent to the pathology department. At the end of the procedure, there was minimal bleeding noted The patient tolerated the procedure well and was discharged in good condition with the following instructions: Nothing in the vagina until the bleeding stops. No sex until the bleeding stops, to call if any of the following occurs: fever (>100.4), flu-like symptoms, abdominal pain, heavy bleeding, four smelling vaginal discharge. The patient was instructed to schedule a Follow up appointment in 2 weeks to discuss pathology results of the biopsy and treatment options. This note was generated with a voice recognition program. Some errors may have been overlooked during the review of this note. Sometimes these errors may affect the content or meaning of a given sentence. [id number] Biopsy Assessment & Plan Assessment & Plan (1) Abnormal finding on ultrasound: Comment: Moderate amount of complex fluid in the endometrial cavity without thickening of endometrium History of endometrial ablation Code(s): R93.89 - Abnormal findings on diagnostic imaging of other specified body structures Category: Medical Plan: Discussed with the patient the finding on ultrasound showing moderate amount of complex fluid most likely blood secondary to intrauterine adhesions from previous endometrial ablation, other possible causes could be abnormal endometrial pathology including endometrial hyperplasia, malignancy or polyp. Recommended to the patient that the next step is an endometrial sampling via hysteroscopy D&C possible polypectomy versus endometrial biopsy to r/o endometrial pathology including hyperplasia or cancer. All the pros and cons risks and benefits of each approach were discussed with the patient, endometrial biopsy being less invasive, office procedure with less sensitivity and inability diagnose a polyp and removal versus hysteroscopy done under anesthesia more invasive more sensitive to endometrial cancer and possibility of diagnosing and endometrial polyp with the possibility of polypectomy. All questions were answered pt verbalized understanding and decided to proceed with endometrial biopsy, EMB done, see procedure (2) Postcoital bleeding: Code(s): N93.0 - Postcoital and contact bleeding Category: Medical Plan: GC/CT taken with co testing, EMB done, see procedure Discussed with the patient the possible cause of postcoital bleeding. All questions answered, the patient verbalized understanding (3) Uterine myoma: Code(s): D25.9 - Leiomyoma of uterus, unspecified Category: Medical Plan: Discussed with the patient the findings on pelvic ultrasound & the risk of myosarcoma; in addition reviewed with the patient that malignancy and pre malignancy cannot be ruled out without hysterectomy for pathological evaluation ; furthermore, explained to the patient the limitation of pelvic ultrasound and endometrial biopsy in the setting. Discussed with the patient the options of treatment including expectant management versus hysterectomy; the pros and cons, risks benefits of each approach were discussed with the patient including the fact that in cases of myosarcoma, surgical treatment can lead to early diagnosis and positively affects the prognosis; after further discussion, the patient decided to proceed with expectant management. Will repeat pelvic ultrasound periodically. Instructions given to patient to call in case any of the following occurs: pressure symptoms, abnormal uterine bleeding, pelvic pain; and to schedule a six-months pelvic ultrasound (order placed) and a follow-up appointment . All questions answered, the patient verbalized understanding and agreed with the plan . Orders: Orders US pelvic and transvaginal 6 Months D25.9 - Leiomyoma of uterus, unspecified AMB Endometrial Biopsy Today N93.0 - Postcoital and contact bleeding Coding Level of Care Code Est Pt Level 3 (87391) Diagnoses Abnormal finding on ultrasound R93.89 Postcoital bleeding N93.0 Uterine myoma D25.9 CPT Codes Endometrial Biopsy - CPT: 47718-[id number] Biopsy ([id number])
--- OUTSIDE RECORDS SUMMARY | 2024-12-17 11:25 | XMS_ITS | Encounter Summary ---
Author Organization [employer] Address [address] [facility] [address] [place] [address] Care Team Providers Care Mill Laborer Name Role Phone Bita Muñoz Primary Care Provider [phone] Reason for Visit * Reason Onset Date Comments Returning Call 06/10/2024 Encounter Details Date Type Department Care Team ([facility] st Contact Info) Description 06/10/2024 Telephone [facility] [address] [place] [address] Bita Muñoz FNP [address] [place] [address] Returning Call Social History Tobacco Use Types [...] Description 12/18/2024 2:30 PM EDT Office Visit [facility] ADULT DENTAL [address] [place] [address] Rebel Birch, DMD [address] [place] [address] 01/05/2025 11:00 AM EDT Office Visit [facility] [address] [place] [address] Viri Bennett [address] [place] [address] 01/12/2025 11:00 AM EDT Office Visit [facility] [address] [place] [address] Sabrina Viri [address] [place] [address] 03/10/2025 10:00 AM EDT Office Visit [facility] [address] [place] [address] Bita Muñoz FNP [address] [place] [address] 04/12/2025 10:00 AM EDT Office Visit [facility] OPTOMETRY [address] [place] [address] Gerber, Barbara, OD [address] [place] [address] 04/21/2025 10:00 AM EDT Office Visit [facility]ULT [facility] [address] [place] [address] Viri Bennett [address] [place] [address] documented as of this encounter Visit Diagnoses Not on filedocumented in this encounter Additional Health Concerns Assessment Noted Time PHQ-9 Depression Total Score: 20 024 9:07 AM EDT documented as of this encounter Care Teams Mill Laborer Relationship Specialty Start Date End Date Bita Muñoz FNP [address] [place] [address] PCP - General Family Medicine 02/19/22 Karen Edward Ready Mix Truck DriverEngineering Professor 10/17/23 Mady Landin Ready Mix Truck DriverEngineering Professor 11/03/24 documented as of this encounter
== END 2024-12-17 10:35 | disposition home or self-care (01) ==
LOC: HO.HWS 09:57
PROVIDERS: PCP Registered Nurse; Visit Provider Obstetrics & Gynecology
DX: R93.89 Abnormal findings on diagnostic imaging of other specified body structures (principal); N93.0 Postcoital and contact bleeding; D25.9 Leiomyoma of uterus, unspecified; Z32.02 Encounter for pregnancy test, result negative
CPT/HCPCS: 58100; 99213

== ENCOUNTER 2024-12-17 09:57 | Outpatient (REF) | payer MEDICAID, SELFPAY ==
[2024-12-17 18:57] LABS: CT PCR NOT DETECTED (Not Detect.); NG PCR NOT DETECTED (Not Detect.)
[2024-12-22 14:10] LABS: HPV Genotype 16 Negative (Negative); HPV Genotype 18 Negative (Negative); HPV High Risk Negative (Negative)
== END 2024-12-17 09:58 | disposition home or self-care (01) ==
LOC: HO.LNP 09:57
PROVIDERS: PCP Registered Nurse; Visit Provider Obstetrics & Gynecology
DX: Z12.4 Encounter for screening for malignant neoplasm of cervix (principal); Z11.51 Encounter for screening for human papillomavirus (HPV); D25.9 Leiomyoma of uterus, unspecified; N93.0 Postcoital and contact bleeding; R93.89 Abnormal findings on diagnostic imaging of other specified body structures
CPT/HCPCS: 58100; 81025; 87491; 87591; 87626; 88175; 99212

== ENCOUNTER 2024-12-18 09:27 | Outpatient (REF) | payer MEDICAID, SELFPAY ==
--- OUTSIDE RECORDS SUMMARY | 2024-12-18 09:51 | XMS_ITS | Clinical Summary ---
Author Organization [facility] Address [address] [place] [address] Phone Care Team Providers Care Event Technician Name Role Phone Physician, Pcp Unknown Primary [...] 10/26/2024 2:30 PM EDT Consult Orthopedic Surgery [facility] [address] [address] Dinh Alexander DPM Dermatophytosis of nail (Primary [...] 1:45 PM EDT Office Visit Orthopedic Surgery [facility] [address] [phone] Dinh Alexander DPM [address] [address] Health Maintenance Due Date Last Done Comments [...] to complete this topic Insurance MEDICAID - [place] Care Teams Event Technician Relationship Specialty Start Date End Date Physician, Pcp Unknown PCP - General 08/31/24
== END 2024-12-18 09:28 | disposition home or self-care (01) ==
LOC: HO.LNP 09:27
PROVIDERS: Visit Provider Obstetrics & Gynecology
DX: R93.89 Abnormal findings on diagnostic imaging of other specified body structures (principal); N93.0 Postcoital and contact bleeding
CPT/HCPCS: 88305

== ENCOUNTER 2024-12-28 09:09 | Outpatient (AMB) | payer MEDICAID, SELFPAY ==
--- NOTE | 2024-12-28 09:12 | MHC.OFFVIS ---
Intake Visit Reasons: Repeat pap and emb Vocational Nursing Instructor: Vocational Nursing Instructor Present (Davida) Accompanied by: Self / Same As Patient Allergies No Known Allergies (No Known Allergies*) Allergy (Verified 12/28/24 09:15) HPI Comments Details: The patient is presenting after endometrial biopsy. The patient has no complaints, no vaginal bleeding, no feverishness chills or abdominal pain. The endometrial biopsy pathology report showed the following: Benign endocervical glandular and squamous epithelium; insufficient for endometrial evaluation Last co testing was unsatisfactory for evaluation, HPV negative GC/CT was negative [facility] Medical History Abnormal finding on ultrasound Pelvic pain Left hip pain Abdominal cramping Colon cancer screening Lower abdominal pain Pulmonary hypertension Migraine Anxiety and depression Vitamin D deficiency Iron (Fe) deficiency anemia Hyperlipidemia Abnormal EKG Precordial chest pain Surgical History History of endometrial ablation Hx of colonoscopy History of tubal ligation Family History Father Cardiovascular disease Mother Heart valve disease Diabetes HTN (hypertension) Social History Household Members: Children Alcohol intake: never Patient Tobacco Use Status: Never used Tobacco Sexual orientation: Straight/Heterosexual Gender identity: Female Female Reproductive History Menstrual Age of Menarche: 14 Review of Systems Const All systems reviewed & are unremarkable except as noted in HPI and below Reports as per HPI and Reports no additional complaints GI Reports no additional complaints Reports no additional complaints Physical Exam General: Yes no CVA tenderness External Female Exam: normal external appearance and normal appearance of the urethra Speculum Exam - Vagina: normal appearance of the vagina, normal palpation, no lesions and no masses Speculum Exam - Cervix: normal appearance of the cervix, normal palpation, no lesions, no masses and nontender Bimanual exam- vagina & uterus: normal bimanual exam, normal palpation, uterine size normal, normal palpation, uterine shape normal, No Cervical tenderness present and non-tender Bimanual Exam- Adnexa, other: normal adnexae Back/Spine/Pelvis Back: no CVA tenderness Assessment & Plan Assessment & Plan (1) Postcoital bleeding: Comment: Complex endometrial fluid on ultrasound Code(s): N93.0 - Postcoital and contact bleeding Category: Medical Plan: Discussed with the patient the results of the endometrial biopsy pathology, insufficient tissues for diagnosis, explained to the patient the endometrial pathology including endometrial hyperplasia or malignancy has not been ruled out, recommended repeat sampling via office biopsy versus hysteroscopy D&C possible polypectomy/myomectomy. All pros and cons risks and benefits of each were discussed with the patient, the patient has elected to proceed with hysteroscopy D and C. Will refer to [facility] for further management (2) Unsatisfactory cervical Papanicolaou smear: Code(s): R87.615 - Unsatisfactory cytologic smear of cervix Category: Medical Plan: Pap smear repeated. Will check the results and treat accordingly Orders: Orders Pap Smear Today R87.615 - Unsatisfactory cytologic smear of cervix Coding Level of Care Code Est Pt Level 3 (37601) Diagnoses Postcoital bleeding N93.0 Unsatisfactory cervical Papanicolaou smear R87.615
--- OUTSIDE RECORDS SUMMARY | 2024-12-28 09:34 | XMS_ITS | Clinical Summary ---
Author Organization [facility] Address [address] [place] [address] Care Team Providers Care Manager Of Allied Health Services Name Role Phone Unavailable Primary Care Provider [...] 2019 Fecal DNA 2019 Flexible Sigmoidoscopy 2019 [id number] (1 - 2023- season) 2024 Imm-Pneumococcal 50+ (1 of 1 - PCV) 2024 Imm-Zoster, Recombinant (1 of 2) 2024 Alcohol and Drug Screen 06/24/2024 Depression Annual Screen 06/24/2024 Dental BW 01/10/2025 01/09/2024 Dental Examination 01/10/2025 01/09/2024 Hypertension Screening (#1) 01/23/2025 Tobacco Screening 01/23/2025 01/24/2024 Dental Prophy 01/25/2025 01/24/2024 Imm-Influenza (Season Ended) 2025, 04/23/2022, 03/31/2021, Additional history exists Diabetes Screening 06/05/2026 06/05/2023, 1 08/06/2022, 11/07/2021, Additional history exists Lipid Screening 01/07/2029 01/08/2024 Dental FMX/Pano 01/10/2029 01/09/2024 Imm-DTaP/Tdap/Td (3 - Td or Tdap) 04/17/2033 023, 02/12/2013 Imm-Hepatitis B Completed 04/23/2022, 03/0 10/2018, 07/22/2018 HIV Screening Completed 03/07/2023, 04/23/2022 Cervical Ablation/Cold-Knife Conization Discontinued Cervical Cryotherapy Discontinued [...] Most Recently Relevant to Health Maintenance Insurance [place] MED[place] D[place]
--- OUTSIDE RECORDS SUMMARY | 2024-12-28 09:34 | XMS_ITS | Clinical Summary ---
Author Organization [address] [facility] Address [address] [place] [address] Phone Care Team Providers Care Machine Grinder Name Role Phone Physician, Pcp Unknown Primary [...] 10/26/2024 2:30 PM EDT Consult Orthopedic Surgery [facility] [address] [address] Dinh Alexander DPM Dermatophytosis of nail (Primary [...] 1:45 PM EDT Office Visit Orthopedic Surgery [facility] [address] [phone] Dinh Alexander DPM [address] [address] Health Maintenance Due Date Last Done Comments [...] to complete this topic Insurance MEDICAID - [place] Care Teams Machine Grinder Relationship Specialty Start Date End Date Physician, Pcp Unknown PCP - General 08/31/24
== END 2024-12-28 09:40 | disposition home or self-care (01) ==
LOC: HO.HWS 09:10
PROVIDERS: PCP Registered Nurse; Visit Provider Obstetrics & Gynecology
DX: N93.0 Postcoital and contact bleeding (principal); R87.615 Unsatisfactory cytologic smear of cervix
CPT/HCPCS: 99213

== ENCOUNTER 2024-12-28 09:09 | Outpatient (REF) | payer MEDICAID, SELFPAY ==
--- OUTSIDE RECORDS SUMMARY | 2024-12-28 10:06 | XMS_ITS | Encounter Summary ---
Author Organization [employer] Address [address] [facility] [address] [place] [address] Care Team Providers Care Tobacco Prevention Health Educator Name Role Phone Bita Muñoz Primary Care Provider [phone] Reason for Visit * Reason Onset Date Comments Returning Call 06/10/2024 Encounter Details Date Type Department Care Team ([facility] st Contact Info) Description 06/10/2024 Telephone [facility] MED[facility]INE [address] [place] [address] Bita Muñoz FNP [address] [place] [address] Returning Call Social History Tobacco Use Types [...] Care Team (Late st Contact Info) Description 01/05/2025 11:00 AM EDT Office Visit [facility] ADULT DENTAL [address] [place] [address] Misbah Bennettaris [address] [place] [address] 01/12/2025 11:00 AM EDT Office Visit [facility] ADULT DENTAL [address] [place] [address] Sabrina, Viri [address] [place] [address] 03/10/2025 10:00 AM EDT Office Visit [facility] MEDICINE [address] [place] [address] Bita Muñoz, SUGAR REFINERY SUPERVISOR [address] [place] [address] 04/12/2025 10:00 AM EDT Office Visit [facility] OPTOMETRY [address] [place] [address] Gerber, Barbara, OD [address] [place] [address] 04/21/2025 10:00 AM EDT Office Visit [facility] ADULT DENTAL [address] [place] [address] Sabrina, Viri [address] [place] [address] documented as of this encounter Visit Diagnoses Not on filedocumented in this encounter Additional Health Concerns Assessment Noted Time PHQ-9 Depression Total Score: 024 9:07 AM EDT documented as of this encounter Care Teams Tobacco Prevention Health Educator Relationship Specialty Start Date End Date Bita Muñoz FNP [address] [place] [address] PCP - General Family Medicine 02/19/22 Karen Edward Information OfficerHeel Seat Sander 10/17/23 Mady Landin Information OfficerHeel Seat Sander 11/03/24 documented as of this encounter
== END 2024-12-28 09:10 | disposition home or self-care (01) ==
LOC: HO.LNP 09:09
PROVIDERS: PCP Registered Nurse; Visit Provider Obstetrics & Gynecology
DX: R87.615 Unsatisfactory cytologic smear of cervix (principal); N93.0 Postcoital and contact bleeding
CPT/HCPCS: 88175; 99212

== ENCOUNTER 2025-03-11 10:43 | Outpatient (REF) | payer MEDICAID, SELFPAY ==
--- OUTSIDE RECORDS SUMMARY | 2025-03-10 10:00 | XMS_ITS | Encounter Summary ---
Author Organization [employer] Address [address] [facility] [address] [place] [address] Care Team Providers Care Search Specialist Name Role Phone Bita Muñoz Primary Care Provider [phone] Dinh Alexander DPKaren Unavailable [phone] Janis Foreman Unavailable Encounter Details Date Type Department Care Team (Late st Contact Info) Description 03/10/2025 10:00 AM EDT Office Visit [facility] MEDICINE [address] [place] [address] Bita Muñoz FNP [address] [place], [place] [id number] Ptosis of right eyelid (Primary Dx); Dyslipidemia; Routine health maintenance; Left hip pain; Left ankle instability; Irregular periods; Hot flashes Social History Tobacco Use Types Packs/Day Years Used Date Smoking Tobacco: Never Passive Smoke Exposure: Never Smokeless Tobacco: Never Tobacco Cessation:Counseling Given: Not Answered Alcohol Use Standard Drinks/Week Comments Never 0 (1 standard drink = 0.6 oz pur e alcohol) Depression Answer Date Recorded Patient Health Questionnaire-9 Score 16 03/10/2025 Patient Health Questionnaire-9 Score 16 03/10/2025 Last PHQ-9: Questionnaire Data Not on file 0 03/10/2025 Housing Stability Answer Date Recorded What is [...] Answer Date Recorded Patient Health Questionnaire-2 Score 4 03/10/2025 Internet Access Answer Date Recorded Internet Access [...] Sign Reading Time Taken Comments Blood Pressure 118/88 03/10/2025 10:04 AM EDT Pulse 66 03/10/2025 10:04 AM EDT Temperature 36.1 C (96.9 F) 03/10/2025 10:04 AM EDT Respiratory Rate 20 03/10/2025 10:04 AM EDT Oxygen Saturation 97% 03/10/2025 10:04 AM EDT Inhaled Oxygen Concentration - - Weight 76.4 kg (168 lb 6.4 oz) 03/10/2025 10:04 AM EDT Height 147.3 cm (4' 10 ) 03/10/2025 10:04 AM EDT Body Mass Index 35.2 03/10/2025 10:04 AM EDT documented in this encounter Functional Status * Over the past 2 weeks, how often have you been bothered by any of the following problems? Question Answer Date of Assessment Author Patient Health Questionnaire -2 Score 4 03/10/2025 10:05 AM Francesca Layne MA * Little interest or pleasure in doing things Answer Date of Assessment Author More than half the days 03/10/2025 10:05 AM Francesca Layne MA * Feeling down, depressed, or hopeless Answer Date of Assessment Author More than half the days 03/10/2025 10:05 AM Francesca Layne MA * Trouble falling or staying asleep, or sleeping too much Answer Date of Assessment Author More than half the days 03/10/2025 10:05 AM Francesca Layne MA * Feeling tired or having little energy Answer Date of Assessment Author More than half the days 03/10/2025 10:05 AM Francesca Layne MA * Poor appetite or overeating Answer Date of Assessment Author More than half the days 03/10/2025 10:05 AM Francesca Layne MA * Feeling bad about yourself - or that you are a failure or have let yourself or your family down Answer Date of Assessment Author More than half the days 03/10/2025 10:05 AM Francesca Layne MA * Trouble concentrating on things, such as reading the newspaper or watching television Answer Date of Assessment Author More than half the days 03/10/2025 10:05 AM Francesca Layne MA * Moving or speaking so slowly that other people could have noticed? Or the opposite - being so fidgety or restless that you have been moving around a lot more than usual. Answer Date of Assessment Author More than half the days 03/10/2025 10:05 AM Francesca Layne MA * Thoughts that you would be better off or hurting yourself in some way Answer Date of Assessment Author Not at all 03/10/2025 10:05 AM Francesca Layne MA * Patient Health Questionnaire-9 Score Answer Date of Assessment Author 16 03/10/2025 10:05 AM Francesca Layne MA * How difficult have these problems made it for you to do your work, take care of things at home, or get along with other people? Answer Date of Assessment Author Somewhat difficult 03/10/2025 10:05 AM EDT Francesca Hahn MA documented as of this encounter Progress Notes * Bita Muñoz, ARLET - 03/10/2025 10:00 AM EDT Subjective Zoila Jackson is a 49 y.o. female w/ PMH depression, migraine, dyslipidemia, who presents to the office for a follow up visit: chronic conditions. HPI: - Last PCP appt: 12/02/24. Continues to follow with multiple specialists. Assessment/plan below updated to reflect most recent available consult notes. HIDE SALTER: Pelvic US completed October 2024 demonstrated a 1.5cm anterior uterine fibroid and mod amt of complex fluid in the endometrial canal. Consult in November 2024 w/ Dr. Antony - impression at that time was that most likely secondary to intrauterine adhesions from previous endometrial ablation. EMB completed, but insufficient tissue. Referral to OBBENJIE Carpio for further management. Pt reports she is scheduled later this month for consult. Repeat pap was HPV neg, NILM. Menopause/Hot flashes: Previously using CombiPatch with good symptomatic relief. Did have some minor skin irritation with patch placement and had Dc'd d/t less frequent episodes. However, reports episodes now occurring on daily basis and she would like to restart the patches. Left ankle instability: reports she had previously been following with specialist regarding left ankle pain and inversion of ankle with walking. Had been using an ankle brace with good result, but has currently misplaced. DME request for updated ankle brace for support. 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 [facility] Previously following with Neurology. Denies any recent significant changes, but does appear more noticeable on exam today. Does describe intermittent heaviness in right eye. Specialists: UroGYN ([facility]) : incomplete bladder emptying Ortho ([facility] - Dr. Bergman) HIDE SALTER ([facility] - MONA Randolph) Dental: [facility] Psych Cards ([facility]) - Pulm hypertension Podiatry (Dr. Alexander) Social history: Living - lives with her [...] chest pain and palpitations. Genitourinary: Hot flashes Objective Visit Vitals BP 118/88 (BP Location: Left arm, Patient Position: Sitting, BP Cuff Size: Adult) Pulse 66 Temp 96.9 ??F (36.1 ??C) (Temporal) Resp 20 Ht 4' 10 (1.473 m) Wt 168 lb 6.4 oz (76.4 kg) SpO2 97% BMI 35.20 kg/m?? OB Status Ablation Smoking Status Never BSA 1.77 m?? Physical Exam Constitutional: Appearance: Normal appearance. HENT: Head: Atraumatic. Right Ear: External ear normal. Left Ear: External ear normal. Eyes: Extraocular Movements: Extraocular movements intact. Comments: Ptosis right eye Cardiovascular: Rate and Rhythm: Normal rate and regular rhythm. Pulmonary: Effort: Pulmonary effort is normal. Breath sounds: Normal breath sounds. Feet: Comments: ROM left ankle, discomfort ankle inversion Neurological: General: No focal deficit present. Mental Status: She is alert and oriented to person, place, and time. Psychiatric: Mood and Affect: Mood normal. Behavior: Behavior normal. Assessment/Plan Problem List Items Addressed This Visit Cardiac and Vasculature Dyslipidemia - Primary Overview Lab Results Component Value Date TRIG 103 01/08/2024 CHOL 208 (H) 01/08/2024 LDLCHOLCAL 140 (H) 01/08/2024 HDL 48 01/08/2024 -Continue lifestyle modifications -Cont atorvastatin 80mg nightly Eye Ptosis of right eyelid Current Assessment & Plan Chronic, although more noticeable on exam today. Remainder of neuro exam was benign Upcoming appt with optometry, previously following with Neuro Labs ordered as below Follow up with any worsening of symptoms Relevant Orders Hemoglobin A1c Lipid Panel, Standard Comprehensive Metabolic Panel RPR (Monitor) with Reflex to Titer Acetylcholine Receptor Blocking Antibody Genitourinary and Reproductive Irregular periods Current Assessment & Plan -EMB performed 04/21/[address] Antony for hx of menometrorrhagia -Pelvic US August 2021 demonstrated small uterine calcifications. Possibly r/t degenerative fibroids. Normal thickness endometrium and normal-appearing ovaries -Pelvic US completed October 2024 demonstrated a 1.5cm anterior uterine fibroid and mod amt of complex fluid in the endometrial canal. Consult in November 2024 w/ Dr. Antony - impression at that time was thatmost likely secondary to intrauterine adhesions from previous endometrial ablation. EMB completed, but insufficient tissue. Referral to OBGYN [facility] for further management. -Continue following with [facility] HIDE SALTER, upcoming appt with [facility] OBGY Health Encounters Routine health maintenance Overview Mammo: 10/26/24 BIRADS 1 Pap: NILM, HPV neg 12/28/24 at [facility] HIDE SALTER Colonoscopy: 07/22/20, 5 year follow-up Contraception: BTL Smoking status: non-smoker Eye Exam: 04/10/23 Dental: [facility], requested referral to [facility] dental Relevant Orders Hemoglobin A1c Lipid Panel, Standard CBC auto differential Comprehensive Metabolic Panel RPR (Monitor) with Reflex to Titer Acetylcholine Receptor Blocking Antibody Musculoskeletal and Injuries Left hip pain Overview Following with [facility] Ortho - Dr. Bergman & [facility] Pain Management - Dr. Dalton. MRI completed Mar 2024: 1. Possible nondisplaced undersurface tear of the anterosuperior labrum. 2. No stress reaction, fracture, or avascular necrosis. 3. Mild gluteus medius and gluteus minimus tendinosis. Minimal greater trochanteric bursitis. Completed physical therapy with noted improvement. Continues with home exercises PRN. Symptoms and Signs Hot flashes Current Assessment & Plan - Plan to restart CombiPatch, cont symptomatic management Relevant Medications estradiol-norethindrone (CombiPatch) 0.05-0.14 MG/DAY (Start on 2025) Other Visit Diagnoses Left ankle instability - Consider PT - DME request for Left ankle brace stabilizer sent 03/10/25 - Follow up PRN Follow up: 3 months, or sooner as needed. documented in this encounter Miscellaneous Notes * Assessment & Plan Note - ARLET Clinton - 03/10/2025 4:29 PM EDTAssociated Problem(s): Ptosis of right eyelid Chronic, although more noticeable on exam today. Remainder of neuro exam was benign Upcoming appt with optometry, previously following with Neuro Labs ordered as below Follow up with any worsening of symptoms * Assessment & Plan Note - ARLET Clinton - 03/10/2025 4:27 PM EDTAssociated Problem(s): Hot flashes - Plan to restart CombiPatch, cont symptomatic management * Assessment & Plan Note - ARLET Clinton - 03/10/2025 4:27 PM EDTAssociated Problem(s): Irregular periods -EMB performed 04/21/[address] Antony for hx of menometrorrhagia -Pelvic US August 2021 demonstrated small uterine calcifications. Possibly r/t degenerative fibroids. Normal thickness endometrium and normal-appearing ovaries -Pelvic US completed October 2024 demonstrated a 1.5cm anterior uterine fibroid and mod amt of complex fluid in the endometrial canal. Consult in November 2024 w/ Dr. Antony - impression at that time was thatmost likely secondary to intrauterine adhesions from previous endometrial ablation. EMB completed, but insufficient tissue. Referral to OBGYN [place] for further management. -Continue following with [facility] HIDE SALTER, upcoming appt with [facility] OBGYN documented in this encounter Plan of Treatment Upcoming Encounters Date Type Department Care Team (Late st Contact Info) Description 04/12/2025 10:00 AM EDT Office Visit [facility] OPTOMETRY [address] [place] [address] Barbara Mayes, OD [address] [place] [address] 04/21/2025 10:15 AM EDT Office Visit [facility] ADULT DENTAL [address] [place] [address] Sabrina Viri [address] [place] [address] 06/09/2025 10:00 AM EST Office Visit [facility] MEDICINE [address] [place] [address] Bita Muñoz FNP [address] [place] [address] Scheduled Orders Name Type Priority Associated Diagnoses Orde r Schedule Hemoglobin A1c Lab Routine Routine health maintenance Ptosis of right eyelid Expected: 03/10/2025 (Approximate), Expires: 03/10/2026 Lipid Panel, Standard Lab Routine Routine health maintenance Ptosis of right eyelid Expected: 03/10/2025 (Approximate), Expires: 03/10/2026 CBC auto differential Lab Routine Routine health maintenance Expected: 03/10/2025 (Approximate), Expires: 03/10/2026 Comprehensive Metabolic Panel Lab Routine Routine health maintenance Ptosis of right eyelid Expected: 03/10/2025 (Approximate), Expires: 03/10/2026 RPR (Monitor) with Reflex to Titer Lab Routine Routine health maintenance Ptosis of right eyelid Expected: 03/10/2025, Expires: 03/10/2026 Acetylcholine Receptor Blocking Antibody Lab Routine Routine health maintenance Ptosis of right eyelid Expected: 03/10/2025 (Approximate), Expires: 03/10/2026 documented as of this encounter Visit Diagnoses Diagnosis Ptosis of right eyelid- Primary Unspecified ptosis of eyelid Dyslipidemia Other and unspecified hyperlipidemia Routine health maintenance Unspecified examination Left hip pain Pain in joint, pelvic region and thigh Left ankle instability Other joint derangement, not elsewhere classified, ankle and foot Irregular periods Hot flashes documented in this encounter Additional Health Concerns Assessment Noted Time PHQ-9 Depression Total Score: 16 025 10:05 AM EDT documented as of this encounter Care Teams Search Specialist Relationship Specialty Start Date End Date Bita Muñoz FNP [address] [place] [address] PCP - General Family Medicine 02/19/22 Dinh Alexander DPM [address] [place] [id number] Podiatry 03/10/25 Janis Foreman [address] [place] [address] Gynecology 03/10/25 Karen Edward Pipe InspectorProduct Management Specialist 10/17/23 Mady Landin Pipe InspectorProduct Management Specialist 11/03/24 documented as of this encounter
--- OUTSIDE RECORDS SUMMARY | 2025-03-11 12:51 | XMS_ITS | Clinical Summary ---
Author Organization [facility] Address [address] [place] [address] Care Team Providers Care Sales Floor Team Member Name Role Phone Unavailable Primary Care Provider [...] C Screening 1974 Pap + HPV 1974 Tobacco Screening 1974 Cervical Cancer Screening 1995 Pap Smear 1995 Breast Cancer Screening (Mammogram) 2014 CT Colonography 2019 Colonoscopy 2019 Colorectal Cancer Screening 2019 FIT/gFOBT 2019 Fecal DNA 2019 Flexible Sigmoidoscopy 2019 Imm-Pneumococcal 50+ (1 of 1 - PCV) 2024 Imm-Zoster, Recombinant (1 of 2) 2024 Alcohol and Drug Screen 06/24/2024 Depression Annual Screen 06/24/2024 Dental BW 01/10/2025 01/09/2024 Dental Examination 01/10/2025 01/09/2024 Hypertension Screening (#1) 01/23/2025 Dental Prophy 01/25/2025 01/24/2024 [id number] ( - season) 2025 Imm-Influenza (#1) 2025 04/17/2023, 1 , 03/31/2021, Additional history exists Diabetes Screening 06/05/2026 [...] Most Recently Relevant to Health Maintenance Insurance [place]
--- OUTSIDE RECORDS SUMMARY | 2025-03-11 12:51 | XMS_ITS | Encounter Summary ---
Author Organization [employer] Address [address] [facility] 7t [place] [address] Care Team Providers Care Director Of Cardiopulmonary Services Name Role Phone Bita Muñoz Primary Care Provider [phone] Dinh Alexander DPM Unavailable [phone] Janis Foreman Unavailable Reason for Visit * Reason Onset Date Comments Lab Orders 03/10/2025 Encounter Details Date Type Department Care Team (Late st Contact Info) Description 03/10/2025 Telephone [facility] MEDICINE [address] [place] [address] Bita Muñoz FNP [address] [place], [place] [phone] Lab Orders Social History Tobacco Use Types Packs/Day Years Used Date Smoking Tobacco: Never Passive Smoke Exposure: Never Smokeless Tobacco: Never Alcohol Use Standard [...] the past 12 months, has t he [employer], gas, oil or water [employer] threatened to shut off services in your [...] AM EDT documented as of this encounter Functional Status * Over the past 2 weeks, how often have you been bothered by any of the following problems? Question Answer Date of Assessment Author Patient Health Questionnaire -2 Score 4 03/10/2025 10:05 AM EDT Francesca Plummer MA * Little interest or pleasure in doing things Answer Date of Assessment Author More than half the days 03/10/2025 10:05 AM CORINAT Francesca Plummer MA * Feeling down, depressed, or hopeless Answer Date of Assessment Author More than half the days 03/10/2025 10:05 AM CORINAT Francesca Plummer MA * Trouble falling or staying asleep, [...] Hahn MA documented as of this encounter Miscellaneous Notes * Telephone Encounter - Francesca Plummer MA - 03/10/2025 4:24 PM EDT T/C-Call Center Team Leader called Patient and informed Phalen ordered labs for her to get done fasting at her earliest convenience. documented in this encounter Plan of Treatment Upcoming Encounters Date Type Department Care Team (Late st Contact Info) Description 04/12/2025 10:00 AM EDT Office Visit [facility] OPTOMETRY [address] [place] [address] Barbara Mayes OD [address] [place] [address] 04/21/2025 10:15 AM EDT Office Visit [facility] ADULT DENTAL [address] [place] [address] Misbah Bennettaris [address] [place] [address] 06/09/2025 10:00 AM EST Office Visit [facility] MEDICINE [address] [place] [address] Bita Muñoz FNP [address] [place] [address] documented as of this encounter Visit Diagnoses Not on filedocumented in this encounter Additional Health Concerns Assessment Noted Time PHQ-9 Depression Total Score: 16 025 10:05 AM EDT documented as of this encounter Care Teams Director Of Cardiopulmonary Services Relationship Specialty Start Date End Date Bita Muñoz FNP [address] [place] [address] PCP - General Family Medicine 02/19/22 Dinh Alexander DPM [address] [address] Podiatry 03/10/25 Janis Foreman [address] [address] Gynecology 03/10/25 Tia Gladu Steam Locomotive Firer/FiremanLeaf Sorter 10/17/23 Mady Landin Steam Locomotive Firer/FiremanLeaf Sorter 11/03/24 documented as of this encounter
--- OUTSIDE RECORDS SUMMARY | 2025-03-11 12:51 | XMS_ITS | Encounter Summary ---
Author Organization [employer] Address [address] [facility] 7t [place] [address] Care Team Providers Care Sole Cutter Name Role Phone Bita Muñoz INSEAMER Primary Care Provider [phone] Dinh Alexander DPM Unavailable [phone] Janis Foreman Unavailable Encounter Details Date Type Department Care Team (Latest Contact Info) Description 03/10/2025 Travel Social History Tobacco Use Types Packs/Day [...] Assessment Author Somewhat difficult 03/10/2025 10:05 AM CORINAT Francesca Hahn MA documented as of this encounter Plan of Treatment Upcoming Encounters Date Type Department Care Team (Late st Contact Info) Description 04/12/2025 10:00 AM EDT Office Visit [facility] OPTOMETRY [address] [place] [address] Gerber, Barbara, OD [address] [place] [address] 04/21/2025 10:15 AM EDT Office Visit [facility] ADULT DENTAL [address] [place] [address] Sabrina, Viri [address] [place] [address] 06/09/2025 10:00 AM EST Office Visit [facility] MEDICINE [address] [place] [address] Bita Muñoz, INSEAMER [address] [place] [address] documented as of this encounter Visit Diagnoses Not on filedocumented in this encounter Additional Health Concerns Assessment Noted Time PHQ-9 Depression Total Score: 16 025 10:05 AM EDT documented as of this encounter Care Teams Sole Cutter Relationship Specialty Start Date End Date Bita Muñoz FNP [address] [place] [address] PCP - General Family Medicine 02/19/22 Dinh Alexander DPM 175 [facility] [address] [place] [address] Podiatry 03/10/25 Janis Foreman [address] [address] Gynecology 03/10/25 Karen Edward Drapery SeamstressBakery Chef 10/17/23 Mady Landin Drapery SeamstressBakery Chef 11/03/24 documented as of this encounter
--- OUTSIDE RECORDS SUMMARY | 2025-03-11 12:51 | XMS_ITS | Encounter Summary ---
Author Organization [employer] Address [address] [facility] 7[address] [place] [address] Care Team Providers Care Inspector [employer]uits Name Role Phone Bita Muñoz Primary Care Provider [phone] Reason for Visit * Reason Onset Date Comments CHART PREP 03/09/2025 Encounter Details Date Type Department Care Team ([facility] st Contact Info) Description 03/09/2025 Telephone [facility] MEDICINE [address] [place] [address] Bita Muñoz FNP [address] [place] [address] CHART PREP Social History Tobacco Use Types Packs/Day Years [...] encounter Miscellaneous Notes * Telephone Encounter - Fortino Myles [place] - 03/09/2025 4:25 PM EDT Chart Prep Labs: not applicable Images: not applicable Referrals: not applicable Vaccines due: Covid and Flu Screenings: not applicable Overdue care gaps: PHQ-9 and Disability screen documented in this encounter Plan of Treatment Upcoming Encounters Date Type Department Care Team (Late st Contact Info) Description 04/12/2025 10:00 AM EDT Office Visit [facility] OPTOMETRY [address] [place] [address] Gerber, Barbara, OD [address] [place] [address] 04/21/2025 10:15 AM EDT Office Visit [facility] ADULT DENTAL [address] [place] [address] Sabrina, Viri [address] [place] [address] 06/09/2025 10:00 AM EST [facility] Visit [facility] [address] [place] [address] Bita Muñoz FNP [address] [place] [address] documented as of this encounter Visit Diagnoses Not on filedocumented in this encounter Additional Health Concerns Assessment Noted Time PHQ-9 Depression Total Score: 10 025 3:23 PM EST documented as of this encounter Care Teams Inspector Integrated Circuits Relationship Specialty Start Date End Date Bita Muñoz FNP [address] [place] [address] PCP - General Family Medicine 02/19/22 Karen Edward Safety Lamp KeeperCnc Operator Programmer 10/17/23 Mady Landin Safety Lamp KeeperCnc Operator Programmer 11/03/24 documented as of this encounter
--- OUTSIDE RECORDS SUMMARY | 2025-03-11 12:51 | XMS_ITS | Clinical Summary ---
Author Organization [facility] Address [address] [address] Phone Care Team Providers Care Garbage Collection Supervisor Name Role Phone Unavailable Primary Care Provider Unavailabl e Social History Tobacco Use Types Packs/Day Years Used Date Smoking Tobacco: Never Assessed Education Answer Date Recorded Are you interested in more education? Not on lorrie e 10/19/2022 Are you concerned about learning? Not on file 10/19/2022 No 10/19/2022 No 10/19/2022 Digital Access Answer Date Recorded No 11/20/2022 No 11/20/2022 No 11/20/2022 Reliable internet access at home? Not on file 11/20/2022 Device with a working camera? Not on file Comments Unknown Sex and Gender Information Value Date Recorded Sex Assigned at Not on file Legal Sex Female 10:42 AM EST Gender Identity Not on file Sexual Orientation Not on file Plan of Treatment Not on file Medical Devices Not on file Insurance [facility] C3 ACO C3 ACO C[address] [place] [address] [place] [address] C3 ACO [facility] C3 ACO Additional Source Comments The information contained in this document represents components of the legal health record. It is not the complete legal health record.[facility]
--- OUTSIDE RECORDS SUMMARY | 2025-03-11 12:51 | XMS_ITS | Clinical Summary ---
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 dicyclomine (Bentyl) 10 MG capsule Take 1 capsule by mouth every 6 (six) hours. Active ibuprofen 600 MG tablet Take 1 tablet by mouth if needed in the morning, at noon, and at bedtime. 02/16/20 21 Active sodium chloride ([place]) 0.65 % nasal spray Administer 2 sprays into each nostril if needed each day. 03/23/20 20 Active guaiFENesin (Mucinex) 600 MG 12 hr tabletIndication s:Acute viral syndrome Take 1 tablet (600 mg) by mouth in the morning and at bedtime. 60 tablet 06/20/20 22 Active ARIPiprazole (Abilify) 2 MG tablet TAKE [...] dizziness. 30 tablet 3 06/18/20 24 Active topiramate (Topamax) 25 MG tabletIndication s:Migraine with aura and without status migrainosus, not intractable Take 1 tablet (25 mg) by mouth at bedtime. 90 tablet 1 07/15/19 25 2025 Active celecoxib (CeleBREX) 100 MG capsule TAKE 1 CAPSULE BY MOUTH TWICE DAILY IN THE MORNING AND AT BEDTIME NEEDED FOR MILD PAIN 60 capsule 1 07/24/19 25 Active fluticasone (Flonase) 50 MCG/ACT nasal sprayIndications :Seasonal allergies Administer 1-2 sprays into each nostril if needed each day for allergies. 16 g 3 12/03/19 25 Active cetirizine (ZyrTEC) 10 MG tabletIndication s:Seasonal allergies Take 1 tablet (10 mg) by mouth if needed each day for allergies. 90 tablet 3 03/08/20 25 Active estradiol-noreth indrone (CombiPatch) 0.05-0.14 MG/DAYIndication s:Hot flashes Place 1 patch on the skin 2 (two) times a week. 8 patch 2 03/11/20 25 2024 Active cetirizine (ZyrTEC) 10 MG tabletIndication s:Seasonal allergies Take 1 tablet (10 mg) by mouth if needed each day for allergies. 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 Remainder of neuro exam was benign Upcoming appt with optometry, previously following with Neuro Labs ordered as below Follow up with any worsening of symptoms Dental calculus 01/05/2025 Seasonal allergies 12/02/2024 Assessment & Plan (12/02/2024 3:56 PM EDT): Cetirizine 10 mg daily as needed Flonase intranasal as needed Periodontal disease 10/08/2024 Dental caries 10/08/2024 Missing teeth, acquired 10/08/2024 Dietary counseling 07/15/2024 Assessment & Plan (07/15/2024 [...] weather Hot flashes 07/15/2024 Assessment & Plan (03/10/2025 4:27 PM EDT): - Plan to restart CombiPatch, cont symptomatic management Assessment & Plan (12/02/2024 3:55 PM EDT): - Good symptomatic relief with CombiPatch, although discontinued due to side effect of skin irritation - Symptoms currently manageable with conservative treatment, continue with current plan Assessment & Plan (09/02/2024 10:47 AM EDT): [...] the future. Left hip pain 04/13/2024 Overview (03/10/2025): Following with [facility] Ortho - Dr. Bergman & [facility] Pain Management - Dr. Dalton. MRI completed Mar 2024: 1. Possible nondisplaced undersurface tear of the anterosuperior labrum. 2. No stress reaction, fracture, or avascular necrosis. 3. Mild gluteus medius and gluteus minimus tendinosis. Minimal greater trochanteric bursitis. Completed physical therapy with noted improvement. Continues with home exercises PRN. Assessment & Plan (08/12/2024 4:12 PM EST): - Left hip pain suspected 2/2 small labral tear. Per consult note Jul 2024, plan for intra articular cortisone injection. 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 PLAN: 1. Follow up with [facility]: Not recommended for follow-up 2. Patient goal is to decrease stress level 3. Behavioral Recommendations a. Utilize coping skills provided b. Engage in therapy when established c. May reach out to [facility] for additional support Assessment & Plan (01/29/2023 5:50 PM EDT): Housing is significant stressor Currently housed, although not necessarily stable in the future BE conducted today, please see note for further details Referral to [facility] team placed Benign paroxysmal positional vertigo due to bilateral vestibular disorder 10/31/2022 Assessment & Plan (10/31/2022 8:18 AM EDT): Describes episodes as brief, lasting seconds, and occur on daily basis. 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 MRI ordered for further eval Routine health maintenance 10/30/2022 Overview (03/10/2025): Mammo: 10/26/24 BIRADS 1 Pap: NILM, HPV neg 12/28/24 at [facility] [employer] Colonoscopy: 07/22/20, 5 year follow-up Contraception: BTL Smoking status: non-smoker Eye Exam: 04/10/23 Dental: [facility], requested referral to [facility] dental Assessment & Plan (07/15/2024 3:37 PM EST): Referral sent to [facility] Dental Advised pt to go get Zoster vaccination at pharmacy Assessment & Plan (05/09/2023 7:52 PM EST): -Influenza and tetanus vaccines administered today Pulmonary hypertension 02/25/2015 Overview (12/02/2024): October 2024: Repeat TTE demonstrated normal EF 60-65% and no evidence of pulmonary hypertension Assessment & Plan (08/12/2024 4:16 PM EST): [...] and TPO ordered Migraine 12/24/2011 Overview (05/09/2023): Hx TBI as a child 12/05/22: MRI brain w/ & w/o WNL Upcoming appt to establish with [facility] Neu[facility] Well controlled with topiramate 25mg nightly Assessment & Plan (07/15/2024 3:34 PM EST): Pt has hx of chronic migraines, no GALARZA red flags Pt reports that her migraines are well controlled on Topamax which she was previously rx'd Sent refills to pharmacy today Assessment & Plan (01/29/2023 5:49 PM EDT): Re-start on topiramate 25mg nightly. Reviewed med safety and SE ED precautions reviewed Depression 12/13/2011 Assessment & [...] seek service PLAN: 1. Follow up with [facility]: Not recommended for follow-up 2. Patient goal [...] needed Irregular periods 12/13/2011 Assessment & Plan (03/10/2025 4:27 PM EDT): -EMB performed 04/21/[address] [...] completed, but insufficient tissue. Referral to OBGYN [facility] for further management. -Continue following with [facility], upcoming appt with [facility] OBGYN Assessment & Plan (09/29/2023 8:06 PM EDT): -EMB performed 04/21/[address] Antony for hx of menometrorrhagia -Denies further menstrual bleeding or AUB -Pelvic US August 2021 demonstrated small uterine calcifications. Possibly r/t degenerative fibroids. Normal thickness endometrium and normal-appearing ovaries -Continue following with [facility] [employer] Resolved Problems Problem Noted Date Diagnosed Date Resolved Date Hyperlipidemia 07/15/2024 03/10/2025 Sore throat 10/08/2023 01/07/2024 Assessment & Plan [...] Encounters Date Type Department Care Team Description 03/10/2025 10:00 AM EDT Office Visit [facility] MEDICINE [address] [place] [phone] Bita Muñoz FNP Ptosis of right eyelid (Primary Dx); Dyslipidemia; Routine health maintenance; Left hip pain; Left ankle instability; Irregular periods; Hot flashes 03/10/2025 Telephone [facility] [address] [place] [phone] Bita Muñoz FNP Lab Orders 03/10/2025 Travel 03/09/2025 Telephone [facility] [address] [place] [phone] Bita Muñoz FNP CHART PREP 03/05/2025 Refill [facility] [address] [place] [address] Bita Muñoz FNP Seasonal allergies 01/12/2025 11:00 AM EDT Office Visit [facility] ADULT DENTAL [address] [place] [phone] Viri Bennett Dental calculus (Primary Dx); Periodontal disease 01/05/2025 11:00 AM EDT Office Visit [facility] ADULT DENTAL [address] [place] [address] Viri Bennett Periodontal disease (Primary Dx); Dental calculus 12/28/2024 Orders Only GENERIC EXTERNAL DATA DEPARTMENT Provider, Generic External Data 12/18/2024 2:30 PM EDT Office Visit [facility] [address] [place] [address] Rebel Birch, DMD 12/17/2024 Orders Only GENERIC EXTERNAL DATA DEPARTMENT Provider, Generic External Data from Last 3 Months Immunizations Immunization Administration Dates Next Due Hep B, adult 04/23/2022,08/26/2018,07/22/2018 Influenza injectable quadriv alent preservative free 04/17/2023,04/23/2022,03/31/2021,2019 Influenza, IIV3, injectable 04/01/2014, 1 Influenza, Split (incl. mando fied surface antigen) 04/24/2013,07/28/2012 Pneumococcal Conjugate PCV 20 09/02/2024 Tdap 04/17/2023,02/12/2013 Zoster, Recombinant 10/22/2024,08/20/2024 Family History Medical History Relation Name Comments [...] Mass Index 35.2 03/10/2025 10:04 AM EDT Plan of Treatment Upcoming Encounters Date Type Department Care Team (Late st Contact Info) Description 04/12/2025 10:00 AM EDT Office Visit [facility] OPTOMETRY [address] [place] [address] Barbara Mayes, OD [address] [place] [address] 04/21/2025 10:15 AM EDT Office Visit [facility] ADULT DENTAL [address] [place] [address] Misbah Bennettaris [address] [place] [address] 06/09/2025 10:00 AM EST Office Visit [facility] MEDICINE [address] [place] [address] Bita Muñoz, DIRECTOR ADULT [address] [place] [address] Health Maintenance Due Date Last Done Comments CT Colonography 1975 FIT DNA/Cologuard 1975 FIT 1975 FOBT 1975 Sigmoidoscopy 1975 COVID-19 Vaccine ( season) 2025 Influenza Vaccine (#1) 2025 , 04/23/2022, 03/31/2021, Additional history exists Dental Oral Exam 04/09/2025 10/07/2024, 12/15/2013 Dental Prophylaxis 04/10/2025 10/08/2024, 04/26/2008 Alcohol/Substance Use Screening 04/15/2025 04/15/2024 SDOH Screening 07/03/2025 07/03/2024 Family Planning (PISQ) 07/15/2025 07/15/2024 Colonoscopy 07/22/2025 07/22/2020 Colorectal Cancer Screening 07/22/2025 Depression Monitoring 09/07/2025 03/10/2025, 025 Dental X-Ray: Bitewings 10/08/2025 10/08/19, 12/15/2013, 04/26/2008 Mammogram 10/26/2025 10/26/2024, 09/23, 10/15/2022, Additional history exists Disability Screening 03/10/2026 03/10/2025 Tobacco Screening 03/10/2026 03/10/2025 Dental X-Ray: Full Mouth 10/09/2027 10/07/2024, 11/23 Lipid Panel 01/07/2029 01/08/2024, 05/24, 04/23/2022, Additional history exists Cervical Cancer Screening 12/28/2029 HPV/Cotest 12/28/2029 12/17/2024, 09/0 02/2024, 09/10/2018 Pap Smear 12/28/2029 12/28/2024, 11/23, 03/02/2024, Additional history exists DTaP/Tdap/Td Vaccines (3 - Td or Tdap) [...] topic Meningococcal Vaccine Aged Out No sepideh aiwlda eligible based on patient's age to complete this topic RSV under 20 months Aged Out No longe r eligible based on patient's age to complete this topic Rotavirus Vaccines Aged Out No longer eligible based on patient's age to complete this topic Procedures Procedure Name Priority Date/Time Associated Diagnosis Comments CASE PRESENTATION, DETAILED AND EXTENSIVE TREATMENT PLANNING Routine 01/12/2025 11:00 AM EDT Dental calculus Periodontal disease ORAL HYGIENE INSTRUCTIONS Routine 01/12/2025 11:00 AM EDT Dental calculus Periodontal disease LR PERIODONTAL SCALING AND ROOT PLANING - 1 TO 3 TEETH PER QUADRANT Routine 01/12/2025 11:00 AM EDT Dental calculus Periodontal disease UR PERIODONTAL SCALING AND ROOT PLANING - 1 TO 3 TEETH PER QUADRANT Routine 01/12/2025 11:00 AM EDT Dental calculus Periodontal disease CASE PRESENTATION, DETAILED AND EXTENSIVE TREATMENT PLANNING Routine 01/05/2025 11:00 AM EDT Periodontal disease Dental calculus ORAL HYGIENE INSTRUCTIONS Routine 01/05/2025 11:00 AM EDT Periodontal disease Dental calculus LL PERIODONTAL SCALING AND ROOT PLANING - 1 TO 3 TEETH PER QUADRANT Routine 01/05/2025 11:00 AM EDT Periodontal disease Dental calculus UL PERIODONTAL SCALING AND ROOT PLANING - 1 TO 3 TEETH PER QUADRANT Routine 01/05/2025 11:00 AM EDT Periodontal disease Dental calculus PAP SMEAR Routine 12/28/2024 9:34 AM EDT CASE PRESENTATION, DETAILED AND EXTENSIVE TREATMENT PLANNING Routine 12/18/2024 2:30 PM EDT 4,3 MAXILLARY PARTIAL DENTURE - RESIN BASE (INCLUDING, RETENTIVE/CLASPING MATERIALS, RESTS, AND TEETH) Routine 12/18/2024 2:30 PM EDT 18,19,31 MANDIBULAR PARTIAL DENTURE - RESIN BASE (INCLUDING, RETENTIVE/CLASPING MATERIALS, RESTS, AND TEETH) Routine 12/18/2024 2:30 PM EDT PAP SMEAR Routine 12/17/2024 10:32 AM EDT HPV DNA, LOW/HIGH RISK Routine 10:32 AM EDT CHLAMYDIA/N. GONORRHOEAE RNA, TMA, UROGENITAL Routine 12/17/2024 9:57 AM EDT BI MAMMOGRAM SCREENING TOMOSYNTHESIS BILATERAL Routine 10/26/2024 11:00 AM EDT PROPHYLAXIS - ADULT Routine 10/08/2024 9 :00 AM EDT Periodontal disease Dental caries INTRAORAL - COMPLETE SERIES OF RADIOGRAPHIC IMAGES Routine 10/07/2024 10:30 AM EDT PERIODIC ORAL EVALUATION - ESTABLISHED PATIENT Routine 10/07/2024 10:30 AM EDT LIPID PANEL, STANDARD Routine 01/08/2024 11:29 AM EDT Dyslipidemia HEPATITIS C ANTIBODY Routine 03/07/2023 12:19 PM EDT HIV ANTIBODY/ANTIGEN ([place] [facility]) Routine 03/07/2023 12:19 PM EDT HM COLONOSCOPY Routine 07/22/2020 from Last 3 Months or Most Recently Relevant to Health Maintenance Results * Pap Smear (12/28/2024 9:34 AM EDT) Only the most recent of2 resultswithin the time period is included. 12/28/2024 9:34 AM EDT 12/29/2024 8:20 AM EDT [facility] - 12/31/2024 1:52 PM EDT ----- ------- Name: Eros JacksonZoila Age/Sex: 49/F : 1975 Unit#: [id number] Attend Dr: Julio C Atnony MD Re12/28/24 Status: DEP REF Location: HO.LNP Disch: ----- ------- SPEC : [id number] RECD: 12/29/24 STATUS: ELLYN GOLD NUM: [id number] CECIL: 12/28/[address]: Julio C Antony MD ENTERED: 12/29/24 SP TYPE: Pap [facility] DR: Bita Muñoz ORDERED: Pap Smear Interpretation Satisfactory for evaluation. Negative for intraepithelial lesion or malignancy. Coccobacilli consistent with shift in vaginal mercedez. Clinical Information LMP: Unknown date Previous PAP test: 12/18/2024, unknown findings Other history: Unsatisfactory cervical Papanicolaou smear Material Received ThinPrep-Cervical PAP Disclaimer As of April 15, 2024, the technical services to include automated prescreening performed by the ThinPrep Imaging System, PAP screening and HPV testing will be performed at [facility] (CLIA #[id number]), [address] [place] [address]. Testing for HPV was performed using the [employer] system. The presence of HPV in the female genital tract is associated with a number of diseases, including cervical carcinoma. The HPV DNA high risk pool tests for HPV 31, 33, 35, 39, 45, 51, 52, 56, 58, 59, 66 and 68. The testing for HPV 16 and 18 genotypes has also been performed. A positive result indicates detection of nucleic acid sequences from one or more subtypes, whereas a negative result indicates such sequences were not detected. All professional services are performed by [facility] ([address] [place] [address]; ; CLIA #[id number]). The PAP Test is a screening procedure with the inherent possibility of both false negative and false positive results. Results should be interpreted in the context of historic and current clinical findings. Reliability of the PAP Test is enhanced by performing the test on a regular repetitive basis. Copies To: Bita Muñoz [address] [place] [address] CONTINUED ON NEXT PAGE ----- ------- Name: Zoila Petersen Age/Sex: 49/F : 1975 Unit#: [id number] Attend Dr: Julio C Antony MD Re12/28/24 Status: DEP [facility]F [facility] Disch: ----- ------- SPEC : [id number] RECD: 12/29/24 STATUS: ELLYN GOLD NUM: [id number] CECIL: 12/28/[address]: Julio C Antony MD ENTERED: 12/29/24 SP TYPE: Pap Smr OTHR DR: Bita [facility]oz [facility] ORDERED: Pap Smear Copies To: (Continued) Julio C Antony MD [facility] [address] [place] [address] [place] [phone] ----- ------- Signed (signature on file) NELSY Heaton (ASCP) 12/31/24 1352 ----- ------- END OF REPORT us Generic External Data Provider LAB CYTOLOGY ORDE RABLES Final Result Performing Organization Address [facility]/ZIP Co de Phone Number [facility] [address] [place] [address] [phone] * HPV DNA, Low/High Risk (12/17/2024 10:32 AM EDT) Pathologist [facility] HPV High Risk Negative Negative [facility] HPV Genotype 16 Negative Negative [facility] HPV Genotype 18 Negative Negative [facility] Comment:HPV testing performe d at [facility] (CLIA#[id number]), [address] [place] [phone].Testing for HPV was performed using the [employer]system. The presence of HPV in the female genital tract isassociated with a number of diseases, including cervicalcarcinoma. The HPV DNA high risk pool tests for HPV 31, 33,35, 39, 45, 51, 52, 56, 58, 59, 66 and 68. The testing forHPV 16 and 18 genotypes has also been performed. A positiveresult indicates detection of nucleic acid sequences fromone or more subtypes, whereas a negative result indicatessuch sequences were not detected. 12/17/2024 10:3 2 AM EDT 12/18/2024 8:00 AM EDT Generic External Data Provider LAB BLOOD ORDERAB LES Final Result Performing Organization Address [facility]/ZIP Co de Phone Number [facility] [address] [place] [phone] * Chlamydia/N. Gonorrhoeae RNA, TMA, Urogenitial (12/17/2024 9:57 AM EDT) Pathologist [facility] CT PCR NOT DETECTED Not Detect. [facility] Comment:A not detected test result [...] psychologicalconsequences. NG PCR NOT DETECTED Not Detect. [facility] Comment:A not detected test result [...] lead to adverse medical, social or psychologicalconsequences. 12/17/2024 9:57 AM EDT 12/17/2024 3:10 PM EDT us Generic External Data Provider LAB MICROBIOLOGY - GENERAL ORDERABLES Final Result [facility] [address] [place] [phone] * BI Mammogram Screening Tomosynthesis Bilateral (10/26/2024 11:00 AM EDT) Anatomical Region Laterality Modality Breast Bilateral Mammography 10/26/2024 11:0 0 AM EDT Narrative 11/01/2024 9:13 PM EDT [facility] [address] [place] [address] Mammography Report Signed Patient: Zoila Petersen MR#: [id number] : 1975 Acct:[id number] Age/Sex: 49 / F ADM Date: 10/26/24 Loc: MAMMO Attending Dr: Bita Muñoz DIRECTOR ADULT Ordering Physician: Janis Foreman CNM Results: 1Nega tive Date of Service: 10/26/24 Follow Up: 1 Year From Orig inal Mammogram Procedure(s): MM tomosynthesis screening BI Accession Number(s): [id number] cc: Janis Foreman CNM; Bita Muñoz DIRECTOR ADULT EXAMINATION: MM SCREENING DIGITAL BREAST TOMOSYNTHESIS, BILATERAL [...] 11/01/24 2111 DD/ 1100 TD/TT: 10/26/24 1117 Cigar Tobacco Rehandler: Procedure Note Donotuseinterpreter, Image - 11/01/2024 [facility] [address] [place] [address] Dr. [place], BOBBY [address] Mammography Report Signed Patient: Zoila PetersenMR#: [id number] : 1975Acct:[id number] Age/Sex: 49 / FADM Date: 10/26/24 Loc: HO.MAMMO Attending Dr: Bita Muñoz DIRECTOR ADULT Ordering Physician: Janis ForemanMResults: 1Nega tive Date of Service: 10/26/24Follow Up: 1 Year From Orig inal Mammogram Procedure(s): MM tomosynthesis screening BI Accession Number(s): [id number] cc: Janis Foreman CNM; Bita Muñoz DIRECTOR ADULT EXAMINATION: MM SCREENING DIGITAL BREAST TOMOSYNTHESIS, BILATERAL [...] 11/01/24 2111 DD/ 1100 TD/TT: 10/26/24 1117 Cigar Tobacco Rehandler: us [facility] External Provider IMG BI PROCEDURES Final Result * (ABNORMAL) Lipid Panel, Standard (01/08/2024 11:29 AM EDT) Triglycerides 103 <150 mg/dL [facility] Comment:Desirable Triglyceri de: less than 150 mg/dLBorderline High Triglyceride 150-199 mg/dLHigh Triglyceride: 200-499 mg/dLVery High Triglyceride: greater than or equal to 5OO mg/dL Cholesterol 208(H) <200 mg/dL [facility] Comment:Desirable Cholestero l: less than 200 mg/dLBorderline High Cholesterol: 200-239 mg/dLHigh Cholesterol: greater than 239 mg/dL LDL Cholesterol Calculated 140(H) <100 mg/dL [facility] Comment:Desirable LDL: less than 100 mg/dLNear Optimal/Above Optimal LDL: 110- 129 mg/dLBorderline High LDL: 130-159 mg/dLHigh LDL: 160-189 mg/dLVery High LDL: greater than or equal to 190 mg/dL HDL Cholesterol 48 >40 mg/dL [facility] Comment:Desirable HDL: great er than 40 mg/dL Note: This HDL assay may give artificially low results in patients with liver disease. Blood Venous blood specimen / Unknown 01/08/2024 11:29 AM EDT 01/08/2024 12:51 PM EDT Bita Muñoz DIRECTOR ADULT LAB BLOOD ORDERABLES Final Res ult Performing Organization Address City/[facility]/ZIP Co de Phone Number [facility] [address] [place] [phone] * Hepatitis C Ab (03/07/2023 12:19 PM EDT) Hepatitis C Antibody Nonreactive Nonreactive [facility] Comment:Antibodies to HCV no t detected; does not exclude early acuteHCV infection. 03/07/2023 12:1 9 PM EDT 03/07/2023 12:19 PM EDT us Generic External Data Provider LAB BLOOD ORDERAB LES Final Result Performing Organization Address [facility]/ZIP Co de Phone Number [facility] [address] [place] [address] [phone] * HIV Ab/Ag ([facility]) (03/07/2023 12:19 PM EDT) HIV AB/AG Nonreactive Nonreactive [facility] Comment:HIV-1 p24 Ag and/or HIV-1/HIV-2 Ab not detected.A test result that is nonreactive does not exclude thepossibility of exposure to or infection with HIV-1 and/orHIV-2. Nonreactive results in this assay for individualswith prior exposure to HIV-1 and/or HIV-2 may be due toantigen and antibody levels that are below the limit ofdetection of this assay.The Dimdim Alinity HIV Ag/Ab Combo assay result andsupplemental assay results should be interpreted inconjunction with the patient's clinical presentation,history and other laboratory results. If the results areinconsistent with clinical evidence, additional testing issuggested to confirm the result. 03/07/2023 12:1 9 PM EDT 03/07/2023 12:19 PM EDT us Generic External Data Provider LAB BLOOD ORDERAB LES Final Result [facility] [address] [place] [phone] * Colonoscopy (07/22/2020) [facility] Colonoscopy Normal Normal Comment:5 Yr F/U Historical Provider HEALTH MAINTENANCE Edited Result - Final from Last 3 Months or Most Recently Relevant to Health Maintenance [facility] ST[place] ADULT Care Teams Nail Machine Operator Relationship Specialty Start Date End Date Bita Muñoz FNP [address] [place] [address] PCP - General Family Medicine 02/19/22 Dinh Alexander DPM [address] [facility] [address] [place] [address] Podiatry 03/10/25 Janis Foreman [address] [address] Gynecology 03/10/25 Tia Gladu Channel ExecutiveFarmworker Dairy 10/17/23 Mady Landin Channel ExecutiveFarmworker Dairy 11/03/24
--- OUTSIDE RECORDS SUMMARY | 2025-03-11 12:51 | XMS_ITS | Encounter Summary ---
Author Organization [employer] Address 75 [facility] 7t [place] [address] Care Team Providers Care Cleaner Signs Name Role Phone Bita Muñoz Primary Care Provider Dinh Alexander DPKaern Unavailable [phone] Janis Foreman Unavailable Encounter Details Date Type Department Care Team (Late Contact Info) Description 05/03/2022 [facility] Information Management 230 [place] [address] Bita Muñoz FNP 505 [place] [address] Social History Tobacco Use Types Packs/Day Years [...] Department Care Team (Late Contact Info) Description 04/12/2025 10:00 AM EDT Office Visit [facility] OPTOMETRY 267 [place] [address] Gerber, Barbara, OD 230 [place] [address] 04/21/2025 10:15 AM EDT Office Visit [facility] ADULT DENTAL 230 [place] [address] Sabrina, Viri 230 [place] [address] 06/09/2025 10:00 AM EST Office Visit [facility] MEDICINE 230 [place] [address] Bita Muñoz FNP 505 [place] [address] documented as of this encounter Visit Diagnoses Not on filedocumented in this encounter Care Teams Cleaner Signs Relationship Specialty Start Date End Date Bita Muñoz FNP 230 [place] [address] PCP - General Family Medicine 02/19/22 Dinh Alexander DPM [address] [address] Podiatry 03/10/25 Janis Foreman [address] [place] [address] Gynecology 03/10/25 Karen Edward Management AdvisorOil Field Pumper 10/17/23 Mady Landin Management AdvisorOil Field Pumper 11/03/24 documented as of this encounter
--- OUTSIDE RECORDS SUMMARY | 2025-03-11 12:51 | XMS_ITS | Encounter Summary ---
Author Organization [employer] Address 75 [facility] 7t [place] [address] Care Team Providers Care Manager Heavy Equipment Name Role Phone Bita Muñoz Primary Care Provider [phone] Dinh Alexander DPM Unavailable [phone] Janis Foreman Unavailable Reason for Visit * Reason Onset Date Comments Medication Question 05/24/2022 Reviewed sym ptoms with patient and ED precautions. Pt eligible for Paxlovid, will send rx to pharmacy. Reviewed potential med interactions. Encounter Details Date Type Department Care Team (Late st Contact Info) Description 05/24/2022 Telephone [facility] MEDICINE 230 [place] [address] Bita Muñoz FNP 505 [place], [place] [phone] Medication Question (Reviewed symptoms with patient and [...] more questions * Telephone Encounter - Vanna Nataly - 05/24/2022 10:55 AM EST Symptom: Sore Throat Outcome: Schedule an appointment to be seen within 24 hours Reason: No high acuity concerns reported by caller The caller accepted this outcome * states did a home covid kit 05/23/22 and came back positive. Pt speaks bulgarian returning call from yesterday . documented in this encounter Plan of Treatment Upcoming Encounters Date Type Department Care Team (Late st Contact Info) Description 04/12/2025 10:00 AM EDT Office Visit [facility] OPTOMETRY [address] [place] [address] Gerber, Barbara, OD 230 [place] [address] 04/21/2025 10:15 AM EDT Office Visit [facility] ADULT DENTAL 230 [place] [address] Sabrina, Viri 230 [place] [address] 06/09/2025 10:00 AM EST Office Visit [facility] MEDICINE 230 [place] [address] Bita Muñoz FNP [address] [place] [address] documented as of this encounter Visit Diagnoses Diagnosis COVID-19 virus infection- Primary documented in this encounter Care Teams Manager Heavy Equipment Relationship Specialty Start Date End Date Bita Muñoz FNP 230 [place] [address] PCP - General Family Medicine 02/19/22 Dinh Alexander DPM 175 [facility] 250 [place] [address] Podiatry 03/10/25 Janis Foreman [address] [place] [address] Gynecology 03/10/25 Tia Cheyanne Cnc MachinistHead Charger 10/17/23 Mady Landin Cnc MachinistHead Charger 11/03/24 documented as of this encounter
--- OUTSIDE RECORDS SUMMARY | 2025-03-11 12:51 | XMS_ITS | Encounter Summary ---
Author Organization [employer] Address 75 [facility] 7t [place] [address] Care Team Providers Care Patent Examiner Name Role Phone Bita Muñoz Primary Care Provider [phone] Reason for Visit * Reason Onset Date Comments Med Refill 03/05/2025 Encounter Details Date Type Department Care Team (Late st Contact Info) Description 03/05/2025 Refill [facility] MEDICINE 230 [place] [address] Bita Muñoz FNP [address] [place] [address] Seasonal allergies Social History Tobacco Use Types Packs/Day Years [...] Description 04/12/2025 10:00 AM EDT Office Visit [facility] OPTOMETRY [address] [place] [address] Gerber, Barbara, OD 230 [place] [address] 04/21/2025 10:15 AM EDT Office Visit [facility] ADULT DENTAL 230 [place] [address] Sabrina, Viri 230 [place] [address] 06/09/2025 10:00 AM EST Office Visit [facility] MEDICINE 230 [place] [address] Bita Muñoz FNP [address] [place] [address] documented as of this encounter Visit Diagnoses Diagnosis Seasonal allergies Allergic rhinitis, cause unspecified documented in this encounter Additional Health Concerns Assessment Noted Time PHQ-9 Depression Total Score: 10 025 3:23 PM EST documented as of this encounter Care Teams Patent Examiner Relationship Specialty Start Date End Date Bita Muñoz FNP [address] [place] [address] PCP - General Family Medicine 02/19/22 Karen Edward Sharepoint Web DeveloperBleaching Supervisor 10/17/23 Mady Landin Sharepoint Web DeveloperBleaching Supervisor 11/03/24 documented as of this encounter
--- OUTSIDE RECORDS SUMMARY | 2025-03-11 12:51 | XMS_ITS | Encounter Summary ---
Author Organization [facility] Address [address] [facility] [address] [place] [address] Phone Care Team Providers Care Dark Room Attendant Name Role Phone Unavailable Primary Care Provider Unavailabl e Encounter Details Date Type Department Care Team (Latest Contact Info) Description 05/22/2018 Ancillary Orders [facility] [address] [place] [address] [place] [address] Sim Harding, DO [address] [place] [address] Chest pain, unspecified type Social History Tobacco Use Types Packs/Day Years Used Date Smoking Tobacco: Never Assessed Comments Unknown Sex and Gender Information Value Date Recorded Sex Assigned at Not on file Legal Sex Female 10:42 AM EST Gender Identity Not on file Sexual Orientation Not on file documented as of this encounter Plan of Treatment Not on file documented as of this encounter Results * Holter Monitor 24 Hours (05/22/2018 8:38 AM EST) Anatomical Region Laterality Modality Heart Other Narrative 05/23/2018 10:12 AM EST Holter monitor report Indication Findings: The underlying rhythm is normal sinus rhythm with average heart rate 86 bpm, minimum heart rate 60 bpm, maximum heart rate 138 bpm. There were no arrhythmias, no ectopy. No abnormalities. Conclusion: Normal Holter monitor. Procedure Note Raúl Vargas MD - 05/23/2018 Holter monitor report Indication Findings: The underlying rhythm is normal sinus rhythm with average heart rate 86bpm, minimum heart rate 60 bpm, maximum heart rate 138 bpm. There were no arrhythmias, no ectopy. No abnormalities. Conclusion: Normal Holter monitor. us Sim Mehdi DO [facility] ORDERABLE S Final Result documented in this encounter Visit Diagnoses Diagnosis Chest pain, unspecified type Chest pain, unspecified type documented in this encounter Additional Source Comments The information contained in this document represents components of the legal health record. It is not the complete legal health record.[facility]
--- OUTSIDE RECORDS SUMMARY | 2025-03-11 12:51 | XMS_ITS | Encounter Summary ---
Author Organization [employer] Address 75 [facility] 7t [place] [address] Care Team Providers Care Rigger Third Name Role Phone Bita Muñoz RESEARCH PROGRAM COORDINATOR Primary Care Provider Dinh Alexander DPM Unavailable [phone] Jansi Foreman Unavailable Encounter Details Date Type Department Care Team (Late st Contact Info) Description 05/25/2022 Orders Only [facility] 230 [place] [address] Jonelle Hooker RN Social History Tobacco Use [...] Description 04/12/2025 10:00 AM EDT Office Visit [facility] OPTOMETRY [address] [place] [address] Barbara Mayes, OD 230 [place] [address] 04/21/2025 10:15 AM EDT Office Visit [facility] ADULT DENTAL 230 [place] [address] Viri Bennett 230 [place] [address] 06/09/2025 10:00 AM EST Office Visit [facility] MEDICINE 230 [place] [address] Bita Muñoz FNP 505 [place] [address] documented as of this encounter Visit Diagnoses Not on filedocumented in this encounter Care Teams Rigger Third Relationship Specialty Start Date End Date Bita Muñoz FNP 230 [place] [address] PCP - General Family Medicine 02/19/22 Dinh Alexander DPM 175 [facility] 250 [place] [address] Podiatry 03/10/25 Janis Foreman [address] [address] Gynecology 03/10/25 Karen Edward Order Checker Packer ProcesserBeveller Operator 10/17/23 Mady Landin Order Checker Packer ProcesserBeveller Operator 11/03/24 documented as of this encounter
--- OUTSIDE RECORDS SUMMARY | 2025-03-11 12:51 | XMS_ITS | Encounter Summary ---
Author Organization [employer] Address 75 [facility] 7t [place] [address] Care Team Providers Care Importer Exporter Name Role Phone Bita Muñoz Primary Care Provider [phone] Dinh Alexander DPM Unavailable [phone] Janis Foreman Unavailable Reason for Visit * Reason Onset Date Comments Returning Call 06/10/2024 Encounter Details Date Type Department Care Team (Late st Contact Info) Description 06/10/2024 Telephone [facility] MEDICINE 230 [place] [address] Bita Muñoz FNP 505 [place], [place] [phone] Returning Call Social History Tobacco Use Types [...] Description 04/12/2025 10:00 AM EDT Office Visit [facility] OPTOMETRY [address] [place] [address] Gerber, Barbara, OD 230 [place] [address] 04/21/2025 10:15 AM EDT Office Visit [facility] ADULT DENTAL 230 [place] [address] Sabrina, Viri 230 [place] [address] 06/09/2025 10:00 AM EST Office Visit [facility] MEDICINE 230 [place] [address] Bita Muñoz FNP [address] [place] [address] documented as of this encounter Visit Diagnoses Not on filedocumented in this encounter Additional Health Concerns Assessment Noted Time PHQ-9 Depression Total Score: 20 024 9:07 AM EDT documented as of this encounter Care Teams Importer Exporter Relationship Specialty Start Date End Date Bita Muñoz FNP 230 [place] [address] PCP - General Family Medicine 02/19/22 Dinh Alexander DPM [address] [address] Podiatry 03/10/25 Janis Foreman [address] [address] Gynecology 03/10/25 Tia Glalamont Regulatory AssistantEvaluation Manager 10/17/23 Mady Landin Regulatory AssistantEvaluation Manager 11/03/24 documented as of this encounter
--- OUTSIDE RECORDS SUMMARY | 2025-03-11 12:51 | XMS_ITS | Clinical Summary ---
Author Organization 175 [facility] Address 175 [place] [address] Phone Care Team Providers Care Ceramics Artist Name Role Phone Physician, Pcp Unknown Primary [...] (one) time each day. 30 g 2 5 Active Social History Tobacco Use Types Packs/Day Years [...] Care Team (Late st Contact Info) Description 03/31/2025 2:00 PM EDT Office Visit [facility] [place] [address] [phone] Dinh Alexander, DPKaren [address] [phone] Health Maintenance Due Date Last Done Comments Breast Cancer Screening 1974 Cervical Cancer Screening: Pap Smear 1995 Depression Screening 06/24/2024 Colorectal Cancer Screening: Colonoscopy 08/31/2024 HIV Screening 08/31/2024 Hepatitis C Screening 08/31/2024 Social Influencers of Health Screening 08/31/2024 COVID-19 Vaccine ( season) 2025 Influenza Vaccine (#1) 2025 3, 04/23/2022, 03/31/2021, Additional history exists Cholesterol Screening (Lipid Panel) 01/07/2029 01/08/2024 DTaP,Tdap,and Td Vaccines (3 - Td or Tdap) 04/17/2033 04/17/2023, 02/12/2013 RSV Immunization Adult Patients (1 - 1-dose 75+ series) 2049 Hepatitis B Vaccines Completed 04/23/2022, 08/26/2018, 07/22/2018 Pneumococcal Vaccine: 50+ Years Completed 09/02/2024 Zoster [...] topic Insurance MEDICAID - [place] Care Teams Ceramics Artist Relationship Specialty Start Date End Date Physician, Pcp Unknown PCP - General 08/31/24
[2025-03-11 13:12] LABS: MANUAL DIFF FLAG NO
[2025-03-11 13:17] LABS: Hematocrit 39.6 % (37.0-47.0); Hemoglobin 12.7 g/dl (12.0-16.0); Imm Gran Abs Auto 0.03 X10*3/uL (0.00-0.03); Imm Gran Pct Auto 0.5 % (0.0-0.4); Lymphocytes Absolute Auto 2.6 X10*3/uL (1.2-4.9); Mean Corpuscular HGB Conc 32.1 g/dl (31.0-35.0); Mean Corpuscular Hemoglobin 27.1 pg (27.0-33.0); Mean Corpuscular Volume 84.4 fL (80.0-98.0); NRBC Abs Auto 0.000 X10*3/uL (0.0-0.012); NRBC Pct Auto 0.0 /100WBC (0.0-0.2); Platelet Count 400 X10*3/uL (160-400); Red Blood Count 4.69 X10*6/uL (4.20-5.50); White Blood Count 5.5 X10*3/uL (4.8-10.8)
[2025-03-11 13:20] LABS: Hemoglobin A1C 138.4627 umol/L; Total Hemoglobin (HGBA1C) 3301.4222 umol/L
[2025-03-11 13:26] LABS: Alanine Aminotransferase 14 U/L (0-31); Albumin Level 4.0 g/dL (3.5-5.0); Alkaline Phosphatase 50 U/L (39-117); Anion Gap 11 (12-20); Aspartate Amino Transferase 26 U/L (5-31); Blood Urea Nitrogen 7 mg/dL (9-16); Calcium 9.3 mg/dL (8.4-10.2); Carbon Dioxide 25 mmol/L (22-29); Chloride 109 mmol/L (96-108); Cholesterol 190 mg/dL (<200); Estimated Glomerular Filt Rate > 60; HDL Cholesterol 40 mg/dL (>40); Potassium 4.1 mmol/L (3.3-5.1); Sodium 141 mmol/L (135-145); Total Protein 7.7 g/dL (6.5-8.0); Triglycerides 140 mg/dL (<150)
[2025-03-16 15:09] LABS: Acetylcholine Recept. Blocking <15 (<15)
== END 2025-03-11 10:44 | disposition home or self-care (01) ==
LOC: HO.HHCL 10:43
PROVIDERS: PCP Registered Nurse; Visit Provider Registered Nurse
DX: Z00.00 Encounter for general adult medical examination without abnormal findings (principal); Z11.3 Encounter for screening for infections with a predominantly sexual mode of transmission
CPT/HCPCS: 36415; 80053; 80061; 83036; 85025; 86042; 86592

== ENCOUNTER 2025-04-27 09:36 | Outpatient (REF) | payer MEDICAID, SELFPAY ==
--- OUTSIDE RECORDS SUMMARY | 2025-04-27 09:40 | XMS_ITS | Encounter Summary ---
Author Organization [employer] Address 75 [facility] 7t [place] [address] Care Team Providers Care Special Agent Fbi Name Role Phone Bita Muñoz REMOTE RECRUITER Primary Care Provider [phone] Dinh Alexander DPM Unavailable Janis Foreman Unavailable Reason for Visit * Reason Comments DYSURIA Vaginal Discharge Encounter Details Date Type Department Care Team (Late st Contact Info) Description 04/27/2025 9:40 AM EST Office Visit [facility] 230 [place], [place] [phone] Parish Paiz MD 230 [place], [place] [phone] Dysuria (Primary Dx); Vaginal discharge Social History Tobacco Use Types Packs/Day Years [...] Sign Reading Time Taken Comments Blood Pressure 117/81 04/27/2025 9:33 AM EST Pulse 88 04/27/2025 9:33 AM EST Temperature 36.7 C (98 F) 04/27/2025 9:33 AM EST Respiratory Rate 17 04/27/2025 9:33 AM EST Oxygen Saturation 96% 04/27/2025 9:33 AM EST Inhaled Oxygen Concentration - - Weight 76.4 kg (168 lb 6 oz) 04/27/2025 9:33 AM EST Height 147.3 cm (4' 10 ) 04/27/2025 9:33 AM EST Body Mass Index 35.19 04/27/2025 9:33 AM EST documented in this encounter Progress Notes * Parish Paiz MD - 04/27/2025 9:40 AM EST Subjective Patient ID: Zoila Jackson is a 50 y.o. female. HPI Yesterday Zoila had onset of burning and itching with urination, urgency, frequency and vaginal discahreg. Denies fever, chills, n/v, abdominal or flank pain. Lives with 2 sons. LMP=years ago. Not employed. Never smoked Patient Active Problem List Diagnosis Date Noted Ptosis of right eyelid 03/10/2025 Dental calculus 01/05/2025 Seasonal allergies 12/02/2024 Periodontal disease 10/08/2024 Dental caries 10/08/2024 Missing teeth, acquired 10/08/2024 Dietary counseling 07/15/2024 Exercise counseling 07/15/2024 Hot flashes 07/15/2024 Left hip pain 04/13/2024 Vaginal atrophy 01/13/2024 Knee pain, left 09/29/2023 Primary osteoarthritis of right knee 05/27/2023 Anxiety disorder, unspecified 01/22/2023 Benign paroxysmal positional vertigo due to bilateral vestibular disorder 10/31/2022 Pulmonary hypertension (CMS/HCC) (HCC) 02/25/2015 Dyslipidemia 04/24/2013 Disorder of thyroid gland 12/24/2011 Migraine 12/24/2011 Depression 12/13/2011 Irregular periods 12/13/2011 Routine health maintenance 10/30/2022 The following portions of the chart were reviewed this encounter and updated as appropriate: Tobacco Allergies Meds Problems Med Hx Surg Hx Fam Hx Review of Systems Constitutional: Negative for fever. Respiratory: Negative for shortness of breath. Cardiovascular: Negative for chest pain. Gastrointestinal: Negative for abdominal pain. Genitourinary: Positive for dysuria, frequency, urgency and vaginal discharge. Negative for flank pain. Skin: Negative for rash. Neurological: Negative for [...] normal. Breath sounds: Normal breath sounds. Abdominal: General: Abdomen is flat. Palpations: Abdomen is soft. Tenderness: There is no abdominal tenderness. There is no right CVA tenderness or left CVA tenderness. Musculoskeletal: General: Normal range of motion. Cervical back: No tenderness. Skin: Findings: No rash. Neurological: Mental Status: She is alert. Gait: Gait is intact. Psychiatric: Mood and Affect: Mood normal. Behavior: Behavior normal. Procedures Assessment/Plan Diagnoses and all orders for this visit: Dysuria Urine C&S pending. Will call patient with results Patient preferred to start antibiotics pending urine culture. Prescribed Macrobid and Diflucan (states h/o Candidal vulvovaginitis with antibiotics). Return to clinic if not improving - POCT Urinalysis - Culture, Urine, Routine Vaginal discharge Self vaginal swabs sent for BV panel, GC/CT. Will call patient with results. Return to clinic if not improving. - Bacterial Vaginosis Panel - Chlamydia/N. Gonorrhoeae RNA, TMA, Vaginal Other orders - nitrofurantoin, macrocrystal-monohydrate, (Macrobid) 100 MG capsule; Take 1 capsule (100 mg) by mouth 2 times daily for 5 days. - fluconazole (Diflucan) 150 MG tablet; Take 1 tablet (150 mg) by mouth Once per day for 1 dose. Take prn vaginal discharge related to antibiotic use. documented in this encounter Plan of Treatment Upcoming Encounters Date Type Department Care Team (Late st Contact Info) Description 06/09/2025 10:00 AM EST Office Visit [facility] MEDICINE 230 [place] [address] Bita Muñoz, REMOTE RECRUITER [address] [place] [address] 08/18/2025 10:30 AM EST Office Visit [facility] OPTOMETRY [address] [place] [address] Gerber, Barbara, OD 230 [place] [address] 10/26/2025 10:15 AM EDT Office Visit [facility] ADULT DENTAL 230 [place] [address] Viri Bennett 230 [place] [address] Scheduled Orders Name Type Priority Associated Diagnoses Orde r Schedule Bacterial Vaginosis Panel Microbiology Routine Vaginal discharge Ordered: 04/27/2025 Chlamydia/N. Gonorrhoeae RNA, TMA, Vaginal Microbiology Routine Vaginal discharge Ordered: 04/27/2025 Culture, Urine, Routine Microbiology Routine Dysuria Ordered: 04/27/2025 documented as of this encounter Procedures Procedure Name Priority Date/Time Associated Diagnosis Comments POCT URINALYSIS DIPSTICK Routine 04/27/2025 9:44 AM EST Dysuria documented in this encounter Results * (ABNORMAL) POCT Urinalysis (04/27/2025 9:44 AM EST) Color, UA Light Yellow Clarity, UA Cloudy Comment:Slightly cloudy Glucose, UA Negative Bilirubin, UA Negative Ketones, UA Negative Spec Grav, UA 1.025 Blood, UA Negative Negative, None Detected pH, UA 5.5 Protein, UA Negative Urobilinogen, UA 0.2 Leukocytes, UA Few 15(A) Negative, Rare, Trace Comment:Small Nitrite, UA Negative Negative, None Detected Appearance, UA slightly cloudy QC Media Lot # [id number] Lot# Expiration Date Urine (Urine, Random) 04/27/2025 9:44 AM EST Parish Paiz MD POINT OF CARE TEST ENTER/EDIT OR DERABLES Final Result documented in this encounter Visit Diagnoses Diagnosis Dysuria- Primary Vaginal discharge Leukorrhea, not specified as infective documented in this encounter Additional Health Concerns Assessment Noted Time PHQ-9 Depression Total Score: 16 025 10:05 AM EDT documented as of this encounter Care Teams Special Agent Fbi Relationship Specialty Start Date End Date Bita Muñoz FNP 230 [place] [address] PCP - General Family Medicine 02/19/22 Dinh Alexander DPM [address] [address] Podiatry 03/10/25 Janis Foreman [address] [place] [address] Gynecology 03/10/25 Karen Edward Outpatient Physical Therapist AssistantClaim Representative 10/17/23 Mady Landin Outpatient Physical Therapist AssistantClaim Representative 11/03/24 documented as of this encounter
--- OUTSIDE RECORDS SUMMARY | 2025-04-27 18:38 | XMS_ITS | Encounter Summary ---
Author Organization [employer] Address [address] [facility] 7 [place] [address] Care Team Providers Care Purification Director Name Role Phone Bita Muñoz Primary Care Provider [phone] Dinh Alexander DPM Unavailable [phone] Janis Foreman Unavailable Reason for Visit * Reason Onset Date Comments Returning Call 06/10/2024 Encounter Details Date Type Department Care Team (Late st Contact Info) Description 06/10/2024 Telephone [facility] MEDICINE 230 [place] [address] iBta Muñoz FNP 505 [place], [place] [phone] Returning Call Social History Tobacco Use Types [...] Description 06/09/2025 10:00 AM EST Office Visit [facility] MEDICINE 230 [place] [address] Bita Muñoz, STORE ASSISTANT 505 [place] [address] 08/18/2025 10:30 AM EST Office Visit [facility] OPTOMETRY [address] [place] [address] Gerber, Barbara, OD 230 [place] [address] 10/26/2025 10:15 AM EDT Office Visit [facility] ADULT DENTAL 230 [place] [address] Misbah Bennettaris 230 [place] [address] documented as of this encounter Visit Diagnoses Not on filedocumented in this encounter Additional Health Concerns Assessment Noted Time PHQ-9 Depression Total Score: 20 024 9:07 AM EDT documented as of this encounter Care Teams Purification Director Relationship Specialty Start Date End Date Bita Muñoz FNP 230 [place] [address] PCP - General Family Medicine 02/19/22 Dinh Alexander DPM [address] [address] Podiatry 03/10/25 Janis Foreman [address] [address] Gynecology 03/10/25 Tia Gladu Clothes DesignerBottom Loader 10/17/23 Mady Landin Clothes DesignerBottom Loader 11/03/24 documented as of this encounter
--- OUTSIDE RECORDS SUMMARY | 2025-04-27 18:38 | XMS_ITS | Clinical Summary ---
Author Organization 175 [facility] Address 175 [place] [address] Phone Care Team Providers Care Legal Adviser Name Role Phone Physician, Pcp Unknown Primary Care Provider Cassy vailable Allergies No known active allergies Medications acetaminophen (TYLENOL) 500 mg tablet Take [...] each day. 30 g 2 5 Active ketoconazole (NIZORAL) 2 % cream Apply topically 1 (one) time each day. 30 g 2 5 Active Encounters Date Type Department Care Team Description 03/31/2025 2:00 PM EDT Office Visit Orthopedic Surgery [facility] [address] [phone] Dinh Alexander DPM Dermatophytosis of nail (Primary Dx) from Last 3 Months Social History Tobacco [...] Care Team (Late st Contact Info) Description 09/29/2025 10:30 AM EDT Office Visit Orthopedic Surgery [place] [address] [phone] Dinh Alexander DPM [address] [place] [phone] Health Maintenance Due Date Last Done Comments Breast Cancer Screening 1974 Colorectal Cancer Screening: Colonoscopy 1974 Depression Screening 06/24/2024 HIV Screening 08/31/2024 Hepatitis C Screening 08/31/2024 Social Influencers of Health Screening 08/31/2024 COVID-19 Vaccine ( season) 2025 Influenza Vaccine (#1) 2025 , 04/23/2022, 03/31/2021, Additional history exists Cervical Cancer Screening: Pap Smear 12/29/2027 12/28/2024 Cholesterol Screening (Lipid Panel) 2030 2025, 01/08/2024 DTaP,Tdap,and Td Vaccines (3 - Td [...] topic Insurance MEDICAID - [place] Care Teams Legal Adviser Relationship Specialty Start Date End Date Physician, Pcp Unknown PCP - General 08/31/24
--- OUTSIDE RECORDS SUMMARY | 2025-04-27 18:39 | XMS_ITS | Clinical Summary ---
Author Organization [employer] Address [address] [place] [address] [address] [place] [address] Care Team Providers Care Lawn Caretaker Name Role Phone Bita Muñoz SUNGLASS CLIP ATTACHER Primary Care Provider [phone] Dinh Alexander DPM Unavailable [phone] Janis Foreman Unavailable Allergies No known active [...] at bedtime. 02/16/20 21 Active sodium chloride (Wabeno) 0.65 % nasal spray Administer 2 sprays [...] WEEK AT BEDTIME DIRECTED 11/12/19 24 Active fluticasone (Flonase) 50 MCG/ACT nasal sprayIndications :Seasonal allergies Administer 1-2 sprays into each nostril if needed each day for allergies. 16 g 3 12/03/19 25 Active cetirizine (ZyrTEC) 10 MG tabletIndication s:Seasonal allergies Take 1 tablet (10 mg) by mouth if needed each day for allergies. 90 tablet 3 03/08/20 25 Active atorvastatin (Lipitor) 80 MG tabletIndication s:Dyslipidemia TAKE 1 TABLET BY MOUTH EVERY EVENING 90 tablet 3 04/21/20 25 Active cholecalciferol (Vitamin D-3) 25 MCG (1000 UT) tabletIndication s:Vitamin D insufficiency Take 1 tablet (25 mcg) by mouth Once per day. 90 tablet 3 04/21/20 25 Active meclizine (Antivert) 25 MG tablet Take 1 tablet (25 mg) by mouth if needed in the morning, at noon, and at bedtime for dizziness. 30 tablet 3 04/21/20 25 Active estradiol-noreth indrone (CombiPatch) 0.05-0.14 MG/DAYIndication s:Hot flashes Place 1 patch on the skin 2 (two) times a week. 8 patch 2 04/22/20 25 2024 Active topiramate (Topamax) 25 MG tabletIndication s:Migraine with aura and without status migrainosus, not intractable Take 1 tablet (25 mg) by mouth at bedtime. 90 tablet 1 04/20/20 25 2025 Active celecoxib (CeleBREX) 100 MG capsule TAKE 1 CAPSULE BY MOUTH TWICE DAILY IN THE MORNING AND AT BEDTIME NEEDED FOR PAIN 60 capsule 1 04/20/20 Active nitrofurantoin, macrocrystal-mon ohydrate, (Macrobid) 100 MG capsule Take 1 capsule (100 mg) by mouth 2 times daily for 5 days. 10 capsule 04/27/20 25 2024 Active fluconazole (Diflucan) 150 MG tablet Take 1 tablet (150 mg) by mouth Once per day for 1 dose. Take prn vaginal discharge related to antibiotic use. 1 tablet 04/27/20 25 2024 Active atorvastatin (Lipitor) 80 MG tabletIndication s:Dyslipidemia TAKE 1 TABLET BY MOUTH EVERY EVENING 90 tablet 3 04/15/20 24 2024 Discontinued(R eorder (will not trigger notification to Pharmacy)) cholecalciferol (Vitamin D-3) 25 MCG (1000 UT) tabletIndication s:Vitamin D insufficiency Take 1 tablet (25 mcg) by mouth Once per day. 90 tablet 3 06/04/20 24 2024 Discontinued(R eorder (will not trigger notification to Pharmacy)) meclizine (Antivert) 25 MG tablet Take 1 tablet (25 mg) by mouth if needed in the morning, at noon, and at bedtime for dizziness. 30 tablet 3 06/18/20 24 2024 Discontinued(R eorder (will not trigger notification to Pharmacy)) topiramate (Topamax) 25 MG tabletIndication s:Migraine with aura and without status migrainosus, not intractable Take 1 tablet (25 mg) by mouth at bedtime. 90 tablet 1 07/15/19 25 2024 Discontinued(R eorder (will not trigger notification to Pharmacy)) celecoxib (CeleBREX) 100 MG capsule TAKE 1 CAPSULE BY MOUTH TWICE DAILY IN THE MORNING AND AT BEDTIME NEEDED FOR MILD PAIN 60 capsule 1 07/24/19 25 2024 Discontinued(R eorder (will not trigger notification to Pharmacy)) estradiol-noreth indrone (CombiPatch) 0.05-0.14 MG/DAYIndication s:Hot flashes Place 1 patch on the skin 2 (two) times a week. 8 patch 2 03/11/20 25 2024 Discontinued(R eorder (will not trigger [...] hip pain 04/13/2024 Overview (03/10/2025): Following with [facility] Ortho - Dr. Bergman & [facility] Pain Management - Dr. Dalton. MRI completed [...] acute changes - Following with [facility] Ortho, consult scheduled next week to review [...] Plan (01/13/2024 8:05 PM EDT): Following with [facility] UroGYN - Vicenta Robison, POLISHER APPRENTICE Continues on vaginal estrogen through specialist, has [...] action stage. PLAN: 1. Follow up with [facility]: Not recommended for follow-up 2. Patient goal is to decrease stress level 3. Behavioral Recommendations a. Utilize coping skills provided b. Engage in therapy when established c. May reach out to [facility] for additional support Assessment & Plan (01/29/2023 5:50 PM EDT): Housing is significant stressor Currently housed, although not necessarily stable in the future BE conducted today, please see note for further details Referral to [facility] team placed Benign paroxysmal positional vertigo [...] 1 Pap: NILM, HPV neg 12/28/24 at [facility] [employer] Colonoscopy: 07/22/20, 5 year follow-up Contraception: BTL Smoking status: non-smoker Eye Exam: 04/10/23 Dental: [facility], requested referral to [facility] dental Assessment & Plan (07/15/2024 3:37 PM EST): Referral sent to [facility] Dental Advised pt to go get Zoster vaccination at pharmacy Assessment & Plan (05/09/2023 7:52 PM EST): -Influenza and tetanus vaccines administered today Pulmonary hypertension ([facility]) 02/25/2015 Overview (12/02/2024): October 2024: Repeat TTE [...] w/o WNL Upcoming appt to establish with [facility] Neurology Well controlled with topiramate 25mg [...] seek service PLAN: 1. Follow up with [facility]: Not recommended for follow-up 2. Patient goal [...] completed, but insufficient tissue. Referral to OBGYN [facility] for further management. -Continue following with [facility] [employer], upcoming appt with [facility] OBGYN Assessment & Plan (09/29/2023 8:06 PM EDT): -EMB performed 04/21/[address] Antony for hx of menometrorrhagia -Denies further menstrual bleeding or AUB -Pelvic US August 2021 demonstrated small uterine calcifications. Possibly r/t degenerative fibroids. Normal thickness endometrium and normal-appearing ovaries -Continue following with [facility] [employer] Resolved Problems Problem Noted Date Diagnosed Date [...] Encounters Date Type Department Care Team Description 04/27/2025 9:40 AM EST Office Visit [facility] [address] [place] [address] Parish Paiz MD Dysuria (Primary Dx); Vaginal discharge 04/27/2025 Travel 04/21/2025 10:15 AM EDT Office Visit [facility] [address] [place] [address] Sabrina, Viri Missing teeth, acquired (Primary Dx); Routine health maintenance; Dental plaque 04/20/2025 Refill [facility] [address] [place] [address] Eros Mandel CNP Migraine with aura and without status migrainosus, not intractable 04/20/2025 Refill [facility] [address] [place] [address] Bita Muñoz FNP Dyslipidemia; Vitamin D insufficiency; Hot flashes 04/20/2025 Refill [facility] [address] [place] [address] Natalie Sue MD 04/19/2025 Telephone [facility] [address] [place] [address] Bita Muñoz FNP Durable Medical Equipment 03/29/2025 Results Follow-Up [facility] [address] [place] [address] Bita Muñoz FNP Hemoglobin A1c, Lipid Panel, Standard, CBC auto differential, Additional followed-up results: 3 03/18/[address] [address] Bita Muñoz FNP Record Request 03/12/2025 Telephone [facility] [address] [place] [address] Bita Muñoz FNP Prior Authorization 03/10/2025 10:00 AM EDT Office Visit [address] [address] Bita Muñoz FNP Ptosis of right eyelid (Primary Dx); Dyslipidemia; Routine health maintenance; Left hip pain; Left ankle instability; Irregular periods; Hot flashes 03/10/[address] [address] Bita Muñoz FNP Lab Orders 03/10/2025 Travel 03/09/[address] [address] Bita Muñoz FNP CHART PREP 03/05/[address] [address] Bita Muñoz FNP Seasonal allergies from Last 3 Months Immunizations Immunization Administration [...] Mass Index 35.19 04/27/2025 9:33 AM EST Plan of Treatment Upcoming Encounters Date Type Department Care Team (Late st Contact Info) Description 06/09/2025 10:00 AM EST Office Visit [facility] [address] [place] [address] Bita Muñoz, SUNGLASS CLIP ATTACHER [address] [place] [address] 08/18/2025 10:30 AM EST Office Visit [facility] [address] [place] [address] Gerber, Barbara, OD [address] [place] [address] 10/26/2025 10:15 AM EDT Office Visit [facility] [address] [place] [address] Sabrina, Viri [address] [place] [address] Health Maintenance Due Date Last Done Comments CT Colonography 1975 FIT DNA/Cologuard 1975 FIT 1975 FOBT 1975 Sigmoidoscopy 1975 Alcohol/Substance Use Screening 1986 COVID-19 Vaccine ( season) 2025 Influenza Vaccine (#1) 2025 , 04/23/2022, 03/31/2021, Additional history exists Dental Oral Exam 04/09/2025 10/07/2024, 12/15/2013 SDOH Screening 07/03/2025 07/03/2024 Family Planning (PISQ) 07/15/2025 07/15/2024 Colonoscopy 07/22/2025 07/22/2020 Colorectal Cancer Screening 07/22/2025 Depression Monitoring 09/07/2025 03/10/2025, 025 Dental X-Ray: Bitewings 10/08/2025 10/08/19, 12/15/2013, 04/26/2008 Dental Prophylaxis 10/21/2025 04/21/2025, 0 10/08/2024, 04/26/2008 Mammogram 10/26/2025 10/26/2024, 09/23, 10/15/2022, Additional history exists Disability Screening 03/10/2026 03/10/2025 Diabetes: Hemoglobin A1C 2026 025, 06/05/2023, 11/07/2021, Additional history exists Tobacco Screening 04/27/2026 04/27/2025 Dental X-Ray: Full Mouth 10/09/2027 10/07/2024, 11/23 Cervical Cancer Screening 12/28/2029 HPV/Cotest 12/28/2029 12/17/2024, [...] DIPSTICK Routine 04/27/2025 9:44 AM EST Dysuria ORAL HYGIENE INSTRUCTIONS Routine 04/21/2025 10:15 AM EDT Missing teeth, acquired Routine health maintenance Dental plaque CASE PRESENTATION, DETAILED AND EXTENSIVE TREATMENT PLANNING Routine 04/21/2025 10:15 AM EDT Missing teeth, acquired Routine health maintenance Dental plaque PROPHYLAXIS - ADULT Routine 04/21/2025 1 0:15 AM EDT Missing teeth, acquired Routine health maintenance Dental plaque ACETYLCHOLINE RECEPTOR BLOCKING ANTIBODY Routine 2025 11:02 AM EDT Routine health maintenance Ptosis of right eyelid RPR (MONITOR) W/REFL TITER Routine 2025 11:02 AM EDT Routine health maintenance Ptosis of right eyelid COMPREHENSIVE METABOLIC PANEL Routine 2025 11:02 AM EDT Routine health maintenance Ptosis of right eyelid CBC WITH AUTO DIFFERENTIAL Routine 2025 11:02 AM EDT Routine health maintenance LIPID PANEL, STANDARD Routine 2025 11:02 AM EDT Routine health maintenance Ptosis of right eyelid HEMOGLOBIN A1C Routine 2025 11:02 AM EDT Routine health maintenance Ptosis of right eyelid PAP SMEAR Routine 12/28/2024 9:34 AM EDT HPV DNA, LOW/HIGH RISK Routine 10:32 AM EDT BI MAMMOGRAM SCREENING TOMOSYNTHESIS BILATERAL Routine 10/26/2024 11:00 AM EDT INTRAORAL - COMPLETE SERIES OF RADIOGRAPHIC IMAGES Routine 10/07/2024 10:30 AM EDT PERIODIC ORAL EVALUATION - ESTABLISHED PATIENT Routine 10/07/2024 10:30 AM EDT HEPATITIS C ANTIBODY Routine 03/07/2023 12:19 PM EDT HIV ANTIBODY/ANTIGEN ([place] DPH) Routine 03/07/2023 12:19 PM EDT HM COLONOSCOPY Routine 07/22/2020 from Last 3 Months or Most Recently Relevant to Health Maintenance Results * (ABNORMAL) POCT Urinalysis (04/27/2025 9:44 [...] Media Lot # [id number] Lot# Expiration Date 9,882 Urine (Urine, Random) 04/27/2025 9:44 AM EST Parish Paiz MD POINT OF CARE TEST ENTER/EDIT OR DERABLES Final Result * (ABNORMAL) CBC auto differential (2025 11:02 AM EDT) White Blood Count 5.5 4.8 - 10.8 X10*3/uL [facility] Red Blood Count 4.69 4.20 - 5.50 X10*6/uL [facility] Hemoglobin 12.7 12.0 - 16.0 g/dl [facility] Hematocrit 39.6 37.0 - 47.0 % [facility] Mean Corpuscular Volume 84.4 80.0 - 98.0 fL [facility] Mean Corpuscular Hemoglobin 27.1 27.0 - 33.0 pg [facility] Mean Corpuscular HGB Conc 32.1 31.0 - 35.0 g/dl [facility] Red Cell Distribution Width 13.5 11.0 - 16.0 % [facility] Platelet Count 400 160 - 400 X10*3/uL [facility] Mean Platelet Volume 10.1 9.4 - 12.3 fL [facility] Neutrophils Percent Auto 34.9(L) 45 - 73 % [facility] Imm Gran Pct Auto 0.5(H) 0.0 - 0.4 % [facility] Lymphocytes Percent Auto 47.1(H) 20 - 40 % [facility] Monocytes Percent Auto 14.3(H) 2 - 11 % [facility] Eosinophils Percent Auto 1.8 0 - 4 % [facility] Basophils Percent Auto 1.4 0 - 2 % [facility] NRBC Pct Auto 0.0 0.0 - 0.2 /100WBC [facility] Neutrophils Absolute Auto 1.9(L) 2.0 - 8.3 x10*3/uL [facility] Imm Gran Abs Auto 0.03 0.00 - 0.03 X10*3/uL [facility] Lymphocytes Absolute Auto 2.6 1.2 - 4.9 X10*3/uL [facility] Monocytes Absolute Auto 0.8 0.1 - 1.2 X10*3/uL [facility] Eosinophils Absolute Auto 0.1 0.0 - 0.4 X10*3/uL [facility] Basophils Absolute Auto 0.1 0.0 - 0.2 X10*3/uL [facility] NRBC Abs Auto 0.000 0.0 - 0.012 X10*3/uL [facility] Blood Venous blood specimen / Unknown 2025 11:02 AM EDT 2025 1:08 PM EDT us Bita Muñoz SUNGLASS CLIP ATTACHER LAB BLOOD ORDERABLES Final Res ult [facility] [address] [place] [address] [phone] * Acetylcholine Receptor Blocking Antibody (2025 11:02 AM EDT) Pathologist [facility] Acetylcholine Receptor Blocking Antibody <15 <15 [facility] Comment:Result Units: % Inhi bitionTHIS TEST WAS PERFORMED AT:[facility] [employer]/[place] [id number] DRAGAN BERKOWITZ [id number] VILLEDA MD,PHD,CAREY Blood Venous blood specimen / Unknown 2025 11:02 AM EDT 2025 12:51 PM EDT us Bita Muñoz SUNGLASS CLIP ATTACHER LAB BLOOD ORDERABLES Final Res ult Performing Organization Address [facility] Co de Phone Number [facility] [address] [place] [phone] * RPR (Monitor) with Reflex to??Titer (2025 11:02 AM EDT) Pathologist [facility] RPR (Monitor) w/Refl Titer NON-REACTI VE NON-REACT OLIVIA [facility] Comment:THIS TEST WAS PERFOR MED AT:[facility] [address] [phone] FULTON MD Rapid Plasma Reagin Ab Titer TNP [facility] Blood Venous blood specimen / Unknown 2025 11:02 AM EDT 2025 12:51 PM EDT us Bita Muñoz SUNGLASS CLIP ATTACHER LAB BLOOD ORDERABLES Final Res ult Performing Organization Address [facility] Co de Phone Number [facility] [address] [place] [phone] * Hemoglobin A1c (2025 11:02 AM EDT) Pathologist [facility] Hemoglobin A1c 6.0 <6.0 % [facility] Comment:Hemoglobin A1C Refer ence Range Adults: 4.8 - 6.0 % Non diabetic: < 6.0 % Goal: < 7.0 %Additional Action Suggested: > 8.0 %Note: Hemoglobin A1c results are invalid for patients with abnormal amounts of HbF. Blood transfusions may impact the HbA1c concentration in the patient sample. Estimated Average Glucose 126 mg/dL [facility] Comment:eAG = Estimated ave rage glucose which is %A1C expressed asaverage glucose, using the formula of the [id number]-[id number] Glucose study (ADAG), Diabetes Care, Vol.31,#8,Jan. 2007 Blood Venous blood specimen / Unknown 2025 11:02 AM EDT 2025 12:51 PM EDT us Bita Muñoz SUNGLASS CLIP ATTACHER LAB BLOOD ORDERABLES Final Res ult [facility] [address] [place] [address] [phone] * (ABNORMAL) Lipid Panel, Standard (2025 11:02 AM EDT) Triglycerides 140 <150 mg/dL [facility] Comment:Desirable Triglyceri de: less than 150 mg/dLBorderline High Triglyceride 150-199 mg/dLHigh Triglyceride: 200-499 mg/dLVery High Triglyceride: greater than or equal to 5OO mg/dL Cholesterol 190 <200 mg/dL [facility] Comment:Desirable Cholestero l: less than 200 mg/dLBorderline High Cholesterol: 200-239 mg/dLHigh Cholesterol: greater than 239 mg/dL LDL Cholesterol Calculated 122(H) <100 mg/dL [facility] Comment:Desirable LDL: less than 100 mg/dLNear Optimal/Above Optimal LDL: 110- 129 mg/dLBorderline High LDL: 130-159 mg/dLHigh LDL: 160-189 mg/dLVery High LDL: greater than or equal to 190 mg/dL HDL Cholesterol 40(L) >40 mg/dL [facility] Comment:Desirable HDL: great er than 40 mg/dL Note: This HDL assay may give artificially low results in patients with liver disease. Blood Venous blood specimen / Unknown 2025 11:02 AM EDT 2025 12:51 PM EDT us Bita Muñoz SUNGLASS CLIP ATTACHER LAB BLOOD ORDERABLES Final Res ult [facility] [address] [place] [phone] [phone] * (ABNORMAL) Comprehensive Metabolic Panel (2025 11:02 AM EDT) Sodium 141 135 - 145 mmol/L [facility] Potassium 4.1 3.3 - 5.1 mmol/L [facility] Chloride 109(H) 96 - 108 mmol/L [facility] Carbon Dioxide 25 22 - 29 mmol/L [facility] Anion Gap 11(L) 12 - 20 [facility] Urea Nitrogen (BUN) 7(L) 9 - 16 mg/dL [facility] Creatinine, Serum 0.72 0.5 - 1.4 mg/dL [facility] Estimated Glomerular Filt Rate >60 [facility] Comment:Chronic Kidney Disea se: Estimated GFR < 60 mL/min/1.69y3Fkptji Kidney Disease: Estimated GFR < 15 mL/min/1.73m2 Glucose 112 60 - 115 mg/dL [facility] Calcium 9.3 8.4 - 10.2 mg/dL [facility] Bilirubin, Total 0.2 0.0 - 1.0 mg/dL [facility] Aspartate Amino Transferase 26 5 - 31 U/L [facility] Alanine Aminotransferase 14 0 - 31 U/L [facility] Total Protein 7.7 6.5 - 8.0 g/dL [facility] Albumin Level 4.0 3.5 - 5.0 g/dL [facility] Alkaline Phosphatase 50 39 - 117 U/L [facility] Blood Venous blood specimen / Unknown 2025 11:02 AM EDT 2025 12:51 PM EDT us Bita NICE LAB BLOOD ORDERABLES Final Res ult [facility] [address] [place] [phone] * Pap Smear (12/28/2024 9:34 AM EDT) 12/28/2024 9:34 AM EDT 12/29/2024 8:20 AM EDT Narrative [facility] - 12/31/2024 1:52 PM EDT ----- ------- Name: Zoila Petersen Age/Sex: 49/F : 1975 Unit#: [id number] Attend Dr: Julio C Antony MD Re12/28/24 Status: DEP REF Location: [facility] Disch: ----- ------- SPEC : [id number] RECD: 12/29/24 STATUS: ELLYN GOLD NUM: [id number] CECIL: 12/28/[address] [facility] [address]: Julio C Antony MD ENTERED: 12/29/24 SP TYPE: Pap Smr OTHR DR: Bita Muñoz ORDERED: Pap Smear Interpretation [...] and HPV testing will be performed at [facility] (CLIA #[id number]), [address] [place] [address]. Testing for HPV was performed using the [employer] system. The presence of HPV in the [...] detected. All professional services are performed by [facility] ([address] [place] [address]; ; CLIA #[id number]). The PAP Test is a screening procedure with the inherent possibility of both false negative and false positive results. Results should be interpreted in the context of historic and current clinical findings. Reliability of the PAP Test is enhanced by performing the test on a regular repetitive basis. Copies To: Bita MuñozP [address] [place] [address] CONTINUED ON NEXT PAGE ----- ------- Name: Eros FrasermarjZoila Age/Sex: 49/F : 1975 Unit#: [id number] Attend Dr: Julio C Antony MD Re12/28/24 Status: DEP REF Location: [facility] Disch: ----- ------- SPEC : [id number] RECD: 12/29/24 STATUS: ELLYN GOLD NUM: [id number] CECIL: 12/28/[address] [facility] [address]: Julio C Antony MD ENTERED: 12/29/24 SP TYPE: Pap Smr OTHR DR: Bita Muñoz [facility] ORDERED: Pap Smear Copies To: (Continued) Julio C Antony MD [facility] [address] [place] [address] [address] [place] [address] ----- ------- Signed (signature on file) NELSY Heaton ([facility]) 12/31/24 [phone] ----- ------- END OF REPORT Generic External Data Provider LAB CYTOLOGY FANY GONSALEZ Final Result [facility] [address] [place] [phone] * HPV DNA, Low/High Risk (12/17/2024 10:32 AM EDT) HPV High Risk Negative Negative [facility] HPV Genotype 16 Negative Negative [facility] HPV Genotype 18 Negative Negative [facility] Comment:HPV testing performe d at [facility] (CLIA#[id number]), [address] [place] [address].Testing for HPV was performed using the [employer] 6800system. The presence of HPV in the female [...] 2 AM EDT 12/18/2024 8:00 AM EDT us Generic External Data Provider LAB BLOOD ORDERAB LES Final Result [facility] [address] [place] [phone] * BI Mammogram Screening Tomosynthesis Bilateral (10/26/2024 11:00 AM EDT) Anatomical Region Laterality Modality Breast Bilateral Mammography 10/26/2024 11:0 0 AM EDT Narrative 11/01/2024 9:13 PM EDT [facility] [address] [place] [address] Mammography Report Signed Patient: Zoila Petersen MR#: [id number] : 1975 Acct:[id number] Age/Sex: 49 / F ADM Date: 10/26/24 Loc: HO.MAMMO Attending Dr: Bita Muñoz SUNGLASS CLIP ATTACHER Ordering Physician: Janis Foreman CNM Results: 1Nega tive Date of Service: 10/26/24 Follow Up: 1 Year From Orig inal Mammogram Procedure(s): MM tomosynthesis screening BI Accession Number(s): [id number] cc: Janis Foreman CNM; Bita Muñoz SUNGLASS CLIP ATTACHER EXAMINATION: MM SCREENING DIGITAL BREAST TOMOSYNTHESIS, BILATERAL [...] 11/01/24 2111 DD/ 1100 TD/TT: 10/26/24 1117 Bake Room Worker: Procedure Note Donotuseinterpreter, Image - [facility] [address] [place], [place] [address] Mammography Report Signed Patient: Ish Petersen#: [id number] : 1975Acct:[id number] Age/Sex: 49 / FADM Date: 10/26/24 Loc: MAMMO Attending Dr: Bita Muñoz SUNGLASS CLIP ATTACHER Ordering Physician: Foreman,Janis CNMResults: 1Nega tive Date of Service: 10/26/24Follow Up: 1 Year From Orig inal Mammogram Procedure(s): MM tomosynthesis screening BI Accession Number(s): [id number] cc: Janis Foreman CNM; Bita Muñoz SUNGLASS CLIP ATTACHER EXAMINATION: MM SCREENING DIGITAL BREAST TOMOSYNTHESIS, BILATERAL [...] 11/01/24 2111 DD/ 1100 TD/TT: 10/26/24 1117 Bake Room Worker: [facility] External Provider IMG BI PROCEDURES Final Result * Hepatitis C Ab (03/07/2023 12:19 PM EDT) Hepatitis C Antibody Nonreactive Nonreactive [facility] Comment:Antibodies to HCV no t detected; does not exclude early acuteHCV infection. 03/07/2023 12:1 9 PM EDT 03/07/2023 12:19 PM EDT Generic External Data Provider LAB BLOOD ORDERAB LES Final Result [facility] [address] [place] [phone] [phone] * HIV Ab/Ag ([facility]) (03/07/2023 12:19 PM EDT) Pathologist [facility] HIV AB/AG Nonreactive Nonreactive [facility] Comment:HIV-1 p24 Ag and/or HIV-1/HIV-2 Ab not detected.A test result that is nonreactive does not exclude thepossibility of exposure to or infection with HIV-1 and/orHIV-2. Nonreactive results in this assay for individualswith prior exposure to HIV-1 and/or HIV-2 may be due toantigen and antibody levels that are below the limit ofdetection of this assay.The [employer] HIV Ag/Ab Combo assay result andsupplemental assay results should be interpreted inconjunction with the patient's clinical presentation,history and other laboratory results. If the results areinconsistent with clinical evidence, additional testing issuggested to confirm the result. 03/07/2023 12:1 9 PM EDT 03/07/2023 12:19 PM EDT us Generic External Data Provider LAB BLOOD ORDERAB LES Final Result Performing Organization Address [facility] Co de Phone Number [facility] [address] [place] [address] [phone] * Colonoscopy (07/22/2020) Pathologist [facility] Colonoscopy Normal Normal Comment:5 Yr F/U us Historical Provider HEALTH MAINTENANCE Edited Result - Final from Last 3 Months or Most Recently Relevant to Health Maintenance Insurance [employer] [facility] STAND ADULT Care Teams Lawn Caretaker Relationship Specialty Start Date End Date Bita Muñoz FNP [address] [place] [address] PCP - General Family Medicine 02/19/22 Dinh Alexander DPM [address] [place] [address] Podiatry 03/10/25 Janis Foreman [address] [address] BOBBY MARTIN [address] Gynecology 03/10/25 Karen Edward Perinatal EducatorHand Profiler 10/17/23 Mady Landin Perinatal EducatorHand Profiler 11/03/24
--- OUTSIDE RECORDS SUMMARY | 2025-04-27 18:39 | XMS_ITS | Clinical Summary ---
Author Organization [facility] Address [address] [address] Phone Care Team Providers Care Spinning Lathe Operator Name Role Phone Unavailable Primary Care [...] file Medical Devices Not on file Insurance [facility] C3 ACO C3 [place]CO [place] [place] [address] [place] [id number] [facility] C3 ACO Additional Source Comments The information contained in this document represents components of the legal health record. It is not the complete legal health record.[facility]
--- OUTSIDE RECORDS SUMMARY | 2025-04-27 18:39 | XMS_ITS | Encounter Summary ---
Author Organization [employer] Address 75 [facility] 7t [place] [address] Care Team Providers Care Homoeopath Name Role Phone Bita Muñoz Primary Care Provider Dinh Alexander DPM Unavailable [phone] Janis Foreman Unavailable Encounter Details Date Type Department Care Team (Late st Contact Info) Description 05/03/2022 [facility] Information Management [address] [place] [address] Bita Muñoz FNP [address] [place], [place] [phone] Social History Tobacco Use Types Packs/Day Years [...] Description 06/09/2025 10:00 AM EST Office Visit [facility] MEDICINE 230 [place] [address] Bita Muñoz FNP 505 [place], [place] [phone] 08/18/2025 10:30 AM EST Office Visit [facility] OPTOMETRY [address] [place] [address] Barbara Mayes, OD 230 [place] [address] 10/26/2025 10:15 AM EDT Office Visit [facility] ADULT DENTAL 230 [place] [address] Sabrina, Viri [address] [place] [address] documented as of this encounter Visit Diagnoses Not on filedocumented in this encounter Care Teams Homoeopath Relationship Specialty Start Date End Date Bita Muñoz FNP 230 [place] [address] PCP - General Family Medicine 02/19/22 Dinh Alexander DPM 175 [facility] [address] [place] [address] Podiatry 03/10/25 Janis Foreman [address] [place] [address] Gynecology 03/10/25 Karen Edward Tin AssorterOil Field Equipment Mechanic Supervisor 10/17/23 Mady Landin Tin AssorterOil Field Equipment Mechanic Supervisor 11/03/24 documented as of this encounter
--- OUTSIDE RECORDS SUMMARY | 2025-04-27 18:39 | XMS_ITS | Encounter Summary ---
Author Organization [employer] Address 75 [facility] 7t [place] [address] Care Team Providers Care Platform Loader Name Role Phone Bita Muñoz MILL WORKER Primary Care Provider [phone] Dinh Alexander DPM Unavailable [phone] Janis Foreman Unavailable Reason for Visit * Reason Onset Date Comments Med Refill 04/20/2025 Encounter Details Date Type Department Care Team (Late st Contact Info) Description 04/20/2025 Refill [facility] MEDICINE 230 [place], [place] [phone] Natalie Sue MD 230 [place] [address] Social History Tobacco Use Types Packs/Day Years [...] the past 12 months, has t he [employer], oil or water [employer] threatened to shut off services in your [...] Description 06/09/2025 10:00 AM EST Office Visit [facility] MEDICINE 230 [place] [address] Bita Muñoz, MILL WORKER [address] [place] [address] 08/18/2025 10:30 AM EST Office Visit [facility] OPTOMETRY 267 [place] [address] Gerber, Barbara, OD 230 [place] [address] 10/26/2025 10:15 AM EDT Office Visit [facility] ADULT DENTAL 230 [place] [address] Sabrina, Viri [address] [place] [address] documented as of this encounter Visit Diagnoses Not on filedocumented in this encounter Additional Health Concerns Assessment Noted Time PHQ-9 Depression Total Score: 16 025 10:05 AM EDT documented as of this encounter Care Teams Platform Loader Relationship Specialty Start Date End Date Bita Muñoz FNP 230 [place] [address] PCP - General Family Medicine 02/19/22 Dinh Alexander DPM 175 [facility] 250 [place] [address] Podiatry 03/10/25 Janis Foreman [address] [address] Gynecology 03/10/25 Karen Edward Hot Dip PlaterProof Load Mechanic 10/17/23 Mady Landin Hot Dip PlaterProof Load Mechanic 11/03/24 documented as of this encounter
--- OUTSIDE RECORDS SUMMARY | 2025-04-27 18:39 | XMS_ITS | Encounter Summary ---
Author Organization [facility] Address 399 [facility] [address] [place] [address] Phone Care Team Providers Care Seasonal Retail Merchandiser Name Role Phone Unavailable Primary Care Provider Unavailabl e Encounter Details Date Type Department Care Team (Latest Contact Info) Description 05/22/2018 Ancillary Orders [facility] [address] [place] [address] [place] [address] Sim Harding, DO [address] [place] [address] Chest pain, unspecified type Social History Tobacco [...] It is not the complete legal health record.[facility]
--- OUTSIDE RECORDS SUMMARY | 2025-04-27 18:39 | XMS_ITS | Encounter Summary ---
Author Organization [employer] Address 75 [facility] 7t [place] [address] Care Team Providers Care Well Servicing Rig Operator Name Role Phone Bita Muñoz Primary Care Provider [phone] Dinh Alexander DPKaren Unavailable [phone] Janis Foreman Unavailable Reason for Visit * Reason Onset Date Comments Med Refill 04/20/2025 Encounter Details Date Type Department Care Team (Late st Contact Info) Description 04/20/2025 Refill [facility] MEDICINE 230 [place] [address] Bita Muñoz FNP [address] [place], [place] [phone] Dyslipidemia; Vitamin D insufficiency; Hot flashes Social History Tobacco Use Types [...] encounter Miscellaneous Notes * Telephone Encounter - Renetta Grant RN - 04/20/2025 6:20 PM EDT Pt sent message requesting meds that have been qued and will send request to PCP documented in this encounter Plan of Treatment Upcoming Encounters Date Type Department Care Team (Late st Contact Info) Description 06/09/2025 10:00 AM EST Office Visit [facility] MEDICINE 230 [place] [address] Bita Muñoz, ARLET 505 [place] [address] 08/18/2025 10:30 AM EST Office Visit [facility] OPTOMETRY [address] [place] [address] Barbara Mayes, OD 230 [place] [address] 10/26/2025 10:15 AM EDT Office Visit [facility] ADULT DENTAL 230 [place] [address] Viri Bennett 230 [place] [address] documented as of this encounter Visit Diagnoses Diagnosis Dyslipidemia Other and unspecified hyperlipidemia Vitamin D insufficiency Hot flashes documented in this encounter Additional Health Concerns Assessment Noted Time PHQ-9 Depression Total Score: 16 025 10:05 AM EDT documented as of this encounter Care Teams Well Servicing Rig Operator Relationship Specialty Start Date End Date Bita Muñoz FNP 230 [place] [address] PCP - General Family Medicine 02/19/22 Dinh Alexander DPM 175 [facility] [address] [place] [address] Podiatry 03/10/25 Janis Foreman [address] [place] [address] Gynecology 03/10/25 Karen Edward Stable CleanerDelivery Crew Member 10/17/23 Mady Landin Stable CleanerDelivery Crew Member 11/03/24 documented as of this encounter
--- OUTSIDE RECORDS SUMMARY | 2025-04-27 18:39 | XMS_ITS | Encounter Summary ---
Author Organization [employer] Address 75 [facility] 7t [place] [address] Care Team Providers Care Inspector Weights And Measures Name Role Phone Bita Muñoz Primary Care Provider [phone] Dinh Alexander DPM Unavailable [phone] Janis Foreman Unavailable Reason for Visit * Reason Onset Date Comments Medication Question 05/24/2022 Reviewed sym ptoms with patient and ED precautions. Pt eligible for Paxlovid, will send rx to pharmacy. Reviewed potential med interactions. Encounter Details Date Type Department Care Team (Late st Contact Info) Description 05/24/2022 Telephone [facility] MEDICINE [address] [place] [address] Bita Muñoz FNP 505 [place], [place] [phone] Medication Question (Reviewed symptoms with patient and [...] 05/23/22 and came back positive. Pt speaks bahamian returning call from yesterday . documented in this encounter Plan of Treatment Upcoming Encounters Date Type Department Care Team (Late st Contact Info) Description 06/09/2025 10:00 AM EST Office Visit [facility] MEDICINE 230 [place] [address] Bita Muñoz FNP [address] [place] [address] 08/18/2025 10:30 AM EST Office Visit [facility] OPTOMETRY [address] [place] [address] Gerber, Barbara, OD 230 [place] [address] 10/26/2025 10:15 AM EDT Office Visit [facility] ADULT DENTAL 230 [place] [address] Sabrina, Viri 230 [place] [address] documented as of this encounter Visit Diagnoses Diagnosis COVID-19 virus infection- Primary documented in this encounter Care Teams Inspector Weights And Measures Relationship Specialty Start Date End Date Bita Muñoz FNP 230 [place] [address] PCP - General Family Medicine 02/19/22 Dinh Alexander DPM 175 [facility] [address] [place] [address] Podiatry 03/10/25 Janis Foreman [address] [place] [address] Gynecology 03/10/25 Karen Edward Animal NursePit Supervisor 10/17/23 Mady Landin Animal NursePit Supervisor 11/03/24 documented as of this encounter
--- OUTSIDE RECORDS SUMMARY | 2025-04-27 18:39 | XMS_ITS | Encounter Summary ---
Author Organization [employer] Address 75 [facility] 7t [place] [address] Care Team Providers Care Environmental Permitting Specialist Name Role Phone Bita Muñoz Primary Care Provider [phone] Dinh Alexander DPM Unavailable [phone] Janis Foreman Unavailable Reason for Visit * Reason Onset Date Comments Durable Medical Equipment 04/19/2025 Encounter Details Date Type Department Care Team (Late st Contact Info) Description 04/19/2025 Telephone [facility] MEDICINE 230 [place] [address] Bita Muñoz FNP 505 [place], [place] [phone] Durable Medical Equipment Social History Tobacco Use Types Packs/Day Years [...] the past 12 months, has t he [employer], gas, oil or water [employer] threatened to shut off services in your [...] encounter Miscellaneous Notes * Telephone Encounter - Kellee [place] LPN - 04/26/2025 1:50 PM EST Form received placed on PCP desk for signature Tc from [facility] with [employer] stating that she fax over a request for DME on 03/31 and 04/15. [place] requesting an update on request. Contact [place] on [phone] Ext.[phone] * Telephone Encounter - Pily Hong - 04/19/2025 11:43 AM EDT Tc from [facility] with [employer] stating that she fax over a request for DME on 03/31 and 04/15. [place] requesting an update on request. Contact [place] on [phone] Ext.[phone] documented in this encounter Plan of Treatment Upcoming Encounters Date Type Department Care Team (Late st Contact Info) Description 06/09/2025 10:00 AM EST Office Visit [facility] MEDICINE 230 [place] [address] Bita Muñoz FNP [address] [place] [address] 08/18/2025 10:30 AM EST Office Visit [facility] OPTOMETRY [address] [place] [address] Gerber, Barbara, OD 230 [place] [address] 10/26/2025 10:15 AM EDT Office Visit [facility] ADULT DENTAL 230 [place] [address] Sabrina, Viri 230 [place] [address] documented as of this encounter Visit Diagnoses Not on filedocumented in this encounter Additional Health Concerns Assessment Noted Time PHQ-9 Depression Total Score: 16 025 10:05 AM EDT documented as of this encounter Care Teams Environmental Permitting Specialist Relationship Specialty Start Date End Date Bita Muñoz FNP 230 [place] [address] PCP - General Family Medicine 02/19/22 Dinh Alexander DPM 175 [facility] 250 [place] [address] Podiatry 03/10/25 Janis Foreman [address] [address] Gynecology 03/10/25 Karen Edward Separator OperatorBase Brander 10/17/23 Mady Landin Separator OperatorBase Brander 11/03/24 documented as of this encounter
--- OUTSIDE RECORDS SUMMARY | 2025-04-27 18:39 | XMS_ITS | Encounter Summary ---
Author Organization [employer] Address 75 [facility] 7t [place] [address] Care Team Providers Care Family And Consumer Science Professor Name Role Phone Bita Muñoz Primary Care Provider Dinh Alexander DPKaren Unavailable [phone] Janis Foreman Unavailable Encounter Details Date Type Department Care Team (Late st Contact Info) Description 05/25/2022 Orders Only [facility]BILE [facility]IC 230 [place] [address] Jonelle Hooker RN Social History Tobacco Use [...] Description 06/09/2025 10:00 AM EST Office Visit [facility] MEDICINE 230 [place] [address] Bita Muñoz FNP 505 [place] [address] 08/18/2025 10:30 AM EST Office Visit [facility] OPTOMETRY [address] [place] [address] Barbara Mayes, OD 230 [place] [address] 10/26/2025 10:15 AM EDT Office Visit [facility] ADULT DENTAL 230 [place], [place] [phone] Viri Bennett 230 [place], [place] [phone] documented as of this encounter Visit Diagnoses Not on filedocumented in this encounter Care Teams Family And Consumer Science Professor Relationship Specialty Start Date End Date Bita Muñoz FNP 230 [place] [address] PCP - General Family Medicine 02/19/22 Dinh Alexander DPM 175 [facility] 250 [place] [address] Podiatry 03/10/25 Janis Foreman [address] [address] Gynecology 03/10/25 Karen Edward Internet Marketing ExecutiveHome Economist 10/17/23 Mady Landin Internet Marketing ExecutiveHome Economist 11/03/24 documented as of this encounter
--- OUTSIDE RECORDS SUMMARY | 2025-04-27 18:39 | XMS_ITS | Encounter Summary ---
Author Organization [employer] Address 75 [facility] 7t [place] [address] Care Team Providers Care Debt Recovery Officer Name Role Phone Bita Muñoz INJECTION MOLDING TECHNICIAN Primary Care Provider [phone] Dinh Alexander DPM Unavailable [phone] Janis Foreman Unavailable Reason for Visit * Reason Onset Date Comments Med Refill 04/20/2025 Encounter Details Date Type Department Care Team (Late st Contact Info) Description 04/20/2025 Refill [facility] MEDICINE 230 [place] [address] Eros Mandel, ALVIN 505 [place] [address] Migraine with aura and without status migrainosus, not intractable Social History Tobacco Use Types Packs/Day Years [...] the past 12 months, has t he [employer], gas, oil or water company threatened to [...] Description 06/09/2025 10:00 AM EST Office Visit [facility] MEDICINE 230 [place] [address] Bita Muñoz, INJECTION MOLDING TECHNICIAN [address] [place] [address] 08/18/2025 10:30 AM EST Office Visit [facility] OPTOMETRY [address] [place] [address] Gerber, Barbara, OD 230 [place] [address] 10/26/2025 10:15 AM EDT Office Visit [facility] ADULT DENTAL 230 [place] [address] Sabrina, Viri 230 [place] [address] documented as of this encounter Visit Diagnoses Diagnosis Migraine with aura and without status migrainosus, not intractable documented in this encounter Additional Health Concerns Assessment Noted Time PHQ-9 Depression Total Score: 16 025 10:05 AM EDT documented as of this encounter Care Teams Debt Recovery Officer Relationship Specialty Start Date End Date Bita Muñoz FNP 230 [place] [address] PCP - General Family Medicine 02/19/22 Dinh Alexander DPM 175 [facility] [address] [place] [address] Podiatry 03/10/25 Janis Foreman [address] [place] [address] Gynecology 03/10/25 Karen Edward Inspector Glass Or MirrorDragger 10/17/23 Mady Landin Inspector Glass Or MirrorDragger 11/03/24 documented as of this encounter
--- OUTSIDE RECORDS SUMMARY | 2025-04-27 18:39 | XMS_ITS | Encounter Summary ---
Author Organization [employer] Address 75 [facility] 7t [place] [address] Care Team Providers Care Exceptional Student Education Aide Name Role Phone Bita Muñoz EAP CLINICIAN Primary Care Provider [phone] Dinh Alexander DPM Unavailable [phone] Janis Foreman Unavailable Encounter Details Date Type Department Care Team (Latest Contact Info) Description 04/27/2025 Travel Social History Tobacco Use Types Packs/Day [...] Description 06/09/2025 10:00 AM EST Office Visit [facility] MEDICINE 230 [place] [address] Bita Muñoz FNP 505 [place] [address] 08/18/2025 10:30 AM EST Office Visit [facility] OPTOMETRY [address] [place] [address] Gerber, Barbara, OD 230 [place] [address] 10/26/2025 10:15 AM EDT Office Visit [facility] ADULT DENTAL 230 [place] [address] Sabrina, Viri 230 [place] [address] documented as of this encounter Visit Diagnoses Not on filedocumented in this encounter Additional Health Concerns Assessment Noted Time PHQ-9 Depression Total Score: 16 025 10:05 AM EDT documented as of this encounter Care Teams Exceptional Student Education Aide Relationship Specialty Start Date End Date Bita Muñoz FNP 230 [place] [address] PCP - General Family Medicine 02/19/22 Dinh Alexander DPM 175 [facility] 250 [place] [address] Podiatry 03/10/25 Janis Foreman [address] [place] [address] Gynecology 03/10/25 Karen Edward Technical Project LeadPark Keeper 10/17/23 Mady Landin Technical Project LeadPark Keeper 11/03/24 documented as of this encounter
[2025-04-27 23:30] LABS: Bacterial Vaginosis PCR POSITIVE (Negative); Candida Group PCR DETECTED (Not Detect); Candida glab krusei PCR NOT DETECTED (Not Detect); Trichomonas vaginalis PCR NOT DETECTED (Not Detect)
[2025-04-28 00:13] LABS: CT PCR NOT DETECTED (Not Detect.); NG PCR NOT DETECTED (Not Detect.)
== END 2025-04-27 09:37 | disposition home or self-care (01) ==
LOC: HO.HHCLNP 09:36
PROVIDERS: Visit Provider Emergency Medicine
DX: N89.8 Other specified noninflammatory disorders of vagina (principal); R30.0 Dysuria; Z20.2 Contact with and (suspected) exposure to infections with a predominantly sexual mode of transmission
CPT/HCPCS: 81515; 87086; 87491; 87591

== ENCOUNTER 2025-06-18 10:39 | Outpatient (REF) | payer MEDICAID, SELFPAY ==
--- NOTE | ~2025-06-18 | US_ITS ---
CLINICAL HISTORY: D25.9 - Leiomyoma of uterus, unspecified Ultrasound of the female pelvis Comparison: US/CO/SR - US PELVIS TRANSABDOMINAL AND TRANSVAGINAL - 11/20/24 12:13 EDT Technique: Grayscale ultrasound with assistance of color Doppler. Transabdominal scanning performed for overall anatomy. Transvaginal scanning performed for better anatomic delineation. Findings: Anteverted uterus measures 7.7 x 3.7 x 4.2 cm. Mildly heterogeneous myometrium, intramural fibroid in the right posterior fundus 1.5 x 1.5 x 1.8 cm, previously 1.4 x 1.0 x 1.5 cm. Abnormal endometrium, large progressive complex fluid in the endometrial cavity, the inferior portion is hypoechoic, avascular lesion can not be excluded. The endometrium including fluid measures 14 mm, the endometrial stripe is not well seen to measure. Nabothian cysts. Normal right ovary, 2.3 x 1.3 x 1.3 cm. No abnormal vascular flow. Normal left ovary, 1.9 x 1.8 x 1.1 cm. No abnormal vascular flow. No free fluid. Impression: 1. Progressive large amount of complex fluid in the endometrium, menstrual status is not provided, avascular hypoechoic lesion is difficult to exclude. Recommend correlation with LMP and beauty advisor follow-up. 2. Mildly enlarged uterine fibroid. This document has been electronically signed by: Tammy Zhao MD on 06/18/2025 13:07:25
--- OUTSIDE RECORDS SUMMARY | 2025-06-18 10:41 | XMS_ITS | Clinical Summary ---
Author Organization 175 [facility] Address 175 [place] [address] Phone Care Team Providers Care Commodities Broker Name Role Phone Physician, Pcp Unknown Primary [...] 2:00 PM EDT Office Visit Orthopedic Surgery [place] [address] [phone] Dinh Alexander DPM Dermatophytosis of nail (Primary [...] 10:30 AM EDT Office Visit Orth[facility] [address] [phone] Dinh Alexander DPM [address] [phone] Health Maintenance Due Date Last Done Comments Breast Cancer Screening 1974 Colorectal Cancer Screening: Colonoscopy 1974 Depression Screening 06/24/2024 HIV Screening 08/31/2024 Hepatitis C Screening 08/31/2024 Social Influencers of Health Screening 08/31/2024 COVID-19 Vaccine (1 - 2024- season) 2025 Influenza Vaccine (#1) 2025 , [...] topic Insurance MEDICAID - [place] Care Teams Commodities Broker Relationship Specialty Start Date End Date Physician, Pcp Unknown PCP - General 08/31/24
--- OUTSIDE RECORDS SUMMARY | 2025-06-18 10:41 | XMS_ITS | Encounter Summary ---
Author Organization [employer] Address 75 [facility] 7 [place] [address] Care Team Providers Care Vehicle Body Maker Name Role Phone Bita Muñoz Primary Care Provider [phone] Dinh Alexander DPM Unavailable [phone] Janis Foreman Unavailable Reason for Visit * Reason Onset Date Comments Returning Call 06/10/2024 Encounter Details Date Type Department Care Team (Late st Contact Info) Description 06/10/2024 Telephone [facility] MEDICINE 230 [place] [address] Bita Muñoz FNP [address] [place], [place] [phone] Returning Call Social History Tobacco Use Types [...] Care Team (Late st Contact Info) Description 07/28/2025 9:15 AM EST Office Visit [facility] MEDICINE 230 [place] [address] Bita Muñoz, GRADUATE STUDENT [address] [place] [address] 08/18/2025 10:30 AM EST Office Visit [facility] OPTOMETRY [address] [place] [address] Gerber, Barbara, OD 230 [place] [address] 10/26/2025 10:15 AM EDT Office Visit [facility] ADULT DENTAL 230 [place] [address] Misbah Bennettaris 230 [place] [address] documented as of this encounter Visit Diagnoses Not on filedocumented in this encounter Additional Health Concerns Assessment Noted Time PHQ-9 Depression Total Score: 20 024 9:07 AM EDT documented as of this encounter Care Teams Vehicle Body Maker Relationship Specialty Start Date End Date Bita Muñoz FNP 230 [place] [address] PCP - General Family Medicine 02/19/22 Dinh Alexander DPM [address] [address] Podiatry 03/10/25 Janis Foreman [address] [address] Gynecology 03/10/25 Tia Gladu Vp Organizational DevelopmentClaim Rep 10/17/23 Mady Landin Vp Organizational DevelopmentClaim Rep 11/03/24 documented as of this encounter
--- OUTSIDE RECORDS SUMMARY | 2025-06-18 10:42 | XMS_ITS | Clinical Summary ---
Author Organization [facility] Address [address] [address] Phone Care Team Providers Care Glass Or Mirror Inspector Name Role Phone Unavailable Primary Care Provider [...] file Medical Devices Not on file Insurance [facility] C3 ACO C3 [place]CO [place] [place] [address] [place] [address] C3 ACO [facility] C3 ACO Additional Source Comments The information contained in this document represents components of the legal health record. It is not the complete legal health record.[facility]
--- OUTSIDE RECORDS SUMMARY | 2025-06-18 10:42 | XMS_ITS | Encounter Summary ---
Author Organization [employer] Address [address] [facility] 7t [place] [address] Care Team Providers Care Anesthesia Associate Name Role Phone Bita Muñoz Primary Care Provider Dinh Alexander DPM Unavailable Janis Foreman Unavailable Encounter Details Date Type Department Care Team (Late st Contact Info) Description 05/03/2022 [facility] Information Management [address] [place] [address] Bita Muñoz FNP [address] [place], [place] [phone] Social History Tobacco Use Types Packs/Day Years [...] Description 07/28/2025 9:15 AM EST Office Visit [facility] [address] [place] [address] Bita Muñoz FNP [address] [place], [place] [phone] 08/18/2025 10:30 AM EST Office Visit [facility] [address] [place] [address] Barbara Mayes, OD [address] [place] [address] 10/26/2025 10:15 AM EDT Office Visit [facility] ADULT DENTAL [address] [place] [address] Sabrina, Viri [address] [place] [address] documented as of this encounter Visit Diagnoses Not on filedocumented in this encounter Care Teams Anesthesia Associate Relationship Specialty Start Date End Date Bita Muñoz FNP [address] [place] [address] PCP - General Family Medicine 02/19/22 Dinh Alexander DPM [address] [facility] [address] [place] [address] Podiatry 03/10/25 Janis Foreman [address] [place] [address] Gynecology 03/10/25 Karen Edward Township SupervisorCeramic Plater 10/17/23 Mady Landin Township SupervisorCeramic Plater 11/03/24 documented as of this encounter
--- OUTSIDE RECORDS SUMMARY | 2025-06-18 10:42 | XMS_ITS | Encounter Summary ---
Author Organization [employer] Address [address] [facility] 7t [place] [address] Care Team Providers Care Surgical Instrument Technician Name Role Phone Bita Muñoz PERINATAL SPECIALIST Primary Care Provider [phone] Dinh Alexander DPKaren Unavailable [phone] Janis Foreman Unavailable Encounter Details Date Type Department Care Team ([facility] st Contact Info) Description 06/15/2025 Orders Only [facility] MED & PEDS [address] [place], [place] [phone] Bita Muñoz FNP [address] [place], [place] [phone] Social History Tobacco Use Types Packs/Day Years [...] housing situation today? I have dylan crane 06/01/[address] you li ve. Do you have problems with any of the following? None of the above 06/01/2025 Food Insecurity Answer Date Recorded Within the past 12 months, y ou worried that your food would run out before you got money to buy more: Sometimes True 2024 Within the past 12 months,th e food you bought just didn't last and you didn't have enough money to get more: Sometimes True 06/01/2025 Transportation Answer Date Recorded In the past [...] Description 07/28/2025 9:15 AM EST Office Visit [facility] [address] [place] [address] Bita Muñoz, PERINATAL SPECIALIST [address] [place] [address] 08/18/2025 10:30 AM EST Office Visit [facility] OPTOMETRY [address] [place] [address] Gerber, Barbara, OD [address] [place] [address] 10/26/2025 10:15 AM EDT Office Visit [facility] ADULT DENTAL [address] [place] [address] Sabrina, Viri [address] [place] [address] documented as of this encounter Visit Diagnoses Not on filedocumented in this encounter Additional Health Concerns Assessment Noted Time PHQ-9 Depression Total Score: 16 025 10:05 AM EDT documented as of this encounter Care Teams Surgical Instrument Technician Relationship Specialty Start Date End Date Bita Muñoz FNP 230 [place] [address] PCP - General Family Medicine 02/19/22 Dinh Alexander DPM 175 [facility] [address] [place] [address] Podiatry 03/10/25 Janis Foreman [address] [place] [address] Gynecology 03/10/25 Karen Edward Flotation TenderScrap Worker 10/17/23 Mady Landin Flotation TenderScrap Worker 11/03/24 documented as of this encounter
--- OUTSIDE RECORDS SUMMARY | 2025-06-18 10:42 | XMS_ITS | Encounter Summary ---
Author Organization [facility] Address [address] [facility] [address] [place] [address] Phone Care Team Providers Care Central Processing Technician Name Role Phone Unavailable Primary Care Provider Unavailabl e Encounter Details Date Type Department Care Team (Latest Contact Info) Description 05/22/2018 Ancillary Orders [facility] [address] [place] [address] [place] [address] Sim Harding, DO [address] [place] [address] Chest pain, unspecified type Social History Tobacco [...] It is not the complete legal health record.[facility]
--- OUTSIDE RECORDS SUMMARY | 2025-06-18 10:42 | XMS_ITS | Encounter Summary ---
Author Organization [employer] Address [address] [facility] 7t [place] [address] Care Team Providers Care Kst Operator Name Role Phone Bita Muñoz GLASS VIAL FILLER Primary Care Provider [phone] Dinh Alexander DPM Unavailable [phone] Janis Foreman Unavailable Reason for Visit * Reason Onset Date Comments Med Refill 04/20/2025 Encounter Details Date Type Department Care Team (Late st Contact Info) Description 04/20/2025 Refill [facility] MEDICINE [address] [place] [address] Eros Mandel, ALVIN [address] [place] [address] Migraine with aura and without status migrainosus, [...] the past 12 months, has t he [employer] gas, oil or water company threatened to [...] Description 07/28/2025 9:15 AM EST Office Visit [facility] MEDICINE [address] [place] [address] Bita Muñoz, GLASS VIAL FILLER [address] [place] [address] 08/18/2025 10:30 AM EST Office Visit [facility] OPTOMETRY [address] [place] [address] Gerber, Barbara, OD [address] [place] [address] 10/26/2025 10:15 AM EDT Office Visit [facility] ADULT DENTAL [address] [place] [address] Sabrina, Viri [address] [place] [address] documented as of this encounter Visit Diagnoses Diagnosis Migraine with aura and without status migrainosus, not intractable documented in this encounter Additional Health Concerns Assessment Noted Time PHQ-9 Depression Total Score: 16 025 10:05 AM EDT documented as of this encounter Care Teams Kst Operator Relationship Specialty Start Date End Date Bita Muñoz FNP [address] [place] [address] PCP - General Family Medicine 02/19/22 Dinh Alexander DPM 175 [facility] [address] [place] [address] Podiatry 03/10/25 Janis Foreman [address] [place] [address] Gynecology 03/10/25 Karen Edward Manufacturer AgentMachine Tailer 10/17/23 Mady Landin Manufacturer AgentMachine Tailer 11/03/24 documented as of this encounter
--- OUTSIDE RECORDS SUMMARY | 2025-06-18 10:42 | XMS_ITS | Encounter Summary ---
Author Organization [employer] Address [address] [facility] 7t [place] [address] Care Team Providers Care Microphone Operator Name Role Phone Bita Muñoz Primary Care Provider [phone] Dinh Alexander DPKaren Unavailable Janis Foreman Unavailable Encounter Details Date Type Department Care Team (Late st Contact Info) Description 05/25/2022 Orders Only [facility] [address] [place] [address] Jonelle Hooker RN Social History Tobacco Use [...] Description 07/28/2025 9:15 AM EST Office Visit [facility] MEDICINE [address] [place] [address] Bita Muñoz FNP [address] [place] [address] 08/18/2025 10:30 AM EST Office Visit [facility] OPTOMETRY [address] [place] [address] Barbara Mayes, OD [address] [place] [address] 10/26/2025 10:15 AM EDT Office Visit [facility] ADULT DENTAL [address] [place], [place] [phone] Viri Bennett [address] [place], [place] [phone] documented as of this encounter Visit Diagnoses Not on filedocumented in this encounter Care Teams Microphone Operator Relationship Specialty Start Date End Date Bita Muñoz FNP [address] [place] [address] PCP - General Family Medicine 02/19/22 Dinh Alexander DPM 175 [facility] 250 [place] [address] Podiatry 03/10/25 Janis Foreman [address] [address] Gynecology 03/10/25 Karen Edward Tin CutterElectronics Worker 10/17/23 Mady Landin Tin CutterElectronics Worker 11/03/24 documented as of this encounter
--- OUTSIDE RECORDS SUMMARY | 2025-06-18 10:42 | XMS_ITS | Encounter Summary ---
Author Organization [employer] Address [address] [facility] 7t [place] [address] Care Team Providers Care Denial Resolution Specialist Name Role Phone Bita Muñoz Primary Care Provider [phone] Dinh Alexander DPM Unavailable Janis Foreman Unavailable Reason for Visit * Reason Onset Date Comments Medication Question 05/24/2022 Reviewed sym ptoms with patient and ED precautions. Pt eligible for Paxlovid, will send rx to pharmacy. Reviewed potential med interactions. Encounter Details Date Type Department Care Team (Late st Contact Info) Description 05/24/2022 Telephone [facility] [address] [place] [address] Bita Muñoz FNP [address] [place], [place] [phone] Medication Question (Reviewed symptoms with patient and [...] Hooker RN - 05/24/2022 4:32 PM EST Dvaon Sunshine, Please review message from Triage Nurse, [...] 05/23/22 and came back positive. Pt speaks nigerian returning call from yesterday . documented in this encounter Plan of Treatment Upcoming Encounters Date Type Department Care Team (Late st Contact Info) Description 07/28/2025 9:15 AM EST Office Visit [facility] [address] [place] [address] Bita Muñoz FNP [address] [place] [address] 08/18/2025 10:30 AM EST Office Visit [facility] OPTOMETRY [address] [place] [address] Gerber, Barbara, OD [address] [place] [address] 10/26/2025 10:15 AM EDT Office Visit [facility] ADULT DENTAL [address] [place] [address] Sabrina, Viri [address] [place] [address] documented as of this encounter Visit Diagnoses Diagnosis COVID-19 virus infection- Primary documented in this encounter Care Teams Denial Resolution Specialist Relationship Specialty Start Date End Date Bita Muñoz FNP [address] [place] [address] PCP - General Family Medicine 02/19/22 Dinh Alexander DPM 175 [facility] [address] [place] [address] Podiatry 03/10/25 Janis Foreman [address] [place] [address] Gynecology 03/10/25 Karen Edward Milking System InstallerJewelry Model Maker 10/17/23 Mady Landin Milking System InstallerJewelry Model Maker 11/03/24 documented as of this encounter
--- OUTSIDE RECORDS SUMMARY | 2025-06-18 10:42 | XMS_ITS | Clinical Summary ---
Author Organization [employer] Address [address] [facility] [address] [place] [address] Care Team Providers Care Drop Pit Worker Name Role Phone Bita Muñoz WIRE GALVANIZER Primary Care Provider [phone] Dinh Alexander DPM Unavailable [phone] Janis Foreman Unavailable Allergies No known active [...] at bedtime. 02/16/20 21 Active sodium chloride (Blue Earth) 0.65 % nasal spray Administer 2 sprays into each nostril if needed each day. 03/23/20 20 Active guaiFENesin (Mucinex) 600 MG 12 hr tabletIndications :Acute viral syndrome Take 1 tablet (600 mg) by mouth in the morning and at bedtime. 60 tablet 06/20/20 22 Active Additional Information Patient not taking.Reported on 06/09/2025 ARIPiprazole (Abilify) 2 MG tablet TAKE 1 TABLET BY MOUTH ONCE DAILY FOR MOOD 12/04/19 24 Active FLUoxetine (PROzac) 10 MG capsule Take 10 mg by mouth Once per day. 10/15/19 24 Active estradiol (Estrace) 0.1 MG/GM vaginal cream INSERT 1 GRAM VAGINALLY TWICE A WEEK AT BEDTIME DIRECTED 11/12/19 24 Active fluticasone (Flonase) 50 MCG/ACT nasal sprayIndications: Seasonal allergies Administer 1-2 sprays into each nostril if needed each day for allergies. 16 g 3 12/03/19 25 Active cetirizine (ZyrTEC) 10 MG tabletIndications :Seasonal allergies Take 1 tablet (10 mg) by mouth if needed each day for allergies. 90 tablet 3 03/08/20 25 Active atorvastatin (Lipitor) 80 MG tabletIndications :Dyslipidemia [...] dizziness. 30 tablet 3 04/21/20 25 Active estradiol-norethi ndrone (CombiPatch) 0.05-0.14 MG/DAYIndications :Hot flashes Place 1 patch on the skin 2 (two) times a week. 8 patch 2 04/22/20 25 Active topiramate (Topamax) 25 MG tabletIndications :Migraine with aura and without status migrainosus, not intractable Take 1 tablet (25 mg) by mouth at bedtime. 90 tablet 1 04/20/20 25 026 Active celecoxib (CeleBREX) 100 MG capsule TAKE 1 CAPSULE BY MOUTH TWICE DAILY IN THE MORNING AND AT BEDTIME NEEDED FOR PAIN 60 capsule 1 04/20/20 25 Active naproxen (Naprosyn) 250 MG tablet Take 1-2 tablets (250-500 mg) by mouth if needed in the morning and at bedtime (pain). 30 tablet 2 06/15/20 25 Active erythromycin (Romycin) 5 MG/GM ophthalmic ointment Apply to affected eye(s) 4 times daily for 7 days. Apply Amount per Dose: 0.5 inch (~1 cm) per dose. 3.5 g 06/14/2025 2:00 PM EST 06/09/20 25 025 Active Problems Problem Noted Date Diagnosed Date Dermatophytosis of nail 06/09/2025 Assessment & Plan (06/09/2025 4:47 PM EST): Following with [facility] - Dr. 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 Remainder of neuro exam was benign Upcoming appt with optometry, previously following with Neuro Labs ordered as below Follow up with any worsening of symptoms Seasonal allergies 12/02/2024 Assessment & Plan (12/02/2024 3:56 PM EDT): Cetirizine 10 mg daily as needed Flonase intranasal as needed Hot flashes 07/15/2024 Assessment & Plan (03/10/2025 [...] hip pain 04/13/2024 Overview (03/10/2025): Following with [facility] - Dr. Bergman & [facility] - Dr. Dalton. MRI completed [...] - No acute changes - Following with [facility], consult scheduled next week to review [...] Plan (01/13/2024 8:05 PM EDT): Following with [facility] - Vicenta Robison, SMASH HAND Continues on vaginal estrogen through specialist, has [...] action stage. PLAN: 1. Follow up with [facility]: Not recommended for follow-up 2. Patient goal is to decrease stress level 3. Behavioral Recommendations a. Utilize coping skills provided b. Engage in therapy when established c. May reach out to [facility] for additional support Assessment & Plan (01/29/2023 5:50 PM EDT): Housing is significant stressor Currently housed, although not necessarily stable in the future BE conducted today, please see note for further details Referral to [facility] team placed Benign paroxysmal positional vertigo [...] 1 Pap: NILM, HPV neg 12/28/24 at [facility]PER[facility] Colonoscopy: 07/22/20, 5 year follow-up Contraception: BTL Smoking status: non-smoker Eye Exam: 04/10/23 Dental: [facility], requested referral to [facility] dental Assessment & Plan (07/15/2024 3:37 PM EST): Referral sent to [facility] Dental Advised pt to go get Zoster vaccination at pharmacy Assessment & Plan (05/09/2023 7:52 PM EST): -Influenza and tetanus vaccines administered today Pulmonary hypertension ([facility]/HCC) 02/25/2015 Overview (12/02/2024): October 2024: Repeat TTE demonstrated normal EF 60-65% and no evidence of pulmonary hypertension Assessment & Plan (06/09/2025 8:37 PM EST): - Previously following with [facility] - BP well controlled - She was referred to Cards in Jul 2024. 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 Assessment & Plan (08/12/2024 4:16 PM EST): - Previously following with [facility] (discharged from office d/t NS) - BP well controlled - Referral to Cards placed 08/12/24 Assessment & Plan (07/15/2024 3:38 PM EST): Pulmonary exam wnl today Pt hasn't seen specialist since [address] referral today and advised pt to f/u with specialist regarding this condition Dyslipidemia 04/24/2013 Overview (06/09/2025): Lab Results Component Value Date TRIG 140 2025 CHOL 190 2025 LDLCHOLCAL 122 (H) 2025 HDL 40 (L) 2025 -Continue lifestyle modifications -Cont atorvastatin 80mg nightly Assessment & Plan (06/09/2025 4:48 PM EST): If continues to be elevated, will plan to add zetia 10mg daily Disorder of thyroid gland 12/24/2011 Overview (09/29/2023): Lab Results Component Value Date TSH 2.23 06/05/2023 Assessment & Plan (06/06/2023 6:08 PM EST): Repeat TSH and TPO ordered Migraine 12/24/2011 Overview (05/09/2023): 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 Follow up with [facility]: Not recommended for follow-up 2. Patient goal [...] needed Irregular periods 12/13/2011 Assessment & Plan (06/09/2025 8:38 PM EST): -EMB performed 04/21/[address] Antony for [...] completed, but insufficient tissue. Referral to OBGYN [facility] for further management. -Referred to [facility], pt reports procedure pending -Request team RN to assist with care coordination Assessment & Plan (03/10/2025 4:27 PM EDT): [...] completed, but insufficient tissue. Referral to OBGYN [facility] for further management. -Continue following with [facility]PER[facility], upcoming appt with [facility] Assessment & Plan (09/29/2023 8:06 PM EDT): -EMB performed 04/21/[address] Antony for hx of menometrorrhagia -Denies further menstrual bleeding or AUB -Pelvic US August 2021 demonstrated small uterine calcifications. Possibly r/t degenerative fibroids. Normal thickness endometrium and normal-appearing ovaries -Continue following with [facility] OPERATOR Resolved Problems Problem Noted Date Diagnosed Date Resolved Date Dental calculus 01/05/2025 06/09/2025 Periodontal disease 10/08/2024 06/09/20 25 Dental caries 10/08/2024 06/09/2025 Missing teeth, acquired 10/08/202405/24 Hyperlipidemia 07/15/2024 03/10/2025 Dietary counseling 07/15/2024 Assessment & Plan (07/15/2024 [...] carbohydrates such as fruits Exercise counseling 07/15/2024 06/09/20 Assessment & Plan (07/15/2024 3:36 PM EST): Exercise Recommendations: At least 150 minutes of moderate-intensity physical activity per week, or an equivalent combination of moderate- and vigorous-intensity activity Plans to continue with home workouts and walks around neighborhood or mall during cold weather Sore throat 10/08/2023 01/07/2024 Assessment & Plan [...] Encounters Date Type Department Care Team Description 06/15/2025 Orders Only [facility] CHC MED & PEDS [address] [place] [address] Bita Muñoz FNP 06/10/2025 Telephone [facility] MEDICINE [address] [place] [phone] Dayna Hoang RN Interoffice Coordination 06/09/2025 10:00 AM EST Office Visit [facility] MEDICINE [address] [place] [address] Bita Muñoz FNP Dermatophytosis of nail (Primary Dx); Prediabetes; Dyslipidemia; Pulmonary hypertension (CMS/HCC) (HCC); Irregular periods; Blepharitis of left upper eyelid, unspecified type 06/09/2025 Travel 06/08/2025 Telephone [facility] WALK-IN CENTER [address] [place] [address] Fadia Banuelos [place] 06/01/2025 Patient Outreach [address] [address] Bita Muñoz FNP Care Coordination (CH[facility] outreach for SDOH food & housing search-referral completed ) 06/01/2025 Patient Outreach [address] [address] Bita Muñoz FNP Pre-visit Planning (SDOH Screening positive and Tobacco screening negative) 04/28/2025 Telephone [facility] WALK-IN [address] [address] Parish Paiz MD 04/27/2025 9:40 AM EST Office [facility] [address] [address] Parish Paiz MD Dysuria (Primary Dx); Vaginal discharge 04/27/2025 Travel 04/21/2025 10:15 AM EDT Office Visit [facility] ADULT DENTAL [address] [place] [address] Sabrina Viri Missing teeth, acquired (Primary Dx); Routine health maintenance; Dental plaque 04/20/[address] [address] Eros Mandel CNP Migraine with aura and without status migrainosus, not intractable 04/20/[address] [address] Bita Muñoz FNP Dyslipidemia; Vitamin D insufficiency; Hot flashes 04/20/[address] [address] Natalie Sue MD 04/19/[address] [address] Bita Muñoz FNP Durable Medical Equipment 03/29/2025 Results Follow-Up [facility] MED & PEDS [address] [place], [place] [phone] Bita Muñoz FNP Hemoglobin A1c, Lipid Panel, Standard, CBC auto differential, Additional followed-up results: 3 from Last 3 Months Immunizations Immunization Administration [...] housing situation today? I have dylanjulita crane 06/01/[address] you [...] Sign Reading Time Taken Comments Blood Pressure 112/72 06/09/2025 10:19 AM EST Pulse 86 06/09/2025 10:19 AM EST Temperature 37.1 C (98.8 F) 06/09/2025 10:19 AM EST Respiratory Rate 18 06/09/2025 10:19 AM EST Oxygen Saturation 96% 04/27/2025 9:33 AM EST Inhaled Oxygen Concentration - - Weight 77.1 kg (170 lb) 06/09/2025 10:19 AM EST Height 146.7 cm (4' 9.75 ) 06/09/2025 10:[address] Body Mass Index 35.84 06/09/2025 10:19 AM EST Plan of Treatment Upcoming Encounters Date Type Department Care Team (Late st Contact Info) Description 07/28/2025 9:15 AM EST Office Visit [facility] MEDICINE [address] [place] [address] Bita Muñoz, WIRE GALVANIZER [address] [place] [address] 08/18/2025 10:30 AM EST Office Visit [facility] OPTOMETRY [address] [place] [address] GerberBarbara valverde, OD [address] [place] [address] 10/26/2025 10:15 AM EDT Office Visit [facility] ADULT DENTAL [address] [place] [address] Viri Bennett [address] [place] [address] Health Maintenance Due Date Last Done Comments CT Colonography 1975 FIT DNA/Cologuard 1975 FIT 1975 FOBT 1975 Sigmoidoscopy 1975 Dental Oral Exam 04/09/2025 10/07/2024, 12/15/2013 Family Planning (PISQ) 07/15/2025 07/15/2024 Colonoscopy 07/22/2025 07/22/2020 Colorectal Cancer Screening 07/22/2025 Depression Monitoring 09/07/2025 03/10/2025, 025 Dental X-Ray: Bitewings 10/08/2025 10/08/19 25, 12/15/2013, 04/26/2008 Dental Prophylaxis 10/21/2025 04/21/2025, 0 10/08/2024, 04/26/2008 Mammogram 10/26/2025 10/26/2024, 09/23, 10/15/2022, Additional history exists Influenza Vaccine (#1) 2025 , 04/23/2022, 03/31/2021, Additional history exists Postponed from 02/22/2025 (Patient Refused) Disability Screening 03/10/2026 03/10/2025 Diabetes: Hemoglobin A1C 2026 025, 06/05/2023, 11/07/2021, Additional history exists Tobacco Screening 04/27/2026 04/27/2025 SDOH Screening 06/01/2026 06/01/2025 Alcohol/Substance Use Screening 06/09/2026 06/09/2025 COVID-19 Vaccine ( season) 2026 Postponed from 02/22/2025 (Patient Refused) Dental X-Ray: Full Mouth 10/09/2027 025, 01/09/2024, 12/15/2013 Cervical Cancer Screening 12/28/2029 HPV/Cotest 12/28/2029 12/17/2024, 09/0 02/2024, 09/10/2018 Pap Smear 12/28/2029 12/28/2024, 11/23, 03/02/2024, Additional history exists Lipid Panel 2030 2025, 12/22, 06/05/2023, Additional history exists DTaP/Tdap/Td Vaccines (3 - [...] Associated Diagnosis Comments CULTURE, URINE, ROUTINE Routine 04/27/2025 10:01 AM EST Dysuria POCT URINALYSIS DIPSTICK Routine 04/27/2025 9:44 AM EST Dysuria CHLAMYDIA/N. GONORRHOEAE RNA, TMA, UROGENITAL Routine 04/27/2025 9:36 AM EST Vaginal discharge BACTERIAL VAGINOSIS PANEL Routine 04/27/2025 9:36 AM EST Vaginal discharge ORAL HYGIENE INSTRUCTIONS Routine 04/21/2025 10:15 AM EDT Missing teeth, acquired Routine health maintenance Dental plaque CASE PRESENTATION, DETAILED AND EXTENSIVE TREATMENT PLANNING Routine 04/21/2025 10:15 AM EDT Missing teeth, acquired Routine health maintenance Dental plaque PROPHYLAXIS - ADULT Routine 04/21/2025 1 0:15 AM EDT Missing teeth, acquired Routine health maintenance Dental plaque HEMOGLOBIN A1C Routine 2025 11:02 AM EDT Routine health maintenance Ptosis of right eyelid LIPID PANEL, STANDARD Routine 2025 11:02 AM [...] Health Maintenance Results * Culture, Urine, Routine (04/27/2025 10:01 AM EST) Urine Urine specimen obtained by clean catch procedure / Unknown 04/27/2025 10:01 AM EST 04/27/2025 4:30 PM EST Comment:[facility] - 04/29/2025 10:56 AM EST Urine Culture No growth. Specimen Source: Urine clean catch Parish Paiz MD LAB MICROBIOLOGY - GENERAL ORDER CHUN Final Result [facility] [address] [place] [address] [phone] * (ABNORMAL) POCT Urinalysis (04/27/2025 9:44 AM [...] Urine (Urine, Random) 04/27/2025 9:44 AM EST us Parish Paiz MD POINT OF CARE TEST ENTER/EDIT OR DERABLES Final Result * (ABNORMAL) Bacterial Vaginosis Panel (04/27/2025 9:36 AM EST) TRICHOMONAS VAGINALIS DETECTION BY PCR NOT DETECTED Not Detect [facility] BACTERIAL VAGINOSIS DETECTION BY PCR POSITIVE(A) Negative [facility] Comment:The BV organism targ ets of [...] of 14. GLADIS GROUP DETECTION BY PCR DETECTED(A) Not Detect [facility] Gladis glab krusei PCR NOT DETECTED Not Detect [facility] Swab Vaginal structure / Unknown 04/27/2025 9:36 AM EST 04/27/2025 4:30 PM EST Parish Paiz MD LAB MICROBIOLOGY - GENERAL ORDER CHUN Final Result [facility] [address] [place] [address] [phone] * Chlamydia/N. Gonorrhoeae RNA, TMA, Vaginal (04/27/2025 9:36 AM EST) CT PCR NOT DETECTED Not Detect. [facility] Comment:A not detected test result does [...] psychologicalconsequences. NG PCR NOT DETECTED Not Detect. [facility] Comment:A not detected test result does [...] lead to adverse medical, social or psychologicalconsequences. Swab (Vaginal Swab) 04/27/2025 9:36 AM EST 04/27/2025 4:30 PM EST Parish Paiz MD LAB MICROBIOLOGY - GENERAL ORDER CHUN Final Result Performing Organization Address [facility]/ZIP Co de Phone Number [facility] [address] [place] [address] [phone] * Hemoglobin A1c (2025 11:02 AM EDT) Hemoglobin A1c 6.0 <6.0 % [facility] Comment:Hemoglobin A1C Refer ence Range Adults: 4.8 - 6.0 % Non diabetic: < 6.0 % Goal: < 7.0 %Additional Action Suggested: > 8.0 %Note: Hemoglobin A1c results are invalid for patients with abnormal amounts of HbF. Blood transfusions may impact the HbA1c concentration in the patient sample. Estimated Average Glucose 126 mg/dL [facility] Comment:eAG = Estimated ave rage glucose which is %A1C expressed asaverage glucose, using the formula of the S5Z-XvyzakkOdlllfp Glucose study (ADAG), Diabetes Care, Vol.31,#8,Jan. 2007 Blood Venous blood specimen / Unknown 2025 11:02 AM EDT 2025 12:51 PM EDT us Bita Muñoz WIRE GALVANIZER LAB BLOOD ORDERABLES Final Res ult Performing Organization Address [facility]/ZIP Co de Phone Number [facility] [address] [place] [phone] * (ABNORMAL) Lipid Panel, Standard (2025 11:02 AM EDT) Triglycerides 140 <150 mg/dL [facility] Comment:Desirable Triglyceri de: less than 150 mg/dLBorderline High Triglyceride 150-199 mg/dLHigh Triglyceride: 200-499 mg/dLVery High Triglyceride: greater than or equal to 5OO mg/dL Cholesterol 190 <200 mg/dL [facility] Comment:Desirable Cholestero l: less than 200 mg/dLBorderline High Cholesterol: 200-239 mg/dLHigh Cholesterol: greater than 239 mg/dL LDL Cholesterol Calculated 122(H) <100 mg/dL [facility] Comment:Desirable LDL: less than 100 mg/dLNear Optimal/Above Optimal LDL: 110- 129 mg/dLBorderline High LDL: 130-159 mg/dLHigh LDL: 160-189 mg/dLVery High LDL: greater than or equal to 190 mg/dL HDL Cholesterol 40(L) >40 mg/dL [facility] Comment:Desirable HDL: great er than 40 mg/dL Note: This HDL assay may give artificially low results in patients with liver disease. Blood Venous blood specimen / Unknown 2025 11:02 AM EDT 2025 12:51 PM EDT us Bita Muñoz WIRE GALVANIZER LAB BLOOD ORDERABLES Final Res ult [facility] [address] [place] [phone] * Pap Smear (12/28/2024 9:34 AM EDT) 12/28/2024 9:34 AM EDT 12/29/2024 8:20 AM EDT Narrative [facility] - 12/31/2024 1:52 PM EDT ----- ------- Name: Cooney Zoila Jackson Age/Sex: 49/F : 1975 Unit#: [id number] Attend Dr: Julio C Antony MD Re12/28/24 Status: DEP REF Location: HO.LNP Disch: ----- ------- SPEC : [id number] RECD: 12/29/24 STATUS: ELLYN GOLD NUM: [id number] CECIL: 12/28/[address] [facility] [address]: Julio C Antony MD ENTERED: 12/29/24 SP TYPE: Pap Smr OT DR: Bita Muñoz ORDERED: Pap Smear Interpretation [...] and HPV testing will be performed at [facility] (CLIA #[id number]), [address] [place] [address]. Testing for HPV was performed using the OpenSignalAS 6800 system. The presence of HPV in the [...] detected. All professional services are performed by [facility] ([address] [place] [address]; ; CLIA #[id number]). The PAP Test is a screening procedure with the inherent possibility of both false negative and false positive results. Results should be interpreted in the context of historic and current clinical findings. Reliability of the PAP Test is enhanced by performing the test on a regular repetitive basis. Copies To: Bita Muñoz [address] [place] [address] CONTINUED ON NEXT PAGE ----- ------- Name: Zoila Petersen Age/Sex: 49/F : 1975 Unit#: [id number] Attend Dr: Julio C Antony MD Re12/28/24 Status: [facility]P [facility] Disch: ----- ------- SPEC : [id number] RECD: 12/29/24 STATUS: ELLYN GOLD NUM: [id number] CECIL: 12/28/[address] [facility] [address]: Julio C Antony MD ENTERED: 12/29/24 SP TYPE: Pap Smr OTHR DR: Bita Muñoz [facility] ORDERED: Pap Smear Copies To: (Continued) Julio C Antony MD [facility] [address] [place] [address] [place] [phone] ----- ------- Signed (signature on file) NELSY Heaton ([facility]) 12/31/24 1352 ----- ------- END OF REPORT Generic External Data Provider LAB CYTOLOGY ORDE RABLES Final Result Performing Organization Address [facility]/ZIP Co de Phone Number [facility] [address] [place] [address] [phone] * HPV DNA, Low/High Risk (12/17/2024 10:32 AM EDT) Pathologist [facility] HPV High Risk Negative Negative [facility] HPV Genotype 16 Negative Negative [facility] HPV Genotype 18 Negative Negative [facility] Comment:HPV testing performe d at [facility] (CLIA#[id number]), [address] [place] [address].Testing for HPV was performed using the Vika [...] ORDERAB LES Final Result Performing Organization Address [facility] Co de Phone Number [facility] [address] [place] [address] [phone] * BI Mammogram Screening Tomosynthesis Bilateral (10/26/2024 11:00 AM EDT) Anatomical Region Laterality Modality Breast Bilateral Mammography 10/26/2024 11:0 0 AM EDT Narrative 11/01/2024 9:13 PM EDT [facility] [address] [place] [address] Mammography Report Signed Patient: Zoila Petersen MR#: [id number] : 1975 Acct:[id number] Age/Sex: 49 / F ADM Date: 10/26/24 Loc: HO.MAMMO Attending Dr: Bita Muñoz WIRE GALVANIZER Ordering Physician: Janis Foreman CNM Results: 1Nega tive Date of Service: 10/26/24 Follow Up: 1 Year From Orig inal Mammogram Procedure(s): MM tomosynthesis screening BI Accession Number(s): [id number] cc: Janis Foreman CNM; Bita Muñoz WIRE GALVANIZER EXAMINATION: MM SCREENING DIGITAL BREAST TOMOSYNTHESIS, BILATERAL [...] 11/01/24 2111 DD/ 1100 TD/TT: 10/26/24 1117 Patient Service Rep: Procedure Note Donotuseinterpreter, Image - 11/01/2024 [facility] [address] [place] [address] Mammography Report Signed Patient: Ish Petersen#: [id number] : 1975Acct:[id number] Age/Sex: 49 / FADM Date: 10/26/24 Loc: HO.MAMMO Attending Dr: Bita Muñoz WIRE GALVANIZER Ordering Physician: Janis Foremanesults: 1Nega tive Date of Service: 10/26/24Follow Up: 1 Year From Orig inal Mammogram Procedure(s): MM tomosynthesis screening BI Accession Number(s): [id number] cc: Janis Foreman CNM; Bita Muñoz WIRE GALVANIZER EXAMINATION: MM SCREENING DIGITAL BREAST TOMOSYNTHESIS, BILATERAL [...] signed by Lindsey Garrett DO in OV> 11/01/241 DD/ 1100 TD/TT: 10/26/24 1117 Patient Service Rep: [facility] External Provider IMG BI PROCEDURES Final Result * Hepatitis C Ab (03/07/2023 12:19 PM EDT) Pathologist [facility] Hepatitis C Antibody Nonreactive Nonreactive [facility] Comment:Antibodies to HCV no t detected; does not exclude early acuteHCV infection. 03/07/2023 12:1 9 PM EDT 03/07/2023 12:19 PM EDT us Generic External Data Provider LAB BLOOD ORDERAB LES Final Result Performing Organization Address [facility] Co de Phone Number [facility] [address] [place] [address] [phone] * HIV Ab/Ag ([facility]) (03/07/2023 12:19 PM EDT) [facility] HIV AB/AG Nonreactive Nonreactive [facility] Comment:HIV-1 p24 Ag and/or HIV-1/HIV-2 Ab not detected.A test result that is nonreactive does not exclude thepossibility of exposure to or infection with HIV-1 and/orHIV-2. Nonreactive results in this assay for individualswith prior exposure to HIV-1 and/or HIV-2 may be due toantigen and antibody levels that are below the limit ofdetection of this assay.The [employer] HIV Ag/Ab Combo assay result andsupplemental assay results should be interpreted inconjunction with the patient's clinical presentation,history and other laboratory results. If the results areinconsistent with clinical evidence, additional testing issuggested to confirm the result. 03/07/2023 12:1 9 PM EDT 03/07/2023 12:19 PM EDT us Generic External Data Provider LAB BLOOD ORDERAB LES Final Result Performing Organization Address [facility] Co de Phone Number [facility] [address] [place] [address] [phone] Hm Colonoscopy (07/22/2020) [facility] Colonoscopy Normal Normal Comment:5 Yr F/U us Historical Provider HEALTH MAINTENANCE Edited Result - Final from Last 3 Months or Most Recently Relevant to Health Maintenance Insurance [facility] C3 DENTAL-[facility] MEDICAID STAND ADULT Care Teams Drop Pit Worker Relationship Specialty Start Date End Date Bita Muñoz FNP [address] [place] [address] PCP - General Family Medicine 02/19/22 Dinh Alexander DPM [address] [facility] [address] [place] [address] Podiatry 03/10/25 Janis Foreman [address] [place] [id number] Gynecology 03/10/25 Karen Edward Architectural ExaminerAids Nurse 10/17/23 Mady Landin Architectural ExaminerAids Nurse 11/03/24
== END 2025-06-18 10:40 | disposition home or self-care (01) ==
LOC: HO.US 10:39
PROVIDERS: PCP Registered Nurse; Visit Provider Obstetrics & Gynecology
DX: D25.9 Leiomyoma of uterus, unspecified (principal)
CPT/HCPCS: 76830; 76856

== ENCOUNTER → 2025-06-18 10:41 | Outpatient (BNV) | payer MEDICAID, SELFPAY | PROVIDERS: PCP Registered Nurse; Visit Provider Radiology Diagnostic Radiology | DX: D25.1 Intramural leiomyoma of uterus (principal); N85.8 Other specified noninflammatory disorders of uterus | CPT/HCPCS: 76830; 76856 ==